=== PATIENT | male | born 1935 | race Caucasian/White ===

== ENCOUNTER 2020-07-16 01:36 | Observation (INO) | payer MEDICARE, OTHER ==
[2020-07-16] MEDS ORDERED: ONDANSETRON 4 MG/2 ML VIAL IVP STA (01:56)
[2020-07-16] MEDS ORDERED: SODIUM CHLORIDE 0.9% 1,000 ML IV STA ×2 (01:56)
--- NOTE | 2020-07-16 01:57 | ED ---
Weakness HPI - General Stated complaint: Vomiting, diarrhea Time Seen by Provider: 07/16/20 01:47 Source: RN notes reviewed, old records reviewed Limitations: no limitations - History of Present Illness Initial comments: This is a 5-year-old male poor story coming in for persistent nausea vomiting weakness vomiting blood and dark stools. Patient is on blood thinners no unknown, history is limited secondary active vomiting of condition. History obtained from patient's who is at bedside. MD Complaint: generalized weakness -: days(s) Location: generalized Severity: severe Severity scale (1-10): 10 Quality: constant Consistency: constant Improves with: none Worsens with: none Context: recent illness Associated Symptoms: confusion, loss of appetite, nausea/vomiting, shortness of breath - Related Data Allergies Allergy/AdvReac Type Severity Reaction Status Date / Time acetaminophen [From Percocet] Allergy Unknown Verified 07/16/20 02:28 celecoxib [From Celebrex] Allergy Confusion Verified 07/16/20 02:28 nabumetone [From Relafen] Allergy Rash/Hives Verified 07/16/20 02:28 oxycodone [From Percocet] Allergy Unknown Verified 07/16/20 02:28 pantoprazole [From Protonix] Allergy Unknown Verified 07/16/20 02:28 haloperidol [From Haldol] AdvReac Anaphylaxis Verified 07/16/20 02:28 Review of Systems ROS Statement: Those systems with pertinent positive or pertinent negative responses have been documented in the HPI. ROS Other: All systems not noted in ROS Statement are negative. General Exam General appearance: alert, anxious, in distress Head exam: Present: atraumatic, normocephalic, normal inspection Eye exam: Present: normal appearance, PERRL, EOMI. Absent: scleral icterus, conjunctival injection, periorbital swelling ENT exam: Present: normal exam, mucous membranes dry Neck exam: Present: normal inspection. Absent: tenderness, meningismus, lymphadenopathy Respiratory exam: Present: normal lung sounds bilaterally. Absent: respiratory distress, wheezes, rales, rhonchi, stridor Cardiovascular Exam: Present: normal rhythm, tachycardia, normal heart sounds. Absent: systolic murmur, diastolic murmur, rubs, gallop, clicks GI/Abdominal exam: Present: soft, normal bowel sounds. Absent: distended, tenderness, guarding, rebound, rigid Extremities exam: Present: normal inspection, full ROM, normal capillary refill. Absent: tenderness, pedal edema, joint swelling, calf tenderness Back exam: Present: normal inspection Neurological exam: Present: alert, oriented X3, CN II-XII intact Psychiatric exam: Present: normal affect, normal mood Skin exam: Present: warm, dry, intact, normal color. Absent: rash Course Vital Signs 07/16/20 01:56 Temperature 98.8 F Pulse Rate 103 H Respiratory 18 Rate Blood Pressure 194/75 O2 Sat by Pulse 93 L Oximetry - Reevaluation(s) Reevaluation #1: 07/16/20 02:15 Medical record is reviewed Reevaluation #2: 07/16/20 03:12 Patient does have mild improvement in symptoms currently Reevaluation #3: 07/16/20 03:12 Patient family informed results EKG Findings - EKG Comments: EKG Findings:: EKG shows sinus a 94, MA 136 QRS 82 QTC 440 Medical Decision Making - Medical Decision Making 85 male DF for evaluation of weakness persistent nausea vomiting possible blood in stool, patient has normal hemoglobin no need for transfusion for signs are stable symptoms as her proved. Patient will be admitted for GI bleed versus intractable nausea vomiting with weakness - Lab Data Result diagrams: 07/16/20 01:56 07/16/20 01:56 Lab Results 07/16/20 07/16/20 07/16/20 Range/Units 01:56 01:56 01:56 WBC 9.0 (3.8-10.6) k/uL RBC 4.09 L (4.30-5.90) m/uL Hgb 11.8 L (13.0-17.5) gm/dL Hct 37.3 L (39.0-53.0) % MCV 91.2 (80.0-100.0) fL MCH 28.7 (25.0-35.0) pg MCHC 31.5 (31.0-37.0) g/dL RDW 14.1 (11.5-15.5) % Plt Count 280 (150-450) k/uL MPV 6.8 Neutrophils % 95 % Lymphocytes % 2 % Monocytes % 2 % Eosinophils % 1 % Basophils % 0 % Neutrophils # 8.5 H (1.3-7.7) k/uL Lymphocytes # 0.2 L (1.0-4.8) k/uL Monocytes # 0.2 (0-1.0) k/uL Eosinophils # 0.1 (0-0.7) k/uL Basophils # 0.0 (0-0.2) k/uL PT 11.1 (9.0-12.0) sec INR 1.1 (<1.2) APTT 22.3 (22.0-30.0) sec Sodium 139 (137-145) mmol/L Potassium 4.8 (3.5-5.1) mmol/L Chloride 103 (98-107) mmol/L Carbon Dioxide 25 (22-30) mmol/L Anion Gap 11 mmol/L BUN 38 H (9-20) mg/dL Creatinine 1.20 (0.66-1.25) mg/dL Est GFR (CKD-EPI)AfAm 64 (>60 ml/min/1.73 sqM) Est GFR (CKD-EPI)NonAf 55 (>60 ml/min/1.73 sqM) Glucose 199 H (74-99) mg/dL Plasma Lactic Acid Joseph (0.7-2.0) mmol/L Calcium 9.3 (8.4-10.2) mg/dL Phosphorus 3.7 (2.5-4.5) mg/dL Magnesium 1.7 (1.6-2.3) mg/dL Total Bilirubin 0.7 (0.2-1.3) mg/dL AST 23 (17-59) U/L ALT 11 (4-49) U/L Alkaline Phosphatase 73 (38-126) U/L Lactate Dehydrogenase 484 (313-618) U/L Creatine Kinase 36 L (55-170) U/L C-Reactive Protein 25.7 H (<10.0) mg/L Total Protein 7.3 (6.3-8.2) g/dL Albumin 4.0 (3.5-5.0) g/dL 07/16/20 Range/Units 01:56 WBC (3.8-10.6) k/uL RBC (4.30-5.90) m/uL Hgb (13.0-17.5) gm/dL Hct (39.0-53.0) % MCV (80.0-100.0) fL MCH (25.0-35.0) pg MCHC (31.0-37.0) g/dL RDW (11.5-15.5) % Plt Count (150-450) k/uL MPV Neutrophils % % Lymphocytes % % Monocytes % % Eosinophils % % Basophils % % Neutrophils # (1.3-7.7) k/uL Lymphocytes # (1.0-4.8) k/uL Monocytes # (0-1.0) k/uL Eosinophils # (0-0.7) k/uL Basophils # (0-0.2) k/uL PT (9.0-12.0) sec INR (<1.2) APTT (22.0-30.0) sec Sodium (137-145) mmol/L Potassium (3.5-5.1) mmol/L Chloride (98-107) mmol/L Carbon Dioxide (22-30) mmol/L Anion Gap mmol/L BUN (9-20) mg/dL Creatinine (0.66-1.25) mg/dL Est GFR (CKD-EPI)AfAm (>60 ml/min/1.73 sqM) Est GFR (CKD-EPI)NonAf (>60 ml/min/1.73 sqM) Glucose (74-99) mg/dL Plasma Lactic Acid Joseph 3.1 H* (0.7-2.0) mmol/L Calcium (8.4-10.2) mg/dL Phosphorus (2.5-4.5) mg/dL Magnesium (1.6-2.3) mg/dL Total Bilirubin (0.2-1.3) mg/dL AST (17-59) U/L ALT (4-49) U/L Alkaline Phosphatase (38-126) U/L Lactate Dehydrogenase (313-618) U/L Creatine Kinase (55-170) U/L C-Reactive Protein (<10.0) mg/L Total Protein (6.3-8.2) g/dL Albumin (3.5-5.0) g/dL - Radiology Data Radiology results: report reviewed (X-ray abdominal series and chest is negative for acute disease), image reviewed Disposition Clinical Impression: Dehydration, Gastroenteritis, Nausea & vomiting, Weakness, GI bleed Disposition: ADMITTED IP TO THIS HOSP Condition: Fair Is patient prescribed a controlled substance at d/c from ED?: No Referrals: None,Stated [Primary Care Provider] - 1-2 days
[2020-07-16] MEDS ORDERED: ACETAMINOPHEN IV (For NPO) 1,000 MG in EMPTY BAG 1 BAG IVPB STA (02:10)
[2020-07-16] MEDS ORDERED: LORazepam 2 MG/ML INJ IV STA (02:10)
[2020-07-16 02:30] LABS: Basophils % (A) 0 %; Eosinophils # (A) 0.1 k/uL (0-0.7); Eosinophils % (A) 1 %; HCT 37.3 % (39.0-53.0); HGB 11.8 gm/dL (13.0-17.5); Lymphocytes # (A) 0.2 k/uL (1.0-4.8); Lymphocytes % (A) 2 %; MCH 28.7 pg (25.0-35.0); MCHC 31.5 g/dL (31.0-37.0); MCV 91.2 fL (80.0-100.0); Mean Platelet Volume 6.8; Monocytes # (A) 0.2 k/uL (0-1.0); Monocytes % (A) 2 %; Neutrophils # (A) 8.5 k/uL (1.3-7.7); Neutrophils % (A) 95 %; Platelet Count 280 k/uL (150-450); RBC 4.09 m/uL (4.30-5.90); RDW 14.1 % (11.5-15.5)
[2020-07-16 02:40] LABS: INR 1.1 (<1.2); Partial Thromboplastin Time 22.3 sec (22.0-30.0); Prothrombin Time 11.1 sec (9.0-12.0)
--- NOTE | 2020-07-16 03:02 | XR ---
EXAM: XR Abdomen, 2 Views and XR Chest, 1 View CLINICAL HISTORY: ITS.REASON XR Reason: nv TECHNIQUE: Frontal view of the chest, frontal view of the abdomen/pelvis and upright or decubitus view of the abdomen. COMPARISON: No relevant prior studies available. FINDINGS: Lungs: Multiple tiny nodular high-density material in the right lung base. Calcified granuloma right lung apex. Pleural space: No effusion. Heart: No cardiomegaly. Mediastinum: Unremarkable. Intraperitoneal space: No free air. Gastrointestinal tract: Unremarkable. No dilation. Bones/joints: No acute fracture. No dislocation. Nonspecific sclerotic focus measuring 2.4 cm in the right iliac crest. Prior lumbar fusion. IMPRESSION: Multiple tiny nodular high-density material in the right lung base. Possibly aspiration. Nonspecific sclerotic focus measuring 2.4 cm in the right iliac crest. Consider outpatient bone scan or cross-sectional imaging.
[2020-07-16 03:05] LABS: C Reactive Protein 25.7 mg/L (<10.0); Calcium 9.3 mg/dL (8.4-10.2); Magnesium 1.7 mg/dL (1.6-2.3); Phosphorus 3.7 mg/dL (2.5-4.5); Potassium 4.8 mmol/L (3.5-5.1); Total Bilirubin 0.7 mg/dL (0.2-1.3); Total Protein 7.3 g/dL (6.3-8.2)
[2020-07-16] MEDS ORDERED: NALOXONE 0.4 MG/ML 1 ML VIAL IV PRN (03:10)
[2020-07-16] MEDS ORDERED: MORPHINE SULFATE 4 MG/ML SYRINGE IV PRN (03:10)
[2020-07-16] MEDS ORDERED: LORazepam 2 MG/ML INJ IV PRN (03:10)
[2020-07-16] MEDS ORDERED: ONDANSETRON 4 MG/2 ML VIAL IVP PRN (03:10)
[2020-07-16] MEDS: SODIUM CHLORIDE 0.9% 1,000 ML IV SCH ×2 (05:40→14:49)
[2020-07-16] MEDS ORDERED: PANTOPRAZOLE 40 MG/10 ML VIAL IV SCH (09:00)
[2020-07-16 09:39] VITALS: BMI 22.6
--- NOTE | 2020-07-16 10:25 | CONS ---
CONSULTATION CHIEF COMPLAINT: Elevated troponin. Shivam Nixon is an 85-year-old gentleman with history of CVA, dyslipidemia, COPD, who is admitted to the hospital with nausea, vomiting and abdominal pain and Cardiology had been consulted because of elevated troponin. His troponin came back elevated this morning at 0.067. An EKG shows sinus rhythm with ST-T wave changes suggestive of subendocardial ischemia. The coronavirus test is negative. There is no prior history of coronary artery disease. At the time of my evaluation, patient denies any chest pain or difficulty in breathing. His abdominal discomfort has improved. PAST MEDICAL HISTORY: Significant for CVA. ALLERGIES: He has multiple drug allergies. They are charted and I reviewed them. MEDICATIONS: Medications at home include Zocor, Neurontin, Lexapro, Prinivil, Pepcid, Plavix, DuoNeb, Singulair. FAMILY HISTORY: Negative for premature coronary artery disease. SOCIAL HISTORY: Negative for current smoking, EtOH abuse, or drug abuse. REVIEW OF SYSTEMS: HEENT is unremarkable. CARDIAC: As described above. RESPIRATORY: Negative. GI: Negative. GENITOURINARY: Negative. ALLERGY/IMMUNOLOGY: Negative. SKIN: Negative. NEUROLOGICAL: Significant for slight dysarthria. PSYCHOSOCIAL: Negative. ENDOCRINE: Negative. BLOOD: Negative. DERM: Negative. GI: Significant for nausea, vomiting, abdominal pain and melenic stools. PHYSICAL EXAMINATION: On exam, he is comfortable at rest. Afebrile. Heart rate is 55 beats per minute. Blood pressure is 107/50. Respiratory rate is 18. O2 saturation is 98% on 3 L. There is no jugular venous distention. Chest exam reveals good air entry bilaterally. Heart exam reveals first and second heart sounds and a systolic murmur at the left lower sternal border. Abdomen is soft. Examination of extremities did not reveal any edema. Peripheral pulses are felt. LABS: Labs show a hemoglobin of 11.8, platelet count is 280. Potassium is 4.8. Creatinine is 1.2. BNP is 1940. Troponin is mildly elevated. Coronavirus is negative. ASSESSMENT: 1. Elevated troponin, could be due to a small non ST-segment elevation myocardial infarction. 2. Nausea, vomiting, abdominal pain and melenic stools. 3. History of cerebrovascular accident. PLAN: Patient is not a candidate for any invasive procedures at this time. He is stable clinically. Does not have chest pain. I will obtain a 2D echo to assess his LV function and wall motion. Please resume the beta claude, RD inhibitor, and statin that he is on. Hold the Plavix while we were trying to figure out about GI bleed. Thank you for giving us the privilege to participate in the care of this pleasant gentleman. SANDY / [place]: [id number] /
--- NOTE | 2020-07-16 11:00 | ECHOF ---
Referral Reason:elevated troponin, history of stroke MEASUREMENTS -------- HEIGHT: 167.6 cm WEIGHT: 63.5 kg BP: RVIDd: 2.3 cm (< 3.3) IVSd: 1.3 cm (0.6 - 1.1) LVIDd: 4.0 cm (3.9 - 5.3) LVPWd: 1.5 cm (0.6 - 1.1) IVSs: 2.1 cm LVIDs: 2.2 cm LVPWs: 2.0 cm LAESV Index (A-L): 33.68 ml/m Ao Diam: 3.4 cm (2.0 - 3.7) AV Cusp: 2.3 cm (1.5 - 2.6) LA Diam: 3.5 cm (2.7 - 3.8) MV EXCURSION: 14.577 mm (> 18.000) MV EF SLOPE: 47 mm/s (70 - 150) EPSS: 0.5 cm MV E Greg: 0.95 m/s MV DecT: 289 ms MV A Greg: 1.01 m/s MV E/A Ratio: 0.94 RAP: 5.00 mmHg RVSP: 12.60 mmHg FINDINGS -------- This was a technically good study. The left ventricular size is normal. There is moderate concentric left ventricular hypertrophy. O verall left ventricular systolic function is normal with, an EF between 55 - 60 %. Normal LAP Grade 1 Diastolic Dysfunction. The right ventricle is normal in size. LA is midly dilated 29-33ml/m2. The right atrial size is normal. Interatrial and interventricular septum intact. Aortic valve is trileaflet and is mildly thickened. The mitral valve is normal. The mitral valve leaflets are mildly thickened. Mild mitral regurgita tion is present. The tricuspid valve appears structurally normal. Trace tricuspid regurgitation present. Right griffin tricular systolic pressure is normal at < 35 mmHg. The pulmonic valve is normal. The aortic root size is normal. IVC Not well visulized. There is no pericardial effusion. CONCLUSIONS -------- 1. The left ventricular size is normal. 2. There is moderate concentric left ventricular hypertrophy. 3. Overall left ventricular systolic function is normal with, an EF between 55 - 60 %. 4. Normal LAP Grade 1 Diastolic Dysfunction. 5. LA is midly dilated 29-33ml/m2. 6. Aortic valve is trileaflet and is mildly thickened. 7. The mitral valve leaflets are mildly thickened. 8. Mild mitral regurgitation is present. 9. Trace tricuspid regurgitation present. 10. There is no pericardial effusion. NATURAL RESOURCES SPECIALIST: Elvira Griffith RDCS
[2020-07-16] MEDS ORDERED: ACETAMINOPHEN TAB 325 MG TAB PO PRN (11:56)
--- NOTE | 2020-07-16 13:07 | P.HPIM ---
History of Present Illness Patient came in with nausea vomiting appears to have gastritis above because of disease improved with Protonix. There is concern that the patient may be having dark stools although patient doesn't have any stools since admission here patient is also found to have mildly elevated troponins, at range of 0.067 and 0.071 cardiology evaluated the patient not recommending any further intervention at this time patient also has lactic acidosis which resolved with IV fluids. Patient didn't have any stools since admission. Patient hemoglobin 11.8 do not have any previous hemoglobin. Patient is presently a 3 L oxygen saturating 98% although her lungs are clear. Cardiology evaluated for elevated troponins not recommending any further intervention at this time. Review of Systems REVIEW OF SYSTEMS: CONSTITUTIONAL: No fever, no malaise, no fatigue. HEENT: No recent visual problems or hearing problems. Denied any sore throat. CARDIOVASCULAR: No chest pain, orthopnea, PND, no palpitations, no syncope. PULMONARY: No shortness of breath, no cough, no hemoptysis. GASTROINTESTINAL: As mentioned in HPI NEUROLOGICAL: No headaches, no weakness, no numbness. HEMATOLOGICAL: Denies any bleeding or petechiae. GENITOURINARY: Denies any burning micturition, frequency, or urgency. MUSCULOSKELETAL/RHEUMATOLOGICAL: Denies any joint pain, swelling, or any muscle pain. ENDOCRINE: Denies any polyuria or polydipsia. The rest of the 14-point review of systems is negative. Past Medical History Past Medical History: CVA/TIA, Eye Disorder, Hypertension, Pneumonia Additional Past Medical History / Comment(s): low iron, kidney stones, thyroid tumor, chronic cough. CVA with left deficits History of Any Multi-Drug Resistant Organisms: None Reported Past Surgical History: Orthopedic Surgery Additional Past Surgical History / Comment(s): carotid stenosis with a endarterectomy, no stent, laminectomy, cervical surgery on fentanyl for pst 10 years for back pain . right knee surgery Past Anesthesia/Blood Transfusion Reactions: Previous Problems w/ Anesthesia Additional Past Anesthesia/Blood Transfusion Reaction / Comment(s): hard to come out anethesia non specific problems with anethesia also ureter repair after kidney stones passed Past Psychological History: No Psychological Hx Reported Smoking Status: Former smoker, Unknown if ever smoked Past Alcohol Use History: None Reported Past Drug Use History: None Reported - Past Family History Son(s) Family Medical History: Cancer Additional Family Medical History / Comment(s): leukemia Medications and Allergies Home Medications Medication Instructions Recorded Confirmed Type Cetirizine HCl 10 mg PO DAILY 07/16/20 07/16/20 History Clopidogrel Bisulfate [Plavix] 75 mg PO DAILY 07/16/20 07/16/20 History Escitalopram [Lexapro] 10 mg PO DAILY 07/16/20 07/16/20 History Famotidine [Pepcid] 40 mg PO DAILY 07/16/20 07/16/20 History Gabapentin [Neurontin] 100 mg PO TID 07/16/20 07/16/20 History Ipratropium-Albuterol Nebulize 3 ml INHALATION RT-TID 07/16/20 07/16/20 History [Duoneb 0.5 mg-3 mg/3 ml Soln] Lisinopril [Prinivil] 10 mg PO DAILY 07/16/20 07/16/20 History Metoclopramide [Reglan] 10 mg PO TID 07/16/20 07/16/20 History Mirabegron [Myrbetriq] 25 mg PO DAILY 07/16/20 07/16/20 History Montelukast [Singulair] 10 mg PO DAILY 07/16/20 07/16/20 History Simvastatin [Zocor] 20 mg PO DAILY 07/16/20 07/16/20 History fentaNYL 75MCG/HR PATCH [Duragesic 1 patch TRANSDERM Q48H 07/16/20 07/16/20 History 75MCG/HR] Allergies Allergy/AdvReac Type Severity Reaction Status Date / Time celecoxib [From Celebrex] Allergy Confusion Verified 07/16/20 06:39 nabumetone [From Relafen] Allergy Rash/Hives Verified 07/16/20 06:39 oxycodone [From Percocet] Allergy Unknown Verified 07/16/20 06:39 pantoprazole [From Protonix] Allergy Unknown Verified 07/16/20 06:39 haloperidol [From Haldol] AdvReac Anaphylaxis Verified 07/16/20 06:39 Physical Exam Vitals: Vital Signs Temp Pulse Pulse Resp BP BP Pulse Ox 07/16/20 07:28 97.9 F 55 L 16 107/52 98 07/16/20 06:12 15 07/16/20 04:28 97.5 F L 59 L 100/32 97 07/16/20 03:43 90 16 94/54 93 L 07/16/20 01:56 98.8 F 103 H 18 194/75 93 L Intake and Output 07/15/20 07/16/20 07/16/20 22:59 06:59 14:59 Intake Total 100 Balance 100 Intake: Intake, IV Titration 100 Amount Sodium Chloride 0.9% 1, 100 000 ml @ 100 mls/hr IV . Q10H [facility] Rx#:[id number] Other: Weight 63.503 kg 63.503 kg PHYSICAL EXAMINATION: GENERAL: The patient is alert and oriented x3, not in any acute distress. Well developed, well nourished. HEENT: Pupils are round and equally reacting to light. EOMI. No scleral icterus. No conjunctival pallor. Normocephalic, atraumatic. No pharyngeal erythema. No thyromegaly. CARDIOVASCULAR: S1 and S2 present. No murmurs, rubs, or gallops. PULMONARY: Chest is clear to auscultation, no wheezing or crackles. ABDOMEN: Soft, nontender, nondistended, normoactive bowel sounds. No palpable organomegaly. MUSCULOSKELETAL: No joint swelling or deformity. EXTREMITIES: No cyanosis, clubbing, or pedal edema. NEUROLOGICAL: Gross neurological examination did not reveal any focal deficits. SKIN: No rashes. Results CBC & Chem 7: 07/16/20 01:56 07/16/20 01:56 Labs: Abnormal Lab Results - Last 24 Hours (Table) 07/16/20 07/16/20 07/16/20 Range/Units 01:56 01:56 01:56 RBC 4.09 L (4.30-5.90) m/uL Hgb 11.8 L (13.0-17.5) gm/dL Hct 37.3 L (39.0-53.0) % Neutrophils # 8.5 H (1.3-7.7) k/uL Lymphocytes # 0.2 L (1.0-4.8) k/uL BUN 38 H (9-20) mg/dL Glucose 199 H (74-99) mg/dL Plasma Lactic Acid Joseph 3.1 H* (0.7-2.0) mmol/L Creatine Kinase 36 L (55-170) U/L Troponin I (0.000-0.034) ng/mL C-Reactive Protein 25.7 H (<10.0) mg/L 07/16/20 07/16/20 Range/Units 05:34 09:43 RBC (4.30-5.90) m/uL Hgb (13.0-17.5) gm/dL Hct (39.0-53.0) % Neutrophils # (1.3-7.7) k/uL Lymphocytes # (1.0-4.8) k/uL BUN (9-20) mg/dL Glucose (74-99) mg/dL Plasma Lactic Acid Joseph (0.7-2.0) mmol/L Creatine Kinase (55-170) U/L Troponin I 0.067 H* 0.071 H* (0.000-0.034) ng/mL C-Reactive Protein (<10.0) mg/L Thrombosis Risk Factor Assmnt - Choose All That Apply Any of the Below Risk Factors Present?: Yes Each Factor Represents 1 point: Medical pt on bed rest Other Risk Factors: No Other congenital or acquired thrombophilia - If yes, enter type in comment: No Thrombosis Risk Factor Assessment Total Risk Factor Score: 1 Thrombosis Risk Factor Assessment Level: Low Risk Assessment and Plan Plan: -Nausea vomiting: Secondary to peptic acid disease or gastritis. Patient will be continued on Protonix patient's symptoms improved possibly of discharge tomorrow so far I didn't see any clinical evidence of GI bleed at this time. -Elevated troponins: Secondary to acute renal failure. I do not believe patient has acute myocardial infarction. Patient had an echocardiogram which showed normal ejection fraction with grade 1 diastolic dysfunction -Hypertension -Depression -Acute failure: Secondary to nausea vomiting continue with IV fluids need to monitor for any heart failure exacerbation considering his grade 1 diastolic dysfunction -Hyperlipidemia. -DVT to prophylaxis with Lovenox
--- NOTE | 2020-07-16 14:39 | XR ---
EXAMINATION TYPE: XR chest 2V DATE OF EXAM: 07/16/2020 COMPARISON: Chest x-ray same dated earlier time HISTORY: Shortness of breath TECHNIQUE: Frontal and lateral views of the chest are obtained. FINDINGS: Multiple metallic densities present in the right lower lobe may represent aspirated area b ut are indeterminate, correlate. Patchy basilar density is noted. Prominent lung volumes suggest unde rlying COPD. No evident pleural effusion. Cardiac mediastinal silhouette is within normal limits. Aor ta is dense. Patient is rotated. Possible calcified granuloma right upper lobe. IMPRESSION: Correlate for possible pneumonia, history of aspiration
[2020-07-16] MEDS: METOCLOPRAMIDE 10 MG TAB PO SCH ×2 (16:00→20:50)
[2020-07-16] MEDS: GABAPENTIN 100 MG CAP PO SCH ×2 (16:01→20:50)
[2020-07-16] MEDS: SODIUM FERRIC GLUCONAT-SUCROSE 125 MG in SODIUM CHLORIDE 0.9% 100 ML IVPB SCH (20:49)
[2020-07-16] MEDS: PANTOPRAZOLE 40 MG/10 ML VIAL IV SCH (20:50)
[2020-07-17] MEDS: SODIUM CHLORIDE 0.9% 1,000 ML IV SCH ×3 (00:15→16:55)
[2020-07-17] MEDS ORDERED: FAMOTIDINE 20 MG TAB PO SCH (09:00)
[2020-07-17] MEDS: PANTOPRAZOLE 40 MG/10 ML VIAL IV SCH ×2 (09:01→22:29)
[2020-07-17] MEDS: GABAPENTIN 100 MG CAP PO SCH ×3 (09:02→22:29)
[2020-07-17] MEDS: METOCLOPRAMIDE 10 MG TAB PO SCH ×3 (09:02→22:29)
[2020-07-17] MEDS: MONTELUKAST 10 MG TAB PO SCH (09:02)
[2020-07-17] MEDS: ATORVASTATIN 10 MG TAB PO SCH (09:02)
[2020-07-17] MEDS: LORATADINE 10 MG TAB PO SCH (09:02)
[2020-07-17] MEDS: ESCITALOPRAM 10 MG TAB PO SCH (09:03)
[2020-07-17] MEDS: SODIUM FERRIC GLUCONAT-SUCROSE 125 MG in SODIUM CHLORIDE 0.9% 100 ML IVPB SCH (10:02)
[2020-07-17 12:32] LABS: Albumin 2.7 g/dL (3.5-5.0); Magnesium 1.8 mg/dL (1.6-2.3); Phosphorus 3.2 mg/dL (2.5-4.5); Potassium 4.3 mmol/L (3.5-5.1); Total Bilirubin 0.3 mg/dL (0.2-1.3); Total Protein 5.5 g/dL (6.3-8.2)
[2020-07-17 12:41] LABS: Basophils % (A) 0 %; Eosinophils # (A) 0.1 k/uL (0-0.7); Eosinophils % (A) 3 %; HCT 27.6 % (39.0-53.0); Hypochromasia Slight; Lymphocytes # (A) 0.5 k/uL (1.0-4.8); Lymphocytes % (A) 10 %; MCH 29.5 pg (25.0-35.0); MCHC 31.5 g/dL (31.0-37.0); MCV 93.6 fL (80.0-100.0); Mean Platelet Volume 7.2; Monocytes # (A) 0.2 k/uL (0-1.0); Monocytes % (A) 4 %; Neutrophils # (A) 3.6 k/uL (1.3-7.7); Neutrophils % (A) 81 %; Platelet Count 190 k/uL (150-450); RBC 2.95 m/uL (4.30-5.90); RDW 14.2 % (11.5-15.5); WBC 4.4 k/uL (3.8-10.6)
[2020-07-17 12:42] LABS: HGB 8.7 gm/dL (13.0-17.5)
--- NOTE | 2020-07-17 13:53 | P.PN ---
Subjective Progress Note Date: 07/17/20 HISTORY OF PRESENT ILLNESS: Patient examined this morning at the bedside. Patient denies chest pain or pressure. He denies shortness of breath. Patient's Plavix remains on hold. He he is awaiting GI evaluation. Hemoglobin 8.7 today. Echocardiogram completed reveals ejection fraction 55-60%, mild mitral regurgitation, and trace tricuspid regurgitation. PHYSICAL EXAM: VITAL SIGNS: Reviewed. GENERAL: Well-developed in no acute distress. NECK: Supple. No JVD or thyromegaly LUNGS: Respirations even and unlabored. Lungs essentially clear to auscultation bilaterally. HEART: Regular rate and rhythm. S1 and S2 heard. Systolic murmur noted. EXTREMITIES: Normal range of motion. No clubbing or cyanosis. Peripheral pulses intact. No lower extremity edema ASSESSMENT: Nausea, vomiting, abdominal pain, and melanotic stools History of CVA Abnormal troponin, no evidence of acute coronary syndrome, NSTEMI unlikely PLAN: Continue atorvastatin Continue to hold Plavix. Resume when okay with GI service Patient is currently stable from a cardiac standpoint. We will sign off. He is to follow up outpatient. Nurse practitioner note has been reviewed by physician. Signing provider agrees with the documented findings, assessment, and plan of care. Objective - Vital Signs Vital signs: Vital Signs Temp 99.3 F 07/17/20 08:44 Pulse 61 07/17/20 08:44 Resp 16 07/17/20 08:44 BP 132/63 07/17/20 08:44 Pulse Ox 90 L 07/17/20 08:44 Intake & Output 07/16/20 07/17/20 07/17/20 18:59 06:59 18:59 Intake Total 1400 Balance 1400 Weight 63.503 kg Intake: Intake, IV Titration 1300 Amount Sodium Chloride 0.9% 1, 1200 000 ml @ 100 mls/hr IV . Q10H [facility] Rx#:[id number] Sodium Ferric Gluconat- 100 Sucrose 125 mg In Sodium Chloride 0.9% 100 ml @ 100 mls/hr IVPB DAILY@ 1200 [facility] Rx#:[id number] Blood Product 100 Other: # Voids 1 2 - Labs CBC & Chem 7: 07/17/20 09:54 07/17/20 09:54 Labs: Abnormal Lab Results - Last 24 Hours (Table) 04/15/21 04/15/21 Range/Units 09:54 09:54 RBC 2.95 L (4.30-5.90) m/uL Hgb 8.7 L D (13.0-17.5) gm/dL Hct 27.6 L (39.0-53.0) % Lymphocytes # 0.5 L (1.0-4.8) k/uL Chloride 110 H (98-107) mmol/L BUN 33 H (9-20) mg/dL Glucose 106 H (74-99) mg/dL Calcium 8.0 L (8.4-10.2) mg/dL Total Protein 5.5 L (6.3-8.2) g/dL Albumin 2.7 L (3.5-5.0) g/dL
--- NOTE | 2020-07-17 14:31 | XR ---
Left elbow HISTORY: Pain 3 views left elbow on 5 images Patient is unable to straighten the arm, exam is limited for evaluation. No evident fracture or dislo cation. Bone mineralization is maintained. There is some hypertrophic changes present, likely underly ing osteoarthritic change. IMPRESSION: Evaluation somewhat limited. CT or MRI may be of benefit. Probable osteoarthritic changes .
[2020-07-17 16:00] LABS: % Iron Saturation 51.02 (15.00-50.00); Folate, Serum >24.0 ng/mL; Iron 100 ug/dL (65-175); Total Iron Binding Capacity 196 ug/dL (228-460)
--- NOTE | 2020-07-17 16:41 | CONS ---
CONSULTATION DATE OF DICTATION: July 17, 2020. REASON FOR CONSULTATION: Nausea, vomiting for the last one week duration. HISTORY OF PRESENT ILLNESS: The patient is an 85-year-old pleasant white male admitted to the hospital with some abdominal discomfort, persistent nausea, some episodes of emesis on and off for the last few days duration. According to the patient, he has been having these symptoms for the last 3 or 4 days, but since being in the hospital symptoms have significantly improved. As per the nursing staff, no emesis noted. The patient is a very poor historian. Most of the history was obtained from the patient's chart. He denies any abdominal pain. His initial hemoglobin was 11.8 and subsequently dropped to 8.5 g/dL. He was also noted to have slightly elevated troponin. Cardiology has been consulted who believes that the patient had a [id number] TN and being managed medically. PAST MEDICAL HISTORY: Significant for CVA in the past, history of hypertension, hyperlipidemia, COPD. MEDICATIONS: Medications at home include Zocor, Neurontin, Lexapro, , Pepcid, Plavix, DuoNeb, and Singulair. ALLERGIES: CELEBREX, RELAFEN, PERCOCET, PROTONIX and HALDOL. SOCIAL HISTORY: No smoking. No alcohol use. FAMILY HISTORY: Unremarkable. PAST SURGICAL HISTORY: EGD many years ago and was diagnosed with peptic ulcer disease. Last colonoscopy was 2 years ago in [place]. He had a back surgery, cervical surgery, right knee surgery and carotid endarterectomy. REVIEW OF SYSTEMS: CARDIOPULMONARY: He denies any chest pain or shortness of breath. GENITOURINARY: No dysuria or hematuria. MUSCULOSKELETAL: Denies any symptoms. NEUROLOGY: Unremarkable. PSYCHIATRIC: Unremarkable. ENT/VISION: Unremarkable. CONSTITUTIONAL: No recent weight loss. No fever, chills, night sweats. PHYSICAL EXAMINATION: He appears comfortable, no apparent distress. Vital signs are stable. Blood pressure is 132/62, pulse rate 61, temperature 99.3. HEENT EXAMINATION: Unremarkable. Conjunctivae pink. Sclerae anicteric. Oral cavity no lesions. NECK: No JVD or lymph node enlargement. CHEST: Was clear to auscultation. HEART: Regular rate and rhythm. ABDOMEN: Soft. Bowel sounds are positive. No organomegaly. There was mild tenderness in the epigastric area. EXTREMITIES: No pedal edema. SKIN: No rashes. NEUROLOGIC: Alert and oriented x3. No focal deficits. LABS: WBC 4.2, hemoglobin 8.7, platelets are normal. Basic metabolic panel, BUN 33, creatinine 1.25. Troponin 0.071. IMPRESSION: 1. Epigastric pain associated with nausea, vomiting for the last 2 or 3 days duration. Symptoms are gradually improving. Remote history of peptic ulcer disease many years ago. He dropped his hemoglobin from 11.8 to 8.7 g/dL but clinically no evidence of active bleeding. Rule out possibility of peptic ulcer disease. 2. Elevated troponin. Cardiology following the patient closely, diagnosed him with non ST-segment elevated myocardial infarction and recommended conservative approach and avoid invasive procedures. 3. History of cerebrovascular accident in the past. 4. History of hypertension and hyperlipidemia. RECOMMENDATION: 1. Continue with Protonix 40 mg twice daily. 2. Advance diet as tolerated. 3. Resume aspirin and Plavix. 4. No plans on any endoscopic intervention at the present time. If the patient has persistent symptoms despite symptomatic therapy, we will consider an upper endoscopy in 2 weeks. Thank you for this consultation. MMODL / IJN: [id number] /
[2020-07-17 21:55] LABS: Ferritin 249.1 ng/mL (22.0-322.0)
[2020-07-18 08:05] VITALS: BP 185/72; PULSE 57; RESP 16; TEMP 98
[2020-07-18] MEDS: GABAPENTIN 100 MG CAP PO SCH (08:55)
[2020-07-18] MEDS: MONTELUKAST 10 MG TAB PO SCH (08:55)
[2020-07-18] MEDS: LORATADINE 10 MG TAB PO SCH (08:55)
[2020-07-18] MEDS: ATORVASTATIN 10 MG TAB PO SCH (08:55)
[2020-07-18] MEDS: ESCITALOPRAM 10 MG TAB PO SCH (08:56)
[2020-07-18] MEDS: PANTOPRAZOLE 40 MG/10 ML VIAL IV SCH (08:56)
[2020-07-18] MEDS: METOCLOPRAMIDE 10 MG TAB PO SCH (08:56)
[2020-07-18] MEDS ORDERED: FAMOTIDINE 20 MG TAB PO SCH (09:00)
[2020-07-18] MEDS: SODIUM CHLORIDE 0.9% 1,000 ML IV SCH (09:02)
--- NOTE | 2020-07-18 09:53 | P.DS ---
Providers Date of admission: 07/16/20 03:23 Expected date of discharge: 07/17/20 Attending physician: Willi Trent MD Consults: 07/16/20 19:51 Consult Physician Routine Consulting Provider: Domonique Noav Consult Reason/Comments: possible gi bleed iron deficiency Do you want consulting provider notified?: Already Contacted Primary care physician: Willi Trent MD Hospital Course: Final Diagnoses: Nausea ,vomiting with resulting midepigastric pain with melena, possible gastritis, possible peptic ulcer disease with no signs of active bleeding, in a patient with history of peptic ulcer disease, receiving outpatient Venofer;symptoms improving. GI following. Anemia, secondary to the above. History of iron deficient, receiving outpatient IV iron. Elevated troponins, possibly related to acute renal failure. No acute coronary syndrome, NSTEMI unlikely as per cardiology. EF 55-60%. Acute renal failure, secondary to nausea vomiting. Hypertension Hyperlipidemia History of CVA Multiple tiny nodular high density material in the right lung base, calcified granuloma right lung apex, no prior studies for comparison, further follow-up outpatient Nonspecific sclerotic focus measuring 2.4 cm in the right iliac crest, no prior studies for comparison ,further follow-up outpatient Hospital course: This a 85-year-old gentleman admitted with complaints of nausea vomiting mid epigastric pain 2-3 days with dark stools. Patient reports "abdomen was sore from throwing up"; currently denies abdominal pain. Patient had received outpatient IV iron and is scheduled for 2 or 3 more infusions outpatient with PCP. Received gentle IV fluid hydration, hemoglobin dropped from 11.8-8.7 without evidence of active bleeding. Nausea and vomiting subsided. Denies diarrhea. Evaluated and cleared by cardiology. Echo reported normal LV function, EF 55-60%. Denies chest pain, palpitations or increasing shortness of breath. Patient will be discharged home today pending GI evaluation, recommendations including if cleared to resume Plavix. The impression and plan of care has been dictated as directed. : I performed a history and examination of this patient, discussed the same with the dictator. I agree with the dictator's note ,documented as a scribe. Any additional findings or plans will be noted. Plan - Discharge Summary Discharge Rx Participant: No New Discharge Prescriptions: New Pantoprazole Sodium [Protonix] 40 mg PO DAILY #30 tablet.dr Perkins fentaNYL 75MCG/HR PATCH [Duragesic 75MCG/HR] 1 patch TRANSDERM Q48H Montelukast [Singulair] 10 mg PO DAILY Cetirizine HCl 10 mg PO DAILY Mirabegron [Myrbetriq] 25 mg PO DAILY Gabapentin [Neurontin] 100 mg PO TID Clopidogrel Bisulfate [Plavix] 75 mg PO DAILY Metoclopramide [Reglan] 10 mg PO TID Escitalopram [Lexapro] 10 mg PO DAILY Ipratropium-Albuterol Nebulize [Duoneb 0.5 mg-3 mg/3 ml Soln] 3 ml INHALATION RT-TID Simvastatin [Zocor] 20 mg PO DAILY Discontinued Lisinopril [Prinivil] 10 mg PO DAILY Famotidine [Pepcid] 40 mg PO DAILY Discharge Medication List Cetirizine HCl 10 mg PO DAILY 07/16/20 [History] Clopidogrel Bisulfate [Plavix] 75 mg PO DAILY 07/16/20 [History] Escitalopram [Lexapro] 10 mg PO DAILY 07/16/20 [History] Gabapentin [Neurontin] 100 mg PO TID 07/16/20 [History] Ipratropium-Albuterol Nebulize [Duoneb 0.5 mg-3 mg/3 ml Soln] 3 ml INHALATION RT-TID 07/16/20 [History] Metoclopramide [Reglan] 10 mg PO TID 07/16/20 [History] Mirabegron [Myrbetriq] 25 mg PO DAILY 07/16/20 [History] Montelukast [Singulair] 10 mg PO DAILY 07/16/20 [History] Simvastatin [Zocor] 20 mg PO DAILY 07/16/20 [History] fentaNYL 75MCG/HR PATCH [Duragesic 75MCG/HR] 1 patch TRANSDERM Q48H 07/16/20 [History] Pantoprazole Sodium [Protonix] 40 mg PO DAILY #30 tablet. 07/17/20 [Rx] Follow up Appointment(s)/Referral(s): Willi Trent MD [Primary Care Provider] - 1 Week Kuldip Nova MD [STAFF PHYSICIAN] - 2 Weeks Ambulatory/Diagnostic Orders: Complete Blood Count w/diff [LAB.AMB] Time Frame: 3 Days, Location: None Selected Activity/Diet/Wound Care/Special Instructions: Final DC recommendations ,Anticoagulation, and clearance from both GI and cardiology pending.
== END 2020-07-18 12:08 | disposition home or self-care (01) ==
LOC: EC 01:36 → 1SOBS 03:23
PROVIDERS: ADMIT Family Medicine; ATTEND Family Medicine
DX: R11.2 Nausea with vomiting, unspecified (principal); R10.13 Epigastric pain; K92.1 Melena; D50.9 Iron deficiency anemia, unspecified; N17.9 Acute kidney failure, unspecified; I10 Essential (primary) hypertension; E78.5 Hyperlipidemia, unspecified; I51.9 Heart disease, unspecified; R53.1 Weakness; R41.0 Disorientation, unspecified; R06.02 Shortness of breath; F32.9 Major depressive disorder, single episode, unspecified; I25.10 Atherosclerotic heart disease of native coronary artery without angina pectoris; J44.9 Chronic obstructive pulmonary disease, unspecified; R93.41 Abnormal radiologic findings on diagnostic imaging of renal pelvis, ureter, or bladder; R91.8 Other nonspecific abnormal finding of lung field; Z79.1 Long term (current) use of non-steroidal anti-inflammatories (NSAID); Z79.02 Long term (current) use of antithrombotics/antiplatelets; Z79.899 Other long term (current) drug therapy; Z88.8 Allergy status to other drugs, medicaments and biological substances; Z88.6 Allergy status to analgesic agent; Z88.5 Allergy status to narcotic agent; Z20.822 Contact with and (suspected) exposure to COVID-19; Z87.01 Personal history of pneumonia (recurrent); Z86.73 Personal history of transient ischemic attack (TIA), and cerebral infarction without residual deficits; Z87.891 Personal history of nicotine dependence; Z87.11 Personal history of peptic ulcer disease; Z98.890 Other specified postprocedural states; Z87.442 Personal history of urinary calculi; Z80.6 Family history of leukemia
CPT/HCPCS: 96361 ×3; 96365; 96366 ×2; 96375 ×2; 96376 ×2; 99285; 36415; 93005; 93306; 97116; 97162; 97535; 97166; 86900; 86901; 83880; 80053 ×2; 84443; 82607; 82728; 82550; 82746; 83540; 83550; 83605; 83615; 83690; 83735 ×2; 84100 ×2; 84484; 85025 ×2; 85610; 85045; 85730; 86850; 86140; 87635; 74022; 73080; 71046; G0378 ×3; J2405; J2916 ×2; J0131; C9113 ×3

== ENCOUNTER 2020-08-18 23:01 | Inpatient (IN) | payer MEDICARE, OTHER ==
--- NOTE | 2020-08-18 23:49 | XR ---
EXAMINATION TYPE: XR chest 2V DATE OF EXAM: 08/18/2020 COMPARISON: 07/16/2020 HISTORY: Short of breath TECHNIQUE: 2 views FINDINGS: There is some patchy airspace consolidation in both lower lobes. Heart size is normal. Ther e is no definite heart failure. There are chest leads. There is slight blunting of the costophrenic a ngles. IMPRESSION: Bilateral lower lobe pneumonia appears new compared to old exam. There is extensive amorp hous calcification in the right lower lobe that could relate to old aspiration and appears unchanged.
[2020-08-18 23:55] LABS: Basophils % (A) 0 %; Eosinophils # (A) 0.1 k/uL (0-0.7); Eosinophils % (A) 1 %; HCT 31.7 % (39.0-53.0); HGB 10.3 gm/dL (13.0-17.5); Lymphocytes # (A) 0.4 k/uL (1.0-4.8); Lymphocytes % (A) 4 %; MCHC 32.5 g/dL (31.0-37.0); MCV 92.2 fL (80.0-100.0); Mean Platelet Volume 6.8; Monocytes # (A) 0.2 k/uL (0-1.0); Monocytes % (A) 2 %; Neutrophils # (A) 10.4 k/uL (1.3-7.7); Neutrophils % (A) 92 %; Platelet Count 276 k/uL (150-450); RBC 3.44 m/uL (4.30-5.90); RDW 14.2 % (11.5-15.5); WBC 11.3 k/uL (3.8-10.6)
[2020-08-19 00:06] LABS: Albumin 3.4 g/dL (3.5-5.0); Calcium 8.8 mg/dL (8.4-10.2); Potassium 4.6 mmol/L (3.5-5.1); Total Bilirubin 0.4 mg/dL (0.2-1.3); Total Protein 6.4 g/dL (6.3-8.2)
[2020-08-19 00:11] LABS: Prothrombin Time 10.9 sec (9.0-12.0)
--- NOTE | 2020-08-19 00:19 | ED ---
SOB HPI - General Chief Complaint: Shortness of Breath Stated Complaint: Poss pneumonia Time Seen by Provider: 08/18/20 23:15 Source: patient, EMS Mode of arrival: EMS - History of Present Illness Initial Comments: This patient is an 85-year-old man brought to have evaluation for suspected pneumonia. Patient has had cough for days now which has appeared to be worsening. Patient has had a previous stroke and since that time has had issues with bouts of aspirating sputum. MD Complaint: shortness of breath, cough -: days(s) Severity: moderate Consistency: constant Improves With: nothing Worsens With: coughing Known History Of: aspiration pneumonia Associated Symptoms: fever, cough Treatments Prior to Arrival: oxygen - Related Data Home Medications Medication Instructions Recorded Confirmed Cetirizine HCl 10 mg PO DAILY 07/16/20 08/18/20 Clopidogrel Bisulfate [Plavix] 75 mg PO DAILY 07/16/20 08/18/20 Escitalopram [Lexapro] 10 mg PO DAILY 07/16/20 08/18/20 Gabapentin [Neurontin] 100 mg PO BID 07/16/20 08/18/20 Metoclopramide [Reglan] 10 mg PO BID 07/16/20 08/18/20 Montelukast [Singulair] 10 mg PO DAILY 07/16/20 08/18/20 Simvastatin [Zocor] 20 mg PO DAILY 07/16/20 08/18/20 fentaNYL 75MCG/HR PATCH [Duragesic 1 patch TRANSDERM Q48H 07/16/20 08/18/20 75MCG/HR] Alfuzosin HCl [Alfuzosin HCl ER] 10 mg PO DAILY 07/22/20 08/18/20 Aspirin 81 mg PO DAILY 07/22/20 08/18/20 Lisinopril [Prinivil] 10 mg PO DAILY 07/22/20 08/18/20 Multivitamin [Multivitamins Adult 1 tab PO DAILY 07/22/20 08/18/20 Gummies] Vit C/E/Zn/Coppr/Lutein/Zeaxan 1 tab PO DAILY 07/22/20 08/18/20 [Preservision Areds 2 Softgel] Previous Rx's Medication Instructions Recorded Pantoprazole Sodium [Protonix] 40 mg PO BID #60 tablet. 07/18/20 Allergies Allergy/AdvReac Type Severity Reaction Status Date / Time celecoxib [From Celebrex] Allergy Confusion Verified 08/18/20 23:14 nabumetone [From Relafen] Allergy Rash/Hives Verified 08/18/20 23:14 oxycodone [From Percocet] Allergy Unknown Verified 08/18/20 23:14 pantoprazole [From Protonix] Allergy Unknown Verified 08/18/20 23:14 haloperidol [From Haldol] AdvReac Anaphylaxis Verified 08/18/20 23:14 Review of Systems ROS Statement: Those systems with pertinent positive or pertinent negative responses have been documented in the HPI. ROS Other: All systems not noted in ROS Statement are negative. Constitutional: Reports: fever, weakness. Denies: chills Respiratory: Reports: cough, dyspnea. Denies: hemoptysis Cardiovascular: Denies: chest pain, palpitations, edema, syncope Gastrointestinal: Denies: abdominal pain, vomiting, diarrhea Genitourinary: Denies: dysuria, hematuria Musculoskeletal: Denies: back pain Skin: Denies: rash Neurological: Denies: headache, weakness Past Medical History Past Medical History: CVA/TIA, Eye Disorder, Hypertension, Pneumonia Additional Past Medical History / Comment(s): low iron, kidney stones, thyroid tumor, chronic cough. CVA with left deficits History of Any Multi-Drug Resistant Organisms: None Reported Past Surgical History: Orthopedic Surgery Additional Past Surgical History / Comment(s): carotid stenosis with a endarterectomy, no stent, laminectomy, cervical surgery on fentanyl for pst 10 years for back pain . right knee surgery Past Anesthesia/Blood Transfusion Reactions: Previous Problems w/ Anesthesia Additional Past Anesthesia/Blood Transfusion Reaction / Comment(s): hard to come out anethesia non specific problems with anethesia also ureter repair after kidney stones passed Past Psychological History: No Psychological Hx Reported Smoking Status: Former smoker - Past Family History Son(s) Family Medical History: Cancer Additional Family Medical History / Comment(s): leukemia General Exam General appearance: alert, in no apparent distress Head exam: Present: atraumatic, normocephalic Eye exam: Present: normal appearance. Absent: scleral icterus, conjunctival injection Neck exam: Present: normal inspection, full ROM. Absent: tenderness Respiratory exam: Present: rales, rhonchi. Absent: respiratory distress, wheezes, stridor, chest wall tenderness, accessory muscle use Cardiovascular Exam: Present: regular rate, normal rhythm, normal heart sounds. Absent: systolic murmur, diastolic murmur, rubs, gallop GI/Abdominal exam: Present: soft. Absent: distended, tenderness, guarding, rebound, rigid Extremities exam: Present: normal inspection, normal capillary refill. Absent: pedal edema, calf tenderness Back exam: Present: normal inspection. Absent: CVA tenderness (R), CVA tenderness (L) Neurological exam: Present: alert Skin exam: Present: warm, dry, intact, normal color. Absent: rash Course Vital Signs 08/18/20 08/18/20 08/19/20 23:04 23:15 00:00 Temperature 100.1 F H Pulse Rate 60 63 Respiratory 20 22 24 Rate Blood Pressure 113/61 117/60 O2 Sat by Pulse 88 L 94 L Oximetry 08/19/20 08/19/20 08/19/20 01:00 03:23 04:00 Temperature 98.6 F Pulse Rate 61 67 Respiratory 20 18 18 Rate Blood Pressure 98/46 102/59 O2 Sat by Pulse 95 95 95 Oximetry Medical Decision Making - Lab Data Result diagrams: 08/18/20 23:37 08/18/20 23:37 Lab Results 08/18/20 08/18/20 08/18/20 Range/Units 23:37 23:37 23:37 WBC 11.3 H (3.8-10.6) k/uL RBC 3.44 L (4.30-5.90) m/uL Hgb 10.3 L (13.0-17.5) gm/dL Hct 31.7 L (39.0-53.0) % MCV 92.2 (80.0-100.0) fL MCH 30.0 (25.0-35.0) pg MCHC 32.5 (31.0-37.0) g/dL RDW 14.2 (11.5-15.5) % Plt Count 276 (150-450) k/uL MPV 6.8 Neutrophils % 92 % Lymphocytes % 4 % Monocytes % 2 % Eosinophils % 1 % Basophils % 0 % Neutrophils # 10.4 H (1.3-7.7) k/uL Lymphocytes # 0.4 L (1.0-4.8) k/uL Monocytes # 0.2 (0-1.0) k/uL Eosinophils # 0.1 (0-0.7) k/uL Basophils # 0.0 (0-0.2) k/uL PT 10.9 (9.0-12.0) sec INR 1.0 (<1.2) APTT 24.0 (22.0-30.0) sec Sodium 136 L (137-145) mmol/L Potassium 4.6 (3.5-5.1) mmol/L Chloride 103 (98-107) mmol/L Carbon Dioxide 27 (22-30) mmol/L Anion Gap 6 mmol/L BUN 55 H (9-20) mg/dL Creatinine 1.55 H (0.66-1.25) mg/dL Est GFR (CKD-EPI)AfAm 47 (>60 ml/min/1.73 sqM) Est GFR (CKD-EPI)NonAf 40 (>60 ml/min/1.73 sqM) Glucose 142 H (74-99) mg/dL Plasma Lactic Acid Joseph (0.7-2.0) mmol/L Calcium 8.8 (8.4-10.2) mg/dL Total Bilirubin 0.4 (0.2-1.3) mg/dL AST 15 L (17-59) U/L ALT 7 (4-49) U/L Alkaline Phosphatase 60 (38-126) U/L Troponin I (0.000-0.034) ng/mL Total Protein 6.4 (6.3-8.2) g/dL Albumin 3.4 L (3.5-5.0) g/dL 08/18/20 08/18/20 Range/Units 23:37 23:37 WBC (3.8-10.6) k/uL RBC (4.30-5.90) m/uL Hgb (13.0-17.5) gm/dL Hct (39.0-53.0) % MCV (80.0-100.0) fL MCH (25.0-35.0) pg MCHC (31.0-37.0) g/dL RDW (11.5-15.5) % Plt Count (150-450) k/uL MPV Neutrophils % % Lymphocytes % % Monocytes % % Eosinophils % % Basophils % % Neutrophils # (1.3-7.7) k/uL Lymphocytes # (1.0-4.8) k/uL Monocytes # (0-1.0) k/uL Eosinophils # (0-0.7) k/uL Basophils # (0-0.2) k/uL PT (9.0-12.0) sec INR (<1.2) APTT (22.0-30.0) sec Sodium (137-145) mmol/L Potassium (3.5-5.1) mmol/L Chloride (98-107) mmol/L Carbon Dioxide (22-30) mmol/L Anion Gap mmol/L BUN (9-20) mg/dL Creatinine (0.66-1.25) mg/dL Est GFR (CKD-EPI)AfAm (>60 ml/min/1.73 sqM) Est GFR (CKD-EPI)NonAf (>60 ml/min/1.73 sqM) Glucose (74-99) mg/dL Plasma Lactic Acid Joseph 0.9 (0.7-2.0) mmol/L Calcium (8.4-10.2) mg/dL Total Bilirubin (0.2-1.3) mg/dL AST (17-59) U/L ALT (4-49) U/L Alkaline Phosphatase (38-126) U/L Troponin I 0.020 (0.000-0.034) ng/mL Total Protein (6.3-8.2) g/dL Albumin (3.5-5.0) g/dL - EKG Data -: EKG Interpreted by Id EKG shows normal: sinus rhythm, axis (Normal), intervals (Normal), ST-T waves (Normal) Rate: normal (Rate 65 bpm) Interpretation: other (Possible old septal infarct) Disposition Clinical Impression: Pneumonia, Anemia, Dehydration Disposition: ADMITTED IP TO THIS HOSP Condition: Poor Is patient prescribed a controlled substance at d/c from ED?: No
[2020-08-19] MEDS ORDERED: ALBUTEROL NEBULIZED 2.5 MG/3 ML INHALATION PRN (00:23)
[2020-08-19] MEDS ORDERED: AZITHROMYCIN 500 MG in SODIUM CHLORIDE 0.9% 250 ML IVPB STA (00:23)
[2020-08-19] MEDS ORDERED: PNEUMONIA PROTOCOL UTILIZED 1 EACH MISC PO PRN (00:23)
[2020-08-19] MEDS ORDERED: PIPERACILLIN-TAZOBACTAM 3.375 GM in SODIUM CHLORIDE 0.9% 100 ML IVPB STA (00:23)
[2020-08-19] MEDS ORDERED: SODIUM CHLORIDE 0.9% 500 ML 500 ML IV STA (00:23)
[2020-08-19] MEDS: SODIUM CHLORIDE 0.9% 1,000 ML IV SCH ×3 (01:42→21:10)
[2020-08-19] MEDS: ALBUTEROL NEBULIZED 2.5 MG/3 ML INHALATION SCH ×4 (07:34→20:44)
[2020-08-19] MEDS: ASPIRIN 81 MG PO SCH (09:46)
[2020-08-19] MEDS: GABAPENTIN 100 MG CAP PO SCH ×2 (09:46→21:10)
[2020-08-19] MEDS: CLOPIDOGREL 75 MG TAB PO SCH (09:46)
[2020-08-19] MEDS: PANTOPRAZOLE 40 MG TABLET PO SCH ×2 (09:46→21:13)
[2020-08-19] MEDS: MONTELUKAST 10 MG TAB PO SCH (09:47)
[2020-08-19] MEDS: ESCITALOPRAM 10 MG TAB PO SCH (09:47)
[2020-08-19] MEDS: METOCLOPRAMIDE 10 MG TAB PO SCH ×2 (09:47→21:47)
[2020-08-19] MEDS: ATORVASTATIN 10 MG TAB PO SCH (09:47)
[2020-08-19] MEDS: lisinopriL 10 MG TAB PO SCH (09:48)
[2020-08-19] MEDS: PIPERACILLIN-TAZOBACTAM 3.375 GM in SODIUM CHLORIDE 0.9% 100 ML IVPB SCH ×2 (11:29→18:18)
[2020-08-19 20:06] LABS: Glucose,Whole Blood 137 mg/dL (75-99)
--- NOTE | 2020-08-19 21:59 | P.HPIM ---
History of Present Illness H&P Date: 08/19/20 Chief Complaint: shortness of breath Shivam Nixon is an 85 yo M with PMH of CVA with residual dysphagia and difficulty clearing secretions, hx aspiration pneumonia, HTN, anemia who presented to the ED with shortness of breath. He complains he has been coughing more recently and unable to clear his airway, last night when he tried to sleep he felt he could not breathe so came in. He denies fever, chills, nausea or diarrhea. On presentation T 100.1, SpO2 88% on 15 L, WBC 11.3k, Cr 1.55, Hgb 10. Review of Systems All systems: negative Constitutional: Denies chills, Denies fever Eyes: denies blurred vision, denies pain Ears, nose, mouth and throat: Denies headache, Denies sore throat Cardiovascular: Reports dyspnea on exertion, Denies chest pain, Denies shortness of breath Respiratory: Reports cough, Reports cough with sputum, Reports wheezing Gastrointestinal: Denies abdominal pain, Denies diarrhea, Denies nausea, Denies vomiting Musculoskeletal: Denies myalgias Integumentary: Denies pruritus, Denies rash Neurological: Denies numbness, Denies weakness Psychiatric: Denies anxiety, Denies depression Endocrine: Denies fatigue, Denies weight change Past Medical History Past Medical History: CVA/TIA, Eye Disorder, GI Bleed, Hyperlipidemia, Hypertension, Pneumonia, Thyroid Disorder, Vascular Disorder Additional Past Medical History / Comment(s): Pt recently admitted to [facility] on 07/16/20 with mid abdominal pain/melena/possible gastritis/possible PUD, multiple tiny nodules R lung base/nonspecific sclerotic focus R iliac crest. Other hx: CVA with L sided deficits, dysphagia/aspiration pne, PUD, bilateral macular degeneration/vision very poor, anemia with current iron infusions, nephrolithiasis/surgery, newly diagnosed thyroid tumor-to be followed up, chronic back pain/fentynal patch. History of Any Multi-Drug Resistant Organisms: None Reported Past Surgical History: Joint Replacement, Orthopedic Surgery Additional Past Surgical History / Comment(s): R caratid endartectomy, laminectomy/cage (3 lower back surgeries), cervical surgery/hardware, R total knee arthroplasty x2, kidney surgery d/t stones and had ureter repair d/t damage from stone, colonoscopy. Past Anesthesia/Blood Transfusion Reactions: Previous Problems w/ Anesthesia Additional Past Anesthesia/Blood Transfusion Reaction / Comment(s): Difficulty waking. Pt is very clausterphobic Smoking Status: Former smoker - Past Family History Son(s) Family Medical History: Cancer Additional Family Medical History / Comment(s): Son from bacterial meningitis. He has leukemia Mother Family Medical History: Cancer Father Family Medical History: Cancer Additional Family Medical History / Comment(s): Father of lung cancer. He was a smoker. Medications and Allergies Home Medications Medication Instructions Recorded Confirmed Type Cetirizine HCl 10 mg PO DAILY 07/16/20 08/18/20 History Clopidogrel Bisulfate [Plavix] 75 mg PO DAILY 07/16/20 08/18/20 History Escitalopram [Lexapro] 10 mg PO DAILY 07/16/20 08/18/20 History Gabapentin [Neurontin] 100 mg PO BID 07/16/20 08/18/20 History Metoclopramide [Reglan] 10 mg PO BID 07/16/20 08/18/20 History Montelukast [Singulair] 10 mg PO DAILY 07/16/20 08/18/20 History Simvastatin [Zocor] 20 mg PO DAILY 07/16/20 08/18/20 History fentaNYL 75MCG/HR PATCH [Duragesic 1 patch TRANSDERM Q48H 07/16/20 08/18/20 History 75MCG/HR] Pantoprazole Sodium [Protonix] 40 mg PO BID #60 tablet. 07/18/20 08/18/20 Rx Alfuzosin HCl [Alfuzosin HCl ER] 10 mg PO DAILY 07/22/20 08/18/20 History Aspirin 81 mg PO DAILY 07/22/20 08/18/20 History Lisinopril [Prinivil] 10 mg PO DAILY 07/22/20 08/18/20 History Multivitamin [Multivitamins Adult 1 tab PO DAILY 07/22/20 08/18/20 History Gummies] Vit C/E/Zn/Coppr/Lutein/Zeaxan 1 tab PO DAILY 07/22/20 08/18/20 History [Preservision Areds 2 Softgel] Allergies Allergy/AdvReac Type Severity Reaction Status Date / Time celecoxib [From Celebrex] Allergy Confusion Verified 08/18/20 23:14 nabumetone [From Relafen] Allergy Rash/Hives Verified 08/18/20 23:14 oxycodone [From Percocet] Allergy Unknown Verified 08/18/20 23:14 pantoprazole [From Protonix] Allergy Unknown Verified 08/18/20 23:14 haloperidol [From Haldol] AdvReac Anaphylaxis Verified 08/18/20 23:14 Physical Exam Vitals: Vital Signs Temp Pulse Pulse Resp BP BP Pulse Ox 08/19/20 20:54 56 L 08/19/20 20:47 55 L 08/19/20 15:44 98.5 F 54 L 16 145/81 99 08/19/20 15:40 52 L 08/19/20 14:20 16 08/19/20 14:01 97.9 F 55 L 16 139/58 97 08/19/20 13:51 55 L 16 139/58 97 08/19/20 11:03 50 L 08/19/20 10:56 52 L 08/19/20 09:48 97.9 F 53 H 112/69 08/19/20 09:34 50 L 14 98/41 97 08/19/20 07:40 54 L 08/19/20 07:36 51 L 08/19/20 04:00 18 95 08/19/20 03:23 98.6 F 67 18 102/59 95 08/19/20 01:00 61 20 98/46 95 08/19/20 00:00 63 24 117/60 94 L 08/18/20 23:15 22 08/18/20 23:04 100.1 F H 60 20 113/61 88 L Intake and Output 08/19/20 08/19/20 08/19/20 06:59 14:59 22:59 Intake Total 450 Balance 450 Intake: Intake, IV Titration 100 Amount Piperacillin-Tazobactam 3 100 .375 gm In Sodium Chloride 0.9% 100 ml @ 200 mls/hr IVPB ONCE STA Rx#:[id number] Oral 350 Other: Voiding Method Indwelling Catheter Weight 68.039 kg 68.039 kg General: well nourished, well developed, NAD. Vitals reviewed Eyes: PERRL, EOMI, conjunctiva normal HENT: normocephalic, mucus membranes moist Neck: supple, no JVD Lungs: increased respiratory effort, rhonchi throughout CV: Regular rate and rhythm, no murmur. Peripheral pulses 2+ Abdomen: soft, nondistended, no organomegaly Lymph: no cervical or axillary LAD Skin: warm and dry. Neuro: A&Ox3, L weakness, dysphagia Results CBC & Chem 7: 08/18/20 23:37 08/18/20 23:37 Labs: Abnormal Lab Results - Last 24 Hours (Table) 08/18/20 08/18/20 08/19/20 Range/Units 23:37 23:37 20:05 WBC 11.3 H (3.8-10.6) k/uL RBC 3.44 L (4.30-5.90) m/uL Hgb 10.3 L (13.0-17.5) gm/dL Hct 31.7 L (39.0-53.0) % Neutrophils # 10.4 H (1.3-7.7) k/uL Lymphocytes # 0.4 L (1.0-4.8) k/uL Sodium 136 L (137-145) mmol/L BUN 55 H (9-20) mg/dL Creatinine 1.55 H (0.66-1.25) mg/dL Glucose 142 H (74-99) mg/dL POC Glucose (mg/dL) 137 H (75-99) mg/dL AST 15 L (17-59) U/L Albumin 3.4 L (3.5-5.0) g/dL Thrombosis Risk Factor Assmnt - Choose All That Apply Any of the Below Risk Factors Present?: Yes Each Factor Represents 1 point: Serious lung disease incl. pneumonia (< 1month) Other Risk Factors: Yes Each Risk Factor Represents 3 Points: Age 75 years or older Other congenital or acquired thrombophilia - If yes, enter type in comment: No Thrombosis Risk Factor Assessment Total Risk Factor Score: 4 Thrombosis Risk Factor Assessment Level: Moderate Risk Assessment and Plan (1) Aspiration pneumonia Current Visit: Yes Status: Acute Code(s): J69.0 - PNEUMONITIS DUE TO INHALATION OF FOOD AND VOMIT SNOMED Code(s): 790855925 (2) Acute hypoxemic respiratory failure Current Visit: Yes Status: Acute Code(s): J96.01 - ACUTE RESPIRATORY FAILURE WITH HYPOXIA SNOMED Code(s): 388924202 (3) Essential hypertension Current Visit: Yes Status: Acute Code(s): I10 - ESSENTIAL (PRIMARY) HYPERTENSION SNOMED Code(s): 57119581 (4) FLASH (acute kidney injury) Current Visit: Yes Status: Acute Code(s): N17.9 - ACUTE KIDNEY FAILURE, UNSPECIFIED SNOMED Code(s): 49356543 Plan: Acute hypoxic respiratory failure secondary to aspiration pneumonia. Start zosyn and azithromycin, continue zosyn. Follow blood cultures and labs FLASH. Start IV fluids, follow closely HTN Iron def anemia Hx CVA. Cont ASA, plavix
[2020-08-20] MEDS ORDERED: AZITHROMYCIN 500 MG in SODIUM CHLORIDE 0.9% 250 ML IVPB SCH (02:00)
[2020-08-20] MEDS: PIPERACILLIN-TAZOBACTAM 3.375 GM in SODIUM CHLORIDE 0.9% 100 ML IVPB SCH ×3 (02:32→17:31)
[2020-08-20] MEDS: SODIUM CHLORIDE 0.9% 1,000 ML IV SCH ×2 (05:29→18:31)
[2020-08-20 07:07] LABS: Glucose,Whole Blood 106 mg/dL (75-99)
[2020-08-20] MEDS: ATORVASTATIN 10 MG TAB PO SCH (08:53)
[2020-08-20] MEDS: lisinopriL 10 MG TAB PO SCH (08:53)
[2020-08-20] MEDS: GABAPENTIN 100 MG CAP PO SCH ×2 (08:54→20:20)
[2020-08-20] MEDS: PANTOPRAZOLE 40 MG TABLET PO SCH ×2 (08:54→20:20)
[2020-08-20] MEDS: ESCITALOPRAM 10 MG TAB PO SCH (08:54)
[2020-08-20] MEDS: MONTELUKAST 10 MG TAB PO SCH (08:54)
[2020-08-20] MEDS: METOCLOPRAMIDE 10 MG TAB PO SCH ×2 (08:54→20:20)
[2020-08-20] MEDS: CLOPIDOGREL 75 MG TAB PO SCH (08:54)
[2020-08-20] MEDS: ASPIRIN 81 MG PO SCH (08:54)
[2020-08-20] MEDS: ALBUTEROL NEBULIZED 2.5 MG/3 ML INHALATION SCH ×4 (09:10→20:51)
[2020-08-20 10:06] LABS: Basophils % (A) 0 %; Eosinophils # (A) 0.2 k/uL (0-0.7); Eosinophils % (A) 4 %; HCT 28.9 % (39.0-53.0); Lymphocytes # (A) 0.5 k/uL (1.0-4.8); Lymphocytes % (A) 10 %; MCH 29.3 pg (25.0-35.0); MCHC 31.2 g/dL (31.0-37.0); MCV 94.1 fL (80.0-100.0); Monocytes # (A) 0.2 k/uL (0-1.0); Monocytes % (A) 4 %; Neutrophils # (A) 4.4 k/uL (1.3-7.7); Neutrophils % (A) 81 %; Platelet Count 226 k/uL (150-450); RBC 3.07 m/uL (4.30-5.90); RDW 14.5 % (11.5-15.5); WBC 5.5 k/uL (3.8-10.6)
[2020-08-20 10:53] LABS: African American GFR (CKD) 50 (>60 ml/min/1.73 sqM); Anion Gap 6 mmol/L; Blood Urea Nitrogen 43 mg/dL (9-20); Carbon Dioxide 29 mmol/L (22-30); Chloride 109 mmol/L (98-107); Glucose 98 mg/dL (74-99); Non-African American GFR(CKD) 43 (>60 ml/min/1.73 sqM); Potassium 5.1 mmol/L (3.5-5.1); Sodium 144 mmol/L (137-145)
[2020-08-20] MEDS: HYDROcodone/APAP 7.5-325MG 1 EACH TAB PO PRN (10:59)
[2020-08-20 11:06] LABS: Glucose,Whole Blood 142 mg/dL (75-99)
--- NOTE | 2020-08-20 15:45 | P.PN ---
Subjective Progress Note Date: 08/20/20 Shivam Nixon is an 85 yo M with PMH of CVA with residual dysphagia and difficulty clearing secretions, hx aspiration pneumonia, HTN, anemia who presented to the ED with shortness of breath. He complains he has been coughing more recently and unable to clear his airway, last night when he tried to sleep he felt he could not breathe so came in. He denies fever, chills, nausea or diarrhea. On presentation T 100.1, SpO2 88% on 15 L, WBC 11.3k, Cr 1.55, Hgb 10. 08/20/2020 maintaining O2 sats in the mid to high 90s on 2 L nasal cannula . Denies chest pain, shortness of breath .staff reports patient having difficulty swallowing. Speech therapy consulted. Continues on IV fluids, antibiotics. Labs pending. Afebrile, preliminary blood cultures reporting no growth at 24 hours. Objective - Vital Signs Vital signs: Vital Signs Temp 98.7 F 08/20/20 13:41 Pulse 75 08/20/20 13:41 Resp 17 08/20/20 13:41 BP 135/53 08/20/20 13:41 Pulse Ox 95 08/20/20 13:41 Intake & Output 08/19/20 08/20/20 08/20/20 18:59 06:59 18:59 Intake Total 450 Output Total 1800 Balance 450 -1800 Weight 68.039 kg Intake: Intake, IV Titration 100 Amount Piperacillin-Tazobactam 3 100 .375 gm In Sodium Chloride 0.9% 100 ml @ 200 mls/hr IVPB ONCE STA Rx#:[id number] Oral 350 Output: Urine 1800 Other: Voiding Method Indwelling Catheter Indwelling Catheter Indwelling Catheter - Exam General: Alert, lying in bed ,NAD. Vitals reviewed Eyes: PERRL, EOMI, conjunctiva normal HENT: normocephalic, mucus membranes moist Neck: supple, no JVD Lungs: increased respiratory effort, rhonchi throughout CV: Regular rate and rhythm, no murmur. Peripheral pulses 2+ Abdomen: soft, nondistended, no organomegaly Lymph: no cervical or axillary LAD Skin: warm and dry. Neuro: A&Ox3, L weakness, dysphagia - Labs CBC & Chem 7: 08/20/20 08:50 08/20/20 08:50 Labs: Abnormal Lab Results - Last 24 Hours (Table) 08/19/20 08/20/20 08/20/20 Range/Units 20:05 07:06 08:50 RBC 3.07 L (4.30-5.90) m/uL Hgb 9.0 L (13.0-17.5) gm/dL Hct 28.9 L (39.0-53.0) % Lymphocytes # 0.5 L (1.0-4.8) k/uL Chloride (98-107) mmol/L BUN (9-20) mg/dL Creatinine (0.66-1.25) mg/dL POC Glucose (mg/dL) 137 H 106 H (75-99) mg/dL 08/20/20 08/20/20 Range/Units 08:50 11:05 RBC (4.30-5.90) m/uL Hgb (13.0-17.5) gm/dL Hct (39.0-53.0) % Lymphocytes # (1.0-4.8) k/uL Chloride 109 H (98-107) mmol/L BUN 43 H (9-20) mg/dL Creatinine 1.46 H (0.66-1.25) mg/dL POC Glucose (mg/dL) 142 H (75-99) mg/dL Microbiology - Last 24 Hours (Table) 08/19/20 01:13 Blood Culture - Preliminary Blood No Growth after 24 hours 08/19/20 01:20 Blood Culture - Preliminary Blood No Growth after 24 hours Assessment and Plan Assessment: (1) Aspiration pneumonia Current Visit: Yes Status: Acute Code(s): J69.0 - PNEUMONITIS DUE TO INHALATION OF FOOD AND VOMIT SNOMED Code(s): 974537171 (2) Acute hypoxemic respiratory failure Current Visit: Yes Status: Acute Code(s): J96.01 - ACUTE RESPIRATORY FAILURE WITH HYPOXIA SNOMED Code(s): 795385937 (3) Essential hypertension Current Visit: Yes Status: Acute Code(s): I10 - ESSENTIAL (PRIMARY) HYPERTENSION SNOMED Code(s): 59129579 (4) FLASH (acute kidney injury) Current Visit: Yes Status: Acute Code(s): N17.9 - ACUTE KIDNEY FAILURE, UNSPECIFIED SNOMED Code(s): 47676732 (5) history of CVA Plan: Continue on current medication regime ,monitoring and symptomatic chloe atment. Speech therapy consulted.Maintain IV antibiotics, IV fluid hydration. Labs pending. Hold RD inhibitor related to renal function, hydralazine ordered with parameters .Blood cultures finalizing. Sputum culture ordered. The impression and plan of care has been dictated as directed. : I performed a history and examination of this patient, discussed the same with the dictator. I agree with the dictator's note ,documented as a scribe. Any additional findings or plans will be noted.
[2020-08-20] MEDS: hydrALAZINE HCL 25 MG TAB PO SCH ×2 (17:31→20:20)
[2020-08-20] MEDS: polyethylene glycoL 3350 17 GM POWD.PACK PO SCH (19:00)
[2020-08-21] MEDS ORDERED: AZITHROMYCIN 500 MG in SODIUM CHLORIDE 0.9% 250 ML IVPB SCH (01:00)
[2020-08-21] MEDS: PIPERACILLIN-TAZOBACTAM 3.375 GM in SODIUM CHLORIDE 0.9% 100 ML IVPB SCH ×3 (02:12→17:09)
[2020-08-21] MEDS: HYDROcodone/APAP 7.5-325MG 1 EACH TAB PO PRN (02:12)
[2020-08-21] MEDS: SODIUM CHLORIDE 0.9% 1,000 ML IV SCH ×3 (02:12→21:17)
[2020-08-21] MEDS: ATORVASTATIN 10 MG TAB PO SCH (08:04)
[2020-08-21] MEDS: PANTOPRAZOLE 40 MG TABLET PO SCH ×2 (08:04→21:14)
[2020-08-21] MEDS: MONTELUKAST 10 MG TAB PO SCH (08:04)
[2020-08-21] MEDS: GABAPENTIN 100 MG CAP PO SCH ×2 (08:04→21:14)
[2020-08-21] MEDS: CLOPIDOGREL 75 MG TAB PO SCH (08:04)
[2020-08-21] MEDS: hydrALAZINE HCL 25 MG TAB PO SCH ×3 (08:04→21:14)
[2020-08-21] MEDS: ESCITALOPRAM 10 MG TAB PO SCH (08:04)
[2020-08-21] MEDS: ASPIRIN 81 MG PO SCH (08:04)
[2020-08-21] MEDS: VIT A,C & E-LUTEIN-MINERALS 1 EACH TAB PO SCH (08:05)
[2020-08-21] MEDS: polyethylene glycoL 3350 17 GM POWD.PACK PO SCH (08:05)
[2020-08-21] MEDS: METOCLOPRAMIDE 10 MG TAB PO SCH ×2 (08:05→21:14)
[2020-08-21] MEDS: ALBUTEROL NEBULIZED 2.5 MG/3 ML INHALATION SCH ×4 (08:22→20:40)
[2020-08-21 11:20] LABS: HCT 25.5 % (39.6-50.0); HGB 7.9 g/dL (13.0-17.0); MCH 29.3 pg (27.0-32.0); MCV 94.4 fL (80.0-97.0); Mean Platelet Volume 10.2 fL (9.5-12.2); Platelet Count 217 X 10*3/uL (140-440); WBC 5.35 X 10*3/uL (4.50-10.00)
[2020-08-21 13:53] LABS: African American GFR (CKD) 70.6 (60.0-200.0); BUN/Creat Ratio 26.36 Ratio (12.00-20.00); Calcium 8.5 mg/dL (8.7-10.3); Non-African American GFR(CKD) 60.9 (60.0-200.0); Potassium 4.3 mmol/L (3.5-5.5)
[2020-08-21] MEDS ORDERED: AZITHROMYCIN 500 MG TAB PO SCH (21:00)
[2020-08-22] MEDS: PIPERACILLIN-TAZOBACTAM 3.375 GM in SODIUM CHLORIDE 0.9% 100 ML IVPB SCH ×2 (01:36→09:45)
[2020-08-22] MEDS: GABAPENTIN 100 MG CAP PO SCH (07:56)
[2020-08-22] MEDS: PANTOPRAZOLE 40 MG TABLET PO SCH (07:56)
[2020-08-22] MEDS: ATORVASTATIN 10 MG TAB PO SCH (07:56)
[2020-08-22] MEDS: hydrALAZINE HCL 25 MG TAB PO SCH (07:56)
[2020-08-22] MEDS: ASPIRIN 81 MG PO SCH (07:56)
[2020-08-22] MEDS: MONTELUKAST 10 MG TAB PO SCH (07:56)
[2020-08-22] MEDS: CLOPIDOGREL 75 MG TAB PO SCH (07:56)
[2020-08-22] MEDS: polyethylene glycoL 3350 17 GM POWD.PACK PO SCH (07:57)
[2020-08-22] MEDS: ESCITALOPRAM 10 MG TAB PO SCH (07:57)
[2020-08-22] MEDS: METOCLOPRAMIDE 10 MG TAB PO SCH (07:57)
[2020-08-22] MEDS: VIT A,C & E-LUTEIN-MINERALS 1 EACH TAB PO SCH (07:57)
[2020-08-22 08:03] VITALS: BP 166/74; RESP 17; TEMP 98.3
[2020-08-22] MEDS: ALBUTEROL NEBULIZED 2.5 MG/3 ML INHALATION SCH ×2 (08:35→11:46)
[2020-08-22 09:15] LABS: Basophils % (A) 0 %; Eosinophils # (A) 0.3 k/uL (0-0.7); Eosinophils % (A) 7 %; HCT 28.1 % (39.0-53.0); HGB 9.4 gm/dL (13.0-17.5); Lymphocytes # (A) 0.9 k/uL (1.0-4.8); Lymphocytes % (A) 17 %; MCH 30.4 pg (25.0-35.0); MCHC 33.3 g/dL (31.0-37.0); MCV 91.2 fL (80.0-100.0); Mean Platelet Volume 7.2; Monocytes # (A) 0.2 k/uL (0-1.0); Monocytes % (A) 4 %; Neutrophils # (A) 3.5 k/uL (1.3-7.7); Neutrophils % (A) 71 %; Platelet Count 232 k/uL (150-450); RBC 3.08 m/uL (4.30-5.90); RDW 14.1 % (11.5-15.5); WBC 4.9 k/uL (3.8-10.6)
[2020-08-22] MEDS: SODIUM CHLORIDE 0.9% 1,000 ML IV SCH (09:45)
--- NOTE | 2020-08-22 10:51 | P.PN ---
Subjective Progress Note Date: 08/22/20 Shivam Nixon is an 85 yo M with PMH of CVA with residual dysphagia and difficulty clearing secretions, hx aspiration pneumonia, HTN, anemia who presented to the ED with shortness of breath. He complains he has been coughing more recently and unable to clear his airway, last night when he tried to sleep he felt he could not breathe so came in. He denies fever, chills, nausea or diarrhea. On presentation T 100.1, SpO2 88% on 15 L, WBC 11.3k, Cr 1.55, Hgb 10. 08/20/2020 maintaining O2 sats in the mid to high 90s on 2 L nasal cannula . Denies chest pain, shortness of breath .staff reports patient having difficulty swallowing. Speech therapy consulted. Continues on IV fluids, antibiotics. Labs pending. Afebrile, preliminary blood cultures reporting no growth at 24 hours. 06/21/2020 currently on 2 L nasal cannula, maintaining O2 sats in the 90s. Renal function improving. Evaluated by speech therapy, suspecting h/o silent aspiration, recommending downgrading to dysphagia level III CHOP diet, as patient complained of mild difficulty with pharyngeal clearance. Denies chest pain, palpitations or shortness of breath. Cough improving. Patient has chronic back pain, fentanyl resumed. Ambulating to bathroom, tolerating exertion well. Objective - Vital Signs Vital signs: Vital Signs Temp 98.5 F 08/21/20 14:09 Pulse 62 08/21/20 16:35 Resp 18 08/21/20 14:09 BP 164/73 08/21/20 14:09 Pulse Ox 97 08/21/20 14:09 Intake & Output 08/20/20 08/21/20 08/21/20 18:59 06:59 18:59 Output Total 1800 1002 Balance -1800 -1002 Output: Urine 1800 1000 Stool 2 Other: Voiding Method Indwelling Catheter Indwelling Catheter - Exam General: Alert, lying in bed ,NAD. Vitals reviewed Eyes: PERRL, EOMI, conjunctiva normal HENT: normocephalic, mucus membranes moist Neck: supple, no JVD Lungs: increased respiratory effort, bilateral bases diminished CV: Regular rate and rhythm, no murmur. Peripheral pulses 2+ Abdomen: soft, nondistended, no organomegaly Skin: warm and dry. Neuro: A&Ox3, L weakness, dysphagia - Labs CBC & Chem 7: 08/22/20 08:57 08/21/20 06:33 Labs: Abnormal Lab Results - Last 24 Hours (Table) 08/21/20 08/21/20 Range/Units 06:33 06:33 RBC 2.70 L (4.40-5.60) X 10*6/uL Hgb 7.9 L (13.0-17.0) g/dL Hct 25.5 L (39.6-50.0) % MCHC 31.0 L (32.0-37.0) g/dL Chloride 110 H (96-109) mmol/L BUN 29.0 H (9.0-27.0) mg/dL BUN/Creatinine Ratio 26.36 H (12.00-20.00) Ratio Calcium 8.5 L (8.7-10.3) mg/dL Microbiology - Last 24 Hours (Table) 08/19/20 01:20 Blood Culture - Preliminary Blood No Growth after 48 hours 08/19/20 01:13 Blood Culture - Preliminary Blood No Growth after 48 hours Assessment and Plan Assessment: (1) Aspiration pneumonia Current Visit: Yes Status: Acute Code(s): J69.0 - PNEUMONITIS DUE TO INHALATION OF FOOD AND VOMIT SNOMED Code(s): 450181127 (2) Acute hypoxemic respiratory failure Current Visit: Yes Status: Acute Code(s): J96.01 - ACUTE RESPIRATORY FAILURE WITH HYPOXIA SNOMED Code(s): 620455596 (3) Essential hypertension Current Visit: Yes Status: Acute Code(s): I10 - ESSENTIAL (PRIMARY) HYPERTENSION SNOMED Code(s): 11894508 (4) FLASH (acute kidney injury) Current Visit: Yes Status: Acute Code(s): N17.9 - ACUTE KIDNEY FAILURE, UN SPECIFIED SNOMED Code(s): 54623263 (5) history of CVA Plan: Continue on current medication regime ,monitoring and symptomatic treatment. Continue IV antibiotics. Increase ambulation as tolerated, diet suggested to dysphagia level III chopped diet as recommended per speech therapy. Strict aspiration precautions. Discharge planning in progress for tomorrow. The impression and plan of care has been dictated as directed. : I performed a history and examination of this patient, discussed the same with the dictator. I agree with the dictator's note ,documented as a scribe. Any additional findings or plans will be noted.
--- NOTE | 2020-08-22 11:02 | P.DS ---
Providers Date of admission: 08/19/20 00:26 Expected date of discharge: 08/22/20 Attending physician: Willi Trent MD Primary care physician: Lizzy Vaughn [facility] Course: Final Diagnoses: (1) Aspiration pneumonia Current Visit: Yes Status: Acute Code(s): J69.0 - PNEUMONITIS DUE TO INHALATION OF FOOD AND VOMIT SNOMED Code(s): 823266721 (2) Acute hypoxemic respiratory failure Current Visit: Yes Status: Acute Code(s): J96.01 - ACUTE RESPIRATORY FAILURE WITH HYPOXIA SNOMED Code(s): 446352022 (3) Essential hypertension Current Visit: Yes Status: Acute Code(s): I10 - ESSENTIAL (PRIMARY) HYPERTENSION SNOMED Code(s): 90725309 (4) FLASH (acute kidney injury) Current Visit: Yes Status: Acute Code(s): N17.9 - ACUTE KIDNEY FAILURE, UNSPECIFIED SNOMED Code(s): 44304050 (5) history of CVA Hospital course:Shivam Nixon is an 85 yo M with PMH of CVA with residual dysphagia and difficulty clearing secretions, hx aspiration pneumonia, HTN, anemia who presented to the ED with shortness of breath. He complains he has been coughing more recently and unable to clear his airway, last night when he tried to sleep he felt he could not breathe so came in. He denies fever, chills, nausea or diarrhea. On presentation T 100.1, SpO2 88% on 15 L, WBC 11.3k, Cr 1.55, Hgb 10. 08/20/2020 maintaining O2 sats in the mid to high 90s on 2 L nasal cannula . Denies chest pain, shortness of breath .staff reports patient having difficulty swallowing. Speech therapy consulted. Continues on IV fluids, antibiotics. Labs pending. Afebrile, preliminary blood cultures reporting no growth at 24 hours. 06/21/2020 currently on 2 L nasal cannula, maintaining O2 sats in the 90s. Renal function improving. Evaluated by speech therapy, suspecting h/o silent aspiration, recommending downgrading to dysphagia level III CHOP diet, as patient complained of mild difficulty with pharyngeal clearance. Denies chest pain, palpitations or shortness of breath. Cough improving. Patient has chronic back pain, fentanyl resumed. Ambulating to bathroom, tolerating exertion well. Significant clinical improvement. Maintaining O2 sats in the 90s on room air. Denies chest pain, palpitations or shortness of breath. Patient will be discharged home today in a stable condition with guarded prognosis. The impression and plan of care has been dictated as directed. : I performed a history and examination of this patient, discussed the same with the dictator. I agree with the dictator's note ,documented as a scribe. Any additional findings or plans will be noted. Patient Condition at Discharge: Stable Plan - Discharge Summary Discharge Rx Participant: No New Discharge Prescriptions: New Amoxic-Pot Clav 875-125Mg [Augmentin 875-125] 1 tab PO Q12HR 4 Days #8 tab polyethylene glycoL 3350 [Miralax] 17 gm PO DAILY powd.pack Continue fentaNYL 75MCG/HR PATCH [Duragesic 75MCG/HR] 1 patch TRANSDERM Q48H Montelukast [Singulair] 10 mg PO DAILY Cetirizine HCl 10 mg PO DAILY Gabapentin [Neurontin] 100 mg PO BID Clopidogrel Bisulfate [Plavix] 75 mg PO DAILY Vit C/E/Zn/Coppr/Lutein/Zeaxan [Preservision Areds 2 Softgel] 1 tab PO DAILY Lisinopril [Prinivil] 10 mg PO DAILY Metoclopramide [Reglan] 10 mg PO BID Escitalopram [Lexapro] 10 mg PO DAILY Simvastatin [Zocor] 20 mg PO DAILY Pantoprazole Sodium [Protonix] 40 mg PO BID #60 tablet. Multivitamin [Multivitamins Adult Gummies] 1 tab PO DAILY Aspirin 81 mg PO DAILY Alfuzosin HCl [Alfuzosin HCl ER] 10 mg PO DAILY Discharge Medication List Cetirizine HCl 10 mg PO DAILY 07/16/20 [History] Clopidogrel Bisulfate [Plavix] 75 mg PO DAILY 07/16/20 [History] Escitalopram [Lexapro] 10 mg PO DAILY 07/16/20 [History] Gabapentin [Neurontin] 100 mg PO BID 07/16/20 [History] Metoclopramide [Reglan] 10 mg PO BID 07/16/20 [History] Montelukast [Singulair] 10 mg PO DAILY 07/16/20 [History] Simvastatin [Zocor] 20 mg PO DAILY 07/16/20 [History] fentaNYL 75MCG/HR PATCH [Duragesic 75MCG/HR] 1 patch TRANSDERM Q48H 07/16/20 [History] Pantoprazole Sodium [Protonix] 40 mg PO BID #60 tablet. 07/18/20 [Rx] Alfuzosin HCl [Alfuzosin HCl ER] 10 mg PO DAILY 07/22/20 [History] Aspirin 81 mg PO DAILY 07/22/20 [History] Lisinopril [Prinivil] 10 mg PO DAILY 07/22/20 [History] Multivitamin [Multivitamins Adult Gummies] 1 tab PO DAILY 07/22/20 [History] Vit C/E/Zn/Coppr/Lutein/Zeaxan [Preservision Areds 2 Softgel] 1 tab PO DAILY 07/22/20 [History] Amoxic-Pot Clav 875-125Mg [Augmentin 875-125] 1 tab PO Q12HR 4 Days #8 tab 08/22/20 [Rx] polyethylene glycoL 3350 [Miralax] 17 gm PO DAILY powd.pack 08/22/20 [Rx] Follow up Appointment(s)/Referral(s): Willi Trent MD [STAFF PHYSICIAN] - 3 Days (Office phone not working patient to make appointment) Ambulatory/Diagnostic Orders: Complete Blood Count w/diff [LAB.AMB] Time Frame: 3 Days, Location: None Selected Activity/Diet/Wound Care/Special Instructions: Dysphagia level III chopped diet, no straws Strict aspiration precautions
[2020-08-22 11:55] VITALS: PULSE 53
== END 2020-08-22 12:59 | disposition home or self-care (01) | DRG 177 ==
LOC: EC 23:01 → 4SSUR 08-19 00:26
PROVIDERS: ADMIT Family Medicine; ATTEND Family Medicine
DX: J69.0 Pneumonitis due to inhalation of food and vomit (principal); J96.01 Acute respiratory failure with hypoxia; N17.9 Acute kidney failure, unspecified; E86.0 Dehydration; Z20.822 Contact with and (suspected) exposure to COVID-19; D50.9 Iron deficiency anemia, unspecified; G89.29 Other chronic pain; M54.9 Dorsalgia, unspecified; E78.5 Hyperlipidemia, unspecified; I10 Essential (primary) hypertension; I69.391 Dysphagia following cerebral infarction; Z88.5 Allergy status to narcotic agent; Z88.8 Allergy status to other drugs, medicaments and biological substances; Z79.02 Long term (current) use of antithrombotics/antiplatelets; Z98.890 Other specified postprocedural states; Z96.651 Presence of right artificial knee joint; Z79.899 Other long term (current) drug therapy; Z79.82 Long term (current) use of aspirin; Z87.01 Personal history of pneumonia (recurrent); Z87.442 Personal history of urinary calculi; Z87.891 Personal history of nicotine dependence; Z87.19 Personal history of other diseases of the digestive system; Z80.6 Family history of leukemia; Z80.1 Family history of malignant neoplasm of trachea, bronchus and lung; I69.398 Other sequelae of cerebral infarction; Z87.11 Personal history of peptic ulcer disease
CPT/HCPCS: 36415; 51798; 71046; 80048; 80053; 83605; 84484; 85025; 85027; 85610; 85730; 87040; 87635; 93005; 94640; 99285

== ENCOUNTER 2020-11-08 15:48 | Inpatient (IN) | payer MEDICARE, OTHER ==
--- NOTE | 2020-11-08 16:24 | XR ---
EXAMINATION TYPE: XR chest 1V portable DATE OF EXAM: 11/08/2020 COMPARISON: 08/18/2020 HISTORY: Chest pain TECHNIQUE: FINDINGS: There is some airspace consolidation right lower lobe. There is multiple small calcificatio ns over foreign bodies in the right lower lobe posteriorly. There is no heart failure. Heart size is normal. Mediastinum is normal. Bony thorax is intact. IMPRESSION: Density in the right lower lobe consistent with bronchopneumonia that is slightly worse t roldan last exam. There is probably old aspiration pneumonia. There is improvement in the infiltrate lef t lower lobe compared to old exam. No heart failure seen.
[2020-11-08 16:47] LABS: Basophils % (A) 0 %; Eosinophils # (A) 0.1 k/uL (0-0.7); Eosinophils % (A) 1 %; HCT 36.1 % (39.0-53.0); Lymphocytes # (A) 0.3 k/uL (1.0-4.8); Lymphocytes % (A) 3 %; MCH 30.9 pg (25.0-35.0); MCHC 33.2 g/dL (31.0-37.0); MCV 93.2 fL (80.0-100.0); Mean Platelet Volume 7.7; Monocytes # (A) 0.2 k/uL (0-1.0); Monocytes % (A) 2 %; Neutrophils # (A) 11.8 k/uL (1.3-7.7); Neutrophils % (A) 95 %; Platelet Count 215 k/uL (150-450); RBC 3.87 m/uL (4.30-5.90); RDW 13.4 % (11.5-15.5); WBC 12.4 k/uL (3.8-10.6)
[2020-11-08] MEDS ORDERED: ACETAMINOPHEN TAB 325 MG TAB PO STA (16:49)
[2020-11-08] MEDS ORDERED: SODIUM CHLORIDE 0.9% 1,000 ML IV STA (16:50)
[2020-11-08 16:57] LABS: Partial Thromboplastin Time 23.1 sec (22.0-30.0); Prothrombin Time 10.9 sec (9.0-12.0)
[2020-11-08 16:58] LABS: Albumin 3.8 g/dL (3.5-5.0); Magnesium 1.9 mg/dL (1.6-2.3); Potassium 4.6 mmol/L (3.5-5.1); Total Bilirubin 0.3 mg/dL (0.2-1.3); Total Protein 6.9 g/dL (6.3-8.2)
[2020-11-08] MEDS: SODIUM CHLORIDE 0.9% 1,000 ML IV SCH (16:58)
[2020-11-08 16:59] LABS: Appearance,Urine Clear (Clear); Bilirubin,Urine Negative (Negative); Blood,Urine Small (Negative); Color,Urine Light Yellow; Glucose,Urine (UA) Negative (Negative); Ketones,Urine Negative (Negative); Leukocyte Esterase,Urine Negative (Negative); Nitrite,Urine Negative (Negative); Protein,Urine Negative (Negative); RBC,Urine 12 /hpf (0-5); Specific Gravity,Urine 1.016 (1.001-1.035); Urobilinogen,Urine <2.0 mg/dL (<2.0); WBC,Urine <1 /hpf (0-5)
[2020-11-08] MEDS ORDERED: cefTRIAXone IN SWFI 1,000 MG/10 ML SYRINGE IVP STA (17:36)
--- NOTE | 2020-11-08 17:49 | ED ---
General Adult HPI - General Chief complaint: Recheck/Abnormal Lab/Rx Stated complaint: Stemmi Time Seen by Provider: 11/08/20 15:48 Source: patient, RN notes reviewed Mode of arrival: ambulatory Limitations: no limitations - History of Present Illness Initial comments: This is an 85-year-old male presents by EMS with complaints of dizziness nausea weakness who was found to have an elevated ST segment has EKG. He was brought him [facility] for suspected STEMI. He denies any chest pain. No reports of any other symptoms at this time - Related Data Home Medications Medication Instructions Recorded Confirmed Cetirizine HCl 10 mg PO DAILY 07/16/20 11/08/20 Clopidogrel Bisulfate [Plavix] 75 mg PO DAILY 07/16/20 11/08/20 Escitalopram [Lexapro] 10 mg PO DAILY 07/16/20 11/08/20 Gabapentin [Neurontin] 100 mg PO BID 07/16/20 11/08/20 Metoclopramide [Reglan] 10 mg PO BID 07/16/20 11/08/20 Montelukast [Singulair] 10 mg PO DAILY 07/16/20 11/08/20 Simvastatin [Zocor] 20 mg PO DAILY 07/16/20 11/08/20 Aspirin 81 mg PO DAILY 07/22/20 11/08/20 Lisinopril [Prinivil] 10 mg PO DAILY 07/22/20 11/08/20 Multivitamin [Multivitamins Adult 1 tab PO DAILY 07/22/20 11/08/20 Gummies] Vit C/E/Zn/Coppr/Lutein/Zeaxan 1 tab PO DAILY 07/22/20 11/08/20 [Preservision Areds 2 Softgel] Ipratropium-Albuterol Nebulize 3 ml INHALATION RT-QID PRN 11/08/20 11/08/20 [Duoneb 0.5 mg-3 mg/3 ml Soln] Tiotropium [place] [Spiriva 2 spray INHALATION DAILY PRN 11/08/20 11/08/20 Respimat] fentaNYL 50MCG/HR PATCH [Duragesic 1 patch TRANSDERM Q72H 11/08/20 11/08/20 50MCG/HR] Previous Rx's Medication Instructions Recorded Pantoprazole Sodium [Protonix] 40 mg PO BID #60 tablet. 07/18/20 Allergies Allergy/AdvReac Type Severity Reaction Status Date / Time celecoxib [From Celebrex] Allergy Confusion Verified 11/08/20 16:30 nabumetone [From Relafen] Allergy Rash/Hives Verified 11/08/20 16:30 oxycodone [From Percocet] Allergy Unknown Verified 11/08/20 16:30 haloperidol [From Haldol] AdvReac Anaphylaxis Verified 11/08/20 16:30 Review of Systems ROS Statement: Those systems with pertinent positive or pertinent negative responses have been documented in the HPI. ROS Other: All systems not noted in ROS Statement are negative. Past Medical History Past Medical History: CVA/TIA, Eye Disorder, GI Bleed, Hyperlipidemia, Hypertension, Pneumonia, Thyroid Disorder, Vascular Disorder Additional Past Medical History / Comment(s): Pt recently admitted to [facility] on 07/16/20 with mid abdominal pain/melena/possible gastritis/possible PUD, multiple tiny nodules R lung base/nonspecific sclerotic focus R iliac crest. Other hx: CVA with L sided deficits, dysphagia/aspiration pne, PUD, bilateral macular degeneration/vision very poor, anemia with current iron infusions, nephrolithiasis/surgery, newly diagnosed thyroid tumor-to be followed up, chronic back pain/fentynal patch. History of Any Multi-Drug Resistant Organisms: None Reported Past Surgical History: Joint Replacement, Orthopedic Surgery Additional Past Surgical History / Comment(s): R caratid endartectomy, laminectomy/cage (3 lower back surgeries), cervical surgery/hardware, R total knee arthroplasty x2, kidney surgery d/t stones and had ureter repair d/t damage from stone, colonoscopy. Past Anesthesia/Blood Transfusion Reactions: Previous Problems w/ Anesthesia Additional Past Anesthesia/Blood Transfusion Reaction / Comment(s): Difficulty waking. Pt is very clausterphobic Past Psychological History: Depression Smoking Status: Former smoker Past Alcohol Use History: None Reported Past Drug Use History: None Reported - Past Family History Son(s) Family Medical History: Cancer Additional Family Medical History / Comment(s): Son from bacterial meningitis. He has leukemia Mother Family Medical History: Cancer Father Family Medical History: Cancer Additional Family Medical History / Comment(s): Father of lung cancer. He was a smoker. General Exam - General Exam Comments Initial Comments: This a well-developed asthenic appearing male who is awake alert oriented 3 with found have a temperature of 103.7 Limitations: no limitations General appearance: alert, in no apparent distress Head exam: Present: atraumatic, normocephalic, normal inspection Eye exam: Present: normal appearance, PERRL, EOMI. Absent: scleral icterus, conjunctival injection, periorbital swelling ENT exam: Present: mucous membranes dry Neck exam: Present: normal inspection. Absent: tenderness, meningismus, l ymphadenopathy Respiratory exam: Present: decreased breath sounds. Absent: respiratory distress, wheezes, rales, rhonchi, stridor Cardiovascular Exam: Present: regular rate, normal rhythm, normal heart sounds. Absent: systolic murmur, diastolic murmur, rubs, gallop, clicks GI/Abdominal exam: Present: soft, normal bowel sounds. Absent: distended, tenderness, guarding, rebound, rigid Extremities exam: Present: normal inspection, full ROM, normal capillary refill. Absent: tenderness, pedal edema, joint swelling, calf tenderness Back exam: Present: normal inspection Neurological exam: Present: alert, oriented X3, CN II-XII intact Psychiatric exam: Present: normal affect, normal mood Skin exam: Present: warm, dry, intact, normal color. Absent: rash Course Vital Signs 11/08/20 11/08/20 11/08/20 15:51 17:00 17:56 Temperature 103.7 F H 98.5 F Pulse Rate 69 77 64 Respiratory 20 20 20 Rate Blood Pressure 106/71 137/57 127/69 O2 Sat by Pulse 91 L 99 98 Oximetry - Reevaluation(s) Reevaluation #1: 11/08/20 18:20 Reevaluation the patient in the states he feels no different than he had earlier. Family member was present patient does have a history of aspiration pneumonia. No temperature at home that was elevated. Reevaluation #2: 11/08/20 18:22 Today's EKG as well as EMS EKGs were compared with prior EKG dated showing similar configuration EKG Findings - EKG Results: EKG: interpreted by ANDIE, sinus rhythm (Sinus rhythm a 68 appear interval 166 QRS 88 QT/QTC 392/416 hyperacute T waves with concern for acute [place]) Medical Decision Making - Medical Decision Making I did discuss findings with the patient family as well as with Lilliam who is covering for Dr. Elena and the patient will be admitted place an IV antibiot ics. - Lab Data Result diagrams: 11/08/20 16:03 11/08/20 16:03 Lab Results 11/08/20 11/08/20 11/08/20 Range/Units 16:03 16:03 16:03 WBC 12.4 H (3.8-10.6) k/uL RBC 3.87 L (4.30-5.90) m/uL Hgb 12.0 L (13.0-17.5) gm/dL Hct 36.1 L (39.0-53.0) % MCV 93.2 (80.0-100.0) fL MCH 30.9 (25.0-35.0) pg MCHC 33.2 (31.0-37.0) g/dL RDW 13.4 (11.5-15.5) % Plt Count 215 (150-450) k/uL MPV 7.7 Neutrophils % 95 % Lymphocytes % 3 % Monocytes % 2 % Eosinophils % 1 % Basophils % 0 % Neutrophils # 11.8 H (1.3-7.7) k/uL Lymphocytes # 0.3 L (1.0-4.8) k/uL Monocytes # 0.2 (0-1.0) k/uL Eosinophils # 0.1 (0-0.7) k/uL Basophils # 0.0 (0-0.2) k/uL PT 10.9 (9.0-12.0) sec INR 1.0 (<1.2) APTT 23.1 (22.0-30.0) sec Sodium 139 (137-145) mmol/L Potassium 4.6 (3.5-5.1) mmol/L Chloride 105 (98-107) mmol/L Carbon Dioxide 25 (22-30) mmol/L Anion Gap 9 mmol/L BUN 60 H (9-20) mg/dL Creatinine 1.28 H (0.66-1.25) mg/dL Est GFR (CKD-EPI)AfAm 59 (>60 ml/min/1.73 sqM) Est GFR (CKD-EPI)NonAf 51 (>60 ml/min/1.73 sqM) Glucose 112 H (74-99) mg/dL Plasma Lactic Acid Joseph (0.7-2.0) mmol/L Calcium 9.0 (8.4-10.2) mg/dL Magnesium 1.9 (1.6-2.3) mg/dL Total Bilirubin 0.3 (0.2-1.3) mg/dL AST 21 (17-59) U/L ALT 10 (4-49) U/L Alkaline Phosphatase 68 (38-126) U/L Creatine Kinase 32 L (55-170) U/L Troponin I (0.000-0.034) ng/mL Total Protein 6.9 (6.3-8.2) g/dL Albumin 3.8 (3.5-5.0) g/dL Urine Color Urine Appearance (Clear) Urine pH (5.0-8.0) Ur Specific [place] (1.001-1.035) Urine Protein (Negative) Urine Glucose (UA) (Negative) Urine Ketones (Negative) Urine Blood (Negative) Urine Nitrite (Negative) Urine Bilirubin (Negative) Urine Urobilinogen (<2.0) mg/dL Ur Leukocyte Esterase (Negative) Urine RBC (0-5) /hpf Urine WBC (0-5) /hpf Coronavirus (PCR) (Not Detectd) 11/08/20 11/08/20 11/08/20 Range/Units 16:03 16:23 16:23 WBC (3.8-10.6) k/uL RBC (4.30-5.90) m/uL Hgb (13.0-17.5) gm/dL Hct (39.0-53.0) % MCV (80.0-100.0) fL MCH (25.0-35.0) pg MCHC (31.0-37.0) g/dL RDW (11.5-15.5) % Plt Count (150-450) k/uL MPV Neutrophils % % Lymphocytes % % Monocytes % % Eosinophils % % Basophils % % Neutrophils # (1.3-7.7) k/uL Lymphocytes # (1.0-4.8) k/uL Monocytes # (0-1.0) k/uL Eosinophils # (0-0.7) k/uL Basophils # (0-0.2) k/uL PT (9.0-12.0) sec INR (<1.2) APTT (22.0-30.0) sec Sodium (137-145) mmol/L Potassium (3.5-5.1) mmol/L Chloride (98-107) mmol/L Carbon Dioxide (22-30) mmol/L Anion Gap mmol/L BUN (9-20) mg/dL Creatinine (0.66-1.25) mg/dL Est GFR (CKD-EPI)AfAm (>60 ml/min/1.73 sqM) Est GFR (CKD-EPI)NonAf (>60 ml/min/1.73 sqM) Glucose (74-99) mg/dL Plasma Lactic Acid Joseph 1.0 (0.7-2.0) mmol/L Calcium (8.4-10.2) mg/dL Magnesium (1.6-2.3) mg/dL Total Bilirubin (0.2-1.3) mg/dL AST (17-59) U/L ALT (4-49) U/L Alkaline Phosphatase (38-126) U/L Creatine Kinase (55-170) U/L Troponin I 0.017 (0.000-0.034) ng/mL Total Protein (6.3-8.2) g/dL Albumin (3.5-5.0) g/dL Urine Color Light Yellow Urine Appearance Clear (Clear) Urine pH 5.0 (5.0-8.0) Ur Specific [place] 1.016 (1.001-1.035) Urine Protein Negative (Negative) Urine Glucose (UA) Negative (Negative) Urine Ketones Negative (Negative) Urine Blood Small H (Negative) Urine Nitrite Negative (Negative) Urine Bilirubin Negative (Negative) Urine Urobilinogen <2.0 (<2.0) mg/dL Ur Leukocyte Esterase Negative (Negative) Urine RBC 12 H (0-5) /hpf Urine WBC <1 (0-5) /hpf Coronavirus (PCR) (Not Detectd) 11/08/20 Range/Units 16:23 WBC (3.8-10.6) k/uL RBC (4.30-5.90) m/uL Hgb (13.0-17.5) gm/dL Hct (39.0-53.0) % MCV (80.0-100.0) fL MCH (25.0-35.0) pg MCHC (31.0-37.0) g/dL RDW (11.5-15.5) % Plt Count (150-450) k/uL MPV Neutrophils % % Lymphocytes % % Monocytes % % Eosinophils % % Basophils % % Neutrophils # (1.3-7.7) k/uL Lymphocytes # (1.0-4.8) k/uL Monocytes # (0-1.0) k/uL Eosinophils # (0-0.7) k/uL Basophils # (0-0.2) k/uL PT (9.0-12.0) sec INR (<1.2) APTT (22.0-30.0) sec Sodium (137-145) mmol/L Potassium (3.5-5.1) mmol/L Chloride (98-107) mmol/L Carbon Dioxide (22-30) mmol/L Anion Gap mmol/L BUN (9-20) mg/dL Creatinine (0.66-1.25) mg/dL Est GFR (CKD-EPI)AfAm (>60 ml/min/1.73 sqM) Est GFR (CKD-EPI)NonAf (>60 ml/min/1.73 sqM) Glucose (74-99) mg/dL Plasma Lactic Acid Joseph (0.7-2.0) mmol/L Calcium (8.4-10.2) mg/dL Magnesium (1.6-2.3) mg/dL Total Bilirubin (0.2-1.3) mg/dL AST (17-59) U/L ALT (4-49) U/L Alkaline Phosphatase (38-126) U/L Creatine Kinase (55-170) U/L Troponin I (0.000-0.034) ng/mL Total Protein (6.3-8.2) g/dL Albumin (3.5-5.0) g/dL Urine Color Urine Appearance (Clear) Urine pH (5.0-8.0) Ur Specific [place] (1.001-1.035) Urine Protein (Negative) Urine Glucose (UA) (Negative) Urine Ketones (Negative) Urine Blood (Negative) Urine Nitrite (Negative) Urine Bilirubin (Negative) Urine Urobilinogen (<2.0) mg/dL Ur Leukocyte Esterase (Negative) Urine RBC (0-5) /hpf Urine WBC (0-5) /hpf Coronavirus (PCR) Not Detected (Not Detectd) - Radiology Data Radiology results: report reviewed (Imaging reviewed evidence of a new right lower lobe infiltrate.), image reviewed Disposition Clinical Impression: Right lower lobe pneumonia, Acute kidney injury, Dehydration Disposition: ADMITTED IP TO THIS HOSP Condition: Fair Referrals: Willi Trent MD [Primary Care Provider] - 1-2 days
[2020-11-08] MEDS ORDERED: PIPERACILLIN-TAZOBACTAM 3.375 GM in SODIUM CHLORIDE 0.9% 100 ML IVPB STA (18:27)
[2020-11-08] MEDS ORDERED: LEVOFLOXACIN 750MG-D5W PMX 750 MG in DEXTROSE/WATER 1 150ML.BAG IVPB STA (18:27)
[2020-11-08] MEDS ORDERED: PNEUMONIA PROTOCOL UTILIZED 1 EACH MISC PO PRN (18:27)
[2020-11-08] MEDS ORDERED: NON FORMULARY DRUG (Tiotropium Bromide [Spiriva Respimat] 4 GM Mist.Inhal) INHALATION PRN (18:28)
[2020-11-08] MEDS ORDERED: IPRATROPIUM-ALBUTEROL 3 ML NEB INHALATION PRN (18:28)
[2020-11-08] MEDS: METOCLOPRAMIDE 10 MG TAB PO SCH (21:05)
[2020-11-08] MEDS: PANTOPRAZOLE 40 MG TABLET PO SCH (21:05)
[2020-11-08] MEDS: GABAPENTIN 100 MG CAP PO SCH (21:05)
[2020-11-09] MEDS: PIPERACILLIN-TAZOBACTAM 3.375 GM in SODIUM CHLORIDE 0.9% 100 ML IVPB SCH ×3 (02:37→19:04)
[2020-11-09] MEDS: SODIUM CHLORIDE 0.9% 1,000 ML IV SCH ×2 (06:32→07:48)
[2020-11-09] MEDS: MONTELUKAST 10 MG TAB PO SCH (07:39)
[2020-11-09] MEDS: MULTIVITAMINS, THERA 1 EACH TAB PO SCH (07:39)
[2020-11-09] MEDS: CLOPIDOGREL 75 MG TAB PO SCH (07:39)
[2020-11-09] MEDS: ATORVASTATIN 10 MG TAB PO SCH (07:39)
[2020-11-09] MEDS: LORATADINE 10 MG TAB PO SCH (07:39)
[2020-11-09] MEDS: PANTOPRAZOLE 40 MG TABLET PO SCH ×2 (07:39→17:12)
[2020-11-09] MEDS: ASPIRIN 81 MG PO SCH (07:39)
[2020-11-09] MEDS: VIT A,C & E-LUTEIN-MINERALS 1 EACH TAB PO SCH (07:40)
[2020-11-09] MEDS: ESCITALOPRAM 10 MG TAB PO SCH (07:40)
[2020-11-09] MEDS: GABAPENTIN 100 MG CAP PO SCH ×2 (07:40→21:07)
[2020-11-09] MEDS: METOCLOPRAMIDE 10 MG TAB PO SCH ×2 (07:40→21:07)
--- NOTE | 2020-11-09 08:53 | XR ---
EXAMINATION TYPE: XR chest 2V DATE OF EXAM: 11/09/2020 COMPARISON: 11/08/2020, 08/18/2020 INDICATION: Pneumonia TECHNIQUE: Frontal and lateral views of the chest are obtained. FINDINGS: The heart size is normal. The pulmonary vasculature is normal. Mild infiltrates at the left base. An infiltrate at the right base has improved over the interval. Th ere is persistent scattered densities in the right lower lobe. IMPRESSION: 1. Bibasilar infiltrates, improving on the right. Correlate for atelectasis and pneumonia.
[2020-11-09] MEDS ORDERED: lisinopriL 10 MG TAB PO SCH (09:00)
--- NOTE | 2020-11-09 12:08 | P.HPIM ---
History of Present Illness Patient is a pleasant 85-year-old male came in with complaints of cough with sputum production has been going on for about 2 weeks patient has really dark and takes sputum. Patient does have shortness of breath as well. Patient den ied any significant orthopnea paroxysmal nocturnal dyspnea although patient does have minimally elevated JVD, has an elevated BNP of 3950 chest x-ray showing bilateral infiltrates significant on the left side with the left-sided effusion appear to be parapneumonic effusion. Patient had an EKG which showed prolonged repolarization changes with some nonspecific ST elevations as well as tall T waves. She is also found to be in acute renal failure. Patient is presently on 4 L of oxygen doesn't use any oxygen at home. REVIEW OF SYSTEMS: CONSTITUTIONAL: No fever, no malaise, no fatigue. HEENT: No recent visual problems or hearing problems. Denied any sore throat. CARDIOVASCULAR: No chest pain, orthopnea, PND, no palpitations, no syncope. PULMONARY: No shortness of breath, no cough, no hemoptysis. GASTROINTESTINAL: No diarrhea, no nausea, no vomiting, no abdominal pain. NEUROLOGICAL: No headaches, no weakness, no numbness. HEMATOLOGICAL: Denies any bleeding or petechiae. GENITOURINARY: Denies any burning micturition, frequency, or urgency. MUSCULOSKELETAL/RHEUMATOLOGICAL: Denies any joint pain, swelling, or any muscle pain. ENDOCRINE: Denies any polyuria or polydipsia. The rest of the 14-point review of systems is negative. PHYSICAL EXAMINATION: GENERAL: The patient is alert and oriented x3, not in any acute distress. Well developed, well nourished. HEENT: Pupils are round and equally reacting to light. EOMI. No scleral icterus. No conjunctival pallor. Normocephalic, atraumatic. No pharyngeal erythema. No thyromegaly. CARDIOVASCULAR: S1 and S2 present. No murmurs, rubs, or gallops. PULMONARY: Chest is clear to auscultation, no wheezing or crackles. ABDOMEN: Soft, nontender, nondistended, normoactive bowel sounds. No palpable organomegaly. MUSCULOSKELETAL: No joint swelling or deformity. EXTREMITIES: No cyanosis, clubbing, or pedal edema. NEUROLOGICAL: Gross neurological examination did not reveal any focal deficits. SKIN: No rashes. Assessment and plan -Sepsis with fever and leukocytosis: Secondary to most probably left lower lobe pneumonia sputum cultures and blood cultures were obtained, patient is a both on Zosyn and the levofloxacin approximately discontinued there was a concern that patient may have aspirated because of which patient will be continued on Zosyn although patient doesn't have any swallowing abnormalities of swallow problems clinically patient most probably has community acquired pneumonia --Acute hypoxic respiratory failure: Secondary to pneumonia although it cannot completely rule out congestive heart failure. Cardiology will be consulted will repeat another EKG as patient is presently bradycardic. Patient's EKG findings as mentioned above. -Acute renal failure prerenal azotemia probably secondary to acute tubular necrosis from pneumonia and sepsis patient will not be continued on IV fluids because of the concerns of congestive heart failure. -Hyperlipidemia continue with the Lipitor -Depression -Peripheral neuropathy continue with gabapentin -Hypothyroidism DVT prophylaxis: Subcutaneous heparin Past Medical History Past Medical History: CVA/TIA, Eye Disorder, GI Bleed, Hyperlipidemia, Hypertension, Pneumonia, Thyroid Disorder, Vascular Disorder Additional Past Medical History / Comment(s): Pt recently admitted to [facility] on 07/16/20 with mid abdominal pain/melena/possible gastritis/possible PUD, multiple tiny nodules R lung base/nonspecific sclerotic focus R iliac crest. Other hx: CVA with L sided deficits, dysphagia/aspiration pne, PUD, bilateral macular degeneration/vision very poor, anemia with current iron infusions, nephrolithiasis/surgery, newly diagnosed thyroid tumor-to be followed up, chronic back pain/fentynal patch. History of Any Multi-Drug Resistant Organisms: None Reported Past Surgical History: Joint Replacement, Orthopedic Surgery Additional Past Surgical History / Comment(s): R caratid endartectomy, laminectomy/cage (3 lower back surgeries), cervical surgery/hardware, R total knee arthroplasty x2, kidney surgery d/t stones and had ureter repair d/t damage from stone, colonoscopy. Past Anesthesia/Blood Transfusion Reactions: Previous Problems w/ Anesthesia Additional Past Anesthesia/Blood Transfusion Reaction / Comment(s): Difficulty waking. Pt is very clausterphobic Past Psychological History: Depression Additional Psychological History / Comment(s): Pt resides with his micaela, Antoinette, and his grandson, Carson. He is independent with ADLS and has tools to assist him. He uses a cane around the house. He is currently in PT. Micaela manages medications/drives. Pt has clausterphobia. Micaela, Antoinette, voiced that last admi ssion, she never spoke or was contacted by any physician. She also voiced disappointement that pt's discharge instructions were never gone over with her, she found them in his hospital belongings bag. Smoking Status: Former smoker Past Alcohol Use History: None Reported Additional Past Alcohol Use History / Comment(s): Pt started smoking as a teen and quit in 1980. Past Drug Use History: None Reported - Past Family History Son(s) Family Medical History: Cancer Additional Family Medical History / Comment(s): Son from bacterial meningitis. He has leukemia Mother Family Medical History: Cancer Father Family Medical History: Cancer Additional Family Medical History / Comment(s): Father of lung cancer. He was a smoker. Medications and Allergies Home Medications Medication Instructions Recorded Confirmed Type Cetirizine HCl 10 mg PO DAILY 07/16/20 11/08/20 History Clopidogrel Bisulfate [Plavix] 75 mg PO DAILY 07/16/20 11/08/20 History Escitalopram [Lexapro] 10 mg PO DAILY 07/16/20 11/08/20 History Gabapentin [Neurontin] 100 mg PO BID 07/16/20 11/08/20 History Metoclopramide [Reglan] 10 mg PO BID 07/16/20 11/08/20 History Montelukast [Singulair] 10 mg PO DAILY 07/16/20 11/08/20 History Simvastatin [Zocor] 20 mg PO DAILY 07/16/20 11/08/20 History Pantoprazole Sodium [Protonix] 40 mg PO BID #60 tablet. 07/18/20 11/08/20 Rx Aspirin 81 mg PO DAILY 07/22/20 11/08/20 History Lisinopril [Prinivil] 10 mg PO DAILY 07/22/20 11/08/20 History Multivitamin [Multivitamins Adult 1 tab PO DAILY 07/22/20 11/08/20 History Gummies] Vit C/E/Zn/Coppr/Lutein/Zeaxan 1 tab PO DAILY 07/22/20 11/08/20 History [Preservision Areds 2 Softgel] Ipratropium-Albuterol Nebulize 3 ml INHALATION RT-QID PRN 11/08/20 11/08/20 History [Duoneb 0.5 mg-3 mg/3 ml Soln] Tiotropium [place] [Spiriva 2 spray INHALATION DAILY PRN 11/08/20 11/08/20 History Respimat] fentaNYL 50MCG/HR PATCH [Duragesic 1 patch TRANSDERM Q72H 11/08/20 11/08/20 History 50MCG/HR] Allergies Allergy/AdvReac Type Severity Reaction Status Date / Time celecoxib [From Celebrex] Allergy Confusion Verified 11/08/20 16:30 nabumetone [From Relafen] Allergy Rash/Hives Verified 11/08/20 16:30 oxycodone [From Percocet] Allergy Unknown Verified 11/08/20 16:30 haloperidol [From Haldol] AdvReac Anaphylaxis Verified 11/08/20 16:30 Physical Exam Vitals: Vital Signs Temp Pulse Pulse Resp BP BP Pulse Ox 11/09/20 08:00 97.8 F 48 L 17 97/45 95 11/09/20 02:00 97.6 F 50 L 16 98/55 99 11/09/20 00:14 113/61 11/08/20 20:00 98.4 F 62 16 94/53 98 11/08/20 19:08 53 L 20 102/54 97 11/08/20 17:56 98.5 F 64 20 127/69 98 11/08/20 17:00 77 20 137/57 99 11/08/20 15:51 103.7 F H 69 20 106/71 91 L Intake and Output 11/08/20 11/09/20 11/09/20 22:59 06:59 14:59 Output Total 500 Balance -500 Output: Urine 500 Other: # Voids 0 0 Weight 65.771 kg Results CBC & Chem 7: 11/08/20 16:03 11/08/20 16:03 Labs: Abnormal Lab Results - Last 24 Hours (Table) 11/08/20 11/08/20 11/08/20 Range/Units 16:03 16:03 16:23 WBC 12.4 H (3.8-10.6) k/uL RBC 3.87 L (4.30-5.90) m/uL Hgb 12.0 L (13.0-17.5) gm/dL Hct 36.1 L (39.0-53.0) % Neutrophils # 11.8 H (1.3-7.7) k/uL Lymphocytes # 0.3 L (1.0-4.8) k/uL BUN 60 H (9-20) mg/dL Creatinine 1.28 H (0.66-1.25) mg/dL Glucose 112 H (74-99) mg/dL Creatine Kinase 32 L (55-170) U/L Urine Blood Small H (Negative) Urine RBC 12 H (0-5) /hpf Thrombosis Risk Factor Assmnt - Choose All That Apply Any of the Below Risk Factors Present?: Yes Each Factor Represents 1 point: Medical pt on bed rest, Serious lung disease incl. pneumonia (< 1month), Swollen legs (current) Other Risk Factors: Yes Each Risk Factor Represents 3 Points: Age 75 years or older Thrombosis Risk Factor Assessment Total Risk Factor Score: 6 Thrombosis Risk Factor Assessment Level: High Risk
[2020-11-09] MEDS ORDERED: LEVOFLOXACIN 750 MG TAB PO SCH (20:00)
[2020-11-09] MEDS: HEPARIN SODIUM,PORCINE/PF 5,000 UNIT/0.5 ML SYRINGE SQ SCH (21:06)
[2020-11-10] MEDS ORDERED: QUEtiapine 50 MG TAB PO PRN (02:37)
[2020-11-10] MEDS: PIPERACILLIN-TAZOBACTAM 3.375 GM in SODIUM CHLORIDE 0.9% 100 ML IVPB SCH ×3 (03:16→19:55)
[2020-11-10] MEDS: MULTIVITAMINS, THERA 1 EACH TAB PO SCH (08:13)
[2020-11-10] MEDS: CLOPIDOGREL 75 MG TAB PO SCH (08:13)
[2020-11-10] MEDS: ATORVASTATIN 10 MG TAB PO SCH (08:13)
[2020-11-10] MEDS: LORATADINE 10 MG TAB PO SCH (08:13)
[2020-11-10] MEDS: ASPIRIN 81 MG PO SCH (08:13)
[2020-11-10] MEDS: GABAPENTIN 100 MG CAP PO SCH ×2 (08:13→21:26)
[2020-11-10] MEDS: PANTOPRAZOLE 40 MG TABLET PO SCH ×2 (08:13→17:06)
[2020-11-10] MEDS: MONTELUKAST 10 MG TAB PO SCH (08:13)
[2020-11-10] MEDS: ESCITALOPRAM 10 MG TAB PO SCH (08:14)
[2020-11-10] MEDS: VIT A,C & E-LUTEIN-MINERALS 1 EACH TAB PO SCH (08:14)
[2020-11-10] MEDS: METOCLOPRAMIDE 10 MG TAB PO SCH ×2 (08:14→21:26)
[2020-11-10] MEDS: HEPARIN SODIUM,PORCINE/PF 5,000 UNIT/0.5 ML SYRINGE SQ SCH ×2 (08:14→21:26)
--- NOTE | 2020-11-10 10:37 | P.CRDCN ---
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 He does not follow regularly with a supervisor cereal. We have been asked to see in consultation for possible congestive heart failure. Patient presents to the emergency department due to dizziness, lightheadedness, confusion. He states he was seeing different people in the room that were not actually there. He also has been feeling weak, fatigued, and having symptoms of chills, productive cough, feeling "hot and warm" at times. This has been progressively getting worse over the past 2 weeks. He also endorses a 25lb unintentional weight loss over the past year. He denies any history of [place], diabetes, coronary artery disease, heart failure. Denies family history of heart disease . On admission, patient's temperature was 103.7F, blood pressure 106/71, heart rate 40s to 60s, patient's oxygen saturations on admission were 91% on room air, patient was placed on 2 L nasal cannula. DIAGNOSTICS EKG reveals sinus rhythm, heart rate 68, repolarization, peak T waves in anteroseptal leads. Prior EKG in August and July appears similar. Patient not on telemetry to assess rhythm Chest xray -Bibasilar infiltrates, heart size appears stable and not enlarged. Most recent echocardiogram 07/2020 revealed EF 55-60%, mild mitral regurgitation. Laboratory reviewed, WBC 12.4, hemoglobin 12, platelets 2:15, sodium 139, potassium 4.6, BUN 60, serum creatinine 1.28, magnesium 1.9, troponin negative 2, proBNP 3950, COVID-19 PCR negative Current home cardiac medications include aspirin 81 mg daily, Plavix 75 mg daily, lisinopril 10 mg daily, simvastatin 20 mg daily REVIEW OF SYSTEMS At the time of my exam: CONSTITUTIONAL: +chills CARDIOVASCULAR: +shortness of breath Denies chest pain, orthopnea, PND or palpitations. RESPIRATORY: +cough. GASTROINTESTINAL: Denies abdominal pain, diarrhea, constipation, nausea or vomiting. MUSCULOSKELETAL: Denies myalgias. NEUROLOGIC: +confusion +lightheadedness +dizziness, +chronic left sided weakness. Denies numbness, tingling, headacbe or weakness. ENDOCRINE: +Fatigue, +Weight loss Denies polydipsia or polyurina. GENITOURINARY: Denies burning, hematuria or urgency with micturation. HEMATOLOGIC: History of anemia PHYSICAL EXAMINATION Blood pressure 169/58 heart rate 56 afebrile and maintaining oxygen saturation 100% on 2L nasal cannula. CONSTITUTIONAL: No apparent distress. HEENT: Head is normocephalic. Pupils are equal, round. Sclerae anicteric. Mucous membranes of the mouth are moist. No JVD. No carotid bruit. CHEST EXAMINATION: Lungs bibasilar crackles noted. No chest wall tenderness is noted on palpation or with deep breathing. HEART EXAMINATION: Regular rate and rhythm. S1, S2 heard.Systolic murmur noted at [facility] ABDOMEN: Soft, nontender. Positive bowel sounds. EXTREMITIES: 2+ peripheral pulses, no lower extremity edema and no calf tenderness. NEUROLOGIC EXAMINATION: Patient is awake, alert and oriented x3. ASSESSMENT Dizziness, Lightheadedness, confusion Cough, Fever, Chills, Shortness of breath Leukocytosis Acute Kidney Injury History CVA with residual left-sided weakness History of carotid stenosis status post right carotid endarterectomy COPD History of hypertension Dyslipidemia History of aspiration pneumonia PLAN Patient's symptoms appear to be more consistent with infection rather than CHF Repeat 2D echo pending, will follow up on results Continue home statin, aspirin, plavix. ACEI held due to FLASH Further recommendations based on clinical course. Nurse Practitioner note has been reviewed, I agree with a documented findings and plan of care. Patient was seen and examined. Past Medical History Past Medical History: CVA/TIA, Eye Disorder, GI Bleed, Hyperlipidemia, Hypertension, Pneumonia, Thyroid Disorder, Vascular Disorder Additional Past Medical History / Comment(s): Pt recently admitted to [facility] on 07/16/20 with mid abdominal pain/melena/possible gastritis/possible PUD, multiple tiny nodules R lung base/nonspecific sclerotic focus R iliac crest. Other hx: CVA with L sided deficits, dysphagia/aspiration pne, PUD, bilateral macular degeneration/vision very poor, anemia with current iron infusions, nephrolithiasis/surgery, newly diagnosed thyroid tumor-to be followed up, chronic back pain/fentynal patch. History of Any Multi-Drug Resistant Organisms: None Reported Past Surgical History: Joint Replacement, Orthopedic Surgery Additional Past Surgical History / Comment(s): R caratid endartectomy, laminectomy/cage (3 lower back surgeries), cervical surgery/hardware, R total knee arthroplasty x2, kidney surgery d/t stones and had ureter repair d/t damage from stone, colonoscopy. Past Anesthesia/Blood Transfusion Reactions: Previous Problems w/ Anesthesia Additional Past Anesthesia/Blood Transfusion Reaction / Comment(s): Difficulty waking. Pt is very clausterphobic Past Psychological History: Depression Additional Psychological History / Comment(s): Pt resides with his micaela, Antoinette, and his grandson, Carson. He is independent with ADLS and has tools to assist him. He uses a cane around the house. He is currently in PT. Micaela manages medications/drives. Pt has clausterphobia. Antoinette Hinojosa, voiced that last admission, she never spoke or was contacted by any physician. She also voiced disappointement that pt's discharge instructions were never gone over with her, she found them in his hospital belongings bag. Smoking Status: Former smoker Past Alcohol Use History: None Reported Additional Past Alcohol Use History / Comment(s): Pt started smoking as a teen and quit in 1980. Past Drug Use History: None Reported - Past Family History Son(s) Family Medical History: Cancer Additional Family Medical History / Comment(s): Son from bacterial meningitis. He has leukemia Mother Family Medical History: Cancer Father Family Medical History: Cancer Additional Family Medical History / Comment(s): Father of lung cancer. He was a smoker. Medications and Allergies Home Medications Medication Instructions Recorded Confirmed Type Cetirizine HCl 10 mg PO DAILY 07/16/20 11/08/20 History Clopidogrel Bisulfate [Plavix] 75 mg PO DAILY 07/16/20 11/08/20 History Escitalopram [Lexapro] 10 mg PO DAILY 07/16/20 11/08/20 History Gabapentin [Neurontin] 100 mg PO BID 07/16/20 11/08/20 History Metoclopramide [Reglan] 10 mg PO BID 07/16/20 11/08/20 History Montelukast [Singulair] 10 mg PO DAILY 07/16/20 11/08/20 History Simvastatin [Zocor] 20 mg PO DAILY 07/16/20 11/08/20 History Pantoprazole Sodium [Protonix] 40 mg PO BID #60 tablet. 07/18/20 11/08/20 Rx Aspirin 81 mg PO DAILY 07/22/20 11/08/20 History Lisinopril [Prinivil] 10 mg PO DAILY 07/22/20 11/08/20 History Multivitamin [Multivitamins Adult 1 tab PO DAILY 07/22/20 11/08/20 History Gummies] Vit C/E/Zn/Coppr/Lutein/Zeaxan 1 tab PO DAILY 07/22/20 11/08/20 History [Preservision Areds 2 Softgel] Ipratropium-Albuterol Nebulize 3 ml INHALATION RT-QID PRN 11/08/20 11/08/20 History [Duoneb 0.5 mg-3 mg/3 ml Soln] Tiotropium [place] [Spiriva 2 spray INHALATION DAILY PRN 11/08/20 11/08/20 History Respimat] fentaNYL 50MCG/HR PATCH [Duragesic 1 patch TRANSDERM Q72H 11/08/20 11/08/20 History 50MCG/HR] Allergies Allergy/AdvReac Type Severity Reaction Status Date / Time celecoxib [From Celebrex] Allergy Confusion Verified 11/08/20 16:30 nabumetone [From Relafen] Allergy Rash/Hives Verified 11/08/20 16:30 oxycodone [From Percocet] Allergy Unknown Verified 11/08/20 16:30 haloperidol [From Haldol] AdvReac Anaphylaxis Verified 11/08/20 16:30 Physical Exam Vitals: Vital Signs Temp Pulse Resp BP Pulse Ox 11/10/20 07:46 97.7 F 56 L 18 169/58 100 11/10/20 03:21 97.5 F L 52 L 16 155/61 100 11/09/20 20:00 98.2 F 43 L 16 158/61 100 11/09/20 17:53 97 11/09/20 14:00 98 F 47 L 17 121/73 97 Intake and Output 11/09/20 11/10/20 11/10/20 22:59 06:59 14:59 Other: # Voids 1 1 # Bowel Movements 1 Results 11/08/20 16:03 11/08/20 16:03 Cardiac Enzymes 11/10/20 Range/Units 07:05 Troponin I 0.033 (0.000-0.034) ng/mL Current Medications Generic Name Dose Route Start Last Admin Trade Name Freq PRN Reason Stop Dose Admin Albuterol/Ipratropium 3 ml 11/08/20 18:28 Ipratropium-Albuterol 3 Ml Neb INHALATION RT-QID PRN Shortness Of Breath Aspirin 81 mg 11/09/20 09:00 11/10/20 08:13 Aspirin 81 Mg PO 81 mg DAILY LENCHO Administration Atorvastatin Calcium 10 mg 11/09/20 09:00 11/10/20 08:13 Atorvastatin 10 Mg Tab PO 10 mg DAILY LENCHO Administration Clopidogrel Bisulfate 75 mg 11/09/20 09:00 11/10/20 08:13 Clopidogrel 75 Mg Tab PO 75 mg DAILY LENCHO Administration Escitalopram Oxalate 10 mg 11/09/20 09:00 11/10/20 08:14 Escitalopram 10 Mg Tab PO 10 mg DAILY LENCHO Administration Fentanyl 1 patch 11/10/20 09:00 11/10/20 08:13 Fentanyl 50mcg/Hr Patch TRANSDERM 1 patch Q72H LENCHO Administration Protocol Gabapentin 100 mg 11/08/20 21:00 11/10/20 08:13 Gabapentin 100 Mg Cap PO 100 mg BID LENCHO Administration Heparin Sodium (Porcine) 5,000 unit 11/09/20 21:00 11/10/20 08:14 Heparin Sodium,Porcine/Pf 5,000 Unit/0.5 Ml Syringe SQ 5,000 unit Q12HR LENCHO Administration Piperacillin Sod/Tazobactam 100 mls @ 25 mls/hr 11/09/20 03:00 11/10/20 03:16 Sod 3.375 gm/ Sodium Chloride IVPB 25 mls/hr Q8H LENCHO Administration Loratadine 10 mg 11/09/20 09:00 11/10/20 08:13 Loratadine 10 Mg Tab PO 10 mg DAILY LENCHO Administration Metoclopramide HCl 10 mg 11/08/20 21:00 11/10/20 08:14 Metoclopramide 10 Mg Tab PO 10 mg BID LENCHO Administration Miscellaneous Information 1 each 11/08/20 18:27 Pneumonia Protocol Utilized 1 Each Misc PO ONCE PRN Per Protocol Montelukast Sodium 10 mg 11/09/20 09:00 11/10/20 08:13 Montelukast 10 Mg Tab PO 10 mg DAILY LENCHO Administration Multivitamins 1 each 11/09/20 09:00 11/10/20 08:13 Multivitamins, Thera 1 Each Tab PO 1 each DAILY LENCHO Administration Multivitamins/Minerals 1 each 11/09/20 09:00 11/10/20 08:14 Vit A,C & J-Vmezzy-Rjphfoqw 1 Each Tab PO 1 each DAILY LENCHO Administration Pantoprazole Sodium 40 mg 11/08/20 21:00 11/10/20 08:13 Pantoprazole 40 Mg Tablet PO 40 mg AC-BID LENCHO Administration Intake and Output 11/09/20 11/10/20 11/10/20 22:59 06:59 14:59 Other: # Voids 1 1 # Bowel Movements 1 11/08/20 16:03 11/08/20 16:03
--- NOTE | 2020-11-10 10:57 | ECHOF ---
Referral Reason:CHF MEASUREMENTS -------- HEIGHT: 167.6 cm WEIGHT: 65.8 kg BP: 155/61 LAESV Index (A-L): 38.09 ml/m FINDINGS -------- Sinus rhythm. Limited Study Overall left ventricular systolic function is normal with, an EF between 60 - 65 %. LA is moderately dilated 34-39 ml/m2 There is mild aortic valve sclerosis. The mitral valve leaflets are mildly thickened. Trace tricuspid regurgitation present. Trace/mild (physiologic) pulmonic regurgitation. There is no pericardial effusion. CONCLUSIONS -------- 1. Limited Study 2. Overall left ventricular systolic function is normal with, an EF between 60 - 65 %. 3. LA is moderately dilated 34-39 ml/m2 4. There is mild aortic valve sclerosis. 5. The mitral valve leaflets are mildly thickened. 6. Trace tricuspid regurgitation present. 7. Trace/mild (physiologic) pulmonic regurgitation. 8. There is no pericardial effusion. PRACTICE SPECIALIST: Oralia Potter RDCS
[2020-11-10 11:03] LABS: HCT 29.9 % (39.6-50.0); HGB 9.2 g/dL (13.0-17.0); MCH 29.8 pg (27.0-32.0); MCHC 30.8 g/dL (32.0-37.0); MCV 96.8 fL (80.0-97.0); Mean Platelet Volume 10.1 fL (9.5-12.2); Platelet Count 163 X 10*3/uL (140-440); RBC 3.09 X 10*6/uL (4.40-5.60); RDW 13.4 % (11.5-14.5); WBC 6.45 X 10*3/uL (4.50-10.00)
--- NOTE | 2020-11-10 11:41 | P.CNPUL ---
History of Present Illness Consult date: 11/10/20 Requesting physician: Willi Trent Reason for consult: dyspnea, cough, hypoxemia, pneumonia, abnormal CXR/CT Chief complaint: Cough and shortness of breath. History of present illness: Pulmonary/critical care consultation dated 11/10/2020. 85-year-old male who presents to the emergency department with complaints of dizziness, nausea, weakness, chest congestion, and some EKG changes. The pa michelle was thought initially to have a ST segment elevation myocardial infarction. He was seen by cardiology. I believe the patient suffering from aspiration pneumonia involving the right lower lobe. The patient was hospitalized back in August for similar episode. To me, he describes chest congestion, cough, and occasional phlegm production. He does have a hard time coughing up phlegm. He also states to me that he has a difficult time when he eats or drinks, and states that he occasionally will choke. I told the nurse, that the patient should have aspiration precautions, have a bit elevated all times, nothing to eat or drink at this time, and be evaluated by speech pathology for aspiration. The patient apparently has a prior history of CVA, GI bleed, hyperlipidemia, hypertension, pneumonia, peptic ulcer disease, chronic dysphagia, macular degeneration, anemia, and kidney stones. White count 6.45, hemoglobin 9.2, hematocrit 29.9, and platelet count normal. PT, PTT and INR, are normal. Sodium, potassium, chloride, CO2, anion gap all normal. BUN 60, creatinine 1.28. Troponins were 0.017 and 0.033. Urine was essentially negative. Chest x-ray shows right lower lobe infiltrates, and possibly some left lower lobe atelectasis or infiltrate. Review of Systems REVIEW OF SYSTEMS: CONSTITUTIONAL: Dizziness, nausea, and weakness. NEUROLOGIC: [ Negative.] HEENT: [ Negative.] CARDIAC: Negative PULMONARY: Cough, congestion, occasional phlegm production, and shortness of breath. GI: [Negative.] : [Negative.] RHEUMATOLOGIC: [ Negative.] IMMUNOLOGIC: [ Negative.] ENDOCRINE: [Negative. ] DERMATOLOGIC: [Negative.] Past Medical History Past Medical History: CVA/TIA, Eye Disorder, GI Bleed, Hyperlipidemia, Hypertension, Pneumonia, Thyroid Disorder, Vascular Disorder Additional Past Medical History / Comment(s): Pt recently admitted to [facility] on 07/16/20 with mid abdominal pain/melena/possible gastritis/possible PUD, multiple tiny nodules R lung base/nonspecific sclerotic focus R iliac crest. Other hx: CVA with L sided deficits, dysphagia/aspiration pne, PUD, bilateral macular degeneration/vision very poor, anemia with current iron infusions, nephrolithiasis/surgery, newly diagnosed thyroid tumor-to be followed up, chronic back pain/fentynal patch. History of Any Multi-Drug Resistant Organisms: None Reported Past Surgical History: Joint Replacement, Orthopedic Surgery Additional Past Surgical History / Comment(s): R caratid endartectomy, laminectomy/cage (3 lower back surgeries), cervical surgery/hardware, R total knee arthroplasty x2, kidney surgery d/t stones and had ureter repair d/t damage from stone, colonoscopy. Past Anesthesia/Blood Transfusion Reactions: Previous Problems w/ Anesthesia Additional Past Anesthesia/Blood Transfusion Reaction / Comment(s): Difficulty waking. Pt is very clausterphobic Past Psychological History: Depression Additional Psychological History / Comment(s): Pt resides with his micaela, Antoinette, and his grandson, Carson. He is independent with ADLS and has tools to assist him. He uses a cane around the house. He is currently in PT. Micaela manages med ications/drives. Pt has clausterphobia. MicaelaAntoinette rizvi, voiced that last admission, she never spoke or was contacted by any physician. She also voiced disappointement that pt's discharge instructions were never gone over with her, she found them in his hospital belongings bag. Smoking Status: Former smoker Past Alcohol Use History: None Reported Additional Past Alcohol Use History / Comment(s): Pt started smoking as a teen and quit in 1980. Past Drug Use History: None Reported - Past Family History Son(s) Family Medical History: Cancer Additional Family Medical History / Comment(s): Son from bacterial meningitis. He has leukemia Mother Family Medical History: Cancer Father Family Medical History: Cancer Additional Family Medical History / Comment(s): Father of lung cancer. He was a smoker. Medications and Allergies Home Medications Medication Instructions Recorded Confirmed Type Cetirizine HCl 10 mg PO DAILY 07/16/20 11/08/20 History Clopidogrel Bisulfate [Plavix] 75 mg PO DAILY 07/16/20 11/08/20 History Escitalopram [Lexapro] 10 mg PO DAILY 07/16/20 11/08/20 History Gabapentin [Neurontin] 100 mg PO BID 07/16/20 11/08/20 History Metoclopramide [Reglan] 10 mg PO BID 07/16/20 11/08/20 History Montelukast [Singulair] 10 mg PO DAILY 07/16/20 11/08/20 History Simvastatin [Zocor] 20 mg PO DAILY 07/16/20 11/08/20 History Pantoprazole Sodium [Protonix] 40 mg PO BID #60 tablet. 07/18/20 11/08/20 Rx Aspirin 81 mg PO DAILY 07/22/20 11/08/20 History Lisinopril [Prinivil] 10 mg PO DAILY 07/22/20 11/08/20 History Multivitamin [Multivitamins Adult 1 tab PO DAILY 07/22/20 11/08/20 History Gummies] Vit C/E/Zn/Coppr/Lutein/Zeaxan 1 tab PO DAILY 07/22/20 11/08/20 History [Preservision Areds 2 Softgel] Ipratropium-Albuterol Nebulize 3 ml INHALATION RT-QID PRN 11/08/20 11/08/20 History [Duoneb 0.5 mg-3 mg/3 ml Soln] Tiotropium [place] [Spiriva 2 spray INHALATION DAILY PRN 11/08/20 11/08/20 History Respimat] fentaNYL 50MCG/HR PATCH [Duragesic 1 patch TRANSDERM Q72H 11/08/20 11/08/20 History 50MCG/HR] Allergies Allergy/AdvReac Type Severity Reaction Status Date / Time celecoxib [From Celebrex] Allergy Confusion Verified 11/08/20 16:30 nabumetone [From Relafen] Allergy Rash/Hives Verified 11/08/20 16:30 oxycodone [From Percocet] Allergy Unknown Verified 11/08/20 16:30 haloperidol [From Haldol] AdvReac Anaphylaxis Verified 11/08/20 16:30 Physical Exam Osteopathic Statement: *. No significant issues noted on an osteopathic structural exam other than those noted in the History and Physical/Consult. Vitals: Vital Signs Temp Pulse Resp BP Pulse Ox 11/10/20 07:46 97.7 F 56 L 18 169/58 100 11/10/20 03:21 97.5 F L 52 L 16 155/61 100 11/09/20 20:00 98.2 F 43 L 16 158/61 100 11/09/20 17:53 97 11/09/20 14:00 98 F 47 L 17 121/73 97 Intake and Output 11/09/20 11/10/20 11/10/20 22:59 06:59 14:59 Other: # Voids 1 1 # Bowel Movements 1 No acute distress, oriented 3. No acute respiratory distress, use of accessory muscles, or conversational dyspnea. The patient does have a wet very congested cough. 2 L saturations are 90%. HEENT examination is grossly unremarkable. Neck supple. Full range of motion. No adenopathy thyromegaly or neck vein distention. Cardiovascular examination reveals regular rhythm rate. S1-S2 normal. No S3 or S4. No discernible murmur noted. Heart sounds are distant. Heart rate 56 bpm. Lungs reveal coarse bilateral rhonchi. No wheezes. No crackles. Breath sounds equal bilaterally. His cough is very wet and congested sounding. Abdomen soft bowel sounds are heard. No masses or tenderness. Extremities are intact. No cyanosis clubbing or edema. Skin is without rash or lesion. Neurologic examination is brief but nonfocal. Results - Laboratory Findings CBC and BMP: 11/10/20 07:05 11/08/20 16:03 PT/INR, D-dimer PT 10.9 sec (9.0-12.0) 11/08/20 16:03 INR 1.0 (<1.2) 11/08/20 16:03 Abnormal lab findings: Abnormal Labs 11/08/20 11/08/20 11/08/20 16:03 16:03 16:23 WBC 12.4 H RBC 3.87 L Hgb 12.0 L Hct 36.1 L MCHC Neutrophils # 11.8 H Lymphocytes # 0.3 L BUN 60 H Creatinine 1.28 H Glucose 112 H Creatine Kinase 32 L Urine Blood Small H Urine RBC 12 H 11/10/20 07:05 WBC RBC 3.09 L Hgb 9.2 L Hct 29.9 L MCHC 30.8 L Neutrophils # Lymphocytes # BUN Creatinine Glucose Creatine Kinase Urine Blood Urine RBC - Diagnostic Findings Chest x-ray: image reviewed Assessment and Plan Assessment: Suspect aspiration pneumonia, involving the right lower lobe, greater than the left lower lobe. History of hyperlipidemia. History of hypertension. History of CVA. History of macular degeneration. History of gastrointestinal bleed. Prior history of aspiration pneumonia. Peptic ulcer disease. History of anemia. History of kidney stones. Plan: Plan dated 11/10/2020. The patient should be maintained nothing by mouth for the current time. In addition, he should be evaluated by speech pathology. He should have a swallow evaluation. In addition, the patient should be under aspiration precautions, with head of bed elevated all times, deep breathing, coughing, clearing of secretions, and also hourly use of the incentive spirometer. Additional recommendations and suggestions are forthcoming. The patient is currently on Z osyn. Patient is currently also on albuterol sulfate and ipratropium bromide [facility]. Time with Patient: Greater than 30
[2020-11-10 12:25] LABS: African American GFR (CKD) 63.5 (60.0-200.0); Anion Gap 5.6 mmol/L (4.00-12.00); Calcium 8.3 mg/dL (8.7-10.3); Carbon Dioxide 27.4 mmol/L (21.6-31.8); Non-African American GFR(CKD) 54.8 (60.0-200.0)
[2020-11-10] MEDS ORDERED: FUROSEMIDE 10 MG/ML 4 ML VIAL IV STA (16:56)
--- NOTE | 2020-11-10 17:50 | XR ---
EXAMINATION TYPE: XR chest 1V portable DATE OF EXAM: 11/10/2020 COMPARISON: Radiograph November 09, 2020 HISTORY: Shortness of breath TECHNIQUE: Single frontal view of the chest is obtained. FINDINGS: ACDF. Clips over the right neck. The mediastinal silhouette and pulmonary vasculature are within normal limits. There is redemonstrati on of patchy airspace opacity right base. Several tiny/punctate opacities are again seen at the right cardiophrenic angle. Nodular 1 cm opacity is again seen at the right apex. IMPRESSION: Significant change in patchy opacity in the right-lower lung which could relate to pneu monia in the appropriate clinical setting
[2020-11-11] MEDS: PIPERACILLIN-TAZOBACTAM 3.375 GM in SODIUM CHLORIDE 0.9% 100 ML IVPB SCH ×3 (04:00→20:04)
[2020-11-11] MEDS: HEPARIN SODIUM,PORCINE/PF 5,000 UNIT/0.5 ML SYRINGE SQ SCH ×2 (08:02→20:03)
[2020-11-11] MEDS: ASPIRIN 81 MG PO SCH (08:02)
[2020-11-11] MEDS: MONTELUKAST 10 MG TAB PO SCH (08:02)
[2020-11-11] MEDS: ATORVASTATIN 10 MG TAB PO SCH (08:02)
[2020-11-11] MEDS: LORATADINE 10 MG TAB PO SCH (08:02)
[2020-11-11] MEDS: PANTOPRAZOLE 40 MG TABLET PO SCH ×2 (08:02→17:22)
[2020-11-11] MEDS: CLOPIDOGREL 75 MG TAB PO SCH (08:02)
[2020-11-11] MEDS: MULTIVITAMINS, THERA 1 EACH TAB PO SCH (08:02)
[2020-11-11] MEDS: GABAPENTIN 100 MG CAP PO SCH ×2 (08:03→20:03)
[2020-11-11] MEDS: ESCITALOPRAM 10 MG TAB PO SCH (08:07)
[2020-11-11] MEDS: METOCLOPRAMIDE 10 MG TAB PO SCH ×2 (08:07→20:03)
[2020-11-11] MEDS: VIT A,C & E-LUTEIN-MINERALS 1 EACH TAB PO SCH (08:08)
--- NOTE | 2020-11-11 10:51 | P.PN ---
Subjective Progress Note Date: 11/11/20 Principal diagnosis: Aspiration pneumonia 85-year-old male who presents to the emergency department with complaints of dizziness, nausea, weakness, chest congestion, and some EKG changes. The patient was thought initially to have a ST segment elevation myocardial infarction. He was seen by cardiology. I believe the patient suffering from aspiration pneumonia involving the right lower lobe. The patient was hospitalized back in August for similar episode. To me, he describes chest congestion, cough, and occasional phlegm production. He does have a hard time coughing up phlegm. He also states to me that he has a difficult time when he eats or drinks, and states that he occasionally will choke. I told the nurse, that the patient should have aspiration precautions, have a bit elevated all times, nothing to eat or drink at this time, and be evaluated by speech patholo gy for aspiration. The patient apparently has a prior history of CVA, GI bleed, hyperlipidemia, hypertension, pneumonia, peptic ulcer disease, chronic dysphagia, macular degeneration, anemia, and kidney stones. White count 6.45, hemoglobin 9.2, hematocrit 29.9, and platelet count normal. PT, PTT and INR, are normal. Sodium, potassium, chloride, CO2, anion gap all normal. BUN 60, creatinine 1.28. Troponins were 0.017 and 0.033. Urine was essentially negative. Chest x-ray shows right lower lobe infiltrates, and possibly some left lower lobe atelectasis or infiltrate. Patient is seen today 11/11/2020 in follow-up on the regular medical floor. He is currently sitting up in bed. Awake and alert in no acute distress. He is maintaining O2 saturations in the 90s on 4 L/m per nasal cannula. He does have a history of previous CVA with dysphagia. He did undergo swallow evaluation and found to have mild to moderate pharyngeal dysphagia. He is recommended nectar thick liquids and chopped diet due to aspiration. Today's chest x-ray continues to show patchy opacity in the right lower lung. Blood cultures reveal no growth. He remains on Zosyn, bronchodilators. Objective - Vital Signs Vital signs: Vital Signs Temp 97.8 F 11/11/20 07:59 Pulse 51 L 11/11/20 07:59 Resp 18 11/11/20 07:59 BP 179/64 11/11/20 07:59 Pulse Ox 93 L 11/11/20 07:59 Intake & Output 11/10/20 11/11/20 11/11/20 18:59 06:59 18:59 Intake Total 210 Output Total 200 Balance 10 Intake: Intake, IV Titration 100 Amount Piperacillin-Tazobactam 3 100 .375 gm In Sodium Chloride 0.9% 100 ml @ 25 mls/hr IVPB Q8H [facility] Rx#: [id number] Oral 110 Output: Urine 200 Other: Voiding Method Urinal # Voids 1 2 - Exam No acute distress, oriented 3. No acute respiratory distress, use of accessory muscles, or conversational dyspnea. The patient does have a wet very congested cough. 4 L saturations are 93%. HEENT examination is grossly unremarkable. Neck supple. Full range of motion. No adenopathy thyromegaly or neck vein distention. Cardiovascular examination reveals regular rhythm rate. S1-S2 normal. No S3 or S4. No discernible murmur noted. Heart sounds are distant. Heart rate 56 bpm. Lungs reveal coarse bilateral rhonchi. Crackles in the right lung base. Breath sounds equal bilaterally. His cough is very wet and congested sounding. Abdomen soft bowel sounds are heard. No masses or tenderness. Extremities are intact. No cyanosis clubbing or edema. Skin is without rash or lesion. Neurologic examination is brief but nonfocal. - Labs CBC & Chem 7: 11/10/20 07:05 11/10/20 07:05 Labs: Abnormal Lab Results - Last 24 Hours (Table) 11/10/20 11/10/20 Range/Units 07:05 07:05 RBC 3.09 L (4.40-5.60) X 10*6/uL Hgb 9.2 L (13.0-17.0) g/dL Hct 29.9 L (39.6-50.0) % MCHC 30.8 L (32.0-37.0) g/dL Chloride 111 H (96-109) mmol/L BUN 36.0 H (9.0-27.0) mg/dL Est GFR (CKD-EPI)NonAf 54.8 L (60.0-200.0) BUN/Creatinine Ratio 30.00 H (12.00-20.00) Ratio Calcium 8.3 L (8.7-10.3) mg/dL Microbiology - Last 24 Hours (Table) 11/08/20 16:23 Blood Culture - Preliminary Blood No Growth after 48 hours 11/08/20 16:23 Blood Culture - Preliminary Blood No Growth after 48 hours Assessment and Plan Assessment: 1 Acute hypoxemic respiratory failure secondary to aspiration pneumonia, involving the right lower lobe, greater than the left lower lobe. 2 History of hyperlipidemia. 3 History of hypertension. 4 History of CVA. 5 History of macular degeneration. 6 History of gastrointestinal bleed. 7 Prior history of aspiration pneumonia. 8 Peptic ulcer disease. 9 History of anemia. 10 History of kidney stones. Plan: The patient was seen and evaluated by Dr. Pierce Speech therapy recommendations noted Currently to have nectar thickened fluids, chopped diet Continue aspiration precautions Continue antibiotics, bronchodilators At the incentive spirometer, flutter valve We will continue to follow I, the cosigning physician, performed a history & physical examination of the patient. Lungs sounds bilateral scattered rhonchi, crackles in the right lung base. Maintaining good O2 saturations in the 90s on 4 L/m per nasal cannula. I discussed the assessment and plan of care with my nurse practitioner, Ayesha Liang. I attest to the above note as dictated by her.
[2020-11-11] MEDS: lisinopriL 10 MG TAB PO SCH (12:15)
[2020-11-11 12:49] LABS: African American GFR (CKD) 72 (>60 ml/min/1.73 sqM); Anion Gap 6 mmol/L; Blood Urea Nitrogen 30 mg/dL (9-20); Calcium 9.1 mg/dL (8.4-10.2); Carbon Dioxide 28 mmol/L (22-30); Chloride 109 mmol/L (98-107); Glucose 118 mg/dL (74-99); Non-African American GFR(CKD) 62 (>60 ml/min/1.73 sqM); Potassium 4.2 mmol/L (3.5-5.1); Sodium 143 mmol/L (137-145)
--- NOTE | 2020-11-11 14:13 | P.PN ---
Subjective This is a pleasant 85-year-old male past medical history significant for CVA 15 years ago (was at [facility] in [place]) with residual left sided weakness, carotid stenosis s/p right carotid endarterectomy, COPD, hypertension, dyslipidemia, pneumonia, aspiration pneumonia, right total knee arthroplasty, nephrolithiasis and removal of stones, former tobacco use. 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 We have been asked to see in consultation for possible congestive heart failure. Patient presents to the emergency department due to dizziness, lightheadedness, confusion. He states he was seeing different people in the room that were not actually there. He also has been feeling weak, fatigued, and having symptoms of chills, productive cough, feeling "hot and warm" at times. This has been progressively getting worse over the past 2 weeks. He also endorses a 25lb unintentional weight loss over the past year. He denies any history of NV, diabetes, coronary artery disease, heart failure. Denies family history of heart disease . On admission, patient's temperature was 103.7F, blood pressure 106/71, heart rate 40s to 60s, patient's oxygen saturations on admission were 91% on room air, patient was placed on 2 L nasal cannula. DIAGNOSTICS EKG reveals sinus rhythm, heart rate 68, repolarization, peak T waves in anteroseptal leads. Prior EKG in August and July appears similar. Chest xray -Bibasilar infiltrates, heart size appears stable and not enlarged. Most recent echocardiogram 07/2020 revealed EF 55-60%, mild mitral r egurgitation. 11/11/2020: Patient seen and examined at bedside, no acute distress. He is alert and oriented x3. Patient walking in the halls with PT, doing well. He has been weaned to room air. Patient states he has some mild lightheadedness when standing. Chest x-ray this morning revealed patchy opacity in the right lower lung. Patient underwent swallow evaluation to found have mild to moderate pharyngeal dysphagia. He was started on a nectar thick liquid and chopped diet. Laboratory data reviewed sodium 143, potassium 4.3, BUN 30, serum creatinine 1.08 improved from 1.28 on admission. He's currently maintained on aspirin 81 mg daily, atorvastatin 10 mg daily, Plavix 75 mg daily, and IV Zosyn. Limited echo revealed EF of 60-65%, LA is moderately dilated, mild aortic valve sclero sis, trace tricuspid regurgitation. PHYSICAL EXAMINATION Blood pressure 163/64, heart rate 50, afebrile, maintaining oxygen saturations 98% on room air CONSTITUTIONAL: No apparent distress. HEENT: Neck supple no JVD CHEST EXAMINATION: Lungs coarse rhonci bilaterally, bibasilar crackles noted No chest wall tenderness is noted on palpation or with deep breathing. HEART EXAMINATION: Regular rate and rhythm. S1, S2 heard.Systolic murmur noted at [place] ABDOMEN: Soft, nontender. Positive bowel sounds. EXTREMITIES: 2+ peripheral pulses, no lower extremity edema and no calf tenderness. NEUROLOGIC EXAMINATION: Patient is awake, alert and oriented x3. ASSESSMENT Dizziness, Lightheadedness, confusion Cough, Fever, Chills, Shortness of breath Acute hypoxemic respiratory failure secondary to aspiration pneumonia, Leukocytosis Acute Kidney Injury History CVA with residual left-sided weakness History of carotid stenosis status post right carotid endarterectomy COPD History of hypertension Dyslipidemia History of aspiration pneumonia PLAN Patient's symptoms appear to be more consistent with infection rather than CHF Continue home statin, aspirin, plavix. Restart patient's home lisinopril 10mg daily From a cardiology perspective, we will follow the patient as needed. Please reach out with further questions or concerns Nurse Practitioner note has been reviewed, I agree with a documented findings and plan of care. Patient was seen and examined. Objective - Vital Signs Vital signs: Vital Signs Temp 97.8 F 11/11/20 07:59 Pulse 51 L 11/11/20 07:59 Resp 18 11/11/20 07:59 BP 179/64 11/11/20 07:59 Pulse Ox 93 L 11/11/20 07:59 Intake & Output 11/10/20 11/11/20 11/11/20 18:59 06:59 18:59 Intake Total 210 Output Total 200 Balance 10 Intake: Intake, IV Titration 100 Amount Piperacillin-Tazobactam 3 100 .375 gm In Sodium Chloride 0.9% 100 ml @ 25 mls/hr IVPB Q8H [facility] Rx#: [id number] Oral 110 Output: Urine 200 Other: Voiding Method Urinal # Voids 1 2 - Labs CBC & Chem 7: 11/10/20 07:05 11/11/20 11:51 Labs: Abnormal Lab Results - Last 24 Hours (Table) 11/10/20 11/10/20 Range/Units 07:05 07:05 RBC 3.09 L (4.40-5.60) X 10*6/uL Hgb 9.2 L (13.0-17.0) g/dL Hct 29.9 L (39.6-50.0) % MCHC 30.8 L (32.0-37.0) g/dL Chloride 111 H (96-109) mmol/L BUN 36.0 H (9.0-27.0) mg/dL Est GFR (CKD-EPI)NonAf 54.8 L (60.0-200.0) BUN/Creatinine Ratio 30.00 H (12.00-20.00) Ratio Calcium 8.3 L (8.7-10.3) mg/dL Microbiology - Last 24 Hours (Table) 11/08/20 16:23 Blood Culture - Preliminary Blood No Growth after 48 hours 11/08/20 16:23 Blood Culture - Preliminary Blood No Growth after 48 hours
--- NOTE | 2020-11-11 15:55 | P.PN ---
Subjective Progress Note Date: 11/10/20 This is an 85-year-old gentleman with history of multiple medical issues including CVA admitted with hypoxic respiratory failure, sepsis, bilateral lower lobe pneumonia, suspect aspiration, acute renal failure. Labs pending. Evaluated by pulmonary for recommendations noted and appreciated. Swallow evalu ation. 11/11/2020 completed swallow evaluation yesterday, reportedly mild to moderate pharyngeal dysphagia, with nectar thick liquids chopped diet recommended. Patient declined MBS. Chest x-ray reporting significant change in past opacity in the right lower lung. Afebrile, normal WBC. Continues on nebulized bronchodilators, Zosyn. Maintaining O2 sats in the 90s on 3 L nasal cannula. Recent hemoglobin down to 9.2. renal function stable. Objective - Vital Signs Vital signs: Vital Signs Temp 97.7 F 11/10/20 07:46 Pulse 56 L 11/10/20 07:46 Resp 18 11/10/20 07:46 BP 169/58 11/10/20 07:46 Pulse Ox 100 11/10/20 07:46 Intake & Output 11/09/20 11/10/20 11/10/20 18:59 06:59 18:59 Output Total 500 Balance -500 Output: Urine 500 Other: # Voids 0 1 1 # Bowel Movements 1 - Exam PHYSICAL EXAM: VITAL SIGNS: As above GENERAL: Sitting up in bed, no acute distress HEENT: Conjunctivae normal. eyes normal. NECK: No JVD. No thyroid enlargement. No LNs CARDIOVASCULAR: S1, S2 regular..No murmur RESPIRATION: Breath sounds diminished in the bases. Congested , scattered rhonchi more so on the right with good air entry. ABDOMEN: Soft, nontender . No guarding. no masses palpable. Bowel sounds heard. LEGS: No edema. no swelling PSYCHIATRY: Alert and oriented X3, mood and affect normal. NERVOUS SYSTEM: Cranial N 2-12 grossly normal. Moves all 4 limbs. Diffuse weakness No focal deficits. Strength and sensation grossly intact.. Skin: Warm and dry, no rash Lymphatic system. No LN neck axilla. - Labs CBC & Chem 7: 11/10/20 07:05 11/11/20 11:51 Labs: Abnormal Lab Results - Last 24 Hours (Table) 11/10/20 Range/Units 07:05 RBC 3.09 L (4.40-5.60) X 10*6/uL Hgb 9.2 L (13.0-17.0) g/dL Hct 29.9 L (39.6-50.0) % MCHC 30.8 L (32.0-37.0) g/dL Microbiology - Last 24 Hours (Table) 11/08/20 16:23 Blood Culture - Preliminary Blood No Growth after 24 hours 11/08/20 16:23 Blood Culture - Preliminary Blood No Growth after 24 hours Assessment and Plan Assessment: Acute Bibasilar pneumonia, suspect aspiration, greatest in the right lower lobe Acute hypoxic respiratory failure Essential hypertension Acute renal failure History of CVA with residual dysphagia Plan: Continue on current medication regime ,monitoring and symptomatic chloe atment. Strict aspiration precautions. Maintain nebulized bronchodilators, antibiotics. Aggressive pulmonary toileting with incentive spirometer, flutter valve ordered. The impression and plan of care has been dictated as directed. : I performed a history and examination of this patient, discussed the same with the dictator. I agree with the dictator's note ,documented as a scribe. Any additional findings or plans will be noted.
--- NOTE | 2020-11-11 15:59 | P.PN ---
Subjective Progress Note Date: 11/11/20 This is an 85-year-old gentleman with history of multiple medical issues including CVA admitted with hypoxic respiratory failure, sepsis, bilateral lower lobe pneumonia, suspect aspiration, acute renal failure. Labs pending. Evaluated by pulmonary for recommendations noted and appreciated. Swallow evalu ation. 11/11/2020 completed swallow evaluation yesterday, reportedly mild to moderate pharyngeal dysphagia, with nectar thick liquids chopped diet recommended. Patient declined MBS. Chest x-ray reporting significant change in past opacity in the right lower lung. Afebrile, normal WBC. Continues on nebulized bronchodilators, Zosyn. Maintaining O2 sats in the 90s on 3 L nasal cannula. Recent hemoglobin down to 9.2. renal function stable. Objective - Vital Signs Vital signs: Vital Signs Temp 97.4 F L 11/11/20 14:00 Pulse 53 L 11/11/20 14:00 Resp 16 11/11/20 14:00 BP 136/60 11/11/20 14:00 Pulse Ox 96 11/11/20 14:00 Intake & Output 11/10/20 11/11/20 11/11/20 18:59 06:59 18:59 Intake Total 210 Output Total 200 Balance 10 Intake: Intake, IV Titration 100 Amount Piperacillin-Tazobactam 3 100 .375 gm In Sodium Chloride 0.9% 100 ml @ 25 mls/hr IVPB Q8H [facility] Rx#: [id number] Oral 110 Output: Urine 200 Other: Voiding Method Urinal External Catheter # Voids 1 2 - Exam PHYSICAL EXAM: VITAL SIGNS: As above GENERAL: Alert and oriented 3 ,Sitting up in bed, no acute distress HEENT: Conjunctivae normal. eyes normal. NECK: No JVD. No thyroid enlargement. No LNs CARDIOVASCULAR: S1, S2 regular..No murmur RESPIRATION: Breath sounds diminished in the bases. Congested , scattered rhonchi more so on the right with good air entry. ABDOMEN: Soft, nontender . No guarding. no masses palpable. Bowel sounds heard. LEGS: No edema. no swelling NERVOUS SYSTEM: Cranial N 2-12 grossly normal. Moves all 4 limbs. Diffuse weakness No focal deficits. Skin: Warm and dry, no rash - Labs CBC & Chem 7: 11/10/20 07:05 11/11/20 11:51 Labs: Abnormal Lab Results - Last 24 Hours (Table) 08/10/21 Range/Units 11:51 Chloride 109 H (98-107) mmol/L BUN 30 H (9-20) mg/dL Glucose 118 H (74-99) mg/dL Microbiology - Last 24 Hours (Table) 11/08/20 16:23 Blood Culture - Preliminary Blood No Growth after 48 hours 11/08/20 16:23 Blood Culture - Preliminary Blood No Growth after 48 hours Assessment and Plan Assessment: Acute Bibasilar pneumonia, suspect aspiration, greatest in the right lower lobe Acute hypoxic respiratory failure Essential hypertension Acute renal failure History of CVA with residual dysphagia Plan: Continue on current medication regime ,monitoring and symptomatic treatment. Declined MBS. Strict aspiration precautions. Continue nebulized bronchodilators, antibiotics. Aggressive pulmonary toileting with incentive spirometer, flutter valve ordered. The impression and plan of care has been dictated as directed. : I performed a history and examination of this patient, discussed the same with the dictator. I agree with the dictator's note ,documented as a scribe. Any additional findings or plans will be noted.
[2020-11-11] MEDS ORDERED: amLODIPine 10 MG TAB PO STA (19:52)
[2020-11-12] MEDS: PIPERACILLIN-TAZOBACTAM 3.375 GM in SODIUM CHLORIDE 0.9% 100 ML IVPB SCH ×2 (04:13→09:25)
[2020-11-12] MEDS: MONTELUKAST 10 MG TAB PO SCH (09:26)
[2020-11-12] MEDS: PANTOPRAZOLE 40 MG TABLET PO SCH (09:26)
[2020-11-12] MEDS: CLOPIDOGREL 75 MG TAB PO SCH (09:26)
[2020-11-12] MEDS: GABAPENTIN 100 MG CAP PO SCH (09:26)
[2020-11-12] MEDS: ATORVASTATIN 10 MG TAB PO SCH (09:26)
[2020-11-12] MEDS: ASPIRIN 81 MG PO SCH (09:26)
[2020-11-12] MEDS: MULTIVITAMINS, THERA 1 EACH TAB PO SCH (09:26)
[2020-11-12] MEDS: HEPARIN SODIUM,PORCINE/PF 5,000 UNIT/0.5 ML SYRINGE SQ SCH (09:26)
[2020-11-12] MEDS: VIT A,C & E-LUTEIN-MINERALS 1 EACH TAB PO SCH (09:27)
[2020-11-12] MEDS: ESCITALOPRAM 10 MG TAB PO SCH (09:27)
[2020-11-12] MEDS: LORATADINE 10 MG TAB PO SCH (09:27)
[2020-11-12] MEDS: lisinopriL 10 MG TAB PO SCH (09:27)
[2020-11-12] MEDS: METOCLOPRAMIDE 10 MG TAB PO SCH (09:27)
--- NOTE | 2020-11-12 10:39 | P.DS ---
Providers Date of admission: 11/08/20 18:27 Expected date of discharge: 11/12/20 Attending physician: Willi Trent MD Consults: 11/09/20 10:14 Consult Physician Routine Consulting Provider: Lester Vasquez Consult Reason/Comments: chest pain, possible CHF Do you want consulting provider notified?: Yes 11/10/20 08:33 Consult Physician Routine Consulting Provider: Whitney Mcmanus Consult Reason/Comments: recurrent penumonia Do you want consulting provider notified?: Yes Primary care physician: Willi Trent MD Hospital Course: Final Diagnoses: Acute Bibasilar pneumonia, suspect aspiration, greatest in the right lower lobe Acute hypoxic respiratory failure Essential hypertension Acute renal failure History of CVA with residual dysphagia, silent aspiration Hospital course:This is an 85-year-old gentleman with history of multiple medical issues including CVA admitted with hypoxic respiratory failure, sepsis, bilateral lower lobe pneumonia, suspect aspiration, acute renal failure. Labs pending. Evaluated by pulmonary for recommendations noted and appreciated. Swallow evaluation. 11/11/2020 completed swallow evaluation yesterday, reportedly mild to moderate pharyngeal dysphagia, with nectar thick liquids chopped diet recommended. Patient declined MBS. Chest x-ray reporting significant change in past opacity in the right lower lung. Afebrile, normal WBC. Continues on nebulized bronchodilators, Zosyn. Maintaining O2 sats in the 90s on 3 L nasal cannula. Recent hemoglobin down to 9.2. renal function stable. Significant clinical improvement. Patient will be discharged home in a stable condition with guarded prognosis. Silent aspiration, residual of prior CVA, Robinul added to med regimen. Strict aspiration precautions. Maintain head of bed up at 30 at all times. Case management to assist with hospital bed. Patient will be discharged home today in a stable condition with guarded prognosis. The impression and plan of care has been dictated as directed. : I performed a history and examination of this patient, discussed the same with the dictator. I agree with the dictator's note ,documented as a scribe. Any additional findings or plans will be noted. Patient Condition at Discharge: Stable Plan - Discharge Summary Discharge Rx Participant: Yes New Discharge Prescriptions: New Amoxic-Pot Clav 875-125Mg [Augmentin 875-125] 1 tab PO BID 1 Days #6 tab Glycopyrrolate [Robinul] 2 mg PO BID #60 tablet Diclofenac Sodium Gel [Voltaren Gel] 4 gm TOPICAL QID #1 tub Continue Montelukast [Singulair] 10 mg PO DAILY Cetirizine HCl 10 mg PO DAILY Gabapentin [Neurontin] 100 mg PO BID Clopidogrel Bisulfate [Plavix] 75 mg PO DAILY Vit C/E/Zn/Coppr/Lutein/Zeaxan [Preservision Areds 2 Softgel] 1 tab PO DAILY Lisinopril [Prinivil] 10 mg PO DAILY fentaNYL 50MCG/HR PATCH [Duragesic 50MCG/HR] 1 patch TRANSDERM Q72H Ipratropium-Albuterol Nebulize [Duoneb 0.5 mg-3 mg/3 ml Soln] 3 ml INHALATION RT-QID PRN PRN Reason: Shortness Of Breath Tiotropium Evant [Spiriva Respimat] 2 spray INHALATION DAILY PRN PRN Reason: Shortness Of Breath Metoclopramide [Reglan] 10 mg PO BID Escitalopram [Lexapro] 10 mg PO DAILY Simvastatin [Zocor] 20 mg PO DAILY Pantoprazole Sodium [Protonix] 40 mg PO BID #60 tablet. Multivitamin [Multivitamins Adult Gummies] 1 tab PO DAILY Aspirin 81 mg PO DAILY Discharge Medication List Cetirizine HCl 10 mg PO DAILY 07/16/20 [History] Clopidogrel Bisulfate [Plavix] 75 mg PO DAILY 07/16/20 [History] Escitalopram [Lexapro] 10 mg PO DAILY 07/16/20 [History] Gabapentin [Neurontin] 100 mg PO BID 07/16/20 [History] Metoclopramide [Reglan] 10 mg PO BID 07/16/20 [History] Montelukast [Singulair] 10 mg PO DAILY 07/16/20 [History] Simvastatin [Zocor] 20 mg PO DAILY 07/16/20 [History] Pantoprazole Sodium [Protonix] 40 mg PO BID #60 tablet. 07/18/20 [Rx] Aspirin 81 mg PO DAILY 07/22/20 [History] Lisinopril [Prinivil] 10 mg PO DAILY 07/22/20 [History] Multivitamin [Multivitamins Adult Gummies] 1 tab PO DAILY 07/22/20 [History] Vit C/E/Zn/Coppr/Lutein/Zeaxan [Preservision Areds 2 Softgel] 1 tab PO DAILY 07/22/20 [History] Ipratropium-Albuterol Nebulize [Duoneb 0.5 mg-3 mg/3 ml Soln] 3 ml INHALATION RT-QID PRN 11/08/20 [History] Tiotropium Evant [Spiriva Respimat] 2 spray INHALATION DAILY PRN 11/08/20 [History] fentaNYL 50MCG/HR PATCH [Duragesic 50MCG/HR] 1 patch TRANSDERM Q72H 11/08/20 [History] Amoxic-Pot Clav 875-125Mg [Augmentin 875-125] 1 tab PO BID 1 Days #6 tab 11/12/20 [Rx] Diclofenac Sodium Gel [Voltaren Gel] 4 gm TOPICAL QID #1 tub 11/12/20 [Rx] Glycopyrrolate [Robinul] 2 mg PO BID #60 tablet 11/12/20 [Rx] Follow up Appointment(s)/Referral(s): Willi Trent MD [Primary Care Provider] - 3 Days (office closed at time of discharge. Please call to make appointment ) Junior Carrasco DO [STAFF PHYSICIAN] - 3 Weeks (office will call with appointment) [facility] Visiting Nurse, [NON-STAFF] - As Needed Activity/Diet/Wound Care/Special Instructions: Patient is to maintain HOB up 30 degrees at all times. case management to arrange Hospital bed. Thickened Diet advised May have free water without thickett
[2020-11-12 11:36] LABS: African American GFR (CKD) 70.6 (60.0-200.0); Anion Gap 8.1 mmol/L (4.00-12.00); Calcium 8.4 mg/dL (8.7-10.3); Carbon Dioxide 27.9 mmol/L (21.6-31.8); Non-African American GFR(CKD) 60.9 (60.0-200.0); Potassium 4.1 mmol/L (3.5-5.5)
[2020-11-12 14:25] VITALS: BP 134/67; PULSE 50; RESP 18; TEMP 98.5
--- NOTE | 2020-11-12 14:28 | P.PN ---
Subjective Progress Note Date: 11/12/20 Principal diagnosis: Aspiration pneumonia 85-year-old male who presents to the emergency department with complaints of dizziness, nausea, weakness, chest congestion, and some EKG changes. The patient was thought initially to have a ST segment elevation myocardial infarction. He was seen by cardiology. I believe the patient suffering from aspiration pneumonia involving the right lower lobe. The patient was hospitalized back in August for similar episode. To me, he describes chest congestion, cough, and occasional phlegm production. He does have a hard time coughing up phlegm. He also states to me that he has a difficult time when he eats or drinks, and states that he occasionally will choke. I told the nurse, that the patient should have aspiration precautions, have a bit elevated all times, nothing to eat or drink at this time, and be evaluated by speech patholo gy for aspiration. The patient apparently has a prior history of CVA, GI bleed, hyperlipidemia, hypertension, pneumonia, peptic ulcer disease, chronic dysphagia, macular degeneration, anemia, and kidney stones. White count 6.45, hemoglobin 9.2, hematocrit 29.9, and platelet count normal. PT, PTT and INR, are normal. Sodium, potassium, chloride, CO2, anion gap all normal. BUN 60, creatinine 1.28. Troponins were 0.017 and 0.033. Urine was essentially negative. Chest x-ray shows right lower lobe infiltrates, and possibly some left lower lobe atelectasis or infiltrate. Patient is seen today 11/11/2020 in follow-up on the regular medical floor. He is currently sitting up in bed. Awake and alert in no acute distress. He is maintaining O2 saturations in the 90s on 4 L/m per nasal cannula. He does have a history of previous CVA with dysphagia. He did undergo swallow evaluation and found to have mild to moderate pharyngeal dysphagia. He is recommended nectar thick liquids and chopped diet due to aspiration. Today's chest x-ray continues to show patchy opacity in the right lower lung. Blood cultures reveal no growth. He remains on Zosyn, bronchodilators. The patient is seen today 11/12/2020 in follow-up on the regular medical floor. He is awake, alert and in no acute distress. He denies any worsening shortness of breath, cough or congestion. He is maintaining good O2 saturation in the 90s on room air. He's been afebrile. Blood cultures reveal no growth. Sodium 143. Potassium 4.1. Creatinine 1.1. He is continued on DuoNeb inhalations, Singulair, Zosyn. Objective - Vital Signs Vital signs: Vital Signs Temp 98.1 F 11/12/20 08:00 Pulse 53 L 11/12/20 08:00 Resp 16 11/12/20 08:00 BP 175/69 11/12/20 08:00 Pulse Ox 93 L 11/12/20 08:00 Intake & Output 11/11/20 11/12/20 11/12/20 18:59 06:59 18:59 Intake Total 300 Output Total 400 400 Balance -400 -100 Intake: Oral 300 Output: Urine 400 400 Other: Voiding Method External Catheter External Catheter External Catheter # Voids 2 # Bowel Movements 1 - Exam Very pleasant 85-year-old gentleman. No acute distress, oriented 3. No acute respiratory distress. The patient does have a wet very congested cough. Room air saturations are 93%. HEENT examination is grossly unremarkable. Neck supple. Full range of motion. No adenopathy thyromegaly or neck vein distention. Cardiovascular examination reveals regular rhythm rate. S1-S2 normal. No S3 or S4. No discernible murmur noted. Heart sounds are distant. Heart rate 56 bpm. Lungs reveal coarse bilateral rhonchi. Crackles in the right lung base. Breath sounds equal bilaterally. His cough is very wet and congested sounding. Abdomen soft bowel sounds are heard. No masses or tenderness. Extremities are intact. No cyanosis clubbing or edema. Skin is without rash or lesion. Neurologic examination is brief but nonfocal. - Labs CBC & Chem 7: 11/10/20 07:05 11/12/20 07:16 Labs: Abnormal Lab Results - Last 24 Hours (Table) 11/12/20 Range/Units 07:16 Calcium 8.4 L (8.7-10.3) mg/dL Microbiology - Last 24 Hours (Table) 11/08/20 16:23 Blood Culture - Preliminary Blood No Growth after 72 hours 11/08/20 16:23 Blood Culture - Preliminary Blood No Growth after 72 hours Assessment and Plan Assessment: 1 Acute hypoxemic respiratory failure secondary to aspiration pneumonia, involving the right lower lobe, greater than the left lower lobe. 2 History of hyperlipidemia. 3 History of hypertension. 4 History of CVA. 5 History of macular degeneration. 6 History of gastrointestinal bleed. 7 Prior history of aspiration pneumonia. 8 Peptic ulcer disease. 9 History of anemia. 10 History of kidney stones. Plan: The patient was seen and evaluated by Dr. Pierce Cleared for discharge from the pulmonary standpoint Continue antibiotics, bronchodilators Continue incentive spirometer, flutter valve Continue aspiration precautions I, the cosigning physician, performed a history & physical examination of the patient. Lungs sounds bilateral scattered rhonchi, crackles in the right lung base. Maintaining good O2 saturations in the 90s on room air. I discussed the assessment and plan of care with my nurse practitioner, Ayesha Liang. I attest to the above note as dictated by her.
== END 2020-11-12 15:02 | disposition home health service (06) | DRG 871 ==
LOC: EC 15:48 → 4SSUR 18:27
PROVIDERS: ADMIT Family Medicine; ATTEND Family Medicine
DX: A41.9 Sepsis, unspecified organism (principal); J69.0 Pneumonitis due to inhalation of food and vomit; J96.01 Acute respiratory failure with hypoxia; N17.0 Acute kidney failure with tubular necrosis; I69.354 Hemiplegia and hemiparesis following cerebral infarction affecting left non-dominant side; J91.8 Pleural effusion in other conditions classified elsewhere; E03.9 Hypothyroidism, unspecified; E78.5 Hyperlipidemia, unspecified; E86.0 Dehydration; F32.9 Major depressive disorder, single episode, unspecified; J44.9 Chronic obstructive pulmonary disease, unspecified; R13.13 Dysphagia, pharyngeal phase; R00.1 Bradycardia, unspecified; G62.9 Polyneuropathy, unspecified; I10 Essential (primary) hypertension; F40.240 Claustrophobia; I08.3 Combined rheumatic disorders of mitral, aortic and tricuspid valves; D64.9 Anemia, unspecified; H35.30 Unspecified macular degeneration; I69.391 Dysphagia following cerebral infarction; E64.9 Sequelae of unspecified nutritional deficiency; K27.9 Peptic ulcer, site unspecified, unspecified as acute or chronic, without hemorrhage or perforation; Z20.822 Contact with and (suspected) exposure to COVID-19; Z79.02 Long term (current) use of antithrombotics/antiplatelets; Z79.82 Long term (current) use of aspirin; Z79.899 Other long term (current) drug therapy; Z87.442 Personal history of urinary calculi; Z96.651 Presence of right artificial knee joint; Z87.891 Personal history of nicotine dependence; Z87.01 Personal history of pneumonia (recurrent); Z87.11 Personal history of peptic ulcer disease; Z87.19 Personal history of other diseases of the digestive system; Z88.8 Allergy status to other drugs, medicaments and biological substances; Z86.79 Personal history of other diseases of the circulatory system; Z88.5 Allergy status to narcotic agent
CPT/HCPCS: 36415; 71045; 71046; 80048; 80053; 81001; 82550; 83605; 83735; 83880; 84484; 85025; 85027; 85610; 85730; 87040; 87635; 93005; 93308; 94667; 94760; 96361; 96374; 99285

== ENCOUNTER 2020-11-19 10:20 | Inpatient (IN) | payer MEDICARE, OTHER ==
[2020-11-19] MEDS ORDERED: SODIUM CHLORIDE 0.9% 500 ML 500 ML IV STA (10:50)
[2020-11-19] MEDS ORDERED: cefTRIAXone IN SWFI 1,000 MG/10 ML SYRINGE IVP STA (10:51)
--- NOTE | 2020-11-19 10:52 | ED ---
General Adult HPI - General Stated complaint: weakness Time Seen by Provider: 11/19/20 10:45 - History of Present Illness Initial comments: 85-year-old male with history of pneumonia presenting to the emergency department with chief complaint of weakness. Patient brought to the ED via EMS. Patient reports his spoke to his primary care physician and was advised to come to the emergency department and concern for possible pneumonia. Patient reports recently he was discharged from the hospital for that exact same reason. Patient reports for about one week use been experiencing progressive weakness along with increased dyspnea without associated chest pain. Patient reports cough. He is vaccinated for Covid. Possible exposure. Does report chills since last night but denies any fevers. Denies any nausea vomiting or diarrhea. Denies any abdominal pain or back pain. Denies any headaches, visual changes, one-sided weakness paresthesias. Denies any URI like symptoms. Former smoker 40 years ago. - Related Data Home Medications Medication Instructions Recorded Confirmed Cetirizine HCl 10 mg PO DAILY 07/16/20 11/08/20 Clopidogrel Bisulfate [Plavix] 75 mg PO DAILY 07/16/20 11/08/20 Escitalopram [Lexapro] 10 mg PO DAILY 07/16/20 11/08/20 Gabapentin [Neurontin] 100 mg PO BID 07/16/20 11/08/20 Metoclopramide [Reglan] 10 mg PO BID 07/16/20 11/08/20 Montelukast [Singulair] 10 mg PO DAILY 07/16/20 11/08/20 Simvastatin [Zocor] 20 mg PO DAILY 07/16/20 11/08/20 Aspirin 81 mg PO DAILY 07/22/20 11/08/20 Lisinopril [Prinivil] 10 mg PO DAILY 07/22/20 11/08/20 Multivitamin [Multivitamins Adult 1 tab PO DAILY 07/22/20 11/08/20 Gummies] Vit C/E/Zn/Coppr/Lutein/Zeaxan 1 tab PO DAILY 07/22/20 11/08/20 [Preservision Areds 2 Softgel] Ipratropium-Albuterol Nebulize 3 ml INHALATION RT-QID PRN 11/08/20 11/08/20 [Duoneb 0.5 mg-3 mg/3 ml Soln] Tiotropium [place] [Spiriva 2 spray INHALATION DAILY PRN 11/08/20 11/08/20 Respimat] fentaNYL 50MCG/HR PATCH [Duragesic 1 patch TRANSDERM Q72H 11/08/20 11/08/20 50MCG/HR] Previous Rx's Medication Instructions Recorded Pantoprazole Sodium [Protonix] 40 mg PO BID #60 tablet. 07/18/20 Amoxic-Pot Clav 875-125Mg 1 tab PO BID 1 Days #6 tab 11/12/20 [Augmentin 875-125] Diclofenac Sodium Gel [Voltaren 4 gm TOPICAL QID #1 tub 11/12/20 Gel] Glycopyrrolate [Robinul] 2 mg PO BID #60 tablet 11/12/20 Allergies Allergy/AdvReac Type Severity Reaction Status Date / Time celecoxib [From Celebrex] Allergy Confusion Verified 11/08/20 16:30 nabumetone [From Relafen] Allergy Rash/Hives Verified 11/08/20 16:30 oxycodone [From Percocet] Allergy Unknown Verified 11/08/20 16:30 haloperidol [From Haldol] AdvReac Anaphylaxis Verified 11/08/20 16:30 Review of Systems ROS Statement: Those systems with pertinent positive or pertinent negative responses have been documented in the HPI. ROS Other: All systems not noted in ROS Statement are negative. Past Medical History Past Medical History: CVA/TIA, Eye Disorder, GI Bleed, Hyperlipidemia, Hypertension, Pneumonia, Thyroid Disorder, Vascular Disorder Additional Past Medical History / Comment(s): Pt recently admitted to [facility] on 07/16/20 with mid abdominal pain/melena/possible gastritis/possible PUD, multiple tiny nodules R lung base/nonspecific sclerotic focus R iliac crest. Other hx: CVA with L sided deficits, dysphagia/aspiration pne, PUD, bilateral macular degeneration/vision very poor, anemia with current iron infusions, nephrolithiasis/surgery, newly diagnosed thyroid tumor-to be followed up, chronic back pain/fentynal patch. History of Any Multi-Drug Resistant Organisms: None Reported Past Surgical History: Joint Replacement, Orthopedic Surgery Additional Past Surgical History / Comment(s): R caratid endartectomy, laminectomy/cage (3 lower back surgeries), cervical surgery/hardware, R total knee arthroplasty x2, kidney surgery d/t stones and had ureter repair d/t damage from stone, colonoscopy. Past Anesthesia/Blood Transfusion Reactions: Previous Problems w/ Anesthesia Additional Past Anesthesia/Blood Transfusion Reaction / Comment(s): Difficulty waking. Pt is very clausterphobic Past Psychological History: Depression Additional Psychological History / Comment(s): Pt resides with his micaela, Antoinette, and his grandson, Carson. He is independent with ADLS and has tools to assist him. He uses a cane around the house. He is currently in PT. Micaela manages me dications/drives. Pt has clausterphobia. Antoinette Hinojosa, voiced that last admission, she never spoke or was contacted by any physician. She also voiced disappointement that pt's discharge instructions were never gone over with her, she found them in his hospital belongings bag. Smoking Status: Former smoker Past Alcohol Use History: None Reported Additional Past Alcohol Use History / Comment(s): Pt started smoking as a teen and quit in 1980. Past Drug Use History: None Reported - Past Family History Son(s) Family Medical History: Cancer Additional Family Medical History / Comment(s): Son from bacterial meningitis. He has leukemia Mother Family Medical History: Cancer Father Family Medical History: Cancer Additional Family Medical History / Comment(s): Father of lung cancer. He was a smoker. General Exam Limitations: no limitations General appearance: alert, in no apparent distress Head exam: Present: atraumatic, normocephalic, normal inspection Eye exam: Present: normal appearance, PERRL, EOMI Pupils: Present: normal accommodation ENT exam: Present: normal exam, normal oropharynx, mucous membranes moist Neck exam: Present: normal inspection, full ROM. Absent: tenderness Respiratory exam: Present: normal lung sounds bilaterally. Absent: respiratory distress Cardiovascular Exam: Present: regular rate, normal rhythm, normal heart sounds. Absent: systolic murmur GI/Abdominal exam: Present: soft. Absent: distended, tenderness, guarding, rebound Extremities exam: Present: normal inspection, full ROM, normal capillary refill. Absent: tenderness, pedal edema, joint swelling Back exam: Present: normal inspection, full ROM. Absent: tenderness Neurological exam: Present: alert, oriented X3 Psychiatric exam: Present: normal affect, normal mood Skin exam: Present: warm, dry, intact, normal color Course Vital Signs 08/11/19/20 11/19/20 10:55 11:00 12:00 Temperature 100.3 F H Pulse Rate 55 L 54 L Respiratory 20 16 20 Rate Blood Pressure 144/63 153/63 O2 Sat by Pulse 95 99 Oximetry 11/19/20 13:00 Temperature 98.5 F Pulse Rate 54 L Respiratory 20 Rate Blood Pressure 120/56 O2 Sat by Pulse 97 Oximetry EKG Findings - EKG Comments: EKG Findings:: Sinus bradycardia. Ventricular rate 58, CO 152, QRS 90, QTC 416. Medical Decision Making - Medical Decision Making 85-year-old male with history of pneumonia presenting to the emergency department with chief complaint of weakness. On physical examination, patient is well-appearing. Lungs appear to be clear to auscultation. Positive Covid. Rest x-ray reveals patchy infiltrates suggesting Covid pneumonia. He had an elevated d-dimer of 1.6. Negative troponin. CT shows no signs of pulmonary embolism. EKG appears to be nonischemic. Hemoglobin of 9.5 but this appears to be his baseline. I spoke to Dr. Trent who will admit the patient for further medical management. Patient started on azithromycin, 6 of Decadron and 40 mg of Lovenox subcu. Case discussed with Dr. Yeh. Pulmonary consult. - Lab Data Result diagrams: 11/19/20 11:13 11/19/20 11:13 Lab Results 11/19/20 11/19/20 11/19/20 Range/Units 11:13 11:13 11:13 WBC 3.9 (3.8-10.6) k/uL RBC 3.10 L (4.30-5.90) m/uL Hgb 9.6 L D (13.0-17.5) gm/dL Hct 28.7 L (39.0-53.0) % MCV 92.5 (80.0-100.0) fL MCH 31.1 (25.0-35.0) pg MCHC 33.6 (31.0-37.0) g/dL RDW 14.1 (11.5-15.5) % Plt Count 263 (150-450) k/uL MPV 6.9 Neutrophils % 79 % Lymphocytes % 8 % Monocytes % 7 % Eosinophils % 2 % Basophils % 0 % Neutrophils # 3.1 (1.3-7.7) k/uL Lymphocytes # 0.3 L (1.0-4.8) k/uL Monocytes # 0.3 (0-1.0) k/uL Eosinophils # 0.1 (0-0.7) k/uL Basophils # 0.0 (0-0.2) k/uL PT 11.4 (9.0-12.0) sec INR 1.1 (<1.2) APTT 26.4 (22.0-30.0) sec D-Dimer 1.65 H (<0.60) mg/L FEU Sodium 136 L (137-145) mmol/L Potassium 4.7 (3.5-5.1) mmol/L Chloride 103 (98-107) mmol/L Carbon Dioxide 29 (22-30) mmol/L Anion Gap 4 mmol/L BUN 29 H (9-20) mg/dL Creatinine 1.05 (0.66-1.25) mg/dL Est GFR (CKD-EPI)AfAm 75 (>60 ml/min/1.73 sqM) Est GFR (CKD-EPI)NonAf 65 (>60 ml/min/1.73 sqM) Glucose 99 (74-99) mg/dL Plasma Lactic Acid Joseph (0.7-2.0) mmol/L Calcium 8.4 (8.4-10.2) mg/dL Total Bilirubin 0.2 (0.2-1.3) mg/dL AST 20 (17-59) U/L ALT 8 (4-49) U/L Alkaline Phosphatase 52 (38-126) U/L Troponin I (0.000-0.034) ng/mL Total Protein 6.1 L (6.3-8.2) g/dL Albumin 3.1 L (3.5-5.0) g/dL Coronavirus (PCR) (Not Detectd) 11/19/20 11/19/20 11/19/20 Range/Units 11:13 11:13 11:13 WBC (3.8-10.6) k/uL RBC (4.30-5.90) m/uL Hgb (13.0-17.5) gm/dL Hct (39.0-53.0) % MCV (80.0-100.0) fL MCH (25.0-35.0) pg MCHC (31.0-37.0) g/dL RDW (11.5-15.5) % Plt Count (150-450) k/uL MPV Neutrophils % % Lymphocytes % % Monocytes % % Eosinophils % % Basophils % % Neutrophils # (1.3-7.7) k/uL Lymphocytes # (1.0-4.8) k/uL Monocytes # (0-1.0) k/uL Eosinophils # (0-0.7) k/uL Basophils # (0-0.2) k/uL PT (9.0-12.0) sec INR (<1.2) APTT (22.0-30.0) sec D-Dimer (<0.60) mg/L FEU Sodium (137-145) mmol/L Potassium (3.5-5.1) mmol/L Chloride (98-107) mmol/L Carbon Dioxide (22-30) mmol/L Anion Gap mmol/L BUN (9-20) mg/dL Creatinine (0.66-1.25) mg/dL Est GFR (CKD-EPI)AfAm (>60 ml/min/1.73 sqM) Est GFR (CKD-EPI)NonAf (>60 ml/min/1.73 sqM) Glucose (74-99) mg/dL Plasma Lactic Acid Joseph 0.6 L (0.7-2.0) mmol/L Calcium (8.4-10.2) mg/dL Total Bilirubin (0.2-1.3) mg/dL AST (17-59) U/L ALT (4-49) U/L Alkaline Phosphatase (38-126) U/L Troponin I 0.031 (0.000-0.034) ng/mL Total Protein (6.3-8.2) g/dL Albumin (3.5-5.0) g/dL Coronavirus (PCR) Detected A (Not Detectd) Disposition Clinical Impression: Pneumonia due to COVID-19 virus Disposition: ADMITTED IP TO THIS HOSP Condition: Fair Is patient prescribed a controlled substance at d/c from ED?: No Referrals: Willi Trent MD [Primary Care Provider] - 1-2 days Time of Disposition: 15:26
[2020-11-19] MEDS ORDERED: ACETAMINOPHEN TAB 325 MG TAB PO STA (11:01)
[2020-11-19 11:43] LABS: Albumin 3.1 g/dL (3.5-5.0); Calcium 8.4 mg/dL (8.4-10.2); Potassium 4.7 mmol/L (3.5-5.1); Total Bilirubin 0.2 mg/dL (0.2-1.3); Total Protein 6.1 g/dL (6.3-8.2)
[2020-11-19 11:45] LABS: INR 1.1 (<1.2); Partial Thromboplastin Time 26.4 sec (22.0-30.0); Prothrombin Time 11.4 sec (9.0-12.0)
[2020-11-19 11:58] LABS: Basophils % (A) 0 %; Eosinophils # (A) 0.1 k/uL (0-0.7); Eosinophils % (A) 2 %; HCT 28.7 % (39.0-53.0); Lymphocytes # (A) 0.3 k/uL (1.0-4.8); Lymphocytes % (A) 8 %; MCH 31.1 pg (25.0-35.0); MCHC 33.6 g/dL (31.0-37.0); MCV 92.5 fL (80.0-100.0); Mean Platelet Volume 6.9; Monocytes # (A) 0.3 k/uL (0-1.0); Monocytes % (A) 7 %; Neutrophils # (A) 3.1 k/uL (1.3-7.7); Neutrophils % (A) 79 %; Platelet Count 263 k/uL (150-450); RDW 14.1 % (11.5-15.5); WBC 3.9 k/uL (3.8-10.6)
[2020-11-19 12:00] LABS: HGB 9.6 gm/dL (13.0-17.5)
--- NOTE | 2020-11-19 12:08 | XR ---
EXAMINATION TYPE: XR chest 2V DATE OF EXAM: 11/19/2020 COMPARISON: 11/10/2020 TECHNIQUE: PA and lateral views submitted. HISTORY: Chest pain FINDINGS: Bilateral areas of patchy infiltrate new from prior exam. Aspirated barium noted in the right lower l obe. Hyperinflation. Arthropathy of the shoulders correlate for calcific tendinosis on the right. Pos tsurgical change involving the cervical spine there is a large calcified granuloma measuring 1 cm the right upper lobe apex. Underlying COPD suspected there is degenerative change of the spine. IMPRESSION: 1. COPD with bilateral areas of patchy infiltrate correlate for pneumonia.
--- NOTE | 2020-11-19 14:13 | CT ---
EXAMINATION TYPE: CT chest angio for PE DATE OF EXAM: 11/19/2020 COMPARISON: Chest x-ray earlier today and older x-rays. HISTORY: SOB, covid positive, elevated d dimer CT DLP: 253.7 mGycm Automated exposure control for dose reduction was used. CONTRAST: CT Chest for pulmonary embolism performed with with IV Contrast, patient injected with 100 mL of Isov ue 370. FINDINGS: LUNGS: Small bibasilar pleural effusions with associated compressive atelectasis. Medial right lower lobe nodular metallic densities or hyperdensities redemonstrated. Mild to moderate bibasilar linear s carring and/or atelectasis. Mild emphysematous change with small multifocal areas of groundglass opac ity in the inferior right upper lobe and in the right middle lobe along with most prominent findings in the inferior left upper lobe where there is an area of organizing consolidation or axial image 56 noted. No pneumothorax seen bilaterally. MEDIASTINUM: There is satisfactory enhancement of the pulmonary artery and its branches, there is no CT evidence for pulmonary embolism. Satisfactory enhancement of the aorta without aneurysm or dissec tion. There are reactive prominent and enlarged AP window along with subcarinal and bilateral hilar l ymph nodes. No cardiomegaly or pericardial effusion is seen. Coronary artery calcification is pre sent. There is calcific lesion at level of aortic and mitral valves. OTHER: Nodular gynecomastia left greater than right is felt present, correlate clinically. There is greater than 1.0 cm right thyroid nodule coronal image 47 nonemergent follow-up advised. Please refer to same day CT abdomen and pelvis for complete details in the upper abdomen. Scoliotic c urvature with moderate multilevel spurring in the spine. IMPRESSION: 1. No CT evidence for acute pulmonary embolism. 2. Mild emphysematous change. Small bibasilar pleural effusions. Small faint multifocal groundglass o pacities in the mid to lower lungs with more prominent involvement in the left upper lobe likely prod uct of known covid-19 infection.
[2020-11-19] MEDS ORDERED: ENOXAPARIN 40 MG/0.4 ML SYRINGE SQ STA (15:22)
[2020-11-19] MEDS ORDERED: ONDANSETRON 4 MG/2 ML VIAL IVP PRN (15:23)
[2020-11-19] MEDS ORDERED: AZITHROMYCIN 500 MG in SODIUM CHLORIDE 0.9% 250 ML IVPB STA (15:23)
[2020-11-19] MEDS ORDERED: dexAMETHasone 2 MG TAB PO STA (15:23)
[2020-11-19] MEDS ORDERED: NALOXONE 0.4 MG/ML 1 ML VIAL IV PRN (15:23)
[2020-11-19] MEDS: SODIUM CHLORIDE 0.9% 1,000 ML IV SCH ×2 (16:53→20:27)
--- NOTE | 2020-11-19 18:31 | P.CNPUL ---
History of Present Illness Consult date: 11/19/20 Reason for consult: dyspnea History of present illness: History of Present Illness Consult date: 11/19/20 Reason for consult: pneumonia History of present illness: 85-year-old male patient coming in again to the hospital because of worsening shortness of breath and generalized weakness. The patient was in the hospital back in a 8 2020 and at a time the patient was treated for an aspiration pneumonia. The patient was treated with IV Zosyn. The blood cultures back and was negative. The patient improved and the patient was discharged home. Note that at that time, the patient was COVID-19 negative. COVID-19 PCR that was obtained on 11/08/2020 was negative. The patient was discharged home to be readmitted back to the hospital with generalized weakness, increased shortness of breath and some cough. Note that the patient is a former smoker 40 pack years and is within vaccinated for COVID-19. Denies having any nausea vomiting or diarrhea. CAT scan of the chest shows bilateral lower lobe pulmonary infiltrates along with small effusions. There is also patchy area of groundglass for greater than left lung/left upper lobe. The CAT scan of the abdomen and pelvis was also done that showed an overall nonobstructive bowel gas pattern. There was evidence also of diffuse colonic fecal stasis. The bladder was distended and possibly related to underlying neurogenic bladder. 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 He has chronic dysphagia. He has other issues related to hypertension and hyperlipidemia and macular degeneration and peptic ulcer disease and chronic gastritis. Of interest is that the patient's repeat COVID-19 19 testing came back positive by PCR. Review of Systems Constitutional: Reports fatigue, Reports weakness Eyes: bilateral blurred vision, denies as per HPI, denies bulging eye, denies decreased vision, denies diplopia, denies discharge, denies dry eye, denies irritation, denies itching, denies pain, denies photophobia, denies loss of peripheral vision, denies loss of vision, denies tunnel vision/blind spots Ears: bilateral: decreased hearing, deny: ear discharge, earache, tinnitus Ears, nose, mouth and throat: Reports as per HPI Breasts: absent: as per HPI, gynecomastia Cardiovascular: Reports decreased exercise tolerance, Reports dyspnea on exertion, Reports shortness of breath Respiratory: Reports dyspnea Gastrointestinal: Reports as per HPI (Chronic dysphagia), Reports constipation Genitourinary: Reports as per HPI Musculoskeletal: Reports as per HPI Musculoskeletal: absent: ankle pain, ankle stiffness, ankle swelling Integumentary: Reports as per HPI Neurological: Reports as per HPI (Previous CVA with left-sided weakness, chronic dysphagia), Reports weakness Psychiatric: Reports as per HPI Endocrine: Reports as per HPI Hematologic/Lymphatic: Reports as per HPI Allergic/Immunologic: Reports as per HPI Past Medical History Past Medical History: CVA/TIA, Eye Disorder, GI Bleed, Hyperlipidemia, Hypertension, Pneumonia, Thyroid Disorder, Vascular Disorder Additional Past Medical History / Comment(s): Pt recently admitted to [facility] on 07/16/20 with mid abdominal pain/melena/possible gastritis/possible PUD, multiple tiny nodules R lung base/nonspecific sclerotic focus R iliac crest. Other hx: CVA with L sided deficits, dysphagia/aspiration pne, PUD, bilateral macular degeneration/vision very poor, anemia with current iron infusions, nephrolithiasis/surgery, newly diagnosed thyroid tumor-to be followed up, chronic back pain/fentynal patch. History of Any Multi-Drug Resistant Organisms: None Reported Past Surgical History: Joint Replacement, Orthopedic Surgery Additional Past Surgical History / Comment(s): R caratid endartectomy, laminectomy/cage (3 lower back surgeries), cervical surgery/hardware, R total knee arthroplasty x2, kidney surgery d/t stones and had ureter repair d/t damage from stone, colonoscopy. Past Anesthesia/Blood Transfusion Reactions: Previous Problems w/ Anesthesia Additional Past Anesthesia/Blood Transfusion Reaction / Comment(s): Difficulty waking. Pt is very clausterphobic Smoking Status: Former smoker - Past Family History Son(s) Family Medical History: Cancer Additional Family Medical History / Comment(s): Son from bacterial meningitis. He has leukemia Mother Family Medical History: Cancer Father Family Medical History: Cancer Additional Family Medical History / Comment(s): Father of lung cancer. He was a smoker. Medications and Allergies Home Medications Medication Instructions Recorded Confirmed Type Cetirizine HCl 10 mg PO DAILY 07/16/20 11/08/20 History Clopidogrel Bisulfate [Plavix] 75 mg PO DAILY 07/16/20 11/08/20 History Escitalopram [Lexapro] 10 mg PO DAILY 07/16/20 11/08/20 History Gabapentin [Neurontin] 100 mg PO BID 07/16/20 11/08/20 History Metoclopramide [Reglan] 10 mg PO BID 07/16/20 11/08/20 History Montelukast [Singulair] 10 mg PO DAILY 07/16/20 11/08/20 History Simvastatin [Zocor] 20 mg PO DAILY 07/16/20 11/08/20 History Pantoprazole Sodium [Protonix] 40 mg PO BID #60 tablet. 07/18/20 11/08/20 Rx Aspirin 81 mg PO DAILY 07/22/20 11/08/20 History Lisinopril [Prinivil] 10 mg PO DAILY 07/22/20 11/08/20 History Multivitamin [Multivitamins Adult 1 tab PO DAILY 07/22/20 11/08/20 History Gummies] Vit C/E/Zn/Coppr/Lutein/Zeaxan 1 tab PO DAILY 07/22/20 11/08/20 History [Preservision Areds 2 Softgel] Ipratropium-Albuterol Nebulize 3 ml INHALATION RT-QID PRN 11/08/20 11/08/20 History [Duoneb 0.5 mg-3 mg/3 ml Soln] Tiotropium Byron [Spiriva 2 spray INHALATION DAILY PRN 11/08/20 11/08/20 History Respimat] fentaNYL 50MCG/HR PATCH [Duragesic 1 patch TRANSDERM Q72H 11/08/20 11/08/20 History 50MCG/HR] Amoxic-Pot Clav 875-125Mg 1 tab PO BID 1 Days #6 tab 11/12/20 Rx [Augmentin 875-125] Diclofenac Sodium Gel [Voltaren 4 gm TOPICAL QID #1 tub 11/12/20 Rx Gel] Glycopyrrolate [Robinul] 2 mg PO BID #60 tablet 11/12/20 Rx Allergies Allergy/AdvReac Type Severity Reaction Status Date / Time celecoxib [From Celebrex] Allergy Confusion Verified 11/08/20 16:30 nabumetone [From Relafen] Allergy Rash/Hives Verified 11/08/20 16:30 oxycodone [From Percocet] Allergy Unknown Verified 11/08/20 16:30 haloperidol [From Haldol] AdvReac Anaphylaxis Verified 11/08/20 16:30 Physical Exam 85-year-old gentleman. No acute distress, oriented 3. No acute respiratory distress. The patient does have a wet very congested cough. 97% on 2 L about 2 by nasal cannula HEENT examination is grossly unremarkable. Neck supple. Full range of motion. No adenopathy thyromegaly or neck vein distention. Cardiovascular examination reveals regular rhythm rate. S1-S2 normal. No S3 or S4. No discernible murmur noted. Heart sounds are distant. Heart rate 56 bpm. Lungs reveal coarse bilateral rhonchi. Crackles in the right lung base. Breath sounds equal bilaterally. His cough is very wet and congested sounding. Abdomen soft bowel sounds are heard. No masses or tenderness. Extremities are intact. No cyanosis clubbing or edema. Skin is without rash or lesion. Neurologic examination is brief but nonfocal. Results - Diagnostic Findings Chest x-ray: image reviewed CT scan - chest: image reviewed Assessment and Plan Plan: 1 bilateral pneumonia. Based on my review of the CAT scan images, the patient's pneumonia is probably multifactorial related to chronic aspiration as the patient continues to have lower lobe infiltrates and small pleural effusions. At the same time there is a new area of infiltration of the left lung which obvi ously raises the suspicion for an underlying carbonate infection/pneumonia monitor the patient's PCR is positive for COVID-19 19. Patient has history of silent aspiration. The patient has chronic dysphagia, previous CVA and he has been treated recently for an aspiration pneumonia with IV Zosyn and completed a course of Augmentin outpatient basis. 2 COVID-19 infection with positive PCR, patient is vaccinated 3 chronic dysphagia/aspiration, silent For history of CVA with left-sided weakness 5 hypertension 6 hyperlipidemia 7. Vascular disease 8 chronic gastritis with previous bouts of GI bleed/peptic ulcer disease 9 macular degeneration 10 nephrolithiasis 11 anemia, chronic, normocytic Plan Check pro calcitonin level Checked LDH, CRP and d-dimer is currently at 1.65 Keep the patient IV Zosyn Decadron 6 mg by mouth daily Lovenox 40 mg subcu 40 prophylaxis Oxygen supplementation to maintain saturation above 90% Resume all medications CAT scan of the chest and abdomen and pelvis was noted Aspiration precautions We'll continue to follow. Consider PEG tube insertion should there be any issues with chronic aspiration pneumonia Past Medical History Past Medical History: CVA/TIA, Eye Disorder, GI Bleed, Hyperlipidemia, Hypertension, Pneumonia, Thyroid Disorder, Vascular Disorder Additional Past Medical History / Comment(s): Pt recently admitted to [facility] on 07/16/20 with mid abdominal pain/melena/possible gastritis/possible PUD, multiple tiny nodules R lung base/nonspecific sclerotic focus R iliac crest. Other hx: CVA with L sided deficits, dysphagia/aspiration pne, PUD, bilateral macular degeneration/vision very poor, anemia with current iron infusions, nephrolithiasis/surgery, newly diagnosed thyroid tumor-to be followed up, chronic back pain/fentynal patch. History of Any Multi-Drug Resistant Organisms: None Reported Past Surgical History: Joint Replacement, Orthopedic Surgery Additional Past Surgical History / Comment(s): R caratid endartectomy, laminectomy/cage (3 lower back surgeries), cervical surgery/hardware, R total knee arthroplasty x2, kidney surgery d/t stones and had ureter repair d/t damage from stone, colonoscopy. Past Anesthesia/Blood Transfusion Reactions: Previous Problems w/ Anesthesia Additional Past Anesthesia/Blood Transfusion Reaction / Comment(s): Difficulty waking. Pt is very clausterphobic Past Psychological History: Depression Smoking Status: Former smoker Past Alcohol Use History: None Reported Past Drug Use History: None Reported - Past Family History Son(s) Family Medical History: Cancer Additional Family Medical History / Comment(s): Son from bacterial meningitis. He has leukemia Mother Family Medical History: Cancer Father Family Medical History: Cancer Additional Family Medical History / Comment(s): Father of lung cancer. He was a smoker. Medications and Allergies Home Medications Medication Instructions Recorded Confirmed Type Cetirizine HCl 10 mg PO DAILY 07/16/20 11/19/20 History Clopidogrel Bisulfate [Plavix] 75 mg PO DAILY 07/16/20 11/19/20 History Escitalopram [Lexapro] 10 mg PO DAILY 07/16/20 11/19/20 History Gabapentin [Neurontin] 100 mg PO BID 07/16/20 11/19/20 History Metoclopramide [Reglan] 10 mg PO BID 07/16/20 11/19/20 History Montelukast [Singulair] 10 mg PO DAILY 07/16/20 11/19/20 History Simvastatin [Zocor] 20 mg PO DAILY 07/16/20 11/19/20 History Pantoprazole Sodium [Protonix] 40 mg PO BID #60 tablet. 07/18/20 11/19/20 Rx Aspirin 81 mg PO DAILY 07/22/20 11/19/20 History Lisinopril [Prinivil] 10 mg PO DAILY 07/22/20 11/19/20 History Multivitamin [Multivitamins Adult 1 tab PO DAILY 07/22/20 11/19/20 History Gummies] Vit C/E/Zn/Coppr/Lutein/Zeaxan 1 cap PO DAILY 07/22/20 11/19/20 History [Preservision Areds 2 Softgel] Ipratropium-Albuterol Nebulize 3 ml INHALATION RT-QID PRN 11/08/20 11/19/20 History [Duoneb 0.5 mg-3 mg/3 ml Soln] Tiotropium Byron [Spiriva 2 puff INHALATION RT-DAILY PRN 11/08/20 11/19/20 History Respimat] fentaNYL 50MCG/HR PATCH [Duragesic 1 patch TRANSDERM Q72H 11/08/20 11/19/20 History 50MCG/HR] Amoxic-Pot Clav 875-125Mg 1 tab PO BID 1 Days #6 tab 11/12/20 11/19/20 Rx [Augmentin 875-125] Diclofenac Sodium Gel [Voltaren 4 gm TOPICAL QID #1 tub 11/12/20 11/19/20 Rx Gel] Glycopyrrolate [Robinul] 2 mg PO BID #60 tablet 11/12/20 11/19/20 Rx Allergies Allergy/AdvReac Type Severity Reaction Status Date / Time celecoxib [From Celebrex] Allergy Confusion Verified 11/19/20 17:37 nabumetone [From Relafen] Allergy Rash/Hives Verified 11/19/20 17:37 oxycodone [From Percocet] Allergy Unknown Verified 11/19/20 17:37 haloperidol [From Haldol] AdvReac Anaphylaxis Verified 11/19/20 17:37 Physical Exam Vitals: Vital Signs Temp Pulse Pulse Resp BP BP Pulse Ox 11/19/20 18:16 98.3 F 48 L 164/60 98 11/19/20 17:47 98.5 F 54 L 20 120/56 97 11/19/20 17:00 20 120/56 97 11/19/20 16:00 20 97 11/19/20 15:00 20 97 11/19/20 14:00 20 97 11/19/20 13:00 98.5 F 54 L 20 120/56 97 11/19/20 12:00 20 11/19/20 11:00 54 L 16 153/63 99 11/19/20 10:55 100.3 F H 55 L 20 144/63 95 Intake and Output 11/19/20 11/19/20 11/19/20 06:59 14:59 22:59 Other: Weight 56.699 kg Results - Laboratory Findings CBC and BMP: 11/19/20 11:13 11/19/20 11:13 PT/INR, D-dimer PT 11.4 sec (9.0-12.0) 11/19/20 11:13 INR 1.1 (<1.2) 11/19/20 11:13 D-Dimer 1.65 mg/L FEU (<0.60) H 11/19/20 11:13 Abnormal lab findings: Abnormal Labs 11/19/20 11/19/20 11/19/20 11:13 11:13 11:13 RBC 3.10 L Hgb 9.6 L D Hct 28.7 L Lymphocytes # 0.3 L D-Dimer 1.65 H Sodium 136 L BUN 29 H Plasma Lactic Acid Joseph Total Protein 6.1 L Albumin 3.1 L Coronavirus (PCR) 11/19/20 11/19/20 11:13 11:13 RBC Hgb Hct Lymphocytes # D-Dimer Sodium BUN Plasma Lactic Acid Joseph 0.6 L Total Protein Albumin Coronavirus (PCR) Detected A
[2020-11-19] MEDS: PIPERACILLIN-TAZOBACTAM 3.375 GM in SODIUM CHLORIDE 0.9% 100 ML IVPB SCH (20:27)
[2020-11-20] MEDS: PIPERACILLIN-TAZOBACTAM 3.375 GM in SODIUM CHLORIDE 0.9% 100 ML IVPB SCH ×3 (03:21→19:18)
[2020-11-20] MEDS: PANTOPRAZOLE 40 MG/10 ML VIAL IV SCH (09:03)
[2020-11-20] MEDS: DEXAMETHASONE SOD PHOSPHATE 10 MG/ML 1 ML VIAL IV SCH (09:03)
[2020-11-20] MEDS: GABAPENTIN 100 MG CAP PO SCH ×2 (09:04→19:19)
[2020-11-20] MEDS: LORATADINE 10 MG TAB PO SCH (09:04)
[2020-11-20] MEDS: CLOPIDOGREL 75 MG TAB PO SCH (09:04)
[2020-11-20] MEDS: ENOXAPARIN 40 MG/0.4 ML SYRINGE SQ SCH (09:04)
[2020-11-20] MEDS: ESCITALOPRAM 10 MG TAB PO SCH (09:04)
[2020-11-20] MEDS: MONTELUKAST 10 MG TAB PO SCH (09:04)
[2020-11-20] MEDS: METOCLOPRAMIDE 10 MG TAB PO SCH ×2 (09:04→19:19)
[2020-11-20] MEDS: ASPIRIN 81 MG PO SCH (09:04)
[2020-11-20 11:14] LABS: Basophils # (A) 0 X 10*3/uL (0.00-0.10); Basophils % (A) 0 %; Eosinophils # (A) 0 X 10*3/uL (0.04-0.35); Eosinophils % (A) 0 %; HCT 30.3 % (39.6-50.0); HGB 9.6 g/dL (13.0-17.0); Lymphocytes # (A) 0.45 X 10*3/uL (0.90-5.00); Lymphocytes % (A) 16.5 %; MCH 29.8 pg (27.0-32.0); MCHC 31.7 g/dL (32.0-37.0); MCV 94.1 fL (80.0-97.0); Mean Platelet Volume 9.6 fL (9.5-12.2); Monocytes # (A) 0.34 X 10*3/uL (0.20-1.00); Monocytes % (A) 12.5 %; Neutrophils # (A) 1.94 X 10*3/uL (1.80-7.70); Platelet Count 239 X 10*3/uL (140-440); RBC 3.22 X 10*6/uL (4.40-5.60); RDW 12.6 % (11.5-14.5); WBC 2.73 X 10*3/uL (4.50-10.00)
--- NOTE | 2020-11-20 15:01 | P.PN ---
Subjective Progress Note Date: 11/20/20 11/20/2020, the patient is feeling better and the patient is getting overall better and less weak and less short of breath compared to yesterday. The patient is afebrile the patient is hemodynamically stable. D-dimer is at 1.05. White cell count was at 2.7 with a hemoglobin of 9.6. Lactic acid level was at 0.6. The patient is covered currently with IV Zosyn. The patient is also on Decadron 6 mg IV every 24 hours and the patient is also receiving Lovenox 40 mg subcu every 24 hours. A swallow evaluation is to be repeated today. Still suspecting a bilateral aspiration pneumonia in combination with possible COVID- 19 related pneumonia. No worsening in her oxygenation. The patient's pulse is at 98 cm approximately nasal cannula. No tachycardia. No fever. No other significant events overnight. Objective - Vital Signs Vital signs: Vital Signs Temp 97.4 F L 11/20/20 10:00 Pulse 51 L 11/20/20 10:00 Resp 16 11/20/20 10:00 BP 160/76 11/20/20 10:00 Pulse Ox 98 11/20/20 10:00 Intake & Output 11/19/20 11/20/20 11/20/20 18:59 06:59 18:59 Intake Total 300 Balance 300 Weight 56.699 kg Intake: Intake, IV Titration 100 Amount Piperacillin-Tazobactam 3 100 .375 gm In Sodium Chloride 0.9% 100 ml @ 25 mls/hr IVPB Q8H [facility] Rx#: [id number] Oral 200 - Exam 85-year-old gentleman. No acute distress, oriented 3. No acute respiratory distress. The patient does have a wet very congested cough. 97% on 2 L about 2 by nasal cannula HEENT examination is grossly unremarkable. Neck supple. Full range of motion. No adenopathy thyromegaly or neck vein distention. Cardiovascular examination reveals regular rhythm rate. S1-S2 normal. No S3 or S4. No discernible murmur noted. Heart sounds are distant. Heart rate 56 bpm. Lungs reveal coarse bilateral rhonchi. Crackles in the right lung base. Breath sounds equal bilaterally. His cough is very wet and congested sounding. Abdomen soft bowel sounds are heard. No masses or tenderness. Extremities are intact. No cyanosis clubbing or edema. Skin is without rash or lesion. Neurologic examination is brief but nonfocal. - Labs CBC & Chem 7: 11/20/20 07:39 11/19/20 11:13 Labs: Abnormal Lab Results - Last 24 Hours (Table) 11/20/20 11/20/20 Range/Units 07:39 07:39 WBC 2.73 L (4.50-10.00) X 10*3/uL RBC 3.22 L (4.40-5.60) X 10*6/uL Hgb 9.6 L (13.0-17.0) g/dL Hct 30.3 L (39.6-50.0) % MCHC 31.7 L (32.0-37.0) g/dL Lymphocytes # 0.45 L (0.90-5.00) X 10*3/uL Eosinophils # 0 L (0.04-0.35) X 10*3/uL D-Dimer 1.05 H (<0.60) mg/L FEU Microbiology - Last 24 Hours (Table) 11/19/20 11:35 Blood Culture - Preliminary Blood No Growth after 24 hours 11/19/20 11:15 Blood Culture - Preliminary Blood No Growth after 24 hours Assessment and Plan Plan: 1 bilateral pneumonia. Based on my review of the CAT scan images, the patient's pneumonia is probably multifactorial related to chronic aspiration as the patient continues to have lower lobe infiltrates and small pleural effusions. At the same time there is a new area of infiltration of the left lung which obviously raises the suspicion for an underlying carbonate infection/pneumonia monitor the patient's PCR is positive for COVID-19 19. Patient has history of silent aspiration. The patient has chronic dysphagia, previous CVA and he has been treated recently for an aspiration pneumonia with IV Zosyn and completed a course of Augmentin outpatient basis. On today's evaluation of 11/20/2020, clinically the patient is looking better. He remains on IV Zosyn. He remains on Decadron. No significant worsening shortness of breath. 2 COVID-19 infection with positive PCR, patient is vaccinated 3 chronic dysphagia/aspiration, silent For history of CVA with left-sided weakness 5 hypertension 6 hyperlipidemia 7. Vascular disease 8 chronic gastritis with previous bouts of GI bleed/peptic ulcer disease 9 macular degeneration 10 nephrolithiasis 11 anemia, chronic, normocytic Plan Follow-up chest x-ray in a.m. Awaiting pro calcitonin level Awaiting LDH, CRP and d-dimer is currently at 1.65 Keep the patient IV Zosyn Decadron 6 mg by mouth daily Lovenox 40 mg subcu 40 prophylaxis Oxygen supplementation to maintain saturation above 90% Resume all medications CAT scan of the chest and abdomen and pelvis was noted Aspiration precautions Repeat swallow evaluation Titrate FiO2 to maintain a saturation above 90% currently on 2 L Condition stable on today's evaluation
[2020-11-20 15:29] LABS: African American GFR (CKD) 63.5 (60.0-200.0); Anion Gap 8.5 mmol/L (4.00-12.00); BUN/Creat Ratio 22.5 Ratio (12.00-20.00); C Reactive Protein 6.8 mg/dL (0.0-0.8); Calcium 8.5 mg/dL (8.7-10.3); Carbon Dioxide 28.5 mmol/L (21.6-31.8); Non-African American GFR(CKD) 54.8 (60.0-200.0); Potassium 4.6 mmol/L (3.5-5.5)
[2020-11-20] MEDS: SODIUM CHLORIDE 0.9% 1,000 ML IV SCH (21:23)
--- NOTE | 2020-11-20 22:29 | P.HPIM ---
History of Present Illness H&P Date: 11/20/20 Chief Complaint: weakness, shortness of breath Shivam Nixon is an 85 yo M with PMH of COPD, recent admission with aspiration pneumonia discharged approx 10 days ago, hx CVA with dysphagia who presented to the ED with increasing weakness and shortness of breath. He states that since his discharge he has remained mostly at home but then became increasingly short of breath so came to the hospital. He notes he had a full series of COVID vaccines in June. On presentation he was febrile and hypoxic, COVID PCR positive, labs shwoing d-dimer 1.46, procalcitonin 0.1. CTA chest negative for PE. Review of Systems All systems: negative Constitutional: Reports lethargy, Reports malaise, Reports weakness, Denies chills, Denies fever Eyes: denies blurred vision, denies pain Ears, nose, mouth and throat: Denies headache, Denies sore throat Cardiovascular: Denies chest pain, Denies shortness of breath Respiratory: Reports cough with sputum, Reports dyspnea, Denies cough Gastrointestinal: Denies abdominal pain, Denies diarrhea, Denies nausea, Denies vomiting Musculoskeletal: Denies myalgias Integumentary: Denies pruritus, Denies rash Neurological: Denies numbness, Denies weakness Psychiatric: Denies anxiety, Denies depression Endocrine: Denies fatigue, Denies weight change Past Medical History Past Medical History: CVA/TIA, Eye Disorder, GI Bleed, Hyperlipidemia, Hypertension, Pneumonia, Thyroid Disorder, Vascular Disorder Additional Past Medical History / Comment(s): Pt recently admitted to [facility] on 07/16/20 with mid abdominal pain/melena/possible gastritis/possible PUD, multiple tiny nodules R lung base/nonspecific sclerotic focus R iliac crest. 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 History of Any Multi-Drug Resistant Organisms: None Reported Past Surgical History: Joint Replacement, Orthopedic Surgery Additional Past Surgical History / Comment(s): R caratid endartectomy, laminectomy/cage (3 lower back surgeries), cervical surgery/hardware, R total knee arthroplasty x2, kidney surgery d/t stones and had ureter repair d/t damage from stone, colonoscopy. Past Anesthesia/Blood Transfusion Reactions: Previous Problems w/ Anesthesia Additional Past Anesthesia/Blood Transfusion Reaction / Comment(s): Difficulty waking. Pt is very clausterphobic Past Psychological History: Depression Smoking Status: Former smoker Past Alcohol Use History: None Reported Past Drug Use History: None Reported - Past Family History Son(s) Family Medical History: Cancer Additional Family Medical History / Comment(s): Son from bacterial meningitis. He has leukemia Mother Family Medical History: Cancer Father Family Medical History: Cancer Additional Family Medical History / Comment(s): Father of lung cancer. He was a smoker. Medications and Allergies Home Medications Medication Instructions Recorded Confirmed Type Cetirizine HCl 10 mg PO DAILY 07/16/20 11/19/20 History Clopidogrel Bisulfate [Plavix] 75 mg PO DAILY 07/16/20 11/19/20 History Escitalopram [Lexapro] 10 mg PO DAILY 07/16/20 11/19/20 History Gabapentin [Neurontin] 100 mg PO BID 07/16/20 11/19/20 History Metoclopramide [Reglan] 10 mg PO BID 07/16/20 11/19/20 History Montelukast [Singulair] 10 mg PO DAILY 07/16/20 11/19/20 History Simvastatin [Zocor] 20 mg PO DAILY 07/16/20 11/19/20 History Pantoprazole Sodium [Protonix] 40 mg PO BID #60 tablet. 07/18/20 11/19/20 Rx Aspirin 81 mg PO DAILY 07/22/20 11/19/20 History Lisinopril [Prinivil] 10 mg PO DAILY 07/22/20 11/19/20 History Multivitamin [Multivitamins Adult 1 tab PO DAILY 07/22/20 11/19/20 History Gummies] Vit C/E/Zn/Coppr/Lutein/Zeaxan 1 cap PO DAILY 07/22/20 11/19/20 History [Preservision Areds 2 Softgel] Ipratropium-Albuterol Nebulize 3 ml INHALATION RT-QID PRN 11/08/20 11/19/20 History [Duoneb 0.5 mg-3 mg/3 ml Soln] Tiotropium [place] [Spiriva 2 puff INHALATION RT-DAILY PRN 11/08/20 11/19/20 History Respimat] fentaNYL 50MCG/HR PATCH [Duragesic 1 patch TRANSDERM Q72H 11/08/20 11/19/20 History 50MCG/HR] Amoxic-Pot Clav 875-125Mg 1 tab PO BID 1 Days #6 tab 11/12/20 11/19/20 Rx [Augmentin 875-125] Diclofenac Sodium Gel [Voltaren 4 gm TOPICAL QID #1 tub 11/12/20 11/19/20 Rx Gel] Glycopyrrolate [Robinul] 2 mg PO BID #60 tablet 11/12/20 11/19/20 Rx Allergies Allergy/AdvReac Type Severity Reaction Status Date / Time celecoxib [From Celebrex] Allergy Confusion Verified 11/19/20 17:37 nabumetone [From Relafen] Allergy Rash/Hives Verified 11/19/20 17:37 oxycodone [From Percocet] Allergy Unknown Verified 11/19/20 17:37 haloperidol [From Haldol] AdvReac Anaphylaxis Verified 11/19/20 17:37 Physical Exam Vitals: Vital Signs Temp Pulse Resp BP Pulse Ox 11/20/20 18:00 97.6 F 55 L 16 177/66 100 11/20/20 14:00 97.8 F 55 L 18 180/63 96 11/20/20 10:00 97.4 F L 51 L 16 160/76 98 11/20/20 09:08 51 L 16 11/20/20 06:45 97.8 F 51 L 16 182/64 98 11/20/20 02:00 97.9 F 51 L 17 185/68 98 Intake and Output 11/20/20 11/20/20 11/20/20 06:59 14:59 22:59 Intake Total 300 700 Balance 300 700 Intake: Intake, IV Titration 100 700 Amount Piperacillin-Tazobactam 3 100 100 .375 gm In Sodium Chloride 0.9% 100 ml @ 25 mls/hr IVPB Q8H [facility] Rx#: [id number] Sodium Chloride 0.9% 1, 600 000 ml @ 75 mls/hr IV . [id number] [facility] Rx#:[id number] Oral 200 Other: # Voids 1 General: well nourished, well developed, NAD. Vitals reviewed Eyes: PERRL, EOMI, conjunctiva normal HENT: normocephalic, mucus membranes moist Neck: supple, no JVD Lungs: normal respiratory effort, no wheezes or rales CV: Regular rate and rhythm, no murmur. Peripheral pulses 2+ Abdomen: soft, nondistended, no organomegaly Lymph: no cervical or axillary LAD Skin: warm and dry. Neuro: A&Ox3, normal mood and affect Results CBC & Chem 7: 11/20/20 07:39 11/20/20 07:39 Labs: Abnormal Lab Results - Last 24 Hours (Table) 11/20/20 11/20/20 11/20/20 Range/Units 07:39 07:39 07:39 WBC 2.73 L (4.50-10.00) X 10*3/uL RBC 3.22 L (4.40-5.60) X 10*6/uL Hgb 9.6 L (13.0-17.0) g/dL Hct 30.3 L (39.6-50.0) % MCHC 31.7 L (32.0-37.0) g/dL Lymphocytes # 0.45 L (0.90-5.00) X 10*3/uL Eosinophils # 0 L (0.04-0.35) X 10*3/uL D-Dimer 1.05 H (<0.60) mg/L FEU Est GFR (CKD-EPI)NonAf (60.0-200.0) BUN/Creatinine Ratio (12.00-20.00) Ratio Glucose (70-110) mg/dL Calcium (8.7-10.3) mg/dL C-Reactive Protein (0.0-0.8) mg/dL Procalcitonin 0.10 H (0.02-0.09) ng/mL 11/20/20 Range/Units 07:39 WBC (4.50-10.00) X 10*3/uL RBC (4.40-5.60) X 10*6/uL Hgb (13.0-17.0) g/dL Hct (39.6-50.0) % MCHC (32.0-37.0) g/dL Lymphocytes # (0.90-5.00) X 10*3/uL Eosinophils # (0.04-0.35) X 10*3/uL D-Dimer (<0.60) mg/L FEU Est GFR (CKD-EPI)NonAf 54.8 L (60.0-200.0) BUN/Creatinine Ratio 22.50 H (12.00-20.00) Ratio Glucose 113 H (70-110) mg/dL Calcium 8.5 L (8.7-10.3) mg/dL C-Reactive Protein 6.8 H (0.0-0.8) mg/dL Procalcitonin (0.02-0.09) ng/mL Microbiology - Last 24 Hours (Table) 11/19/20 11:35 Blood Culture - Preliminary Blood No Growth after 24 hours 11/19/20 11:15 Blood Culture - Preliminary Blood No Growth after 24 hours Thrombosis Risk Factor Assmnt - Choose All That Apply Any of the Below Risk Factors Present?: Yes Each Risk Factor Represents 3 Points: Age 75 years or older Other congenital or acquired thrombophilia - If yes, enter type in comment: No Thrombosis Risk Factor Assessment Total Risk Factor Score: 3 Thrombosis Risk Factor Assessment Level: Moderate Risk Assessment and Plan Plan: 1. COVID pneumonia. Admit, start IV decadron, lovenox. Empiric zosyn to cover. Pulmonology consulted 2. hx aspiration pneumonia 3. COPD 4. CVA
[2020-11-21] MEDS: PIPERACILLIN-TAZOBACTAM 3.375 GM in SODIUM CHLORIDE 0.9% 100 ML IVPB SCH ×3 (03:29→20:01)
[2020-11-21] MEDS: ACETAMINOPHEN TAB 325 MG TAB PO PRN ×2 (07:12→23:48)
[2020-11-21] MEDS: LORATADINE 10 MG TAB PO SCH (07:15)
[2020-11-21] MEDS: CLOPIDOGREL 75 MG TAB PO SCH (07:15)
[2020-11-21] MEDS: ENOXAPARIN 40 MG/0.4 ML SYRINGE SQ SCH (07:15)
[2020-11-21] MEDS: GABAPENTIN 100 MG CAP PO SCH ×2 (07:16→20:01)
[2020-11-21] MEDS: DEXAMETHASONE SOD PHOSPHATE 10 MG/ML 1 ML VIAL IV SCH (07:16)
[2020-11-21] MEDS: PANTOPRAZOLE 40 MG/10 ML VIAL IV SCH (07:16)
[2020-11-21] MEDS: ASPIRIN 81 MG PO SCH (07:16)
[2020-11-21] MEDS: MONTELUKAST 10 MG TAB PO SCH (07:16)
[2020-11-21] MEDS: METOCLOPRAMIDE 10 MG TAB PO SCH ×2 (07:17→20:01)
[2020-11-21] MEDS: ESCITALOPRAM 10 MG TAB PO SCH ×2 (07:17→13:47)
--- NOTE | 2020-11-21 12:32 | FL ---
EXAMINATION TYPE: FL barium swallow w video DATE OF EXAM: 11/21/2020 MODIFIED SWALLOW / DEGLUTITION STUDY CLINICAL HISTORY: Dysphagia. Current COVID positive. TECHNIQUE: Deglutition study is performed utilizing thin liquid barium, nectar thick liquid barium, and barium thick pudding. 1 minute 34 of fluoro time and 0 images obtained. COMPARISON: None. FINDINGS: The oral and pharyngeal phases show port delay in initiation as patient is fairly unrespons steve. There is one episode of deep penetration with thin liquid barium. No aspiration visualized. Sig nificant pharyngeal residue was appreciated with more viscous modalities. IMPRESSION: Suboptimal study. Single episode deep penetration with thin liquid barium. No aspiration visualized. Please refer to speech therapist notes for further details if necessary.
--- NOTE | 2020-11-21 18:13 | P.PN ---
Subjective Progress Note Date: 11/21/20 11/21/2020, I'm seeing this patient for a follow-up. Resting comfortably in bed. He did have a low-grade fever of 99. Pulse ox 90% on room air oxygen. He underwent a modified barium swallow and he was able to pass it as the patient was not found to have any aspiration. He was found to have single episode of the penetration with thin liquid barium. He has declined PEG tube insertion in the past. My suspicion is that the patient is on and off aspirating still. The patient is currently on IV Zosyn. He is also on Decadron 6 mg IV every 24 hours. He is communicating. He is well rested. No respiratory distress. Was supposedly 0.6. D-dimer is at 1.05. CRP is at 6.8. LDH level is 157. Suspect his presentation is a combination of bilateral aspiration pneumonia and COVID-19 related pneumonia although the first is favored over the second. Objective - Vital Signs Vital signs: Vital Signs Temp 98.1 F 11/21/20 18:06 Pulse 68 11/21/20 18:06 Resp 18 11/21/20 18:06 BP 199/81 11/21/20 18:06 Pulse Ox 98 11/21/20 18:06 Intake & Output 11/20/20 11/21/20 11/21/20 18:59 06:59 18:59 Intake Total 700 1140 100 Output Total 900 550 Balance 700 240 -450 Intake: Intake, IV Titration 700 940 100 Amount Piperacillin-Tazobactam 3 100 100 100 .375 gm In Sodium Chloride 0.9% 100 ml @ 25 mls/hr IVPB Q8H [facility] Rx#: [id number] Sodium Chloride 0.9% 1, 600 840 000 ml @ 75 mls/hr IV . [id number] [facility] Rx#:[id number] Oral 200 Output: Urine 900 550 Other: # Voids 1 - Exam 85-year-old gentleman. No acute distress, oriented 3. No acute respiratory distress. The patient does have a wet very congested cough. 97% on 2 by nasal cannula HEENT examination is grossly unremarkable. Neck supple. Full range of motion. No adenopathy thyromegaly or neck vein distention. Cardiovascular examination reveals regular rhythm rate. S1-S2 normal. No S3 or S4. No discernible murmur noted. Heart sounds are distant. Heart rate 56 bpm. Lungs reveal coarse bilateral rhonchi. Crackles in the right lung base. Breath sounds equal bilaterally. His cough is very wet and congested sounding. Abdomen soft bowel sounds are heard. No masses or tenderness. Extremities are intact. No cyanosis clubbing or edema. Skin is without rash or lesion. Neurologic examination is brief but nonfocal. - Labs CBC & Chem 7: 11/20/20 07:39 11/20/20 07:39 Labs: Abnormal Lab Results - Last 24 Hours (Table) 11/20/20 Range/Units 07:39 Procalcitonin 0.10 H (0.02-0.09) ng/mL Microbiology - Last 24 Hours (Table) 11/19/20 11:35 Blood Culture - Preliminary Blood No Growth after 48 hours 11/19/20 11:15 Blood Culture - Preliminary Blood No Growth after 48 hours Assessment and Plan Plan: 1 acute bilateral pneumonia. Based on my review of the CAT scan images, the patient's pneumonia is probably multifactorial related to chronic aspiration as the patient continues to have lower lobe infiltrates and small pleural effusions. At the same time there is a new area of infiltration of the left lung which obviously raises the suspicion for an underlying carbonate infection/pneumonia monitor the patient's PCR is positive for COVID-19 19. Patient has history of silent aspiration. The patient has chronic dysphagia, previous CVA and he has been treated recently for an aspiration pneumonia with IV Zosyn and completed a course of Augmentin outpatient basis. The patient remains clinically stable and the patient is improving. Intermittent markers for COVID-19 nonelevated. D-dimer is low. Remains on IV Zosyn and Decadron. 2 COVID-19 infection with positive PCR, patient is vaccinated 3 chronic dysphagia/aspiration, silent For history of CVA with left-sided weakness 5 hypertension 6 hyperlipidemia 7. Vascular disease 8 chronic gastritis with previous bouts of GI bleed/peptic ulcer disease 9 macular degeneration 10 nephrolithiasis 11 anemia, chronic, normocytic Plan Continue current treatment. Continue Zosyn. Continue Decadron. Clinically improving. Repeat chest x-ray in a.m. Inflammatory markers are mildly elevated. D-dimer decline since yesterday. Modified Pawel swallow was completed. Aspiration precautions. We'll continue to follow. Remains on his about 2 by nasal cannula. Overall condition is stable. Follow-up chest x-ray in a.m.
--- NOTE | 2020-11-21 22:01 | P.PN ---
Subjective Progress Note Date: 11/21/20 Principal diagnosis: pneumonia Pt did have a low grade fever overnight, he is feeling weak this morning but denies shortness of breath. He underwent VFSS which did not show any aspiration although he has aspirated in the past. Objective - Vital Signs Vital signs: Vital Signs Temp 98.1 F 11/21/20 18:06 Pulse 68 11/21/20 18:06 Resp 18 11/21/20 18:06 BP 199/81 11/21/20 18:06 Pulse Ox 98 11/21/20 18:06 Intake & Output 11/21/20 11/21/20 11/22/20 06:59 18:59 06:59 Intake Total 1140 100 Output Total 900 550 Balance 240 -450 Intake: Intake, IV Titration 940 100 Amount Piperacillin-Tazobactam 3 100 100 .375 gm In Sodium Chloride 0.9% 100 ml @ 25 mls/hr IVPB Q8H [facility] Rx#: [id number] Sodium Chloride 0.9% 1, 840 000 ml @ 75 mls/hr IV . [id number] [facility] Rx#:[id number] Oral 200 Output: Urine 900 550 - Exam General: well nourished, well developed, NAD. Vitals reviewed Lungs: normal respiratory effort, no wheezes or rales CV: Regular rate and rhythm, no murmur. Peripheral pulses 2+ Abdomen: soft, nondistended, no organomegaly Skin: warm and dry. - Labs CBC & Chem 7: 11/20/20 07:39 11/20/20 07:39 Labs: Microbiology - Last 24 Hours (Table) 11/19/20 11:35 Blood Culture - Preliminary Blood No Growth after 48 hours 11/19/20 11:15 Blood Culture - Preliminary Blood No Growth after 48 hours Assessment and Plan Plan: Continue with current treatment, decadron, lovenox. Continue with zosyn for aspiration pneumonia. Supplement oxygen as required. Continue dysphagia diet
[2020-11-22] MEDS: SODIUM CHLORIDE 0.9% 1,000 ML IV SCH ×3 (04:08→21:00)
[2020-11-22] MEDS: PIPERACILLIN-TAZOBACTAM 3.375 GM in SODIUM CHLORIDE 0.9% 100 ML IVPB SCH ×3 (05:43→17:57)
[2020-11-22] MEDS: MONTELUKAST 10 MG TAB PO SCH (07:05)
[2020-11-22] MEDS: LORATADINE 10 MG TAB PO SCH (07:05)
[2020-11-22] MEDS: ASPIRIN 81 MG PO SCH (07:06)
[2020-11-22] MEDS: GABAPENTIN 100 MG CAP PO SCH ×2 (07:06→20:54)
[2020-11-22] MEDS: ENOXAPARIN 40 MG/0.4 ML SYRINGE SQ SCH (07:06)
[2020-11-22] MEDS: CLOPIDOGREL 75 MG TAB PO SCH (07:06)
[2020-11-22] MEDS: METOCLOPRAMIDE 10 MG TAB PO SCH ×2 (07:07→20:54)
[2020-11-22] MEDS: DEXAMETHASONE SOD PHOSPHATE 10 MG/ML 1 ML VIAL IV SCH (07:07)
[2020-11-22] MEDS: PANTOPRAZOLE 40 MG/10 ML VIAL IV SCH (07:07)
--- NOTE | 2020-11-22 07:30 | XR ---
EXAMINATION TYPE: XR chest 1V DATE OF EXAM: 11/22/2020 COMPARISON: CT and radiograph chest 11/19/2020. HISTORY: COVID pneumonia TECHNIQUE: Single frontal view of the chest is obtained. FINDINGS: Cardiomediastinal silhouette pulmonary vasculature are within normal limits. There is worsening patchy airspace opacity over the left lung. Increased opacity over the right infra hilar region. Blunting of the bilateral costophrenic angles. Redemonstration of calcified granuloma at the right apex and punctate hyperdensities over the right c ardiophrenic angle. ACDF. Clips over the right neck. Degenerative changes of the bilateral shoulders. IMPRESSION: Worsening infiltrates left greater than right with tiny bilateral effusions.
[2020-11-22] MEDS ORDERED: VANCOMYCIN IV PER PHARMACY 1 EACH MISC MISCELLANE PRN (11:22)
--- NOTE | 2020-11-22 11:23 | P.PN ---
Subjective Progress Note Date: 11/22/20 11/21/2020, I'm seeing this patient for a follow-up. Resting comfortably in bed. He did have a low-grade fever of 99. Pulse ox 90% on room air oxygen. He underwent a modified barium swallow and he was able to pass it as the patient was not found to have any aspiration. He was found to have single episode of the penetration with thin liquid barium. He has declined PEG tube insertion in the past. My suspicion is that the patient is on and off aspirating still. The patient is currently on IV Zosyn. He is also on Decadron 6 mg IV every 24 hours. He is communicating. He is well rested. No respiratory distress. Was supposedly 0.6. D-dimer is at 1.05. CRP is at 6.8. LDH level is 157. Suspect his presentation is a combination of bilateral aspiration pneumonia and COVID-19 related pneumonia although the first is favored over the second. 2020, clinically the patient is the same. He had some oxygen saturation overnight and was placed on 9 L of oxygen by nasal cannula. We were able to wean him down again to 2 L. His resting comfortably in bed. No overt aspiration although this was a concern. A repeat chest x-ray was done and showed a left upper lobe consolidation and this has gotten worse since his earlier x-ray from 11/19/2020. As for the right lower lobe, there is some clinical improvement. Noted the patient is afebrile. He is on IV Zosyn. On Decadron. He did spike a low-grade temperature 100.1 earlier and currently he is afebrile. He is on IV fluids with Objective - Vital Signs Vital signs: Vital Signs Temp 98.3 F 11/22/20 10:43 Pulse 52 L 11/22/20 10:43 Resp 16 11/22/20 10:43 BP 137/47 11/22/20 10:43 Pulse Ox 96 11/22/20 10:43 Intake & Output 11/21/20 11/22/20 11/22/20 18:59 06:59 18:59 Intake Total 100 945 Output Total 550 2 Balance -450 943 Intake: Intake, IV Titration 100 945 Amount Piperacillin-Tazobactam 3 100 100 .375 gm In Sodium Chloride 0.9% 100 ml @ 25 mls/hr IVPB Q8H [facility] Rx#: [id number] Sodium Chloride 0.9% 1, 845 000 ml @ 75 mls/hr IV . [id number] [facility] Rx#:[id number] Output: Urine 550 Emesis 2 Other: # Voids 2 # Bowel Movements 1 # Emeses 2 - Exam 85-year-old gentleman. No acute distress, oriented 3. No acute respiratory distress. The patient does have a wet very congested cough. 97% on 2 by nasal cannula HEENT examination is grossly unremarkable. Neck supple. Full range of motion. No adenopathy thyromegaly or neck vein distention. Cardiovascular examination reveals regular rhythm rate. S1-S2 normal. No S3 or S4. No discernible murmur noted. Heart sounds are distant. Heart rate 56 bpm. Lungs reveal coarse bilateral rhonchi. Crackles in the right lung base. Breath sounds equal bilaterally. His cough is very wet and congested sounding. Abdomen soft bowel sounds are heard. No masses or tenderness. Extremities are intact. No cyanosis clubbing or edema. Skin is without rash or lesion. Neurologic examination is brief but nonfocal. - Labs CBC & Chem 7: 11/20/20 07:39 11/20/20 07:39 Labs: Microbiology - Last 24 Hours (Table) 11/19/20 11:35 Blood Culture - Preliminary Blood No Growth after 48 hours 11/19/20 11:15 Blood Culture - Preliminary Blood No Growth after 48 hours Assessment and Plan Plan: 1 acute bilateral pneumonia. Based on my review of the CAT scan images, the patient's pneumonia is probably multifactorial related to chronic aspiration as the patient continues to have lower lobe infiltrates and small pleural effusions. At the same time there is a new area of infiltration of the left l verena which obviously raises the suspicion for an underlying carbonate infection/pneumonia monitor the patient's PCR is positive for COVID-19 19. Patient has history of silent aspiration. The patient has developed worsening in her left upper lobe consolidation. This is noted on today's chest x-ray. Nevertheless he remains on 2 L of oxygen by nasal cannula. He remains on Decadron. He remains on Zosyn. Swallow evaluation was completed. Based on speech pathology, there is ongoing concern for silent aspiration. Please refer to their notes. 2 COVID-19 infection with positive PCR, patient is vaccinated 3 chronic dysphagia/aspiration, silent For history of CVA with left-sided weakness 5 hypertension 6 hyperlipidemia 7 peripheral Vascular disease 8 chronic gastritis with previous bouts of GI bleed/peptic ulcer disease 9 macular degeneration 10 nephrolithiasis 11 anemia, chronic, normocytic Plan Continue current treatment. Continue Zosyn. Continue Decadron. 3 stable, nevertheless, the chest x-ray findings are somewhat worse in terms of the left upper lobe consolidation. Suspect recurrent aspiration. Present patient is not typical COVID-19 pneumonia and this infection was probably an incidental finding. Add vanco for any staphylococcal ammonia. His pro calcitonin level was at 0.1. His LDH level was 157 which is minimally elevated in the setting of COVID. Repeat CXR in am
[2020-11-22] MEDS: VANCOMYCIN 1,000 MG in SODIUM CHLORIDE 0.9% 250 ML IVPB ONE ×2 (12:12→12:16)
[2020-11-22 13:41] LABS: C Reactive Protein 14.4 mg/dL (<1.0)
--- NOTE | 2020-11-23 00:50 | P.PN ---
Subjective Progress Note Date: 11/22/20 Principal diagnosis: COVID-19 Pneumonia Mr. Segundo is an 84-year-old male with a past medical history of CVA/TIA, hypertension, hyperlipidemia admitted to the hospital for generalized weakness and difficulty in breathing. Patient is currently being treated for COVID-19 pneumonia. On 11/22/2020 -patient is seen and examined at the bedside. Overnight patient some difficulty in breathing and required 10 L of oxygen currently he is on 2 L of oxygen and saturating above 90%. He states that his breathing feels much better patient. He denies having any chest pain or palpitations. No abdominal pain nausea vomiting or diarrhea. He complains of generalized weakness and fatigue. On reviewing the patient's vitals T-max of 99.9, heart rate 78, respiratory rate 20, blood pressure 136/84, saturating at 91% on 2 L of oxygen. On reviewing his labs from this morning creatinine of 1.2 CRP of 14.4. Objective - Vital Signs Vital signs: Vital Signs Temp 98.3 F 11/22/20 10:43 Pulse 52 L 11/22/20 10:43 Resp 16 11/22/20 10:43 BP 137/47 11/22/20 10:43 Pulse Ox 96 11/22/20 10:43 Intake & Output 11/21/20 11/22/20 11/22/20 18:59 06:59 18:59 Intake Total 100 945 Output Total 550 2 Balance -450 943 Intake: Intake, IV Titration 100 945 Amount Piperacillin-Tazobactam 3 100 100 .375 gm In Sodium Chloride 0.9% 100 ml @ 25 mls/hr IVPB Q8H [facility] Rx#: [id number] Sodium Chloride 0.9% 1, 845 000 ml @ 75 mls/hr IV . [id number] [facility] Rx#:[id number] Output: Urine 550 Emesis 2 Other: # Voids 2 # Bowel Movements 1 # Emeses 2 - Exam Exam General: well nourished, well developed, NAD. Lungs: normal respiratory effort,Bilateral coarse breath sounds CVS: Regular rate and rhythm, no murmur. Peripheral pulses 2+ Abdomen: soft, nondistended, no organomegaly Extremities: No edema Skin: warm and dry. - Labs CBC & Chem 7: 11/20/20 07:39 11/22/20 12:19 Labs: Microbiology - Last 24 Hours (Table) 11/19/20 11:35 Blood Culture - Preliminary Blood No Growth after 48 hours 11/19/20 11:15 Blood Culture - Preliminary Blood No Growth after 48 hours Assessment and Plan Assessment: ASSESSMENT Acute hypoxic respiratory failure secondary to COVID-19 pneumonia Acute bilateral pneumonia Chronic dysphagia/aspiration Left-sided weakness secondary to CVA Chronic gastritis Macular degeneration Chronic normocytic anemia Hypertension Hyperlipidemia Peripheral vascular disease History of nephrolithiasis PLAN: He is being continued on Zosyn for underlying possibility of aspiration due to history of chronic dysphagia. Continue with steroids, breathing treatments. Continue with Protonix. Lovenox for anticoagulation. Continue with the rest of his current medication regimen. Further recommendations depending on the progress of the patient.
[2020-11-23] MEDS: PIPERACILLIN-TAZOBACTAM 3.375 GM in SODIUM CHLORIDE 0.9% 100 ML IVPB SCH ×3 (02:18→17:52)
[2020-11-23] MEDS: ASPIRIN 81 MG PO SCH (06:44)
[2020-11-23] MEDS: CLOPIDOGREL 75 MG TAB PO SCH (06:44)
[2020-11-23] MEDS: LORATADINE 10 MG TAB PO SCH (06:44)
[2020-11-23] MEDS: ESCITALOPRAM 10 MG TAB PO SCH (06:44)
[2020-11-23] MEDS: MONTELUKAST 10 MG TAB PO SCH (06:44)
[2020-11-23] MEDS: GABAPENTIN 100 MG CAP PO SCH ×2 (06:44→22:33)
[2020-11-23] MEDS: VANCOMYCIN 1,000 MG in SODIUM CHLORIDE 0.9% 250 ML IVPB SCH ×2 (06:45→22:37)
[2020-11-23] MEDS: ENOXAPARIN 40 MG/0.4 ML SYRINGE SQ SCH (06:45)
[2020-11-23] MEDS: METOCLOPRAMIDE 10 MG TAB PO SCH ×2 (06:45→22:33)
[2020-11-23] MEDS: PANTOPRAZOLE 40 MG/10 ML VIAL IV SCH (06:46)
[2020-11-23] MEDS: DEXAMETHASONE SOD PHOSPHATE 10 MG/ML 1 ML VIAL IV SCH (06:46)
[2020-11-23 07:33] LABS: African American GFR (CKD) 53 (>60 ml/min/1.73 sqM); Anion Gap 6 mmol/L; Blood Urea Nitrogen 30 mg/dL (9-20); Carbon Dioxide 27 mmol/L (22-30); Chloride 110 mmol/L (98-107); Glucose 136 mg/dL (74-99); Non-African American GFR(CKD) 46 (>60 ml/min/1.73 sqM); Potassium 4.2 mmol/L (3.5-5.1); Sodium 143 mmol/L (137-145)
--- NOTE | 2020-11-23 07:35 | XR ---
EXAMINATION TYPE: XR chest 1V portable DATE OF EXAM: 11/23/2020 COMPARISON: 11/22/2020 HISTORY: Covid, pneumonia TECHNIQUE: Single frontal view of the chest is obtained. FINDINGS: There are focal areas of partially consolidative opacity in the left lung particularly in the mid and upper left lung consistent with the history of pneumonia and unchanged since the prior st udy. The right lung is clear. There are multiple punctate calcifications in the right lung base media lly which are stable. Heart size is normal vasculature is not congested. There is mild superior subluxation of the right gl enohumeral joint. There are postsurgical changes of cervical fusion. IMPRESSION: Acute cardiopulmonary disease involving the left lung unchanged since the prior study. T he findings most likely indicate an acute pneumonic process and clinical correlation follow-up to res olution is recommended.
[2020-11-23 11:03] LABS: HGB 9.2 g/dL (13.0-17.0); MCH 28.8 pg (27.0-32.0); MCHC 30.7 g/dL (32.0-37.0); Mean Platelet Volume 9.8 fL (9.5-12.2); Platelet Count 184 X 10*3/uL (140-440); RBC 3.19 X 10*6/uL (4.40-5.60); RDW 12.7 % (11.5-14.5); WBC 5.38 X 10*3/uL (4.50-10.00)
[2020-11-23] MEDS: SODIUM CHLORIDE 0.9% 1,000 ML IV SCH (11:20)
[2020-11-23 11:45] LABS: Basophils # (A) 0 X 10*3/uL (0.00-0.10); Basophils % (A) 0 %; Eosinophils # (A) 0 X 10*3/uL (0.04-0.35); Eosinophils % (A) 0 %; Lymphocytes # (A) 0.29 X 10*3/uL (0.90-5.00); Lymphocytes % (A) 5.4 %; Monocytes % (A) 1.9 %; Neutrophils # (A) 4.97 X 10*3/uL (1.80-7.70); Neutrophils % (A) 92.3 %
--- NOTE | 2020-11-23 12:02 | P.PN ---
Subjective Progress Note Date: 11/23/20 v 2020, the patient is still on oxygen at 2 L. A repeat showed a persistent left upper lobe consolidation without any interval worsening compared to yesterday's chest x-ray. Note that the patient was getting worse and the patient was Zosyn and Vancomycin Was Added Due To Her Some Interval Worsening of the Left Upper Lobe Consolidation. The Patient Is a Case of COVID-19 Positive and the Patient Is Also on Decadron. C-Reactive Protein from Yesterday Was 14.4. LDH Level Was 157. D-Dimer Is at 1.27. Creatinine Is up to 1.4. White Cell Count Is at 5.3. He Is Afebrile. He Is Somewhat between 2 and 3 L of Oxygen by Nasal Cannula. He Has a Congested Cough. Unable to Bring up Much Sputum. Unable to Collect Any Sputum for Analysis. He Has a Hou Catheter in Place. IV Fluids Are Running at the Rate of 75 ML an Hour of Normal Saline. Objective - Vital Signs Vital signs: Vital Signs Temp 99.8 F H 11/23/20 10:00 Pulse 60 11/23/20 10:00 Resp 18 11/23/20 10:00 BP 150/60 11/23/20 10:00 Pulse Ox 93 L 11/23/20 10:00 Intake & Output 11/22/20 11/23/20 11/23/20 18:59 06:59 18:59 Intake Total 120 1280 Output Total 1500 375 500 Balance -1380 905 -500 Intake: Intake, IV Titration 1040 Amount Piperacillin-Tazobactam 3 100 .375 gm In Sodium Chloride 0.9% 100 ml @ 25 mls/hr IVPB Q8H [facility] Rx#: [id number] Sodium Chloride 0.9% 1, 940 000 ml @ 75 mls/hr IV . [id number] [facility] Rx#:[id number] Oral 120 240 Output: Urine 1500 375 500 Uretheral (Hou) 750 500 Other: # Voids 2 - Exam 85-year-old gentleman. No acute distress, oriented 3. No acute respiratory distress. The patient does have a wet very congested cough. 97% on 2-3 by nasal cannula HEENT examination is grossly unremarkable. Neck supple. Full range of motion. No adenopathy thyromegaly or neck vein distention. Cardiovascular examination reveals regular rhythm rate. S1-S2 normal. No S3 or S4. No discernible murmur noted. Heart sounds are distant. Heart rate 56 bpm. Lungs reveal coarse bilateral rhonchi. Crackles in the right lung base. Breath sounds equal bilaterally. His cough is very wet and congested sounding. Abdomen soft bowel sounds are heard. No masses or tenderness. Extremities are intact. No cyanosis clubbing or edema. Skin is without rash or lesion. Neurologic examination is brief but nonfocal. - Labs CBC & Chem 7: 11/23/20 06:56 11/23/20 06:56 Labs: Abnormal Lab Results - Last 24 Hours (Table) 11/22/20 11/23/20 11/23/20 Range/Units 12:19 06:56 06:56 RBC (4.40-5.60) X 10*6/uL Hgb (13.0-17.0) g/dL Hct (39.6-50.0) % MCHC (32.0-37.0) g/dL Lymphocytes # (0.90-5.00) X 10*3/uL Monocytes # (0.20-1.00) X 10*3/uL Eosinophils # (0.04-0.35) X 10*3/uL D-Dimer 1.27 H (<0.60) mg/L FEU Chloride 110 H (98-107) mmol/L BUN 30 H (9-20) mg/dL Creatinine 1.40 H (0.66-1.25) mg/dL Glucose 136 H (74-99) mg/dL Calcium 8.0 L (8.4-10.2) mg/dL C-Reactive Protein 14.4 H (<1.0) mg/dL 11/23/20 Range/Units 06:56 RBC 3.19 L (4.40-5.60) X 10*6/uL Hgb 9.2 L (13.0-17.0) g/dL Hct 30.0 L (39.6-50.0) % MCHC 30.7 L (32.0-37.0) g/dL Lymphocytes # 0.29 L (0.90-5.00) X 10*3/uL Monocytes # 0.10 L (0.20-1.00) X 10*3/uL Eosinophils # 0 L (0.04-0.35) X 10*3/uL D-Dimer (<0.60) mg/L FEU Chloride (98-107) mmol/L BUN (9-20) mg/dL Creatinine (0.66-1.25) mg/dL Glucose (74-99) mg/dL Calcium (8.4-10.2) mg/dL C-Reactive Protein (<1.0) mg/dL Microbiology - Last 24 Hours (Table) 11/19/20 11:35 Blood Culture - Preliminary Blood No Growth after 72 hours 11/19/20 11:15 Blood Culture - Preliminary Blood No Growth after 72 hours Assessment and Plan Plan: 1 acute bilateral pneumonia. Based on my review of the CAT scan images, the p evan's pneumonia is probably multifactorial related to chronic aspiration as the patient continues to have lower lobe infiltrates and small pleural effusions. At the same time there is a new area of infiltration of the left lung which obviously raises the suspicion for an underlying carbonate inf ection/pneumonia monitor the patient's PCR is positive for COVID-19 . He is on that, the patient was started on a combination of Zosyn and vancomycin. Repeat chest x-ray from 11/23/2020 showed a stable left upper lobe consolidation. Patient has history of silent aspiration. The patient has developed worsening in her left upper lobe consolidation. This is noted on today's chest x-ray. Nevertheless he remains on 2-3 L of oxygen by nasal cannula. He remains on Decadron. He remains on Zosyn. Swallow evaluation was completed. Based on speech pathology, there is ongoing concern for silent aspiration. Please refer to their notes. 2 COVID-19 infection with positive PCR, patient is vaccinated 3 chronic dysphagia/aspiration, silent For history of CVA with left-sided weakness 5 hypertension 6 hyperlipidemia 7 peripheral Vascular disease 8 chronic gastritis with previous bouts of GI bleed/peptic ulcer disease 9 macular degeneration 10 nephrolithiasis 11 anemia, chronic, normocytic Plan Continue Zosyn and vancomycin Attempt to collect a sputum sample if possible Repeat chest x-ray in the morning Aspiration precautions and careful swallow to avoid any aspiration We'll continue to follow.
[2020-11-23] MEDS: ACETAMINOPHEN TAB 325 MG TAB PO PRN (12:06)
--- NOTE | 2020-11-24 02:15 | P.PN ---
Subjective Progress Note Date: 11/23/20 Principal diagnosis: COVID-19 Pneumonia Mr. Segundo is an 84-year-old male with a past medical history of CVA/TIA, hypertension, hyperlipidemia admitted to the hospital for generalized weakness and difficulty in breathing. Patient is currently being treated for COVID-19 pneumonia. On 11/22/2020 -patient is seen and examined at the bedside. Overnight patient some difficulty in breathing and required 10 L of oxygen currently he is on 2 L of oxygen and saturating above 90%. He states that his breathing feels much better patient. He denies having any chest pain or palpitations. No abdominal pain nausea vomiting or diarrhea. He complains of generalized weakness and fatigue. On reviewing the patient's vitals T-max of 99.9, heart rate 78, respiratory rate 20, blood pressure 136/84, saturating at 91% on 2 L of oxygen. On reviewing his labs from this morning creatinine of 1.2 CRP of 14.4. 11/23/2020 -patient is seen and examined at the bedside. Patient spiked a fever of 99.9 last night, so vancomycin was added to his antibiotic regimen. This morning he states that he still has difficulty in breathing with mild cough. Patient denies having any palpitations. No abdominal pain nausea vomiting or diarrhea. Patient has a Hou's catheter in place. On reviewing the vitals temperature 98.9, heart rate 70, respiratory 16, blood pressure 134/78 saturating at 96% on 2 L of oxygen. On reviewing the patient's labs white count of 5.3, hemoglobin 9.2, platelets 184. D-dimer 1.27. Sodium 143, potassium 4.2, chloride 110, bicarb 27, BUN 30, creatinine 1.40. Patient's medications have been reviewed- Active Medications Acetaminophen (Acetaminophen Tab 325 Mg Tab) 650 mg PO Q6HR PRN PRN Reason: Fever and/ or Mild Pain Last Admin: 11/23/20 12:06 Dose: 650 mg Documented by: Aspirin (Aspirin 81 Mg) 81 mg PO DAILY [facility] Last Admin: 11/23/20 06:44 Dose: 81 mg Documented by: Clopidogrel Bisulfate (Clopidogrel 75 Mg Tab) 75 mg PO DAILY [facility] Last Admin: 11/23/20 06:44 Dose: 75 mg Documented by: Dexamethasone Sodium Phosphate (Dexamethasone Sod Phosphate 10 Mg/Ml 1 Ml Vial) 6 mg IV DAILY [facility] Last Admin: 11/23/20 06:46 Dose: 6 mg Documented by: Enoxaparin Sodium (Enoxaparin 40 Mg/0.4 Ml Syringe) 40 mg SQ DAILY [facility] Last Admin: 11/23/20 06:45 Dose: 40 mg Documented by: Escitalopram Oxalate (Escitalopram 10 Mg Tab) 10 mg PO DAILY [facility] Last Admin: 11/23/20 06:44 Dose: 10 mg Documented by: Fentanyl (Fentanyl 50mcg/Hr Patch) 1 patch TRANSDERM Q72H [facility]; Protocol Last Admin: 11/21/20 15:29 Dose: 1 patch Documented by: Gabapentin (Gabapentin 100 Mg Cap) 100 mg PO BID [facility] Last Admin: 11/23/20 22:33 Dose: 100 mg Documented by: Sodium Chloride (Saline 0.9%) 1,000 mls @ 75 mls/hr IV .[id number] [facility] Last Admin: 11/23/20 11:20 Dose: 75 mls/hr Documented by: Piperacillin Sod/Tazobactam (Sod 3.375 gm/ Sodium Chloride) 100 mls @ 25 mls/hr IVPB Q8H [facility] Last Admin: 11/23/20 17:52 Dose: 25 mls/hr Documented by: Vancomycin HCl 1,000 mg/ (Sodium Chloride) 250 mls @ 125 mls/hr IVPB Q16H [facility] Last Admin: 11/23/20 22:37 Dose: 125 mls/hr Documented by: Loratadine (Loratadine 10 Mg Tab) 10 mg PO DAILY [facility] Last Admin: 11/23/20 06:44 Dose: 10 mg Documented by: Metoclopramide HCl (Metoclopramide 10 Mg Tab) 10 mg PO BID [facility] Last Admin: 11/23/20 22:33 Dose: 10 mg Documented by: Miscellaneous Information (Vancomycin Trough Due 1 Each Misc) 0 each MISCELLANE DIRECTED ONE Stop: 11/24/20 13:01 Montelukast Sodium (Montelukast 10 Mg Tab) 10 mg PO DAILY [facility] Last Admin: 11/23/20 06:44 Dose: 10 mg Documented by: Naloxone HCl (Naloxone 0.4 Mg/Ml 1 Ml Vial) 0.2 mg IV Q2M PRN PRN Reason: Opioid Reversal Ondansetron HCl (Ondansetron 4 Mg/2 Ml Vial) 4 mg IVP Q8HR PRN PRN Reason: Nausea And Vomiting Last Admin: 11/23/20 12:06 Dose: 4 mg Documented by: Pantoprazole Sodium (Pantoprazole 40 Mg/10 Ml Vial) 40 mg IV DAILY [facility] Last Admin: 11/23/20 06:46 Dose: 40 mg Documented by: Objective - Vital Signs Vital signs: Vital Signs Temp 99.8 F H 11/23/20 10:00 Pulse 60 11/23/20 10:00 Resp 18 11/23/20 10:00 BP 150/60 11/23/20 10:00 Pulse Ox 93 L 11/23/20 10:00 Intake & Output 11/22/20 11/23/20 11/23/20 18:59 06:59 18:59 Intake Total 120 1280 Output Total 1500 375 500 Balance -1380 905 -500 Intake: Intake, IV Titration 1040 Amount Piperacillin-Tazobactam 3 100 .375 gm In Sodium Chloride 0.9% 100 ml @ 25 mls/hr IVPB Q8H [facility] Rx#: [id number] Sodium Chloride 0.9% 1, 940 000 ml @ 75 mls/hr IV . [id number] [facility] Rx#:[id number] Oral 120 240 Output: Urine 1500 375 500 Uretheral (Hou) 750 500 Other: # Voids 2 - Exam PHYSICAL EXAM General: well nourished, well developed, NAD. Lungs: normal respiratory effort,Bilateral coarse breath sounds CVS: Regular rate and rhythm, no murmur. Peripheral pulses 2+ Abdomen: soft, nondistended, no organomegaly; Hou's catheter in place. Extremities: No edema Skin: warm and dry. - Labs CBC & Chem 7: 11/23/20 06:56 11/23/20 06:56 Labs: Abnormal Lab Results - Last 24 Hours (Table) 11/23/20 11/23/20 11/23/20 Range/Units 06:56 06:56 06:56 RBC 3.19 L (4.40-5.60) X 10*6/uL Hgb 9.2 L (13.0-17.0) g/dL Hct 30.0 L (39.6-50.0) % MCHC 30.7 L (32.0-37.0) g/dL Lymphocytes # 0.29 L (0.90-5.00) X 10*3/uL Monocytes # 0.10 L (0.20-1.00) X 10*3/uL Eosinophils # 0 L (0.04-0.35) X 10*3/uL D-Dimer 1.27 H (<0.60) mg/L FEU Chloride 110 H (98-107) mmol/L BUN 30 H (9-20) mg/dL Creatinine 1.40 H (0.66-1.25) mg/dL Glucose 136 H (74-99) mg/dL Calcium 8.0 L (8.4-10.2) mg/dL Microbiology - Last 24 Hours (Table) 11/19/20 11:35 Blood Culture - Preliminary Blood No Growth after 96 hours 11/19/20 11:15 Blood Culture - Preliminary Blood No Growth after 96 hours Assessment and Plan Assessment: ASSESSMENT Acute hypoxic respiratory failure secondary to COVID-19 pneumonia Acute bilateral pneumonia Chronic dysphagia/aspiration Left-sided weakness secondary to CVA Chronic gastritis Macular degeneration Chronic normocytic anemia Hypertension Hyperlipidemia Peripheral vascular disease History of nephrolithiasis PLAN: He is being continued on Zosyn for underlying possibility of aspiration due to history of chronic dysphagia. Last night patient spiked a fever of 99.9, so antibiotic vancomycin has been added to his regimen. This morning patient's creatinine slightly on the higher side, pharmacy to dose vancomycin depending on the renal function..Continue with steroids, breathing treatments. Continue with Protonix. Lovenox for anticoagulation. Continue with the rest of his current medication regimen. Further recommendations depending on the progress of the patient.Overall prognosis is guarded due to his age and multiple chronic medical conditions.
[2020-11-24] MEDS: PIPERACILLIN-TAZOBACTAM 3.375 GM in SODIUM CHLORIDE 0.9% 100 ML IVPB SCH ×3 (04:07→21:26)
[2020-11-24] MEDS: SODIUM CHLORIDE 0.9% 1,000 ML IV SCH (04:25)
[2020-11-24 07:34] LABS: African American GFR (CKD) 46 (>60 ml/min/1.73 sqM); Anion Gap 8 mmol/L; Blood Urea Nitrogen 30 mg/dL (9-20); Carbon Dioxide 26 mmol/L (22-30); Chloride 112 mmol/L (98-107); Glucose 108 mg/dL (74-99); LDH 636 U/L (313-618); Non-African American GFR(CKD) 39 (>60 ml/min/1.73 sqM); Potassium 3.7 mmol/L (3.5-5.1); Sodium 146 mmol/L (137-145)
[2020-11-24] MEDS: ESCITALOPRAM 10 MG TAB PO SCH (08:24)
[2020-11-24] MEDS: ASPIRIN 81 MG PO SCH (08:24)
[2020-11-24] MEDS: CLOPIDOGREL 75 MG TAB PO SCH (08:24)
[2020-11-24] MEDS: GABAPENTIN 100 MG CAP PO SCH ×2 (08:24→21:57)
[2020-11-24] MEDS: MONTELUKAST 10 MG TAB PO SCH (08:24)
[2020-11-24] MEDS: PANTOPRAZOLE 40 MG/10 ML VIAL IV SCH ×2 (08:24→21:56)
[2020-11-24] MEDS: DEXAMETHASONE SOD PHOSPHATE 10 MG/ML 1 ML VIAL IV SCH (08:24)
[2020-11-24] MEDS: ENOXAPARIN 40 MG/0.4 ML SYRINGE SQ SCH (08:24)
[2020-11-24] MEDS: LORATADINE 10 MG TAB PO SCH (08:24)
[2020-11-24] MEDS: METOCLOPRAMIDE 10 MG TAB PO SCH ×2 (08:25→21:57)
--- NOTE | 2020-11-24 09:13 | XR ---
EXAMINATION TYPE: XR chest 1V portable DATE OF EXAM: 11/24/2020 COMPARISON: 11/23/2020 HISTORY: Shortness of breath TECHNIQUE: Single frontal view of the chest is obtained. FINDINGS: Bilateral patchy infiltrate greater on the left with small left effusion. Underlying COPD and cardiomegaly stable. Arthropathy of the shoulders with postsurgical change overlying the cervical spine. Calcified granuloma right lung apex. Evidence of previous aspiration involving the right lowe r lobe of barium. Hypertrophic and degenerative change of the spine. IMPRESSION: 1. Patchy bilateral infiltrate greater on the left with small left effusion stable.
[2020-11-24] MEDS ORDERED: VANCOMYCIN TROUGH DUE 1 EACH MISC MISCELLANE ONE (13:00)
[2020-11-24] MEDS: SODIUM CHLORIDE 0.45% 1,000 ML IV SCH (14:13)
[2020-11-24] MEDS: VANCOMYCIN 1,000 MG in SODIUM CHLORIDE 0.9% 250 ML IVPB SCH (15:18)
--- NOTE | 2020-11-24 16:25 | P.PN ---
Subjective Progress Note Date: 11/24/20 Principal diagnosis: Bilateral pneumonia, multifocal, possibly aspiration related, and COVID-19 related pneumonia On today's evaluation on 11/24/2000 patient seen in follow-up on medical surgical floor. He is resting comfortably in bed, does not appear to be in any acute distress, he is currently on 4 L of oxygen pulse ox of 94%. He remains on Zosyn for aspiration related pneumonia, he still having low-grade fevers, 99.3 this afternoon, does have a congestive cough, no significant phlegm production. Remains on Decadron 6 Milgrim do become today's chest x-ray reviewed showed patchy bilateral infiltrates greater than left with small left pleural effusion which is stable in appearance. Patient also continues on vancomycin for possibility of healthcare acquired pneumonia, blood cultures have shown no growth thus far. Today's labs have been reviewed, his sodium is 146, potassium is 3.7, chloride is 112, BUN is 30, creatinine is 1.58. Patient remains on IV fluids of 0.9 normal sinus at a rate of 75 ML per hour. He is tolerating oral diet, he is on a modified diet dysphagia level I pured, with nectar thick liquids and one-to-one supervision. His LDH is up trending and is up to 636, his CRP from 2 days ago was 14.4. His pro calcitonin was 0.10. Denies any abdominal pain, no nausea vomiting or diarrhea. Objective - Vital Signs Vital signs: Vital Signs Temp 99.3 F 11/24/20 14:00 Pulse 52 L 11/24/20 14:00 Resp 19 11/24/20 14:00 BP 160/65 11/24/20 14:00 Pulse Ox 96 11/24/20 14:00 Intake & Output 11/23/20 11/24/20 11/24/20 18:59 06:59 18:59 Output Total 800 750 Balance -800 -750 Output: Urine 800 750 Uretheral (Hou) 500 Other: Voiding Method Indwelling Catheter Indwelling Catheter - Exam GENERAL EXAM: Alert, pleasant, but debilitated-looking 85-year-old white male, on 4 L of oxygen pulse ox of 94% comfortable in no apparent distress. HEAD: Normocephalic/atraumatic. EYES: Normal reaction of pupils, equal size. Conjunctiva pink, sclera white. NOSE: Clear with pink turbinates. THROAT: No erythema or exudates. NECK: No masses, no JVD, no thyroid enlargement, no adenopathy. CHEST: No chest wall deformity. Symmetrical expansion. LUNGS: Equal air entry with crackles bilateral bases CVS: Regular rate and rhythm, normal S1 and S2, no gallops, no murmurs, no rubs ABDOMEN: Soft, nontender. No hepatosplenomegaly, normal bowel sounds, no guarding or rigidity. EXTREMITIES: No clubbing, no edema, no cyanosis, 2+ pulses and upper and lower extremities. MUSCULOSKELETAL: Muscle strength and tone normal. SPINE: No scoliosis or deformity SKIN: No rashes CENTRAL NERVOUS SYSTEM: Alert and oriented -3. No focal deficits, tone is normal in all 4 extremities. PSYCHIATRIC: Alert and oriented -3. Appropriate affect. Intact judgment and insight. - Labs CBC & Chem 7: 11/23/20 06:56 11/24/20 06:14 Labs: Abnormal Lab Results - Last 24 Hours (Table) 11/24/20 Range/Units 06:14 Sodium 146 H (137-145) mmol/L Chloride 112 H (98-107) mmol/L BUN 30 H (9-20) mg/dL Creatinine 1.58 H (0.66-1.25) mg/dL Glucose 108 H (74-99) mg/dL Calcium 8.0 L (8.4-10.2) mg/dL Lactate Dehydrogenase 636 H (313-618) U/L Microbiology - Last 24 Hours (Table) 11/19/20 11:35 Blood Culture - Preliminary Blood No Growth after 120 hours 11/19/20 11:15 Blood Culture - Preliminary Blood No Growth after 120 hours Assessment and Plan Plan: Assessment: 1 chest pain currently under investigation, based on a catheterization from 2017, the patient had no significance CAD. Current EKG and cardiac enzymes are negative. 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
--- NOTE | 2020-11-24 17:07 | P.PN ---
Subjective Progress Note Date: 11/24/20 This is an 85-year-old gentleman with past medical history of CVA with residual chronic dysphagia with silent aspiration, admitted with bilateral pneumonia, positive covid in a patient has been vaccinated. Maintained on Zosyn, vancomycin. T-max 100.1. Sodium increased to 146, IV fluids adjusted to 0.45% saline. Nonproductive cough. Chest x-ray reporting patchy bilateral infiltrate greater on the left with small left effusion stable. Renal function worsening, creatinine 1.58. LDH increased to 636, pro calcitonin 0.1. Diet intake 50% with no nausea vomiting or diarrhea. Denies abdominal pain. Objective - Vital Signs Vital signs: Vital Signs Temp 99.3 F 11/24/20 14:00 Pulse 52 L 11/24/20 14:00 Resp 19 11/24/20 14:00 BP 160/65 11/24/20 14:00 Pulse Ox 96 11/24/20 14:00 Intake & Output 11/23/20 11/24/20 11/24/20 18:59 06:59 18:59 Output Total 800 750 350 Balance -800 -750 -350 Output: Urine 800 750 350 Uretheral (Hou) 500 Other: Voiding Method Indwelling Catheter Indwelling Catheter - Exam PHYSICAL EXAM General: well nourished, well developed, NAD. HEENT: Conjunctiva normal, oral thrush, neck supple, no JVD. Lungs: normal respiratory effort,Bilateral coarse rhonchi CVS: Regular rate and rhythm, no murmur. Peripheral pulses 2+ Abdomen: soft, nondistended, no organomegaly, positive bowel sounds Extremities: No edema Skin: warm and dry - Labs CBC & Chem 7: 11/23/20 06:56 11/24/20 06:14 Labs: Abnormal Lab Results - Last 24 Hours (Table) 11/24/20 Range/Units 06:14 Sodium 146 H (137-145) mmol/L Chloride 112 H (98-107) mmol/L BUN 30 H (9-20) mg/dL Creatinine 1.58 H (0.66-1.25) mg/dL Glucose 108 H (74-99) mg/dL Calcium 8.0 L (8.4-10.2) mg/dL Lactate Dehydrogenase 636 H (313-618) U/L Microbiology - Last 24 Hours (Table) 11/19/20 11:35 Blood Culture - Preliminary Blood No Growth after 120 hours 11/19/20 11:15 Blood Culture - Preliminary Blood No Growth after 120 hours Assessment and Plan Assessment: Acute hypoxic respiratory failure secondary to COVID-19 infection, patient is vaccinated. 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 Continue on vancomycin, Zosyn, IV Decadron, IV fluid hydration- adjusted. Close monitoring of renal function with repeat labs ordered for a.m. PPI increase to twice a day secondary to his mid epigastric discomfort. Maintained aspiration precautions. The impression and plan of care has been dictated as directed. : I performed a history and examination of this patient, discussed the same with the dictator. I agree with the dictator's note ,documented as a scribe. Any additional findings or plans will be noted.
[2020-11-24] MEDS: hydrALAZINE HCL 50 MG TAB PO SCH (21:57)
[2020-11-25] MEDS: SODIUM CHLORIDE 0.45% 1,000 ML IV SCH (03:09)
[2020-11-25] MEDS: PIPERACILLIN-TAZOBACTAM 3.375 GM in SODIUM CHLORIDE 0.9% 100 ML IVPB SCH ×3 (03:32→21:13)
[2020-11-25] MEDS ORDERED: VANCOMYCIN TROUGH DUE 1 EACH MISC MISCELLANE ONE (05:00)
[2020-11-25] MEDS: VANCOMYCIN 1,000 MG in SODIUM CHLORIDE 0.9% 250 ML IVPB SCH (06:20)
--- NOTE | 2020-11-25 08:11 | XR ---
EXAMINATION TYPE: XR chest 1V DATE OF EXAM: 11/25/2020 COMPARISON: Chest x-ray dated 11/24/2020, chest CT 11/19/2020, chest x-ray 07/16/2020 HISTORY: Pneumonia TECHNIQUE: Single frontal view of the chest is obtained. FINDINGS: Abnormal densities within the lungs are again noted bilaterally, somewhat more conspicuous in the right upper lobe on current exam. No evident pneumothorax, difficult to exclude pleural effus ion. Possible calcified granuloma at the right upper lobe, metallic densities in the right lower lobe are chronic. Postop change noted to the cervical spine. Cardiac mediastinal silhouette is stable. Darvin jakob are unchanged. IMPRESSION: Correlate for pneumonia.
[2020-11-25] MEDS: ESCITALOPRAM 10 MG TAB PO SCH (09:53)
[2020-11-25] MEDS: ASPIRIN 81 MG PO SCH (09:53)
[2020-11-25] MEDS: ENOXAPARIN 40 MG/0.4 ML SYRINGE SQ SCH (09:54)
[2020-11-25] MEDS: hydrALAZINE HCL 50 MG TAB PO SCH ×2 (09:54→21:15)
[2020-11-25] MEDS: LORATADINE 10 MG TAB PO SCH (09:54)
[2020-11-25] MEDS: CLOPIDOGREL 75 MG TAB PO SCH (09:54)
[2020-11-25] MEDS: DEXAMETHASONE SOD PHOSPHATE 10 MG/ML 1 ML VIAL IV SCH (09:54)
[2020-11-25] MEDS: GABAPENTIN 100 MG CAP PO SCH ×2 (09:54→21:15)
[2020-11-25] MEDS: MONTELUKAST 10 MG TAB PO SCH (09:54)
[2020-11-25] MEDS: PANTOPRAZOLE 40 MG/10 ML VIAL IV SCH ×2 (09:54→21:15)
[2020-11-25] MEDS: METOCLOPRAMIDE 10 MG TAB PO SCH ×2 (09:54→21:15)
[2020-11-25] MEDS: ACETAMINOPHEN TAB 325 MG TAB PO PRN (10:23)
[2020-11-25 10:33] LABS: African American GFR (CKD) 38.9 (60.0-200.0); Anion Gap 12.1 mmol/L (4.00-12.00); BUN/Creat Ratio 19.44 Ratio (12.00-20.00); C Reactive Protein 17.5 mg/dL (0.0-0.8); Calcium 8.1 mg/dL (8.7-10.3); Carbon Dioxide 24.9 mmol/L (21.6-31.8); Non-African American GFR(CKD) 33.6 (60.0-200.0); Potassium 4.2 mmol/L (3.5-5.5)
[2020-11-25] MEDS: DEXTROSE 5% IN WATER 1,000 ML IV SCH ×2 (11:39→21:26)
[2020-11-25 11:53] VITALS: BMI 20.1
--- NOTE | 2020-11-25 13:49 | P.PN ---
Subjective Progress Note Date: 11/25/20 Principal diagnosis: Bilateral pneumonia, multifocal, possibly aspiration related, and COVID-19 related pneumonia On today's evaluation on 11/24/2000 patient seen in follow-up on medical surgical floor. He is resting comfortably in bed, does not appear to be in any acute distress, he is currently on 4 L of oxygen pulse ox of 94%. He remains on Zosyn for aspiration related pneumonia, he still having low-grade fevers, 99.3 this afternoon, does have a congestive cough, no significant phlegm production. Remains on Decadron 6 Milgrim do become today's chest x-ray reviewed showed patchy bilateral infiltrates greater than left with small left pleural effusion which is stable in appearance. Patient also continues on vancomycin for possibility of healthcare acquired pneumonia, blood cultures have shown no growth thus far. Today's labs have been reviewed, his sodium is 146, potassium is 3.7, chloride is 112, BUN is 30, creatinine is 1.58. Patient remains on IV fluids of 0.9 normal sinus at a rate of 75 ML per hour. He is tolerating oral diet, he is on a modified diet dysphagia level I pured, with nectar thick liquids and one-to-one supervision. His LDH is up trending and is up to 636, his CRP from 2 days ago was 14.4. His pro calcitonin was 0.10. Denies any abdominal pain, no nausea vomiting or diarrhea. On 11/25/2020 patient seen in follow-up on medical surgical floor. Patient is currently on 4 L of oxygen, pulse ox is 91-92%, he states his breathing is improving, overall he is feeling better, patient has been having intermittent low-grade fevers. No complaints of chest discomfort, no hemoptysis. Patient is very weak, generally debilitated. No altered mentation. Today's chest x-ray showing bilateral abnormal densities in the lungs, no evident pneumothorax, calcified granuloma in the right upper lobe. Patient remains on Decadron 6 mg daily, he remains on Zosyn and vancomycin for possibility of aspiration pneumonia. He remains on prophylactic dose Lovenox 40 mg daily. Today's labs have been reviewed, patient's sodium is up to 150, and his IV fluids will be switched to D5W at 100 ML per hour. D-dimer is 1.2, potassium is 4.2, chloride is 113, and 9 gap is 12, BUN is 35, creatinine is 1.8, LDH is 325, improving, and CRP is 17.5 Objective - Vital Signs Vital signs: Vital Signs Temp 98.7 F 11/25/20 10:20 Pulse 60 11/25/20 10:20 Resp 20 11/25/20 10:20 BP 147/67 11/25/20 10:20 Pulse Ox 91 L 11/25/20 10:20 Intake & Output 11/24/20 11/25/20 11/25/20 18:59 06:59 18:59 Output Total 350 500 Balance -350 -500 Weight 56.699 kg Output: Urine 350 500 Other: Voiding Method Indwelling Catheter Indwelling Catheter Indwelling Catheter # Bowel Movements 0 0 - Exam GENERAL EXAM: Alert, pleasant, but debilitated-looking 85-year-old white male, on 4 L of oxygen pulse ox of 94% comfortable in no apparent distress. HEAD: Normocephalic/atraumatic. EYES: Normal reaction of pupils, equal size. Conjunctiva pink, sclera white. NOSE: Clear with pink turbinates. THROAT: No erythema or exudates. NECK: No masses, no JVD, no thyroid enlargement, no adenopathy. CHEST: No chest wall deformity. Symmetrical expansion. LUNGS: Equal air entry with crackles bilateral bases CVS: Regular rate and rhythm, normal S1 and S2, no gallops, no murmurs, no rubs ABDOMEN: Soft, nontender. No hepatosplenomegaly, normal bowel sounds, no guarding or rigidity. EXTREMITIES: No clubbing, no edema, no cyanosis, 2+ pulses and upper and lower extremities. MUSCULOSKELETAL: Muscle strength and tone normal. SPINE: No scoliosis or deformity SKIN: No rashes CENTRAL NERVOUS SYSTEM: Alert and oriented -3. No focal deficits, tone is normal in all 4 extremities. PSYCHIATRIC: Alert and oriented -3. Appropriate affect. Intact judgment and insight. - Labs CBC & Chem 7: 11/23/20 06:56 11/25/20 05:23 Labs: Abnormal Lab Results - Last 24 Hours (Table) 11/25/20 11/25/20 Range/Units 05:23 05:23 D-Dimer 1.20 H (<0.60) mg/L FEU Sodium 150 H (135-145) mmol/L Chloride 113 H (96-109) mmol/L Anion Gap 12.10 H (4.00-12.00) mmol/L BUN 35.0 H (9.0-27.0) mg/dL Creatinine 1.8 H (0.6-1.5) mg/dL Est GFR (CKD-EPI)AfAm 38.9 L (60.0-200.0) Est GFR (CKD-EPI)NonAf 33.6 L (60.0-200.0) Glucose 113 H (70-110) mg/dL Calcium 8.1 L (8.7-10.3) mg/dL Lactate Dehydrogenase 325 H (120-246) U/L C-Reactive Protein 17.5 H (0.0-0.8) mg/dL Microbiology - Last 24 Hours (Table) 11/19/20 11:35 Blood Culture - Preliminary Blood No Growth after 120 hours 11/19/20 11:15 Blood Culture - Preliminary Blood No Growth after 120 hours Assessment and Plan Plan: Assessment: #1. Acute hypoxic respiratory failure related to acute COPD 19 pneumonia and possibility of aspiration pneumonia. Patient had a positive COVID-19 PCR, computed tomography scan of the chest showed possibility of chronic aspiration with lower lobe infiltrates and small pleural effusions. Currently is on oral Decadron 6 mg daily, Zosyn and vancomycin. Patient has a history of silent aspiration. Last chest x-ray was showing worsening in his left upper lobe consolidation. Patient apparently passed a swallow evaluation however he still continues on a modified diet with nectar thick liquids #2. COVID-19 infection with positive PCR, and the patient isn't vaccinated #3. Chronic dysphagia/aspiration, silent #4. History of CVA with left-sided weakness #5. Hypertension #6. Hyperlipidemia #7. Peripheral vascular disease #8. Chronic gastritis with previous bouts of GI bleeding and peptic ulcer disease #9. Macular degeneration #10. Nephrolithiasis #11. Anemia, chronic, normocytic Plan: Continue current antibiotics Switch IV fluids to D5W at 100 ML per hour Continue Decadron Continue prophylactic dose Lovenox Maintain aspiration precautions, patient is on a modified diet, with nectar thick liquids His labs have been reviewed, inflammatory markers are relatively stable, and slightly improved D-dimer was noted, continue with prophylactic dose Lovenox Maintain aspiration precautions We'll continue to follow Time with Patient: Less than 30
--- NOTE | 2020-11-25 17:12 | P.PN ---
Subjective Progress Note Date: 11/25/20 This is an 85-year-old gentleman with past medical history of CVA with residual chronic dysphagia with silent aspiration, admitted with bilateral pneumonia, positive covid in a patient has been vaccinated. Maintained on Zosyn, vancomycin. T-max 100.1. Sodium increased to 146, IV fluids adjusted to 0.45% saline. Nonproductive cough. Chest x-ray reporting patchy bilateral infiltrate greater on the left with small left effusion stable. Renal function worsening, creatinine 1.58. LDH increased to 636, pro calcitonin 0.1. Diet intake 50% with no nausea vomiting or diarrhea. Denies abdominal pain. 11/25/2020 Continues on Zosyn, vancomycin and Decadron. Renal function wor sening, BUN 35, creatinine 1.8. reports feeling better. maintaining O2 sats in the low 90s on 4 L nasal cannula. Chest x-ray reporting continued abnormal densities within the bilateral lungs, more conspicuous in the right upper lobe, no evident pneumothorax ,possible old calcified granuloma right upper lobe, possible pleural effusion. Initially IV fluids adjusted, sodium continues trending up, currently 150. LDH improving. Afebrile, T-max 99.9. Objective - Vital Signs Vital signs: Vital Signs Temp 98.4 F 11/25/20 14:00 Pulse 63 11/25/20 14:00 Resp 19 11/25/20 14:00 BP 152/96 11/25/20 14:00 Pulse Ox 92 L 11/25/20 14:00 Intake & Output 11/24/20 11/25/20 11/25/20 18:59 06:59 18:59 Intake Total 240 Output Total 350 500 Balance -350 -500 240 Weight 56.699 kg Intake: Oral 240 Output: Urine 350 500 Other: Voiding Method Indwelling Catheter Indwelling Catheter Indwelling Catheter # Bowel Movements 0 0 - Exam PHYSICAL EXAM General: Sitting up in bed, weak ,NAD. HEENT: Conjunctiva normal, oral thrush, neck supple, no JVD. Lungs: normal respiratory effort,Bilateral coarse rhonchi CVS: Regular rate and rhythm, no murmur. Peripheral pulses 2+ Abdomen: soft, nondistended, no organomegaly, positive bowel sounds Extremities: No edema Skin: warm and dry - Labs CBC & Chem 7: 11/23/20 06:56 08/24/21 05:23 Labs: Abnormal Lab Results - Last 24 Hours (Table) 11/25/20 11/25/20 Range/Units 05:23 05:23 D-Dimer 1.20 H (<0.60) mg/L FEU Sodium 150 H (135-145) mmol/L Chloride 113 H (96-109) mmol/L Anion Gap 12.10 H (4.00-12.00) mmol/L BUN 35.0 H (9.0-27.0) mg/dL Creatinine 1.8 H (0.6-1.5) mg/dL Est GFR (CKD-EPI)AfAm 38.9 L (60.0-200.0) Est GFR (CKD-EPI)NonAf 33.6 L (60.0-200.0) Glucose 113 H (70-110) mg/dL Calcium 8.1 L (8.7-10.3) mg/dL Lactate Dehydrogenase 325 H (120-246) U/L C-Reactive Protein 17.5 H (0.0-0.8) mg/dL Microbiology - Last 24 Hours (Table) 11/19/20 11:35 Blood Culture - Final Blood No Growth after 144 hours 11/19/20 11:15 Blood Culture - Final Blood No Growth after 144 hours Assessment and Plan Assessment: Acute hypoxic respiratory failure secondary to COVID-19 infection, patient is vaccinated. 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 Infectious disease consulted/ worsening renal function in a patient currently on vancomycin. IV fluids adjusted to D5W secondary to hypernatremia. Close monitoring of electrolytes, renal function with repeat labs ordered for a.m. Maintained aspiration precautions. The impression and plan of care has been dictated as directed. : I performed a history and examination of this patient, discussed the same with the dictator. I agree with the dictator's note ,documented as a scribe. Any additional findings or plans will be noted.
[2020-11-25] MEDS: ARTIFICIAL TEARS-HYPROMELLOSE DROPS 15 ML BTL BOTH EYES PRN (21:15)
[2020-11-26] MEDS: PIPERACILLIN-TAZOBACTAM 3.375 GM in SODIUM CHLORIDE 0.9% 100 ML IVPB SCH ×3 (03:35→20:01)
[2020-11-26] MEDS ORDERED: VANCOMYCIN TROUGH DUE 1 EACH MISC MISCELLANE ONE (06:00)
[2020-11-26 06:21] LABS: Basophils % (A) 0 %; Eosinophils % (A) 0 %; HCT 30.2 % (39.0-53.0); HGB 9.5 gm/dL (13.0-17.5); Hypochromasia Moderate; Lymphocytes # (A) 0.5 k/uL (1.0-4.8); Lymphocytes % (A) 10 %; MCH 30.8 pg (25.0-35.0); MCHC 31.4 g/dL (31.0-37.0); Mean Platelet Volume 8.2; Monocytes # (A) 0.1 k/uL (0-1.0); Monocytes % (A) 2 %; Neutrophils # (A) 4.3 k/uL (1.3-7.7); Neutrophils % (A) 87 %; Platelet Count 144 k/uL (150-450); RBC 3.09 m/uL (4.30-5.90); RDW 13.5 % (11.5-15.5); WBC 4.9 k/uL (3.8-10.6)
[2020-11-26 06:22] LABS: MCV 97.9 fL (80.0-100.0)
[2020-11-26 06:36] LABS: Carbon Dioxide 24 mmol/L (22-30); Chloride 113 mmol/L (98-107); Glucose 193 mg/dL (74-99); Potassium 3.6 mmol/L (3.5-5.1); Sodium 143 mmol/L (137-145)
[2020-11-26 06:37] LABS: African American GFR (CKD) 39 (>60 ml/min/1.73 sqM); Anion Gap 6 mmol/L; Blood Urea Nitrogen 37 mg/dL (9-20); Non-African American GFR(CKD) 33 (>60 ml/min/1.73 sqM)
[2020-11-26] MEDS ORDERED: VANCOMYCIN 1,000 MG in SODIUM CHLORIDE 0.9% 250 ML IVPB SCH (07:00)
[2020-11-26] MEDS: ASPIRIN 81 MG PO SCH (07:45)
[2020-11-26] MEDS: DEXTROSE 5% IN WATER 1,000 ML IV SCH ×2 (07:45→20:33)
[2020-11-26] MEDS: DEXAMETHASONE SOD PHOSPHATE 10 MG/ML 1 ML VIAL IV SCH (07:45)
[2020-11-26] MEDS: LORATADINE 10 MG TAB PO SCH (07:46)
[2020-11-26] MEDS: ENOXAPARIN 30 MG/0.3 ML SYRINGE SQ SCH (07:46)
[2020-11-26] MEDS: GABAPENTIN 100 MG CAP PO SCH ×2 (07:46→20:32)
[2020-11-26] MEDS: CLOPIDOGREL 75 MG TAB PO SCH (07:46)
[2020-11-26] MEDS: hydrALAZINE HCL 50 MG TAB PO SCH ×2 (07:46→20:32)
[2020-11-26] MEDS: PANTOPRAZOLE 40 MG/10 ML VIAL IV SCH (07:47)
[2020-11-26] MEDS: MONTELUKAST 10 MG TAB PO SCH (07:47)
[2020-11-26] MEDS: ESCITALOPRAM 10 MG TAB PO SCH (07:56)
[2020-11-26] MEDS: METOCLOPRAMIDE 10 MG TAB PO SCH ×2 (07:58→20:32)
--- NOTE | 2020-11-26 11:42 | P.PN ---
Subjective Progress Note Date: 11/26/20 Principal diagnosis: Bilateral pneumonia, multifocal, possibly aspiration related, and COVID-19 related pneumonia On today's evaluation on 11/24/2000 patient seen in follow-up on medical surgical floor. He is resting comfortably in bed, does not appear to be in any acute distress, he is currently on 4 L of oxygen pulse ox of 94%. He remains on Zosyn for aspiration related pneumonia, he still having low-grade fevers, 99.3 this afternoon, does have a congestive cough, no significant phlegm production. Remains on Decadron 6 Mil[place]im do become today's chest x-ray reviewed showed patchy bilateral infiltrates greater than left with small left pleural effusion which is stable in appearance. Patient also continues on vancomycin for possibility of healthcare acquired pneumonia, blood cultures have shown no growth thus far. Today's labs have been reviewed, his sodium is 146, potassium is 3.7, chloride is 112, BUN is 30, creatinine is 1.58. Patient remains on IV fluids of 0.9 normal sinus at a rate of 75 ML per hour. He is tolerating oral diet, he is on a modified diet dysphagia level I pured, with nectar thick liquids and one-to-one supervision. His LDH is up trending and is up to 636, his CRP from 2 days ago was 14.4. His pro calcitonin was 0.10. Denies any abdominal pain, no nausea vomiting or diarrhea. On 11/25/2020 patient seen in follow-up on medical surgical floor. Patient is currently on 4 L of oxygen, pulse ox is 91-92%, he states his breathing is improving, overall he is feeling better, patient has been having intermittent low-grade fevers. No complaints of chest discomfort, no hemoptysis. Patient is very weak, generally debilitated. No altered mentation. Today's chest x-ray showing bilateral abnormal densities in the lungs, no evident pneumothorax, calcified granuloma in the right upper lobe. Patient remains on Decadron 6 mg daily, he remains on Zosyn and vancomycin for possibility of aspiration pneumonia. He remains on prophylactic dose Lovenox 40 mg daily. Today's labs have been reviewed, patient's sodium is up to 150, and his IV fluids will be switched to D5W at 100 ML per hour. D-dimer is 1.2, potassium is 4.2, chloride is 113, and 9 gap is 12, BUN is 35, creatinine is 1.8, LDH is 325, improving, and CRP is 17.5 On today's evaluation on 11/26/2020 patient seen in follow-up on medical surgical floor. He sitting up in a chair, he remains generally weak, but may be slightly improved, no fever or chills overnight, he remains on 4 L of oxygen his pulse ox is 92-96%, blood pressure has been stable, no worsening dyspnea, no complaints of chest discomfort, no new chest x-ray today, yesterday's chest x- ray showed stable bilateral densities, more conspicuous right upper lobe. The patient has remained stable, with no worsening complaints, he remains on soft diet with nectar thick liquids. He gets one-on-one supervision with meals. Definitely coughs with thin liquids. Generalized no acute events overnight, today's labs have been reviewed and were blood cell count of 4.9, hemoglobin is 9.5, lymphocyte count is 0.5, serum sodium is improved and is down to 143, patient remains on D5W at a rate of 100 ML per hour, his oral intake remains poor, with poor water intake. His potassium is 3.6, chloride is 113, B1 is 37 and creatinine is stable at 1.81. Objective - Vital Signs Vital signs: Vital Signs Temp 98.3 F 11/26/20 09:30 Pulse 52 L 11/26/20 09:30 Resp 17 11/26/20 09:30 BP 127/43 11/26/20 09:30 Pulse Ox 92 L 11/26/20 09:46 Intake & Output 11/25/20 11/26/20 11/26/20 18:59 06:59 18:59 Intake Total 240 Output Total 300 280 Balance -60 -280 Weight 56.699 kg Intake: Oral 240 Output: Urine 300 280 Other: Voiding Method Indwelling Catheter Indwelling Catheter Indwelling Catheter # Bowel Movements 0 0 - Exam GENERAL EXAM: Alert, pleasant, but debilitated-looking 85-year-old white male, on 4 L of oxygen pulse ox of 94% comfortable in no apparent distress. HEAD: Normocephalic/atraumatic. EYES: Normal reaction of pupils, equal size. Conjunctiva pink, sclera white. NOSE: Clear with pink turbinates. THROAT: No erythema or exudates. NECK: No masses, no JVD, no thyroid enlargement, no adenopathy. CHEST: No chest wall deformity. Symmetrical expansion. LUNGS: Equal air entry with crackles bilateral bases CVS: Regular rate and rhythm, normal S1 and S2, no gallops, no murmurs, no rubs ABDOMEN: Soft, nontender. No hepatosplenomegaly, normal bowel sounds, no guarding or rigidity. EXTREMITIES: No clubbing, no edema, no cyanosis, 2+ pulses and upper and lower extremities. MUSCULOSKELETAL: Muscle strength and tone normal. SPINE: No scoliosis or deformity SKIN: No rashes CENTRAL NERVOUS SYSTEM: Alert and oriented -3. No focal deficits, tone is normal in all 4 extremities. PSYCHIATRIC: Alert and oriented -3. Appropriate affect. Intact judgment and insight. - Labs CBC & Chem 7: 11/26/20 05:18 11/26/20 05:18 Labs: Abnormal Lab Results - Last 24 Hours (Table) 11/26/20 11/26/20 Range/Units 05:18 05:18 RBC 3.09 L (4.30-5.90) m/uL Hgb 9.5 L (13.0-17.5) gm/dL Hct 30.2 L (39.0-53.0) % Plt Count 144 L (150-450) k/uL Lymphocytes # 0.5 L (1.0-4.8) k/uL Chloride 113 H (98-107) mmol/L BUN 37 H (9-20) mg/dL Creatinine 1.81 H (0.66-1.25) mg/dL Glucose 193 H (74-99) mg/dL Calcium 8.0 L (8.4-10.2) mg/dL Microbiology - Last 24 Hours (Table) 11/19/20 11:35 Blood Culture - Final Blood No Growth after 144 hours 11/19/20 11:15 Blood Culture - Final Blood No Growth after 144 hours Assessment and Plan Plan: Assessment: #1. Acute hypoxic respiratory failure related to acute COPD 19 pneumonia and possibility of aspiration pneumonia. Patient had a positive COVID-19 PCR, computed tomography scan of the chest showed possibility of chronic aspiration with lower lobe infiltrates and small pleural effusions. Currently is on oral Decadron 6 mg daily, Zosyn and vancomycin. Patient has a history of silent aspiration. Last chest x-ray was showing worsening in his left upper lobe consolidation. Patient apparently passed a swallow evaluation however he still continues on a modified diet with nectar thick liquids #2. COVID-19 infection with positive PCR, and the patient isn't vaccinated #3. Chronic dysphagia/aspiration, silent #4. History of CVA with left-sided weakness #5. Hypertension #6. Hyperlipidemia #7. Peripheral vascular disease #8. Chronic gastritis with previous bouts of GI bleeding and peptic ulcer disease #9. Macular degeneration #10. Nephrolithiasis #11. Anemia, chronic, normocytic Plan: Continue current medical treatment Current dose Decadron Continue prophylactic dose Lovenox Maintain antibiotics Maintain aspiration precautions, patient is on a modified diet, with nectar thick liquids Clinically has remained stable, no fever or chills, no worsening dyspnea or hypoxia Follow-up chest x-ray tomorrow, increase activity as tolerated, provide one-to-one supervision with meals encourage oral intake, continue D5W at 100 ML per hour We'll continue to follow Time with Patient: Less than 30
--- NOTE | 2020-11-26 14:58 | P.PN ---
Subjective Progress Note Date: 11/26/20 This is an 85-year-old gentleman with past medical history of CVA with residual chronic dysphagia with silent aspiration, admitted with bilateral pneumonia, positive covid in a patient has been vaccinated. Maintained on Zosyn, vancomycin. T-max 100.1. Sodium increased to 146, IV fluids adjusted to 0.45% saline. Nonproductive cough. Chest x-ray reporting patchy bilateral infiltrate greater on the left with small left effusion stable. Renal function worsening, creatinine 1.58. LDH increased to 636, pro calcitonin 0.1. Diet intake 50% with no nausea vomiting or diarrhea. Denies abdominal pain. 11/25/2020 Continues on Zosyn, vancomycin and Decadron. Renal function wor sening, BUN 35, creatinine 1.8. reports feeling better. maintaining O2 sats in the low 90s on 4 L nasal cannula. Chest x-ray reporting continued abnormal densities within the bilateral lungs, more conspicuous in the right upper lobe, no evident pneumothorax ,possible old calcified granuloma right upper lobe, possible pleural effusion. Initially IV fluids adjusted, sodium continues trending up, currently 150. LDH improving. Afebrile, T-max 99.9. 11/26/2020 Weak appearing. maintaining O2 sats in the low 90s on 2 L nasal cannula. Yesterday IV fluids converted to D5W with sodium improved down to 143. Afebrile, normal WBC. Continues on IV antibiotics. BUN 37, creatinine 1.81. Objective - Vital Signs Vital signs: Vital Signs Temp 98.3 F 11/26/20 09:30 Pulse 52 L 11/26/20 09:30 Resp 17 11/26/20 09:30 BP 127/43 11/26/20 09:30 Pulse Ox 92 L 11/26/20 09:46 Intake & Output 11/25/20 11/26/20 11/26/20 18:59 06:59 18:59 Intake Total 240 Output Total 300 280 Balance -60 -280 Weight 56.699 kg Intake: Oral 240 Output: Urine 300 280 Other: Voiding Method Indwelling Catheter Indwelling Catheter Indwelling Catheter # Bowel Movements 0 0 - Exam PHYSICAL EXAM General: Sitting up in bed, weak ,NAD. HEENT: Conjunctiva normal, oral thrush, neck supple, no JVD. Lungs: normal respiratory effort,Bilateral coarse rhonchi CVS: Regular rate and rhythm, no murmur. Peripheral pulses 2+ Abdomen: soft, nondistended, no organomegaly, positive bowel sounds Extremities: No edema Skin: warm and dry - Labs CBC & Chem 7: 11/26/20 05:18 11/26/20 05:18 Labs: Abnormal Lab Results - Last 24 Hours (Table) 11/26/20 11/26/20 Range/Units 05:18 05:18 RBC 3.09 L (4.30-5.90) m/uL Hgb 9.5 L (13.0-17.5) gm/dL Hct 30.2 L (39.0-53.0) % Plt Count 144 L (150-450) k/uL Lymphocytes # 0.5 L (1.0-4.8) k/uL Chloride 113 H (98-107) mmol/L BUN 37 H (9-20) mg/dL Creatinine 1.81 H (0.66-1.25) mg/dL Glucose 193 H (74-99) mg/dL Calcium 8.0 L (8.4-10.2) mg/dL Microbiology - Last 24 Hours (Table) 11/19/20 11:35 Blood Culture - Final Blood No Growth after 144 hours 11/19/20 11:15 Blood Culture - Final Blood No Growth after 144 hours Assessment and Plan Assessment: Acute hypoxic respiratory failure secondary to COVID-19 infection, patient is vaccinated. 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 Maintain IV fluids .Close monitoring of electrolytes, renal function with repeat labs ordered for a.m. ID rec. pending. Maintain aspiration precautions. The impression and plan of care has been dictated as directed. : I performed a history and examination of this patient, discussed the same with the dictator. I agree with the dictator's note ,documented as a scribe. Any additional findings or plans will be noted.
[2020-11-26] MEDS: PANTOPRAZOLE 40 MG TABLET PO SCH (20:32)
[2020-11-26] MEDS: ACETAMINOPHEN TAB 325 MG TAB PO PRN (20:32)
[2020-11-26] MEDS: ARTIFICIAL TEARS-HYPROMELLOSE DROPS 15 ML BTL BOTH EYES PRN (20:38)
--- NOTE | 2020-11-26 23:13 | P.CONS ---
History of Present Illness - Reason for Consult Consult date: 11/26/20 Pneumonia Requesting physician: Raina Lazaro - Chief Complaint shortness of breath x 1 week - History of Present Illness History of present illness : Patient is 85-year male presented to the hospital about a week ago is here complaints of weakness patient is complaining of increasing weakness over the last 1 week along with increasing shortness of breath patient did have a cough which was some mild to moderate intensity with occasional sputum production patient on presentation to hospital did have fever 100.3 subsequent spike a fever of 102.8 F did have mild hypoxemia requiring supplemental oxygen patient did have a normal white count elevation and evidence of lymphopenia D-dimer was mildly elevated BUN and creatinine mildly elevated procalcitonin 0.10 chin PCR was detected patient has been treated with dexamethasone Lovenox along with Zinc and ascorbic acid patient did have a swallow evaluation on the which was suboptimal study single episode eventration with thin liquids chest x-ray repeated yesterday abnormal densities within the lungs bilaterally more conspicuous in the right upper lobe on current exam patient has been on Zosyn since the vancomycin was added this morning infectious he was consulted for further management of antibiotic therapy concerning for pneumonia, patient is currently afebrile mention breathing is comfortably, the patient denies having any chest pain he did have a mild to moderate cough with occasional sputum production no nausea no vomiting and no diarrhea Review of system: CONSTITUTIONAL: Positive for weakness along with the fever. EYES: No complaint. ENT: No complaint. RESPIRATORY: As per history of present illness. CARDIOVASCULAR: No complaint. GENITOURINARY: No complaint. GASTROINTESTINAL: No complaint. MUSCULOSKELETAL: No complaint. INTEGUMENTARY: No complaint. PSYCHOLOGIC: No complaint. ENDOCRINE: No complaint. NEUROLOGIC: No complaint. Past medical history : Reviewed, documented below Past surgical history : Reviewed, documented below Social history: Reviewed, documented below Medications: Reviewed, as documented below GENERAL DESCRIPTION: Elderly male lying in bed, no distress. No tachypnea or accessory muscle of respiration use. HEENT: Shows Pallor , no scleral icterus. Oral mucous membrane is dry. NECK: Trachea central, no thyromegaly. LUNGS: Unlabored breathing. Decreased breath sound at the base. No wheeze or crackle. HEART: S1, S2, regular rate and rhythm. ABDOMEN: Soft, no tenderness , guarding or rigidity EXTREMITIES: No edema of feet. SKIN: No rash, no masses palpable. NEUROLOGICAL: The patient is awake, alert, oriented x3, mood and affect normal. LABS AND RADIOLOGY: Reviewed results see below Assessment : 1-patient with pneumonia in this patient with more marked right upper lobe and possible concerns for aspiration pneumonia as the patient swallow evaluation was suboptimal and the patient fever has responded to the Zosyn likely pointing towards an aspiration pneumonia clinic suspicious low for gram- positive or MRSA pneumonia Plan: 1-try to obtain a sputum for Gram stain and culture 2-check procalcitonin and inflammatory markers 3-discontinue vancomycin to decrease risk of nephrotoxicity 4-continue with the Zosyn 3.375 g every 8 hours We will follow on clinical condition and cultures to further adjust medication if needed Thank you for this consultation we will follow the patient along with you Past Medical History Past Medical History: CVA/TIA, Eye Disorder, GI Bleed, Hyperlipidemia, Hypertension, Pneumonia, Thyroid Disorder, Vascular Disorder Additional Past Medical History / Comment(s): Pt recently admitted to [facility] on 07/16/20 with mid abdominal pain/melena/possible gastritis/possible PUD, multiple tiny nodules R lung base/nonspecific sclerotic focus R iliac crest. Other hx: CVA with L sided deficits, dysphagia/aspiration pne, PUD, bilateral macular degeneration/vision very poor, anemia with current iron infusions, nephrolithiasis/surgery, newly diagnosed thyroid tumor-to be followed up, chronic back pain/fentynal patch. History of Any Multi-Drug Resistant Organisms: None Reported Past Surgical History: Joint Replacement, Orthopedic Surgery Additional Past Surgical History / Comment(s): R caratid endartectomy, laminectomy/cage (3 lower back surgeries), cervical surgery/hardware, R total knee arthroplasty x2, kidney surgery d/t stones and had ureter repair d/t damage from stone, colonoscopy. Past Anesthesia/Blood Transfusion Reactions: Previous Problems w/ Anesthesia Additional Past Anesthesia/Blood Transfusion Reaction / Comm: Difficulty waking. Pt is very clausterphobic Past Psychological History: Depression Smoking Status: Former smoker Past Alcohol Use History: None Reported Past Drug Use History: None Reported - Past Family History Son(s) Family Medical History: Cancer Additional Family Medical History / Comment(s): Son from bacterial meningitis. He has leukemia Mother Family Medical History: Cancer Father Family Medical History: Cancer Additional Family Medical History / Comment(s): Father of lung cancer. He was a smoker. Medications and Allergies Home Medications Medication Instructions Recorded Confirmed Type Cetirizine HCl 10 mg PO DAILY 07/16/20 11/19/20 History Clopidogrel Bisulfate [Plavix] 75 mg PO DAILY 07/16/20 11/19/20 History Escitalopram [Lexapro] 10 mg PO DAILY 07/16/20 11/19/20 History Gabapentin [Neurontin] 100 mg PO BID 07/16/20 11/19/20 History Metoclopramide [Reglan] 10 mg PO BID 07/16/20 11/19/20 History Montelukast [Singulair] 10 mg PO DAILY 07/16/20 11/19/20 History Simvastatin [Zocor] 20 mg PO DAILY 07/16/20 11/19/20 History Pantoprazole Sodium [Protonix] 40 mg PO BID #60 tablet. 07/18/20 11/19/20 Rx Aspirin 81 mg PO DAILY 07/22/20 11/19/20 History Lisinopril [Prinivil] 10 mg PO DAILY 07/22/20 11/19/20 History Multivitamin [Multivitamins Adult 1 tab PO DAILY 07/22/20 11/19/20 History Gummies] Vit C/E/Zn/Coppr/Lutein/Zeaxan 1 cap PO DAILY 07/22/20 11/19/20 History [Preservision Areds 2 Softgel] Ipratropium-Albuterol Nebulize 3 ml INHALATION RT-QID PRN 11/08/20 11/19/20 History [Duoneb 0.5 mg-3 mg/3 ml Soln] Tiotropium [place] [Spiriva 2 puff INHALATION RT-DAILY PRN 11/08/20 11/19/20 History Respimat] fentaNYL 50MCG/HR PATCH [Duragesic 1 patch TRANSDERM Q72H 11/08/20 11/19/20 History 50MCG/HR] Amoxic-Pot Clav 875-125Mg 1 tab PO BID 1 Days #6 tab 11/12/20 11/19/20 Rx [Augmentin 875-125] Diclofenac Sodium Gel [Voltaren 4 gm TOPICAL QID #1 tub 11/12/20 11/19/20 Rx Gel] Glycopyrrolate [Robinul] 2 mg PO BID #60 tablet 11/12/20 11/19/20 Rx Allergies Allergy/AdvReac Type Severity Reaction Status Date / Time celecoxib [From Celebrex] Allergy Confusion Verified 11/19/20 17:37 nabumetone [From Relafen] Allergy Rash/Hives Verified 11/19/20 17:37 oxycodone [From Percocet] Allergy Unknown Verified 11/19/20 17:37 haloperidol [From Haldol] AdvReac Anaphylaxis Verified 11/19/20 17:37 Physical Exam Vitals: Vital Signs Temp Pulse Resp BP Pulse Ox 11/26/20 06:00 97.8 F 55 L 19 153/83 91 L 11/26/20 01:52 97.4 F L 47 L 21 151/74 93 L 11/25/20 20:01 46 L 19 11/25/20 19:55 97.6 F 42 L 20 154/76 98 11/25/20 18:17 98.9 F 65 19 149/72 92 L 11/25/20 14:00 98.4 F 63 19 152/96 92 L 11/25/20 10:20 98.7 F 60 20 147/67 91 L Intake and Output 11/25/20 11/26/20 11/26/20 22:59 06:59 14:59 Output Total 300 280 Balance -300 -280 Output: Urine 300 280 Other: Voiding Method Indwelling Catheter # Bowel Movements 0 Results CBC & Chem 7: 11/26/20 05:18 11/26/20 05:18 Labs: Abnormal Lab Results - Last 24 Hours (Table) 11/25/20 11/26/20 11/26/20 Range/Units 05:23 05:18 05:18 RBC 3.09 L (4.30-5.90) m/uL Hgb 9.5 L (13.0-17.5) gm/dL Hct 30.2 L (39.0-53.0) % Plt Count 144 L (150-450) k/uL Lymphocytes # 0.5 L (1.0-4.8) k/uL Sodium 150 H (135-145) mmol/L Chloride 113 H 113 H (96-109) mmol/L Anion Gap 12.10 H (4.00-12.00) mmol/L BUN 35.0 H 37 H (9.0-27.0) mg/dL Creatinine 1.8 H 1.81 H (0.6-1.5) mg/dL Est GFR (CKD-EPI)AfAm 38.9 L (60.0-200.0) Est GFR (CKD-EPI)NonAf 33.6 L (60.0-200.0) Glucose 113 H 193 H (70-110) mg/dL Calcium 8.1 L 8.0 L (8.7-10.3) mg/dL Lactate Dehydrogenase 325 H (120-246) U/L C-Reactive Protein 17.5 H (0.0-0.8) mg/dL Microbiology - Last 24 Hours (Table) 11/19/20 11:35 Blood Culture - Final Blood No Growth after 144 hours 11/19/20 11:15 Blood Culture - Final Blood No Growth after 144 hours
[2020-11-27] MEDS: PIPERACILLIN-TAZOBACTAM 3.375 GM in SODIUM CHLORIDE 0.9% 100 ML IVPB SCH ×3 (02:24→16:59)
[2020-11-27] MEDS: DEXTROSE 5% IN WATER 1,000 ML IV SCH ×2 (06:16→17:13)
--- NOTE | 2020-11-27 06:46 | XR ---
EXAMINATION TYPE: XR chest 1V portable DATE OF EXAM: 11/27/2020 COMPARISON: Chest x-ray 11/25/2020 HISTORY: Covid and aspiration pneumonia TECHNIQUE: Single frontal view of the chest is obtained. FINDINGS: Bilateral airspace disease shows a similar appearance. Interstitium is somewhat increased. Left hemidiaphragm is obscured, there is blunting of the costophrenic angles. Metallic densities are chronic at the right lung base. Apical calcified nodule in the right is stable, postop changes are n oted cervical spine. No evident pneumothorax. Cardiomediastinal silhouette is stable. IMPRESSION: There may be a component of volume overload, interstitial edema, pneumonia may progresse d in the interval. Difficult to exclude effusion.
[2020-11-27] MEDS: MONTELUKAST 10 MG TAB PO SCH (07:59)
[2020-11-27] MEDS: GABAPENTIN 100 MG CAP PO SCH ×2 (07:59→21:49)
[2020-11-27] MEDS: hydrALAZINE HCL 50 MG TAB PO SCH ×2 (07:59→21:49)
[2020-11-27] MEDS: ESCITALOPRAM 10 MG TAB PO SCH (07:59)
[2020-11-27] MEDS: PANTOPRAZOLE 40 MG TABLET PO SCH ×2 (07:59→21:49)
[2020-11-27] MEDS: METOCLOPRAMIDE 10 MG TAB PO SCH ×2 (07:59→21:50)
[2020-11-27] MEDS: DEXAMETHASONE SOD PHOSPHATE 10 MG/ML 1 ML VIAL IV SCH (07:59)
[2020-11-27] MEDS: LORATADINE 10 MG TAB PO SCH (07:59)
[2020-11-27] MEDS: ENOXAPARIN 30 MG/0.3 ML SYRINGE SQ SCH (07:59)
[2020-11-27] MEDS: ASPIRIN 81 MG PO SCH (07:59)
[2020-11-27] MEDS: CLOPIDOGREL 75 MG TAB PO SCH (08:03)
[2020-11-27] MEDS: ACETAMINOPHEN TAB 325 MG TAB PO PRN ×2 (08:13→17:01)
--- NOTE | 2020-11-27 09:55 | P.PN ---
Subjective Progress Note Date: 11/27/20 Principal diagnosis: Bilateral pneumonia, multifocal, possibly aspiration related, and COVID-19 related pneumonia On today's evaluation on 11/24/2000 patient seen in follow-up on medical surgical floor. He is resting comfortably in bed, does not appear to be in any acute distress, he is currently on 4 L of oxygen pulse ox of 94%. He remains on Zosyn for aspiration related pneumonia, he still having low-grade fevers, 99.3 this afternoon, does have a congestive cough, no significant phlegm production. Remains on Decadron 6 [place] do become today's chest x-ray reviewed showed patchy bilateral infiltrates greater than left with small left pleural effusion which is stable in appearance. Patient also continues on vancomycin for possibility of healthcare acquired pneumonia, blood cultures have shown no growth thus far. Today's labs have been reviewed, his sodium is 146, potassium is 3.7, chloride is 112, BUN is 30, creatinine is 1.58. Patient remains on IV fluids of 0.9 normal sinus at a rate of 75 ML per hour. He is tolerating oral diet, he is on a modified diet dysphagia level I pured, with nectar thick liquids and one-to-one supervision. His LDH is up trending and is up to 636, his CRP from 2 days ago was 14.4. His pro calcitonin was 0.10. Denies any abdominal pain, no nausea vomiting or diarrhea. On 11/25/2020 patient seen in follow-up on medical surgical floor. Patient is currently on 4 L of oxygen, pulse ox is 91-92%, he states his breathing is improving, overall he is feeling better, patient has been having intermittent low-grade fevers. No complaints of chest discomfort, no hemoptysis. Patient is very weak, generally debilitated. No altered mentation. Today's chest x-ray showing bilateral abnormal densities in the lungs, no evident pneumothorax, calcified granuloma in the right upper lobe. Patient remains on Decadron 6 mg daily, he remains on Zosyn and vancomycin for possibility of aspiration pneumonia. He remains on prophylactic dose Lovenox 40 mg daily. Today's labs have been reviewed, patient's sodium is up to 150, and his IV fluids will be switched to D5W at 100 ML per hour. D-dimer is 1.2, potassium is 4.2, chloride is 113, and 9 gap is 12, BUN is 35, creatinine is 1.8, LDH is 325, improving, and CRP is 17.5 On today's evaluation on 11/26/2020 patient seen in follow-up on medical surgical floor. He sitting up in a chair, he remains generally weak, but may be slightly improved, no fever or chills overnight, he remains on 4 L of oxygen his pulse ox is 92-96%, blood pressure has been stable, no worsening dyspnea, no complaints of chest discomfort, no new chest x-ray today, yesterday's chest x- ray showed stable bilateral densities, more conspicuous right upper lobe. The patient has remained stable, with no worsening complaints, he remains on soft diet with nectar thick liquids. He gets one-on-one supervision with meals. Definitely coughs with thin liquids. Generalized no acute events overnight, today's labs have been reviewed and were blood cell count of 4.9, hemoglobin is 9.5, lymphocyte count is 0.5, serum sodium is improved and is down to 143, patient remains on D5W at a rate of 100 ML per hour, his oral intake remains poor, with poor water intake. His potassium is 3.6, chloride is 113, B1 is 37 and creatinine is stable at 1.81. On today's evaluation on 11/27/2020 patient seen in follow-up on medical surgical floor. This morning he spiked a fever of 10 1F, he became short of br eath, and his 5 every has increased to 5 L, with a sat of 91-95%, overall he states he is feeling very weak today, denies any episodes of coughing or choking while eating. Patient is receiving a modified diet with thickened liquids, he denies eating too fast, he is 1 on 1 supervision with meals. Follow-up chest x- ray has been obtained today showing bilateral pneumonia, with greater densities in the left lung. On today's exam patient has scattered rhonchi in his lungs, mostly in the left lower lung. Physical weak, and patient is unable to bring up any phlegm. He is covered with Zosyn for antibiotic coverage, he has not been able to produce any sputum for culture, his mentation is appropriate, he is oriented 3. He denies chest discomfort. No nausea or vomiting, no diarrhea, he remains on Decadron 6 mg daily, she is on prophylactic dose Lovenox, today's labs are pending. He continues on D5W at a rate of 100 mL BPM, he is developed some a mild bilateral lower extremity edema. Objective - Vital Signs Vital signs: Vital Signs Temp 98.9 F 11/27/20 09:30 Pulse 61 11/27/20 09:30 Resp 17 11/27/20 09:30 BP 124/50 11/27/20 09:30 Pulse Ox 93 L 11/27/20 09:30 Intake & Output 11/26/20 11/27/20 11/27/20 18:59 06:59 18:59 Output Total 300 350 Balance -300 -350 Output: Urine 300 350 Other: Voiding Method Indwelling Catheter Indwelling Catheter - Exam GENERAL EXAM: Alert, pleasant, but debilitated-looking 85-year-old white male, on 5 L of oxygen pulse ox of 94% comfortable in no apparent distress. HEAD: Normocephalic/atraumatic. EYES: Normal reaction of pupils, equal size. Conjunctiva pink, sclera white. NOSE: Clear with pink turbinates. THROAT: No erythema or exudates. NECK: No masses, no JVD, no thyroid enlargement, no adenopathy. CHEST: No chest wall deformity. Symmetrical expansion. LUNGS: Equal air entry with crackles bilateral bases CVS: Regular rate and rhythm, normal S1 and S2, no gallops, no murmurs, no rubs ABDOMEN: Soft, nontender. No hepatosplenomegaly, normal bowel sounds, no guarding or rigidity. EXTREMITIES: No clubbing, no edema, no cyanosis, 2+ pulses and upper and lower extremities. MUSCULOSKELETAL: Muscle strength and tone normal. SPINE: No scoliosis or deformity SKIN: No rashes CENTRAL NERVOUS SYSTEM: Alert and oriented -3. No focal deficits, tone is normal in all 4 extremities. PSYCHIATRIC: Alert and oriented -3. Appropriate affect. Intact judgment and insight. - Labs CBC & Chem 7: 11/26/20 05:18 11/26/20 05:18 Labs: Abnormal Lab Results - Last 24 Hours (Table) 11/27/20 Range/Units 07:20 D-Dimer 1.15 H (<0.60) mg/L FEU Assessment and Plan Plan: Assessment: #1. Acute hypoxic respiratory failure related to acute COPD 19 pneumonia and possibility of aspiration pneumonia. Patient had a positive COVID-19 PCR, computed tomography scan of the chest showed possibility of chronic aspiration with lower lobe infiltrates and small pleural effusions. Currently is on oral Decadron 6 mg daily, Zosyn and vancomycin. Patient has a history of silent aspiration. Last chest x-ray was showing worsening in his left upper lobe consolidation. Patient apparently passed a swallow evaluation however he still continues on a modified diet with nectar thick liquids #2. COVID-19 infection with positive PCR, and the patient isn't vaccinated #3. Chronic dysphagia/aspiration, silent #4. History of CVA with left-sided weakness #5. Hypertension #6. Hyperlipidemia #7. Peripheral vascular disease #8. Chronic gastritis with previous bouts of GI bleeding and peptic ulcer disease #9. Macular degeneration #10. Nephrolithiasis #11. Anemia, chronic, normocytic #12. Acute kidney injury related to HTN #13. Hypernatremia Plan: Chest x-ray has been reviewed showing stable findings with bilateral pneumonia Continue current antibiotic coverage, will obtain blood cultures 2 Continue Decadron, continue prophylactic Lovenox Awaiting today's blood work and pro-calcitonin Maintain aspiration precautions, one-to-one supervision with meals Suspect intermittent silent aspiration On 5 L of oxygen, continue to monitor for worsening dyspnea or hypoxia will await inflammatory markers and repeat d-dimer D5W to KVO we may consider a dose of IV Lasix once we see his electrolyte and renal profile from this morning Follow-up chest x-ray tomorrow, increase activity as tolerated, provide one-to-one supervision with meals encourage oral intake, continue D5W at 100 ML per hour We'll continue to follow Time with Patient: Less than 30
--- NOTE | 2020-11-27 10:37 | XR ---
EXAMINATION TYPE: XR chest 1V portable DATE OF EXAM: 11/27/2020 Comparison: 11/27/2020 Clinical History: 85-year-old male audible crackles Findings: ACDF hardware. Chronic full-thickness rotator cuff tear right shoulder. Heart is borderline enlarged. Persistent airspace opacity throughout the left lung and right lower lung. Flecks of barium in the m edial right base likely from previous aspirated contrast material. Trace left effusion suspected. Impression: Relatively stable exam with patchy airspace disease throughout the left lung and right lower lung. Mcdowell spect chronically aspirated barium at the medial right base.
[2020-11-27 11:16] LABS: HCT 29.3 % (39.6-50.0); HGB 9.2 g/dL (13.0-17.0); MCH 29.1 pg (27.0-32.0); MCHC 31.4 g/dL (32.0-37.0); MCV 92.7 fL (80.0-97.0); Mean Platelet Volume 10.9 fL (9.5-12.2); Platelet Count 169 X 10*3/uL (140-440); RBC 3.16 X 10*6/uL (4.40-5.60); RDW 12.7 % (11.5-14.5); WBC 7.83 X 10*3/uL (4.50-10.00)
[2020-11-27 12:39] LABS: Acanthocytes 2+; Basophils # (A) 0.01 X 10*3/uL (0.00-0.10); Basophils % (A) 0.1 %; Eosinophils # (A) 0.01 X 10*3/uL (0.04-0.35); Eosinophils % (A) 0.1 %; Lymphocytes # (A) 0.39 X 10*3/uL (0.90-5.00); Monocytes # (A) 0.11 X 10*3/uL (0.20-1.00); Monocytes % (A) 1.4 %; Neutrophils # (A) 7.26 X 10*3/uL (1.80-7.70); Neutrophils % (A) 92.8 %; Toxic Vacuolation 2+
[2020-11-27 13:50] LABS: African American GFR (CKD) 34.3 (60.0-200.0); Anion Gap 12.9 mmol/L (4.00-12.00); BUN/Creat Ratio 16.5 Ratio (12.00-20.00); C Reactive Protein 10.8 mg/dL (0.0-0.8); Calcium 7.9 mg/dL (8.7-10.3); Carbon Dioxide 22.1 mmol/L (21.6-31.8); Non-African American GFR(CKD) 29.6 (60.0-200.0); Potassium 3.7 mmol/L (3.5-5.5)
--- NOTE | 2020-11-27 18:16 | PN ---
PROGRESS NOTE DATE OF SERVICE: 11/27/2020 REASON FOR FOLLOWUP: Pneumonia. INTERVAL HISTORY: The patient did spike a fever of 101 degrees Fahrenheit this morning. The patient has been afebrile since then. The patient mentioned overall feeling better. Denies having any chest pain or any worsening cough. No abdominal pain or diarrhea. PHYSICAL EXAMINATION: Blood pressure 149/59 with a pulse of 51, temperature 97.9. He is 97% on 4 L nasal cannula. GENERAL DESCRIPTION: General description is an elderly male lying in bed in no distress. RESPIRATORY SYSTEM: Unlabored breathing with bilateral crackles at the base. No wheeze. HEART: S1, S2. Regular rate and rhythm. ABDOMEN: Soft. No tenderness. EXTREMITIES: No edema of the feet. LABS: Hemoglobin is 9.2, white count 7.8 with BUN of 33, creatinine 2.0. Vancomycin trough was 17.7 yesterday. Blood cultures have been negative. Chest x-ray this morning with patchy airspace disease throughout the left lung and right lower lung. DIAGNOSTIC IMPRESSION AND PLAN: Patient with a new fever in this patient who did have a COVID-19 infection and concern for possible secondary bacterial pneumonia. CRP has shown improvement. D-dimer is down. Worsening of his kidney function. We will try to obtain a sputum to narrow down his antibiotics. Continue the Zosyn along with aspiration precautions and monitor his clinical course closely. MMODL / IJN: [id number] /
--- NOTE | 2020-11-27 18:27 | P.PN ---
Subjective Progress Note Date: 11/27/20 This is an 85-year-old gentleman with past medical history of CVA with residual chronic dysphagia with silent aspiration, admitted with bilateral pneumonia, positive covid in a patient has been vaccinated. Maintained on Zosyn, vancomycin. T-max 100.1. Sodium increased to 146, IV fluids adjusted to 0.45% saline. Nonproductive cough. Chest x-ray reporting patchy bilateral infiltrate greater on the left with small left effusion stable. Renal function worsening, creatinine 1.58. LDH increased to 636, pro calcitonin 0.1. Diet intake 50% with no nausea vomiting or diarrhea. Denies abdominal pain. 11/25/2020 Continues on Zosyn, vancomycin and Decadron. Renal function wor sening, BUN 35, creatinine 1.8. reports feeling better. maintaining O2 sats in the low 90s on 4 L nasal cannula. Chest x-ray reporting continued abnormal densities within the bilateral lungs, more conspicuous in the right upper lobe, no evident pneumothorax ,possible old calcified granuloma right upper lobe, possible pleural effusion. Initially IV fluids adjusted, sodium continues trending up, currently 150. LDH improving. Afebrile, T-max 99.9. 11/26/2020 Weak appearing. maintaining O2 sats in the low 90s on 2 L nasal cannula. Yesterday IV fluids converted to D5W with sodium improved down to 143. Afebrile, normal WBC. Continues on IV antibiotics. BUN 37, creatinine 1.81. 11/27/2020 O2 requirements increased up to 5 L nasal cannula to maintain O2 sats in the 90s, T-max 101. Confused, weaker. Chest x-ray reporting increased interstitium, left hemidiaphragm obscured with blunting of the costophrenic angles. Maintained on Zosyn, vancomycin discontinued. Labs pending. Objective - Vital Signs Vital signs: Vital Signs Temp 97.9 F 11/27/20 14:10 Pulse 51 L 11/27/20 14:10 Resp 16 11/27/20 14:10 BP 149/59 11/27/20 14:10 Pulse Ox 97 11/27/20 14:10 Intake & Output 11/26/20 11/27/20 11/27/20 18:59 06:59 18:59 Output Total 300 350 Balance -300 -350 Output: Urine 300 350 Other: Voiding Method Indwelling Catheter Indwelling Catheter Indwelling Catheter - Exam PHYSICAL EXAM General: Sitting up in bed, weak ,NAD., Confused-alert and oriented 1 HEENT: Conjunctiva normal, oral thrush, neck supple, no JVD. Lungs: normal respiratory effort,Bilateral coarse rhonchi CVS: Regular rate and rhythm, no murmur. Peripheral pulses 2+ Abdomen: soft, nondistended, no organomegaly, positive bowel sounds Extremities: Positive edema Skin: warm and dry Microbiology 11/19/20 11:35 Blood Blood Culture - Final No Growth after 144 hours 11/19/20 11:15 Blood Blood Culture - Final No Growth after 144 hours - Labs CBC & Chem 7: 11/27/20 07:20 11/27/20 07:20 Labs: Abnormal Lab Results - Last 24 Hours (Table) 11/27/20 11/27/20 11/27/20 Range/Units 07:20 07:20 07:20 RBC 3.16 L (4.40-5.60) X 10*6/uL Hgb 9.2 L (13.0-17.0) g/dL Hct 29.3 L (39.6-50.0) % MCHC 31.4 L (32.0-37.0) g/dL Immature Gran # 0.05 H (0.00-0.04) X 10*3/uL Lymphocytes # 0.39 L (0.90-5.00) X 10*3/uL Monocytes # 0.11 L (0.20-1.00) X 10*3/uL Eosinophils # 0.01 L (0.04-0.35) X 10*3/uL D-Dimer 1.15 H (<0.60) mg/L FEU Anion Gap 12.90 H (4.00-12.00) mmol/L BUN 33.0 H (9.0-27.0) mg/dL Creatinine 2.0 H (0.6-1.5) mg/dL Est GFR (CKD-EPI)AfAm 34.3 L (60.0-200.0) Est GFR (CKD-EPI)NonAf 29.6 L (60.0-200.0) Glucose 117 H (70-110) mg/dL Calcium 7.9 L (8.7-10.3) mg/dL Lactate Dehydrogenase 311 H (120-246) U/L C-Reactive Protein 10.8 H (0.0-0.8) mg/dL Assessment and Plan Assessment: Acute hypoxic respiratory failure secondary to COVID-19 infection, patient is vaccinated. Acute bilateral pneumonia Acute hypoxic respiratory failure Acute renal failure, worsening, Hypernatremia, resolved Oral candidasis History of CVA with residual chronic dysphagia/ silent aspiration Left-sided weakness secondary to CVA Chronic gastritis Macular degeneration Chronic normocytic anemia Hypertension Hyperlipidemia Peripheral vascular disease History of nephrolithiasis Anemia, chronic Plan: Continue on current medication regime ,monitoring and symptomatic treatment. Labs pending, pro-calcitonin pending.Strict aspiration precautions continuously in a patient with chronic silent aspiration. Creatinine slowly trending up, Vancomycin discontinued to prevent nephrotoxicity.maintain Zosyn. Close monitoring of electrolytes, renal function with repeat labs ordered for a.m. ID rec. pending. Maintain aspiration precautions. Prognosis guarded given multiple complex medical issues. The impression and plan of care has been dictated as directed. : I performed a history and examination of this patient, discussed the same with the dictator. I agree with the dictator's note ,documented as a scribe. Any additional findings or plans will be noted.
[2020-11-28] MEDS: PIPERACILLIN-TAZOBACTAM 3.375 GM in SODIUM CHLORIDE 0.9% 100 ML IVPB SCH ×3 (03:46→19:56)
[2020-11-28] MEDS: ASPIRIN 81 MG PO SCH (10:35)
[2020-11-28] MEDS: hydrALAZINE HCL 50 MG TAB PO SCH ×2 (10:35→21:49)
[2020-11-28] MEDS: CLOPIDOGREL 75 MG TAB PO SCH (10:35)
[2020-11-28] MEDS: METOCLOPRAMIDE 10 MG TAB PO SCH ×2 (10:35→21:50)
[2020-11-28] MEDS: ESCITALOPRAM 10 MG TAB PO SCH (10:35)
[2020-11-28] MEDS: GABAPENTIN 100 MG CAP PO SCH ×2 (10:35→21:49)
[2020-11-28] MEDS: MONTELUKAST 10 MG TAB PO SCH (10:35)
[2020-11-28] MEDS: LORATADINE 10 MG TAB PO SCH (10:35)
[2020-11-28] MEDS: ENOXAPARIN 30 MG/0.3 ML SYRINGE SQ SCH (10:36)
[2020-11-28] MEDS: PANTOPRAZOLE 40 MG TABLET PO SCH ×2 (10:36→21:49)
[2020-11-28] MEDS: DEXAMETHASONE SOD PHOSPHATE 10 MG/ML 1 ML VIAL IV SCH (10:36)
--- NOTE | 2020-11-28 15:56 | XR ---
EXAMINATION TYPE: XR chest 1V portable DATE OF EXAM: 11/28/2020 COMPARISON: Chest x-ray 11/27/2020 HISTORY: Covid pneumonia TECHNIQUE: Single frontal view of the chest is obtained. FINDINGS: Findings are similar to prior exam. Patchy bilateral increased attenuation present within the lungs. There is no evident pneumothorax . Calcific density over the right upper chest, metallic d ensities at the right lung base are again seen. Cardiac mediastinal silhouette is stable. The left he midiaphragm is obscured. There is blunting of the costophrenic angles. Aorta is dense. IMPRESSION: Findings could represent pneumonia, edema not excluded, there may be pleural effusions.
--- NOTE | 2020-11-28 16:02 | P.PN ---
Subjective Progress Note Date: 11/28/20 This is an 85-year-old gentleman with past medical history of CVA with residual chronic dysphagia with silent aspiration, admitted with bilateral pneumonia, positive covid in a patient has been vaccinated. Maintained on Zosyn, vancomycin. T-max 100.1. Sodium increased to 146, IV fluids adjusted to 0.45% saline. Nonproductive cough. Chest x-ray reporting patchy bilateral infiltrate greater on the left with small left effusion stable. Renal function worsening, creatinine 1.58. LDH increased to 636, pro calcitonin 0.1. Diet intake 50% with no nausea vomiting or diarrhea. Denies abdominal pain. 11/25/2020 Continues on Zosyn, vancomycin and Decadron. Renal function wor sening, BUN 35, creatinine 1.8. reports feeling better. maintaining O2 sats in the low 90s on 4 L nasal cannula. Chest x-ray reporting continued abnormal densities within the bilateral lungs, more conspicuous in the right upper lobe, no evident pneumothorax ,possible old calcified granuloma right upper lobe, possible pleural effusion. Initially IV fluids adjusted, sodium continues trending up, currently 150. LDH improving. Afebrile, T-max 99.9. 11/26/2020 Weak appearing. maintaining O2 sats in the low 90s on 2 L nasal cannula. Yesterday IV fluids converted to D5W with sodium improved down to 143. Afebrile, normal WBC. Continues on IV antibiotics. BUN 37, creatinine 1.81. 11/27/2020 O2 requirements increased up to 5 L nasal cannula to maintain O2 sats in the 90s, T-max 101. Confused, weaker. Chest x-ray reporting increased interstitium, left hemidiaphragm obscured with blunting of the costophrenic angles. Maintained on Zosyn, vancomycin discontinued. Labs pending. 11/28/2020 Continues on Zosyn and strict aspiration precautions.oxygen requirements worsening, requiring 6 L nasal cannula to maintain O2 sats in the 90s. Reports feeling increased shortness of breath during the night. Chest x- ray pending. Labs pending.Afebrile. Diet intake 25%. Objective - Vital Signs Vital signs: Vital Signs Temp 97.7 F 11/28/20 14:00 Pulse 55 L 11/28/20 14:00 Resp 16 11/28/20 14:00 BP 112/60 11/28/20 14:00 Pulse Ox 96 11/28/20 14:00 Intake & Output 11/27/20 11/28/20 11/28/20 18:59 06:59 18:59 Intake Total 480 218 Output Total 1200 1500 300 Balance -720 -1500 -82 Weight 56.699 kg Intake: Oral 480 218 Output: Urine 1200 1500 300 Uretheral (Hou) 300 300 Other: Voiding Method Indwelling Catheter Indwelling Catheter Indwelling Catheter # Bowel Movements 0 - Exam PHYSICAL EXAM General: Sitting up in bed, weak ,NAD. HEENT: Conjunctiva normal, oral thrush, neck supple, no JVD. Lungs: normal respiratory effort,Bilateral coarse rhonchi CVS: Regular rate and rhythm, no murmur. Peripheral pulses 2+ Abdomen: soft, nondistended, no organomegaly, positive bowel sounds Extremities: Decreased edema Skin: warm and dry - Labs CBC & Chem 7: 11/27/20 07:20 11/27/20 07:20 Labs: Abnormal Lab Results - Last 24 Hours (Table) 11/27/20 Range/Units 07:20 Procalcitonin 0.63 H (0.02-0.09) ng/mL Microbiology - Last 24 Hours (Table) 11/27/20 10:09 Blood Culture - Preliminary Blood No Growth after 24 hours 11/27/20 09:58 Blood Culture - Preliminary Blood No Growth after 24 hours Assessment and Plan Assessment: Acute hypoxic respiratory failure secondary to COVID-19 infection, patient is vaccinated. Acute bilateral pneumonia Acute renal failure, worsening, Hypernatremia, resolved Oral candidasis History of CVA with residual chronic dysphagia/ silent aspiration Left-sided weakness secondary to CVA Chronic gastritis Macular degeneration Chronic normocytic anemia Hypertension Hyperlipidemia Peripheral vascular disease History of nephrolithiasis Anemia, chronic Plan: Continue on current medication regime ,monitoring and symptomatic treatment. Labs pending. Maintained strict aspiration precautions continuously in a patient with chronic silent aspiration. Encourage diet intake, encourage sitting up in chair. Continue Zosyn.Prognosis guarded given multiple complex medical issues. Discussed with charge nurse, the need to facilitate face-time visitation between patient and daughter, given visitation restrictions. The impression and plan of care has been dictated as directed. : I performed a history and examination of this patient, discussed the same with the dictator. I agree with the dictator's note ,documented as a scribe. Any additional findings or plans will be noted.
--- NOTE | 2020-11-28 17:28 | PN ---
PROGRESS NOTE DATE OF SERVICE: 11/28/2020 REASON FOR FOLLOWUP: Pneumonia. INTERVAL HISTORY: The patient is afebrile. The patient is breathing slightly comfortably oxygen. He denies having chest pain. He did have a cough with occasional sputum. No abdominal pain or diarrhea. PHYSICAL EXAMINATION: Blood pressure 112/60 with a pulse of 55, temperature 97.7. He is 96% on 6 L nasal cannula. GENERAL DESCRIPTION: General description is an elderly male up in the chair in no distress. RESPIRATORY SYSTEM: Unlabored breathing. Coarse breath sounds bilaterally. HEART: S1, S2. Regular rate and rhythm. ABDOMEN: Soft. No tenderness. LABS: Hemoglobin is 9.1, white count 7.83, BUN of 33, creatinine 2.0. DIAGNOSTIC IMPRESSION AND PLAN: Patient with pneumonia concerning for possible aspiration etiology. Patient is covered with Zosyn. That will be continued for now. Try to obtain a sputum sample to narrow down his antibiotics and monitor his clinical course closely. MMODL / IJN: [id number] /
--- NOTE | 2020-11-28 17:31 | P.PN ---
Subjective Progress Note Date: 11/28/20 Principal diagnosis: Bilateral pneumonia, multifocal, possibly aspiration related, and COVID-19 related pneumonia On today's evaluation on 11/24/2000 patient seen in follow-up on medical surgical floor. He is resting comfortably in bed, does not appear to be in any acute distress, he is currently on 4 L of oxygen pulse ox of 94%. He remains on Zosyn for aspiration related pneumonia, he still having low-grade fevers, 99.3 this afternoon, does have a congestive cough, no significant phlegm production. Remains on Decadron 6 Mil[place] do become today's chest x-ray reviewed showed patchy bilateral infiltrates greater than left with small left pleural effusion which is stable in appearance. Patient also continues on vancomycin for possibility of healthcare acquired pneumonia, blood cultures have shown no growth thus far. Today's labs have been reviewed, his sodium is 146, potassium is 3.7, chloride is 112, BUN is 30, creatinine is 1.58. Patient remains on IV fluids of 0.9 normal sinus at a rate of 75 ML per hour. He is tolerating oral diet, he is on a modified diet dysphagia level I pured, with nectar thick liquids and one-to-one supervision. His LDH is up trending and is up to 636, his CRP from 2 days ago was 14.4. His pro calcitonin was 0.10. Denies any abdominal pain, no nausea vomiting or diarrhea. On 11/25/2020 patient seen in follow-up on medical surgical floor. Patient is currently on 4 L of oxygen, pulse ox is 91-92%, he states his breathing is improving, overall he is feeling better, patient has been having intermittent low-grade fevers. No complaints of chest discomfort, no hemoptysis. Patient is very weak, generally debilitated. No altered mentation. Today's chest x-ray showing bilateral abnormal densities in the lungs, no evident pneumothorax, calcified granuloma in the right upper lobe. Patient remains on Decadron 6 mg daily, he remains on Zosyn and vancomycin for possibility of aspiration pneumonia. He remains on prophylactic dose Lovenox 40 mg daily. Today's labs have been reviewed, patient's sodium is up to 150, and his IV fluids will be switched to D5W at 100 ML per hour. D-dimer is 1.2, potassium is 4.2, chloride is 113, and 9 gap is 12, BUN is 35, creatinine is 1.8, LDH is 325, improving, and CRP is 17.5 On today's evaluation on 11/26/2020 patient seen in follow-up on medical surgical floor. He sitting up in a chair, he remains generally weak, but may be slightly improved, no fever or chills overnight, he remains on 4 L of oxygen his pulse ox is 92-96%, blood pressure has been stable, no worsening dyspnea, no complaints of chest discomfort, no new chest x-ray today, yesterday's chest x- ray showed stable bilateral densities, more conspicuous right upper lobe. The patient has remained stable, with no worsening complaints, he remains on soft diet with nectar thick liquids. He gets one-on-one supervision with meals. Definitely coughs with thin liquids. Generalized no acute events overnight, today's labs have been reviewed and were blood cell count of 4.9, hemoglobin is 9.5, lymphocyte count is 0.5, serum sodium is improved and is down to 143, patient remains on D5W at a rate of 100 ML per hour, his oral intake remains poor, with poor water intake. His potassium is 3.6, chloride is 113, B1 is 37 and creatinine is stable at 1.81. On today's evaluation on 11/27/2020 patient seen in follow-up on medical surgical floor. This morning he spiked a fever of 10 1F, he became short of b reath, and his 5 every has increased to 5 L, with a sat of 91-95%, overall he states he is feeling very weak today, denies any episodes of coughing or choking while eating. Patient is receiving a modified diet with thickened liquids, he denies eating too fast, he is 1 on 1 supervision with meals. Follow-up chest x- ray has been obtained today showing bilateral pneumonia, with greater densities in the left lung. On today's exam patient has scattered rhonchi in his lungs, mostly in the left lower lung. Physical weak, and patient is unable to bring up any phlegm. He is covered with Zosyn for antibiotic coverage, he has not been able to produce any sputum for culture, his mentation is appropriate, he is oriented 3. He denies chest discomfort. No nausea or vomiting, no diarrhea, he remains on Decadron 6 mg daily, she is on prophylactic dose Lovenox, today's labs are pending. He continues on D5W at a rate of 100 mL BPM, he is developed some a mild bilateral lower extremity edema. The patient is seen today 11/28/2020 and follow-up on the regular medical floor. He is currently sitting up in a chair at the bedside. Awake and alert in no acute distress. He is still quite dyspneic with minimal exertion. Weak nonproductive cough. Maintaining O2 saturations in the 90s on 6 L high flow nasal cannula. Currently afebrile. Blood pressure stable. Slightly bradycardic. Blood cultures revealed no growth. No new labs today. He is on Decadron, Lovenox, Zosyn. D5W at 20 ML's per hour. Objective - Vital Signs Vital signs: Vital Signs Temp 97.7 F 11/28/20 14:00 Pulse 55 L 11/28/20 14:00 Resp 16 11/28/20 14:00 BP 112/60 11/28/20 14:00 Pulse Ox 96 11/28/20 14:00 Intake & Output 11/27/20 11/28/20 11/28/20 18:59 06:59 18:59 Intake Total 480 218 Output Total 1200 1500 300 Balance -720 -1500 -82 Weight 56.699 kg Intake: Oral 480 218 Output: Urine 1200 1500 300 Uretheral (Hou) 300 300 Other: Voiding Method Indwelling Catheter Indwelling Catheter Indwelling Catheter # Bowel Movements 0 - Exam GENERAL EXAM: Alert, pleasant, debilitated-looking 85-year-old male, on 6 L of oxygen pulse ox of 96% comfortable in no apparent distress. HEAD: Normocephalic/atraumatic. EYES: Normal reaction of pupils, equal size. Conjunctiva pink, sclera white. NOSE: Clear with pink turbinates. THROAT: No erythema or exudates. NECK: No masses, no JVD, no thyroid enlargement, no adenopathy. CHEST: No chest wall deformity. Symmetrical expansion. LUNGS: Equal air entry with crackles in the bilateral bases CVS: Regular rate and rhythm, normal S1 and S2, no gallops, no murmurs, no rubs ABDOMEN: Soft, nontender. No hepatosplenomegaly, normal bowel sounds, no guarding or rigidity. EXTREMITIES: No clubbing, no edema, no cyanosis, 2+ pulses and upper and lower extremities. MUSCULOSKELETAL: Muscle strength and tone normal. SPINE: No scoliosis or deformity SKIN: No rashes CENTRAL NERVOUS SYSTEM: No focal deficits, tone is normal in all 4 extremities. PSYCHIATRIC: Alert and oriented -3. Appropriate affect. Intact judgment and insight. - Labs CBC & Chem 7: 11/27/20 07:20 11/27/20 07:20 Labs: Microbiology - Last 24 Hours (Table) 11/27/20 10:09 Blood Culture - Preliminary Blood No Growth after 24 hours 11/27/20 09:58 Blood Culture - Preliminary Blood No Growth after 24 hours Assessment and Plan Assessment: 1 Acute hypoxic respiratory failure related to acute COPD 19 pneumonia and possibility of aspiration pneumonia. Patient had a positive COVID-19 PCR, computed tomography scan of the chest showed possibility of chronic aspiration with lower lobe infiltrates and small pleural effusions. Currently is on oral Decadron 6 mg daily, Zosyn and Lovenox. Patient has a history of silent aspiration. Today's chest x-ray was showing a lateral patchy opacities more so on the left lung. Patient apparently passed a swallow evaluation however he still continues on a modified diet with nectar thick liquids 2 COVID-19 infection with positive PCR, and the patient isn't vaccinated 3 Chronic dysphagia/aspiration, silent 4 History of CVA with left-sided weakness 5 Hypertension 6 Hyperlipidemia 7 Peripheral vascular disease 8 Chronic gastritis with previous bouts of GI bleeding and peptic ulcer disease 9 Macular degeneration 10 Nephrolithiasis 11 Anemia, chronic, normocytic 12 Acute kidney injury related to HTN 13 Hypernatremia Plan: Patient was seen and evaluated by Chest x-ray reviewed Continue Zosyn, Lovenox, Decadron Titrate the FiO2 as tolerated Prognosis remains guarded We will continue to follow I, the cosigning physician, performed a history & physical examination of the patient. Lungs sounds crackles in the bilateral posterior bases. Maintaining good O2 saturations in the 90s on 6 L high flow nasal cannula. I discussed the assessment and plan of care with my nurse practitioner, Ayesha Liang. I attest to the above note as dictated by her.
[2020-11-28] MEDS: DEXTROSE 5% IN WATER 1,000 ML IV SCH (20:30)
[2020-11-29] MEDS: PIPERACILLIN-TAZOBACTAM 3.375 GM in SODIUM CHLORIDE 0.9% 100 ML IVPB SCH ×3 (02:51→19:28)
[2020-11-29 08:37] LABS: African American GFR (CKD) 41 (>60 ml/min/1.73 sqM); Anion Gap 7 mmol/L; Blood Urea Nitrogen 37 mg/dL (9-20); Calcium 8.1 mg/dL (8.4-10.2); Carbon Dioxide 24 mmol/L (22-30); Chloride 111 mmol/L (98-107); Glucose 107 mg/dL (74-99); Non-African American GFR(CKD) 35 (>60 ml/min/1.73 sqM); Potassium 3.7 mmol/L (3.5-5.1); Sodium 142 mmol/L (137-145)
[2020-11-29] MEDS: MONTELUKAST 10 MG TAB PO SCH (08:38)
[2020-11-29] MEDS: DEXAMETHASONE SOD PHOSPHATE 10 MG/ML 1 ML VIAL IV SCH (08:38)
[2020-11-29] MEDS: METOCLOPRAMIDE 10 MG TAB PO SCH ×2 (08:38→20:25)
[2020-11-29] MEDS: CLOPIDOGREL 75 MG TAB PO SCH (08:38)
[2020-11-29] MEDS: LORATADINE 10 MG TAB PO SCH (08:38)
[2020-11-29] MEDS: ESCITALOPRAM 10 MG TAB PO SCH (08:38)
[2020-11-29] MEDS: ENOXAPARIN 30 MG/0.3 ML SYRINGE SQ SCH (08:38)
[2020-11-29] MEDS: GABAPENTIN 100 MG CAP PO SCH ×2 (08:38→20:26)
[2020-11-29] MEDS: hydrALAZINE HCL 50 MG TAB PO SCH ×2 (08:38→20:25)
[2020-11-29] MEDS: PANTOPRAZOLE 40 MG TABLET PO SCH ×2 (08:38→20:25)
[2020-11-29] MEDS: ASPIRIN 81 MG PO SCH (08:38)
[2020-11-29] MEDS ORDERED: FUROSEMIDE 10 MG/ML 4 ML VIAL IV STA (11:41)
[2020-11-29 12:15] LABS: Basophils # (A) 0 X 10*3/uL (0.00-0.10); Basophils % (A) 0 %; Eosinophils # (A) 0.01 X 10*3/uL (0.04-0.35); Eosinophils % (A) 0.2 %; HCT 26.4 % (39.6-50.0); HGB 8.4 g/dL (13.0-17.0); Lymphocytes # (A) 0.38 X 10*3/uL (0.90-5.00); Lymphocytes % (A) 6.5 %; MCH 29.3 pg (27.0-32.0); MCHC 31.8 g/dL (32.0-37.0); Mean Platelet Volume 10.4 fL (9.5-12.2); Monocytes # (A) 0.13 X 10*3/uL (0.20-1.00); Monocytes % (A) 2.2 %; Neutrophils # (A) 5.22 X 10*3/uL (1.80-7.70); Neutrophils % (A) 89.9 %; Platelet Count 218 X 10*3/uL (140-440); RBC 2.87 X 10*6/uL (4.40-5.60); RDW 12.6 % (11.5-14.5); WBC 5.81 X 10*3/uL (4.50-10.00)
--- NOTE | 2020-11-29 13:11 | P.PN ---
Subjective Progress Note Date: 11/29/20 Principal diagnosis: Bilateral pneumonia, multifocal, possibly aspiration related, and COVID-19 related pneumonia On today's evaluation on 11/24/2000 patient seen in follow-up on medical surgical floor. He is resting comfortably in bed, does not appear to be in any acute distress, he is currently on 4 L of oxygen pulse ox of 94%. He remains on Zosyn for aspiration related pneumonia, he still having low-grade fevers, 99.3 this afternoon, does have a congestive cough, no significant phlegm production. Remains on Decadron 6 [place] do become today's chest x-ray reviewed showed patchy bilateral infiltrates greater than left with small left pleural effusion which is stable in appearance. Patient also continues on vancomycin for possibility of healthcare acquired pneumonia, blood cultures have shown no growth thus far. Today's labs have been reviewed, his sodium is 146, potassium is 3.7, chloride is 112, BUN is 30, creatinine is 1.58. Patient remains on IV fluids of 0.9 normal sinus at a rate of 75 ML per hour. He is tolerating oral diet, he is on a modified diet dysphagia level I pured, with nectar thick liquids and one-to-one supervision. His LDH is up trending and is up to 636, his CRP from 2 days ago was 14.4. His pro calcitonin was 0.10. Denies any abdominal pain, no nausea vomiting or diarrhea. On 11/25/2020 patient seen in follow-up on medical surgical floor. Patient is currently on 4 L of oxygen, pulse ox is 91-92%, he states his breathing is improving, overall he is feeling better, patient has been having intermittent low-grade fevers. No complaints of chest discomfort, no hemoptysis. Patient is very weak, generally debilitated. No altered mentation. Today's chest x-ray showing bilateral abnormal densities in the lungs, no evident pneumothorax, calcified granuloma in the right upper lobe. Patient remains on Decadron 6 mg daily, he remains on Zosyn and vancomycin for possibility of aspiration pneumonia. He remains on prophylactic dose Lovenox 40 mg daily. Today's labs have been reviewed, patient's sodium is up to 150, and his IV fluids will be switched to D5W at 100 ML per hour. D-dimer is 1.2, potassium is 4.2, chloride is 113, and 9 gap is 12, BUN is 35, creatinine is 1.8, LDH is 325, improving, and CRP is 17.5 On today's evaluation on 11/26/2020 patient seen in follow-up on medical surgical floor. He sitting up in a chair, he remains generally weak, but may be slightly improved, no fever or chills overnight, he remains on 4 L of oxygen his pulse ox is 92-96%, blood pressure has been stable, no worsening dyspnea, no complaints of chest discomfort, no new chest x-ray today, yesterday's chest x- ray showed stable bilateral densities, more conspicuous right upper lobe. The patient has remained stable, with no worsening complaints, he remains on soft diet with nectar thick liquids. He gets one-on-one supervision with meals. Definitely coughs with thin liquids. Generalized no acute events overnight, today's labs have been reviewed and were blood cell count of 4.9, hemoglobin is 9.5, lymphocyte count is 0.5, serum sodium is improved and is down to 143, patient remains on D5W at a rate of 100 ML per hour, his oral intake remains poor, with poor water intake. His potassium is 3.6, chloride is 113, B1 is 37 and creatinine is stable at 1.81. On today's evaluation on 11/27/2020 patient seen in follow-up on medical surgical floor. This morning he spiked a fever of 10 1F, he became short of b reath, and his 5 every has increased to 5 L, with a sat of 91-95%, overall he states he is feeling very weak today, denies any episodes of coughing or choking while eating. Patient is receiving a modified diet with thickened liquids, he denies eating too fast, he is 1 on 1 supervision with meals. Follow-up chest x- ray has been obtained today showing bilateral pneumonia, with greater densities in the left lung. On today's exam patient has scattered rhonchi in his lungs, mostly in the left lower lung. Physical weak, and patient is unable to bring up any phlegm. He is covered with Zosyn for antibiotic coverage, he has not been able to produce any sputum for culture, his mentation is appropriate, he is oriented 3. He denies chest discomfort. No nausea or vomiting, no diarrhea, he remains on Decadron 6 mg daily, she is on prophylactic dose Lovenox, today's labs are pending. He continues on D5W at a rate of 100 mL BPM, he is developed some a mild bilateral lower extremity edema. The patient is seen today 11/28/2020 and follow-up on the regular medical floor. He is currently sitting up in a chair at the bedside. Awake and alert in no acute distress. He is still quite dyspneic with minimal exertion. Weak nonproductive cough. Maintaining O2 saturations in the 90s on 6 L high flow nasal cannula. Currently afebrile. Blood pressure stable. Slightly bradycardic. Blood cultures revealed no growth. No new labs today. He is on Decadron, Lovenox, Zosyn. D5W at 20 ML's per hour. The patient is seen today 11/29/2020 in follow-up on the regular medical floor. He is currently resting in bed. Awake and alert. Still quite weak and debilitated. Poor appetite. Still requiring 8 L high flow nasal cannula to maintain O2 saturations in the 90s. He is currently afebrile. Blood cultures revealed no growth. White count 5.8. Hemoglobin 8.4. Sodium 142. Potassium 3.7. Creatinine 1.73. Glucose 107. His x-ray continues to revealed bilateral patchy infiltrates. He remains on Zosyn. Continued on Decadron, Lovenox. Continued aspiration precautions. Objective - Vital Signs Vital signs: Vital Signs Temp 98 F 11/29/20 10:00 Pulse 59 L 11/29/20 10:00 Resp 16 11/29/20 10:00 BP 139/62 11/29/20 10:00 Pulse Ox 95 11/29/20 12:52 Intake & Output 11/28/20 11/29/20 11/29/20 18:59 06:59 18:59 Intake Total 278 118 Output Total 600 800 Balance -322 -800 118 Weight 56.699 kg Intake: Oral 278 118 Output: Urine 600 800 Uretheral (Hou) 300 300 Other: Voiding Method Indwelling Catheter Indwelling Catheter Indwelling Catheter # Bowel Movements 0 - Exam GENERAL EXAM: Alert, pleasant, debilitated-looking 85-year-old male, on 8 L of oxygen pulse ox of 90% comfortable in no apparent distress. HEAD: Normocephalic/atraumatic. EYES: Normal reaction of pupils, equal size. Conjunctiva pink, sclera white. NOSE: Clear with pink turbinates. THROAT: No erythema or exudates. NECK: No masses, no JVD, no thyroid enlargement, no adenopathy. CHEST: No chest wall deformity. Symmetrical expansion. LUNGS: Equal air entry with crackles in the bilateral bases CVS: Regular rate and rhythm, normal S1 and S2, no gallops, no murmurs, no rubs ABDOMEN: Soft, nontender. No hepatosplenomegaly, normal bowel sounds, no guarding or rigidity. EXTREMITIES: No clubbing, no edema, no cyanosis, 2+ pulses and upper and lower extremities. MUSCULOSKELETAL: Muscle strength and tone normal. SPINE: No scoliosis or deformity SKIN: No rashes CENTRAL NERVOUS SYSTEM: No focal deficits, tone is normal in all 4 extremities. PSYCHIATRIC: Alert and oriented -3. Appropriate affect. Intact judgment and insight. - Labs CBC & Chem 7: 11/29/20 07:47 11/29/20 07:47 Labs: Abnormal Lab Results - Last 24 Hours (Table) 11/29/20 11/29/20 Range/Units 07:47 07:47 RBC 2.87 L (4.40-5.60) X 10*6/uL Hgb 8.4 L (13.0-17.0) g/dL Hct 26.4 L (39.6-50.0) % MCHC 31.8 L (32.0-37.0) g/dL Immature Gran # 0.07 H (0.00-0.04) X 10*3/uL Lymphocytes # 0.38 L (0.90-5.00) X 10*3/uL Monocytes # 0.13 L (0.20-1.00) X 10*3/uL Eosinophils # 0.01 L (0.04-0.35) X 10*3/uL Chloride 111 H (98-107) mmol/L BUN 37 H (9-20) mg/dL Creatinine 1.73 H (0.66-1.25) mg/dL Glucose 107 H (74-99) mg/dL Calcium 8.1 L (8.4-10.2) mg/dL Microbiology - Last 24 Hours (Table) 11/27/20 09:58 Blood Culture - Preliminary Blood No Growth after 48 hours 11/27/20 10:09 Blood Culture - Preliminary Blood No Growth after 48 hours Assessment and Plan Assessment: 1 Acute hypoxic respiratory failure related to acute COPD 19 pneumonia and possibility of aspiration pneumonia. Patient had a positive COVID-19 PCR, computed tomography scan of the chest showed possibility of chronic aspiration with lower lobe infiltrates and small pleural effusions. Currently is on oral Decadron 6 mg daily, Zosyn and Lovenox. Patient has a history of silent aspiration. 2 COVID-19 infection with positive PCR, and the patient isn't vaccinated 3 Chronic dysphagia/aspiration, silent 4 History of CVA with left-sided weakness 5 Hypertension 6 Hyperlipidemia 7 Peripheral vascular disease 8 Chronic gastritis with previous bouts of GI bleeding and peptic ulcer disease 9 Macular degeneration 10 Nephrolithiasis 11 Anemia, chronic, normocytic 12 Acute kidney injury related to HTN 13 Hypernatremia Plan: Patient was seen and evaluated by Overall prognosis remains quite poor Spoke with the patient's daughter today DO NOT RESUSCITATE/DO NOT INTUBATE CODE STATUS Continue Zosyn, Lovenox, Decadron Lasix 40 mg IVP 1 Titrate the FiO2 as tolerated We will continue to follow I, the cosigning physician, performed a history & physical examination of the patient. Lungs sounds crackles in the bilateral posterior bases. Maintaining good O2 saturations in the 90s on 8 L high flow nasal cannula. I discussed the assessment and plan of care with my nurse practitioner, Ayesha Liang. I attest to the above note as dictated by her.
--- NOTE | 2020-11-29 16:29 | PN ---
PROGRESS NOTE DATE OF SERVICE: 11/29/2020 REASON FOR FOLLOWUP: Aspiration pneumonia. INTERVAL HISTORY: The patient is currently afebrile. No fever for the last 48 hours. The patient is breathing comfortably, requiring 8 L high-flow oxygen. The patient denies having chest pain. Did have a cough; unable to bring up any sputum. No vomiting or any diarrhea reported by the nursing staff. PHYSICAL EXAMINATION: Blood pressure 130/61, pulse of 55, temperature 97.7. He is 95% on 8 L high-flow oxygen. GENERAL DESCRIPTION: General description is an elderly male lying in bed in no distress. RESPIRATORY SYSTEM: Unlabored breathing. Decreased intensity of breath sounds. No wheeze. HEART: S1, S2. Regular rate and rhythm. ABDOMEN: Soft. No tenderness. LABS: Hemoglobin is 8.4, white count 5.81. BUN of 37, creatinine is 1.73. Blood culture has been negative. Sputum not collected. DIAGNOSTIC IMPRESSION AND PLAN: Right with right lower lobe pneumonia, concerning for possible aspiration etiology. Patient clinically responding to the Zosyn; to continue. Try to obtain a sputum sample antibiotics and continue with supportive care. MMODL / IJN: [id number] /
--- NOTE | 2020-11-29 16:55 | P.PN ---
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 Maintained on Zosyn, vancomycin. T-max 100.1. Sodium increased to 146, IV fluids adjusted to 0.45% saline. Nonproductive cough. Chest x-ray reporting patchy bilateral infiltrate greater on the left with small left effusion stable. Renal function worsening, creatinine 1.58. LDH increased to 636, pro calcitonin 0.1. Diet intake 50% wi th no nausea vomiting or diarrhea. Denies abdominal pain. 11/25/2020 Continues on Zosyn, vancomycin and Decadron. Renal function worsening, BUN 35, creatinine 1.8. reports feeling better. maintaining O2 sats in the low 90s on 4 L nasal cannula. Chest x-ray reporting continued abnormal densities within the bilateral lungs, more conspicuous in the right upper lobe, no evident pneumothorax ,possible old calcified granuloma right upper lobe, possible pleural effusion. Initially IV fluids adjusted, sodium continues trending up, currently 150. LDH improving. Afebrile, T-max 99.9. 11/26/2020 Weak appearing. maintaining O2 sats in the low 90s on 2 L nasal cannula. Yesterday IV fluids converted to D5W with sodium improved down to 143. Afebrile, normal WBC. Continues on IV antibiotics. BUN 37, creatinine 1.81. 11/27/2020 O2 requirements increased up to 5 L nasal cannula to maintain O2 sats in the 90s, T-max 101. Confused, weaker. Chest x-ray reporting increased interstitium, left hemidiaphragm obscured with blunting of the costophrenic angles. Maintained on Zosyn, vancomycin discontinued. Labs pending. 11/28/2020 Continues on Zosyn and strict aspiration precautions.oxygen requirements worsening, requiring 6 L nasal cannula to maintain O2 sats in the 90s. Reports feeling increased shortness of breath during the night. Chest x- ray pending. Labs pending.Afebrile. Diet intake 25%. Subjective: 11/29/2020 patient is seen in the fourth floor, lying in bed, awake and alert but is lethargic poor historian. Oxygen requirements went up today from 6 up to 8 L/m. His creatinine on admission is 1.7, baseline is 1.1 and 1.2. Creatinine has been elevated but stable since admission for several days now. This pro calcitonin has increased 2 days ago from 0.[address] of the chest on admission showed no PE and multifocal groundglass opacities especially in the middle and lower lung which is suspicious for Covid pneumonia aspiration pneumonia is also suspected. Today showed persistent pneumonia. He is now covered with broad-spectrum antibiotics of Zosyn. Also he is on dexamethasone, aspirin and Plavix and Lovenox for DVT prophylaxis. He is on IV Protonix twice a day Objective - Vital Signs Vital signs: Vital Signs Temp 97.7 F 11/29/20 14:00 Pulse 55 L 11/29/20 14:00 Resp 16 11/29/20 14:00 BP 130/61 11/29/20 14:00 Pulse Ox 95 11/29/20 14:00 Intake & Output 11/28/20 11/29/20 11/29/20 18:59 06:59 18:59 Intake Total 278 228 Output Total 600 800 Balance -322 -800 228 Weight 56.699 kg Intake: Oral 278 228 Output: Urine 600 800 Uretheral (Hou) 300 300 Other: Voiding Method Indwelling Catheter Indwelling Catheter Indwelling Catheter # Bowel Movements 0 - Exam -GENERAL: The patient is alert and awake but lethargic, patient poor historian, not in any acute distress. Well developed, well nourished. HEENT: Pupils are round and equally reacting to light. EOMI. No scleral icterus. No conjunctival pallor. Normocephalic, atraumatic. No pharyngeal erythema. No th yromegaly. CARDIOVASCULAR: S1 and S2 present. No murmurs, rubs, or gallops. PULMONARY: Chest is clear to auscultation, no wheezing . Bilateral middle and lower zone crepitation ABDOMEN: Soft, nontender, nondistended, normoactive bowel sounds. No palpable organomegaly. MUSCULOSKELETAL: No joint swelling or deformity. EXTREMITIES: No cyanosis, clubbing, or pedal edema. NEUROLOGICAL: Gross neurological examination did not reveal any focal deficits. SKIN: No rashes. no petechiae. - Labs CBC & Chem 7: 11/29/20 07:47 11/29/20 07:47 Labs: Abnormal Lab Results - Last 24 Hours (Table) 11/29/20 11/29/20 Range/Units 07:47 07:47 RBC 2.87 L (4.40-5.60) X 10*6/uL Hgb 8.4 L (13.0-17.0) g/dL Hct 26.4 L (39.6-50.0) % MCHC 31.8 L (32.0-37.0) g/dL Immature Gran # 0.07 H (0.00-0.04) X 10*3/uL Lymphocytes # 0.38 L (0.90-5.00) X 10*3/uL Monocytes # 0.13 L (0.20-1.00) X 10*3/uL Eosinophils # 0.01 L (0.04-0.35) X 10*3/uL Chloride 111 H (98-107) mmol/L BUN 37 H (9-20) mg/dL Creatinine 1.73 H (0.66-1.25) mg/dL Glucose 107 H (74-99) mg/dL Calcium 8.1 L (8.4-10.2) mg/dL Microbiology - Last 24 Hours (Table) 11/27/20 09:58 Blood Culture - Preliminary Blood No Growth after 48 hours 11/27/20 10:09 Blood Culture - Preliminary Blood No Growth after 48 hours Assessment and Plan Assessment: Bilateral cold pneumonia Acute hypoxic respiratory failure Possible aspiration pneumonia, silent aspiration is suspected with history of CVA Dysphagia Acute kidney injuries since his admission Plan: This is a pleasant 85 years old male who presents with bilateral pneumonia and hypoxia. Troponin with Zosyn and dexamethasone. Continue with Lovenox Continue with Protonix and aspirin and Plavix Labs and medication were reviewed.. Continue same treatment. Continue with symptomatic treatment. Resume home medication. Monitor lytes and vitals. DVT and GI prophylaxis. Further recommendationsas per clinical course of the patient DVT prophylaxis: Subcutaneous Lovenox GI Prophylaxis: Ppi No code Prognosis is guarded and extremely poor Dr. Langley team will resume the care of the patient on Tuesday
[2020-11-29] MEDS: DEXTROSE 5% IN WATER 1,000 ML IV SCH (17:33)
[2020-11-30] MEDS: PIPERACILLIN-TAZOBACTAM 3.375 GM in SODIUM CHLORIDE 0.9% 100 ML IVPB SCH ×3 (02:55→17:46)
[2020-11-30] MEDS: PANTOPRAZOLE 40 MG TABLET PO SCH ×2 (07:09→20:31)
[2020-11-30] MEDS: ASPIRIN 81 MG PO SCH (07:09)
[2020-11-30] MEDS: GABAPENTIN 100 MG CAP PO SCH ×2 (07:09→20:31)
[2020-11-30] MEDS: hydrALAZINE HCL 50 MG TAB PO SCH ×2 (07:09→20:31)
[2020-11-30] MEDS: LORATADINE 10 MG TAB PO SCH (07:10)
[2020-11-30] MEDS: ESCITALOPRAM 10 MG TAB PO SCH (07:10)
[2020-11-30] MEDS: MONTELUKAST 10 MG TAB PO SCH (07:10)
[2020-11-30] MEDS: CLOPIDOGREL 75 MG TAB PO SCH (07:10)
[2020-11-30] MEDS: ENOXAPARIN 30 MG/0.3 ML SYRINGE SQ SCH (07:10)
[2020-11-30] MEDS: METOCLOPRAMIDE 10 MG TAB PO SCH ×2 (07:11→20:31)
[2020-11-30] MEDS: DEXAMETHASONE SOD PHOSPHATE 10 MG/ML 1 ML VIAL IV SCH (07:12)
--- NOTE | 2020-11-30 10:50 | P.PN ---
Subjective Progress Note Date: 11/30/20 Bilateral pneumonia, multifocal, possibly aspiration related, and COVID-19 related pneumonia On today's evaluation on 11/24/2000 patient seen in follow-up on medical surgical floor. He is resting comfortably in bed, does not appear to be in any acute distress, he is currently on 4 L of oxygen pulse ox of 94%. He remains on Zosyn for aspiration related pneumonia, he still having low-grade fevers, 99.3 this afternoon, does have a congestive cough, no significant phlegm production. Remains on Decadron 6 [place]im do become today's chest x-ray reviewed showed patchy bilateral infiltrates greater than left with small left pleural effusion which is stable in appearance. Patient also continues on vancomycin for possibility of healthcare acquired pneumonia, blood cultures have shown no growth thus far. Today's labs have been reviewed, his sodium is 146, potassium is 3.7, chloride is 112, BUN is 30, creatinine is 1.58. Patient remains on IV fluids of 0.9 normal sinus at a rate of 75 ML per hour. He is tolerating oral diet, he is on a modified diet dysphagia level I pured, with nectar thick liquids and one-to-one supervision. His LDH is up trending and is up to 636, his CRP from 2 days ago was 14.4. His pro calcitonin was 0.10. Denies any abdominal pain, no nausea vomiting or diarrhea. On 11/25/2020 patient seen in follow-up on medical surgical floor. Patient is currently on 4 L of oxygen, pulse ox is 91-92%, he states his breathing is improving, overall he is feeling better, patient has been having intermittent low-grade fevers. No complaints of chest discomfort, no hemoptysis. Patient is very weak, generally debilitated. No altered mentation. Today's chest x-ray showing bilateral abnormal densities in the lungs, no evident pneumothorax, calcified granuloma in the right upper lobe. Patient remains on Decadron 6 mg daily, he remains on Zosyn and vancomycin for possibility of aspiration pneumonia. He remains on prophylactic dose Lovenox 40 mg daily. Today's labs have been reviewed, patient's sodium is up to 150, and his IV fluids will be switched to D5W at 100 ML per hour. D-dimer is 1.2, potassium is 4.2, chloride is 113, and 9 gap is 12, BUN is 35, creatinine is 1.8, LDH is 325, improving, and CRP is 17.5 On today's evaluation on 11/26/2020 patient seen in follow-up on medical surgical floor. He sitting up in a chair, he remains generally weak, but may be slightly improved, no fever or chills overnight, he remains on 4 L of oxygen his pulse ox is 92-96%, blood pressure has been stable, no worsening dyspnea, no complaints of chest discomfort, no new chest x-ray today, yesterday's chest x- ray showed stable bilateral densities, more conspicuous right upper lobe. The patient has remained stable, with no worsening complaints, he remains on soft diet with nectar thick liquids. He gets one-on-one supervision with meals. Definitely coughs with thin liquids. Generalized no acute events overnight, today's labs have been reviewed and were blood cell count of 4.9, hemoglobin is 9.5, lymphocyte count is 0.5, serum sodium is improved and is down to 143, patient remains on D5W at a rate of 100 ML per hour, his oral intake remains poor, with poor water intake. His potassium is 3.6, chloride is 113, B1 is 37 and creatinine is stable at 1.81. On today's evaluation on 11/27/2020 patient seen in follow-up on medical surgical floor. This morning he spiked a fever of 10 1F, he became short of breath, and his 5 every has increased to 5 L, with a sat of 91-95%, overall he states he is feeling very weak today, denies any episodes of coughing or choking while eating. Patient is receiving a modified diet with thickened liquids, he denies eating too fast, he is 1 on 1 supervision with meals. Follow-up chest x- ray has been obtained today showing bilateral pneumonia, with greater densities in the left lung. On today's exam patient has scattered rhonchi in his lungs, mostly in the left lower lung. Physical weak, and patient is unable to bring up any phlegm. He is covered with Zosyn for antibiotic coverage, he has not been able to produce any sputum for culture, his mentation is appropriate, he is oriented 3. He denies chest discomfort. No nausea or vomiting, no diarrhea, he remains on Decadron 6 mg daily, she is on prophylactic dose Lovenox, today's labs are pending. He continues on D5W at a rate of 100 mL BPM, he is developed some a mild bilateral lower extremity edema. The patient is seen today 11/28/2020 and follow-up on the regular medical floor. He is currently sitting up in a chair at the bedside. Awake and alert in no acute distress. He is still quite dyspneic with minimal exertion. Weak nonproductive cough. Maintaining O2 saturations in the 90s on 6 L high flow nasal cannula. Currently afebrile. Blood pressure stable. Slightly bradycardic. Blood cultures revealed no growth. No new labs today. He is on Decadron, Lovenox, Zosyn. D5W at 20 ML's per hour. The patient is seen today 11/29/2020 in follow-up on the regular medical floor. He is currently resting in bed. Awake and alert. Still quite weak and debilitated. Poor appetite. Still requiring 8 L high flow nasal cannula to maintain O2 saturations in the 90s. He is currently afebrile. Blood cultures revealed no growth. White count 5.8. Hemoglobin 8.4. Sodium 142. Potassium 3.7. Creatinine 1.73. Glucose 107. His x-ray continues to revealed bilateral patchy infiltrates. He remains on Zosyn. Continued on Decadron, Lovenox. Continued aspiration precautions. On today's evaluation of a 2020 the patient is being seen for a follow-up. No major change in his condition. He remains on oxygen 8 L of oxygen by nasal cannula with a pulse ox of 94%. A lengthy discussion with the daughter. I told her that the patient is aspirating. She was brought this is an PEG tube insertion. She wanted to continue feeding him thinking that this will be okay. The patient remains on IV Zosyn. He also has a COVID-19 infection. He is on Decadron. Today's more lethargic than the usual. He has a congested cough. Breathing is shallow. I managed to change his CODE STATUS to DNR/DNI. He is afebrile with temperature 97.8. His hemodynamics are essentially stable for now. Barely using incentive spirometer. Was not able to give me any sputum sample for analysis. The creatinine is down to 1.7. Objective - Vital Signs Vital signs: Vital Signs Temp 97.8 F 11/30/20 10:08 Pulse 59 L 11/30/20 10:08 Resp 19 11/30/20 10:08 BP 130/68 11/30/20 10:08 Pulse Ox 94 L 11/30/20 10:08 Intake & Output 11/29/20 11/30/20 11/30/20 18:59 06:59 18:59 Intake Total 464 Output Total 1000 700 Balance -536 -700 Intake: Oral 464 Output: Urine 1000 700 Other: Voiding Method Indwelling Catheter Indwelling Catheter Indwelling Catheter # Bowel Movements 0 - Exam 85-year-old gentleman. No acute distress, oriented 3. No acute respiratory distress. The patient does have a wet very congested cough. 97% on 8 by nasal cannula HEENT examination is grossly unremarkable. Neck supple. Full range of motion. No adenopathy thyromegaly or neck vein distention. Cardiovascular examination reveals regular rhythm rate. S1-S2 normal. No S3 or S4. No discernible murmur noted. Heart sounds are distant. Heart rate 56 bpm. Lungs reveal coarse bilateral rhonchi. Crackles in the right lung base. Breath sounds equal bilaterally. His cough is very wet and congested sounding. Abdomen soft bowel sounds are heard. No masses or tenderness. Extremities are intact. No cyanosis clubbing or edema. Skin is without rash or lesion. Neurologic examination is brief but nonfocal. - Labs CBC & Chem 7: 11/29/20 07:47 11/29/20 07:47 Labs: Abnormal Lab Results - Last 24 Hours (Table) 11/29/20 Range/Units 07:47 RBC 2.87 L (4.40-5.60) X 10*6/uL Hgb 8.4 L (13.0-17.0) g/dL Hct 26.4 L (39.6-50.0) % MCHC 31.8 L (32.0-37.0) g/dL Immature Gran # 0.07 H (0.00-0.04) X 10*3/uL Lymphocytes # 0.38 L (0.90-5.00) X 10*3/uL Monocytes # 0.13 L (0.20-1.00) X 10*3/uL Eosinophils # 0.01 L (0.04-0.35) X 10*3/uL Microbiology - Last 24 Hours (Table) 11/27/20 09:58 Blood Culture - Preliminary Blood No Growth after 48 hours 11/27/20 10:09 Blood Culture - Preliminary Blood No Growth after 48 hours Assessment and Plan Plan: 1 acute bilateral pneumonia. Based on my review of the CAT scan images, the patient's pneumonia is probably multifactorial related to chronic aspiration as the patient continues to have lower lobe infiltrates and small pleural effusions. At the same time there is a new area of infiltration of the left lung which obviously raises the suspicion for an underlying carbonate infection/pneumonia monitor the patient's PCR is positive for COVID-19 . He is on that, the patient was started on a combination of Zosyn and vancomycin. Repeat chest x-ray from 11/23/2020 showed a stable left upper lobe consolidation. Patient has history of silent aspiration. The patient has developed worsening in her left upper lobe consolidation. This is noted on today's chest x-ray. Nevertheless he remains on 2-3 L of oxygen by nasal cannula. He remains on Decadron. He remains on Zosyn. Swallow evaluation was completed. Based on speech pathology, there is ongoing concern for silent aspiration. Please refer to their notes. 2 COVID-19 infection with positive PCR, patient is vaccinated 3 chronic dysphagia/aspiration, silent For history of CVA with left-sided weakness 5 hypertension 6 hyperlipidemia 7 peripheral Vascular disease 8 chronic gastritis with previous bouts of GI bleed/peptic ulcer disease 9 macular degeneration 10 nephrolithiasis 11 anemia, chronic, normocytic Plan With the patient's condition is gradually getting worse. He has become progressively more debilitated and he has declined over the past several days. He is currently on 8 L of oxygen by nasal cannula. His on and off aspirating. The COVID-19 pneumonia. He is unable to bring up any significant sputum. His prognosis extremely poor knowing that the patient is unable to do regular pulmonary toileting and he continues to aspirate with food material. No interest in PEG tube insertion per family. DNR/DNI CODE STATUS. Continue Decadron Continue Zosyn and vancomycin Attempt to collect a sputum sample if possible Repeat chest x-ray in the morning Aspiration precautions and careful swallow to avoid any aspiration We'll continue to follow. Extremities poor prognosis based on the above-mentioned.
--- NOTE | 2020-11-30 11:07 | P.PN ---
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 Maintained on Zosyn, vancomycin. T-max 100.1. Sodium increased to 146, IV fluids adjusted to 0.45% saline. Nonproductive cough. Chest x-ray reporting patchy bilateral infiltrate greater on the left with small left effusion stable. Renal function worsening, creatinine 1.58. LDH increased to 636, pro calcitonin 0.1. Diet intake 50% wi th no nausea vomiting or diarrhea. Denies abdominal pain. 11/25/2020 Continues on Zosyn, vancomycin and Decadron. Renal function worsening, BUN 35, creatinine 1.8. reports feeling better. maintaining O2 sats in the low 90s on 4 L nasal cannula. Chest x-ray reporting continued abnormal densities within the bilateral lungs, more conspicuous in the right upper lobe, no evident pneumothorax ,possible old calcified granuloma right upper lobe, possible pleural effusion. Initially IV fluids adjusted, sodium continues trending up, currently 150. LDH improving. Afebrile, T-max 99.9. 11/26/2020 Weak appearing. maintaining O2 sats in the low 90s on 2 L nasal cannula. Yesterday IV fluids converted to D5W with sodium improved down to 143. Afebrile, normal WBC. Continues on IV antibiotics. BUN 37, creatinine 1.81. 11/27/2020 O2 requirements increased up to 5 L nasal cannula to maintain O2 sats in the 90s, T-max 101. Confused, weaker. Chest x-ray reporting increased interstitium, left hemidiaphragm obscured with blunting of the costophrenic angles. Maintained on Zosyn, vancomycin discontinued. Labs pending. 11/28/2020 Continues on Zosyn and strict aspiration precautions.oxygen requirements worsening, requiring 6 L nasal cannula to maintain O2 sats in the 90s. Reports feeling increased shortness of breath during the night. Chest x- ray pending. Labs pending.Afebrile. Diet intake 25%. Subjective: 11/29/2020 patient is seen in the fourth floor, lying in bed, awake and alert but is lethargic poor historian. Oxygen requirements went up today from 6 up to 8 L/m. His creatinine on admission is 1.7, baseline is 1.1 and 1.2. Creatinine has been elevated but stable since admission for several days now. This pro calcitonin has increased 2 days ago from 0.[address] of the chest on admission showed no PE and multifocal groundglass opacities especially in the middle and lower lung which is suspicious for Covid pneumonia aspiration pneumonia is also suspected. Today showed persistent pneumonia. He is now covered with broad-spectrum antibiotics of Zosyn. Also he is on dexamethasone, aspirin and Plavix and Lovenox for DVT prophylaxis. He is on IV Protonix twice a day 11/30/2020 Patient is awake, [facility] however he looks disoriented toward the surrounding, I tried to explain to him he has pneumonia and he has difficulty understanding. He needs more oxygen yesterday and today at a theater per minute, is a slightly more tachypneic. His suspected also to have recurrent aspiration pneumonia and is being covered with Zosyn besides the treatment for his Covid which including dexamethasone He is also on Protonix twice a day. That aspirin and Plavix Pulmonary input is appreciated His prognosis is very poor Objective - Vital Signs Vital signs: Vital Signs Temp 97.8 F 11/30/20 10:08 Pulse 59 L 11/30/20 10:08 Resp 19 11/30/20 10:08 BP 130/68 11/30/20 10:08 Pulse Ox 94 L 11/30/20 10:08 Intake & Output 11/29/20 11/30/20 11/30/20 18:59 06:59 18:59 Intake Total 464 Output Total 1000 700 Balance -536 -700 Intake: Oral 464 Output: Urine 1000 700 Other: Voiding Method Indwelling Catheter Indwelling Catheter Indwelling Catheter # Bowel Movements 0 - Exam -GENERAL: The patient is alert and awake but lethargic, patient poor historian, not in any acute distress. Well developed, well nourished. HEENT: Pupils are round and equally reacting to light. EOMI. No scleral icterus. No conjunctival pallor. Normocephalic, atraumatic. No pharyngeal erythema. No thyromegaly. CARDIOVASCULAR: S1 and S2 present. No murmurs, rubs, or gallops. PULMONARY: Chest is clear to auscultation, no wheezing . Bilateral middle and lower zone crepitation ABDOMEN: Soft, nontender, nondistended, normoactive bowel sounds. No palpable organomegaly. MUSCULOSKELETAL: No joint swelling or deformity. EXTREMITIES: No cyanosis, clubbing, or pedal edema. NEUROLOGICAL: Gross neurological examination did not reveal any focal deficits. SKIN: No rashes. no petechiae. - Labs CBC & Chem 7: 11/29/20 07:47 11/29/20 07:47 Labs: Abnormal Lab Results - Last 24 Hours (Table) 11/29/20 Range/Units 07:47 RBC 2.87 L (4.40-5.60) X 10*6/uL Hgb 8.4 L (13.0-17.0) g/dL Hct 26.4 L (39.6-50.0) % MCHC 31.8 L (32.0-37.0) g/dL Immature Gran # 0.07 H (0.00-0.04) X 10*3/uL Lymphocytes # 0.38 L (0.90-5.00) X 10*3/uL Monocytes # 0.13 L (0.20-1.00) X 10*3/uL Eosinophils # 0.01 L (0.04-0.35) X 10*3/uL Microbiology - Last 24 Hours (Table) 11/27/20 09:58 Blood Culture - Preliminary Blood No Growth after 48 hours 11/27/20 10:09 Blood Culture - Preliminary Blood No Growth after 48 hours Assessment and Plan Assessment: Bilateral cold pneumonia Acute hypoxic respiratory failure Possible aspiration pneumonia, silent aspiration is suspected with history of CVA Dysphagia Acute kidney injuries since his admission Plan: This is a pleasant 85 years old male who presents with bilateral pneumonia and hypoxia. Troponin with Zosyn and dexamethasone. Continue with Lovenox Continue with Protonix and aspirin and Plavix Repeat chest x-ray of the morning Labs and medication were reviewed.. Continue same treatment. Continue with symptomatic treatment. Resume home medication. Monitor lytes and vitals. DVT and GI prophylaxis. Further recommendationsas per clinical course of the patient DVT prophylaxis: Subcutaneous Lovenox GI Prophylaxis: Ppi No code Prognosis is guarded and extremely poor Dr. Langley team will resume the care of the patient on Tuesday
[2020-11-30] MEDS: DEXTROSE 5% IN WATER 1,000 ML IV SCH (13:39)
--- NOTE | 2020-11-30 18:51 | PN ---
PROGRESS NOTE DATE OF SERVICE: 11/30/2020 REASON FOR FOLLOWUP: Pneumonia. INTERVAL HISTORY: The patient is afebrile, still requiring high-flow nasal cannula oxygen. He is slightly lethargic though denies any chest pain. Did have a cough, not bringing up any sputum. No vomiting or diarrhea reported by the nursing staff. PHYSICAL EXAMINATION: Blood pressure 132/70 with a pulse of 54, temperature 97.5. He is 99% on 6 L nasal cannula. GENERAL DESCRIPTION: General description is an elderly male up in the chair in no distress. RESPIRATORY SYSTEM: Unlabored breathing. Coarse bilateral rhonchi. HEART: S1, S2. Regular rate and rhythm. ABDOMEN: Soft. No tenderness. EXTREMITIES: No edema of the feet. LABS: Hemoglobin 8.4, white count 5.81. BUN of 37, creatinine 1.73. Blood cultures have been negative. Sputum not collected. DIAGNOSTIC IMPRESSION AND PLAN: Patient with pneumonia, concern for possible recurrent aspiration pneumonia. The patient needs strict aspiration precautions or possible PEG tube placement. The patient's family is refusing. Patient is covered with Zosyn; to continue while monitoring clinical course closely. Continue supportive care. MMODL / IJN: [id number] /
[2020-12-01] MEDS: PIPERACILLIN-TAZOBACTAM 3.375 GM in SODIUM CHLORIDE 0.9% 100 ML IVPB SCH ×3 (02:38→23:17)
[2020-12-01] MEDS: PANTOPRAZOLE 40 MG TABLET PO SCH ×2 (07:01→22:18)
[2020-12-01] MEDS: LORATADINE 10 MG TAB PO SCH (07:01)
[2020-12-01] MEDS: CLOPIDOGREL 75 MG TAB PO SCH (07:01)
[2020-12-01] MEDS: MONTELUKAST 10 MG TAB PO SCH (07:01)
[2020-12-01] MEDS: hydrALAZINE HCL 50 MG TAB PO SCH ×2 (07:01→22:17)
[2020-12-01] MEDS: GABAPENTIN 100 MG CAP PO SCH ×2 (07:01→22:17)
[2020-12-01] MEDS: ASPIRIN 81 MG PO SCH (07:01)
[2020-12-01] MEDS: METOCLOPRAMIDE 10 MG TAB PO SCH ×2 (07:02→22:18)
[2020-12-01] MEDS: ESCITALOPRAM 10 MG TAB PO SCH (07:02)
[2020-12-01] MEDS: ENOXAPARIN 30 MG/0.3 ML SYRINGE SQ SCH (07:02)
[2020-12-01] MEDS: DEXAMETHASONE SOD PHOSPHATE 10 MG/ML 1 ML VIAL IV SCH (07:03)
--- NOTE | 2020-12-01 08:31 | XR ---
EXAMINATION TYPE: XR chest 1V portable DATE OF EXAM: 12/01/2020 COMPARISON: Chest x-ray 11/28/2020 HISTORY: Covid pneumonia TECHNIQUE: Single frontal view of the chest is obtained. FINDINGS: Bilateral patchy airspace disease, prominence of interstitium again noted. Patient is rota kip. Cardiac mediastinal silhouette is stable. Metallic densities are present at the right lung base, chronic. Postop change noted to the cervical spine. IMPRESSION: Findings consistent with Covid pneumonia
[2020-12-01] MEDS: TAMSULOSIN 0.4 MG CAP.ER.24H PO SCH (11:49)
[2020-12-01] MEDS: DEXTROSE 5% IN WATER 1,000 ML IV SCH (13:36)
--- NOTE | 2020-12-01 14:22 | P.PN ---
Subjective Progress Note Date: 12/01/20 Principal diagnosis: Bilateral pneumonia, multifocal, possibly aspiration related, and COVID-19 related pneumonia On today's evaluation on 11/24/2000 patient seen in follow-up on medical surgical floor. He is resting comfortably in bed, does not appear to be in any acute distress, he is currently on 4 L of oxygen pulse ox of 94%. He remains on Zosyn for aspiration related pneumonia, he still having low-grade fevers, 99.3 this afternoon, does have a congestive cough, no significant phlegm production. Remains on Decadron 6 [place] do become today's chest x-ray reviewed showed patchy bilateral infiltrates greater than left with small left pleural effusion which is stable in appearance. Patient also continues on vancomycin for possibility of healthcare acquired pneumonia, blood cultures have shown no growth thus far. Today's labs have been reviewed, his sodium is 146, potassium is 3.7, chloride is 112, BUN is 30, creatinine is 1.58. Patient remains on IV fluids of 0.9 normal sinus at a rate of 75 ML per hour. He is tolerating oral diet, he is on a modified diet dysphagia level I pured, with nectar thick liquids and one-to-one supervision. His LDH is up trending and is up to 636, his CRP from 2 days ago was 14.4. His pro calcitonin was 0.10. Denies any abdominal pain, no nausea vomiting or diarrhea. On 11/25/2020 patient seen in follow-up on medical surgical floor. Patient is currently on 4 L of oxygen, pulse ox is 91-92%, he states his breathing is improving, overall he is feeling better, patient has been having intermittent low-grade fevers. No complaints of chest discomfort, no hemoptysis. Patient is very weak, generally debilitated. No altered mentation. Today's chest x-ray showing bilateral abnormal densities in the lungs, no evident pneumothorax, calcified granuloma in the right upper lobe. Patient remains on Decadron 6 mg daily, he remains on Zosyn and vancomycin for possibility of aspiration pneumonia. He remains on prophylactic dose Lovenox 40 mg daily. Today's labs have been reviewed, patient's sodium is up to 150, and his IV fluids will be switched to D5W at 100 ML per hour. D-dimer is 1.2, potassium is 4.2, chloride is 113, and 9 gap is 12, BUN is 35, creatinine is 1.8, LDH is 325, improving, and CRP is 17.5 On today's evaluation on 11/26/2020 patient seen in follow-up on medical surgical floor. He sitting up in a chair, he remains generally weak, but may be slightly improved, no fever or chills overnight, he remains on 4 L of oxygen his pulse ox is 92-96%, blood pressure has been stable, no worsening dyspnea, no complaints of chest discomfort, no new chest x-ray today, yesterday's chest x- ray showed stable bilateral densities, more conspicuous right upper lobe. The patient has remained stable, with no worsening complaints, he remains on soft diet with nectar thick liquids. He gets one-on-one supervision with meals. Definitely coughs with thin liquids. Generalized no acute events overnight, today's labs have been reviewed and were blood cell count of 4.9, hemoglobin is 9.5, lymphocyte count is 0.5, serum sodium is improved and is down to 143, patient remains on D5W at a rate of 100 ML per hour, his oral intake remains poor, with poor water intake. His potassium is 3.6, chloride is 113, B1 is 37 and creatinine is stable at 1.81. On today's evaluation on 11/27/2020 patient seen in follow-up on medical surgical floor. This morning he spiked a fever of 10 1F, he became short of br eath, and his 5 every has increased to 5 L, with a sat of 91-95%, overall he states he is feeling very weak today, denies any episodes of coughing or choking while eating. Patient is receiving a modified diet with thickened liquids, he denies eating too fast, he is 1 on 1 supervision with meals. Follow-up chest x- ray has been obtained today showing bilateral pneumonia, with greater densities in the left lung. On today's exam patient has scattered rhonchi in his lungs, mostly in the left lower lung. Physical weak, and patient is unable to bring up any phlegm. He is covered with Zosyn for antibiotic coverage, he has not been able to produce any sputum for culture, his mentation is appropriate, he is oriented 3. He denies chest discomfort. No nausea or vomiting, no diarrhea, he remains on Decadron 6 mg daily, she is on prophylactic dose Lovenox, today's labs are pending. He continues on D5W at a rate of 100 mL BPM, he is developed some a mild bilateral lower extremity edema. On 12/01/2020 patient seen in follow-up on medical surgical floor. He is resting in the recliner, creatinine 6 L of oxygen pulse ox is 95%. Earlier this morning she was on 8 L with a pulse ox of 93%. Currently he is awake and alert, oriented 3, appears to be breathing comfortably. Low-grade fever this morning with a temp of 99.1F. Chest x-ray today showing bilateral patchy airspace disease, and prominence of interstitium. Patient has been suspected to be intermittently silently aspirating. Currently we have made the patient nothing by mouth. He is awaiting another swallow evaluation. Patient is currently on Zosyn for antibiotic coverage, he also remains on IV dexamethasone 6 mg daily. No new labs today. His last pro calcitonin was 0.63 from 11/27/2020. Denies any chest discomfort. His cough is weak, and patient is unable to clear any secretions. Cultures have been negative. Objective - Vital Signs Vital signs: Vital Signs Temp 97.8 F 12/01/20 10:09 Pulse 61 12/01/20 10:09 Resp 20 12/01/20 10:09 BP 146/70 12/01/20 10:09 Pulse Ox 95 12/01/20 10:09 Intake & Output 11/30/20 12/01/20 12/01/20 18:59 06:59 18:59 Output Total 800 Balance -800 Output: Urine 800 Other: Voiding Method Indwelling Catheter Indwelling Catheter Indwelling Catheter # Bowel Movements 0 - Exam GENERAL EXAM: Alert, pleasant, but debilitated-looking 85-year-old white male, on 6 L of oxygen pulse ox of 94% comfortable in no apparent distress. HEAD: Normocephalic/atraumatic. EYES: Normal reaction of pupils, equal size. Conjunctiva pink, sclera white. NOSE: Clear with pink turbinates. THROAT: No erythema or exudates. NECK: No masses, no JVD, no thyroid enlargement, no adenopathy. CHEST: No chest wall deformity. Symmetrical expansion. LUNGS: Equal air entry with crackles bilateral bases CVS: Regular rate and rhythm, normal S1 and S2, no gallops, no murmurs, no rubs ABDOMEN: Soft, nontender. No hepatosplenomegaly, normal bowel sounds, no guarding or rigidity. EXTREMITIES: No clubbing, no edema, no cyanosis, 2+ pulses and upper and lower extremities. MUSCULOSKELETAL: Muscle strength and tone normal. SPINE: No scoliosis or deformity SKIN: No rashes CENTRAL NERVOUS SYSTEM: Alert and oriented -3. No focal deficits, tone is normal in all 4 extremities. PSYCHIATRIC: Alert and oriented -3. Appropriate affect. Intact judgment and insight. - Labs CBC & Chem 7: 11/29/20 07:47 11/29/20 07:47 Labs: Microbiology - Last 24 Hours (Table) 11/27/20 09:58 Blood Culture - Preliminary Blood No Growth after 96 hours 11/27/20 10:09 Blood Culture - Preliminary Blood No Growth after 96 hours Assessment and Plan Plan: Assessment: #1. Acute hypoxic respiratory failure related to acute COPD 19 pneumonia and possibility of aspiration pneumonia. Patient had a positive COVID-19 PCR, computed tomography scan of the chest showed possibility of chronic aspiration with lower lobe infiltrates and small pleural effusions. Currently is on oral Decadron 6 mg daily, Zosyn and vancomycin. Patient has a history of silent aspiration. Last chest x-ray was showing worsening in his left upper lobe c onsolidation. Patient apparently passed a swallow evaluation however he still continues on a modified diet with nectar thick liquids #2. COVID-19 infection with positive PCR, and the patient isn't vaccinated #3. Chronic dysphagia/aspiration, silent #4. History of CVA with left-sided weakness #5. Hypertension #6. Hyperlipidemia #7. Peripheral vascular disease #8. Chronic gastritis with previous bouts of GI bleeding and peptic ulcer disease #9. Macular degeneration #10. Nephrolithiasis #11. Anemia, chronic, normocytic #12. Acute kidney injury related to HTN #13. Hypernatremia Plan: Today's chest x-ray has been reviewed showing bilateral patchy airspace disease, and prominent interstitial Current antibiotics coverage is with Zosyn Vancomycin has been discontinued No fever or chills Blood cultures are negative Patient continues on Decadron, and prophylactic Lovenox Maintain aspiration precautions, and patient will be reevaluated by speech therapy for recurrent aspiration Patient may need PEG tube placement for recurrent aspiration pneumonia We will await final recommendation from speech therapy Obtain follow-up labs including CBC and BMP, and follow-up pro-calcitonin Inflammatory markers and a d-dimer Follow-up chest x-ray tomorrow, increase activity as tolerated, provide one-to-one supervision with meals encourage oral intake, continue D5W at 100 ML per hour We'll continue to follow Time with Patient: Less than 30
--- NOTE | 2020-12-01 14:32 | P.PN ---
Subjective Progress Note Date: 12/01/20 This is an 85-year-old male who was recently admitted with bilateral pneumonia who was also found to be Covid positive and is being closely monitored. Multiple medical consultations including pulmonary along with infectious disease following. 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 Patient continues on IV Zosyn. Per nursing staff patient continues to choke on everything including nectar thickened liquids and family initially refusing PEG tube although would like a surgical consultation for possible PEG tube placement. Patient currently maintained on 6-8 L high flow with 95% oxygen saturation. Blood cultures have remained negative. Chest x-ray today shows findings consistent with Covid pneumonia with bilateral patchy airspace disease and prominence of interstitium again noted. Review of systems: Constitutional: Reports fatigue, no reports of fever, or chills Cardiovascular: No reports of chest pain or palpitations Respiratory: reports of shortness of breath and weak cough GI: No reports of nausea, vomiting, or diarrhea : No reports of dysuria or retention Neurovascular: Reports generalized weakness All medications have been reviewed Active Medications Acetaminophen (Acetaminophen Tab 325 Mg Tab) 650 mg PO Q6HR PRN PRN Reason: Fever and/ or Mild Pain Last Admin: 11/27/20 17:01 Dose: 650 mg Documented by: Artificial Tears (Artificial Tears-Hypromellose Drops 15 Ml Btl) 2 drops BOTH EYES QID PRN PRN Reason: Dry Eye(s) Last Admin: 11/26/20 20:38 Dose: 2 drops Documented by: Aspirin (Aspirin 81 Mg) 81 mg PO DAILY [facility] Last Admin: 12/01/20 07:01 Dose: 81 mg Documented by: Clopidogrel Bisulfate (Clopidogrel 75 Mg Tab) 75 mg PO DAILY [facility] Last Admin: 12/01/20 07:01 Dose: 75 mg Documented by: Dexamethasone Sodium Phosphate (Dexamethasone Sod Phosphate 10 Mg/Ml 1 Ml Vial) 6 mg IV DAILY [facility] Last Admin: 12/01/20 07:03 Dose: 6 mg Documented by: Enoxaparin Sodium (Enoxaparin 30 Mg/0.3 Ml Syringe) 30 mg SQ DAILY [facility] Last Admin: 12/01/20 07:02 Dose: 30 mg Documented by: Escitalopram Oxalate (Escitalopram 10 Mg Tab) 10 mg PO DAILY [facility] Last Admin: 12/01/20 07:02 Dose: 10 mg Documented by: Fentanyl (Fentanyl 50mcg/Hr Patch) 1 patch TRANSDERM Q72H [facility]; Protocol Last Admin: 11/30/20 13:40 Dose: 1 patch Documented by: Gabapentin (Gabapentin 100 Mg Cap) 100 mg PO BID [facility] Last Admin: 12/01/20 07:01 Dose: 100 mg Documented by: Hydralazine HCl (Hydralazine Hcl 50 Mg Tab) 50 mg PO BID [facility] Last Admin: 12/01/20 07:01 Dose: 50 mg Documented by: Dextrose/Water (Dextrose 5%-Water Iv Soln) 1,000 mls @ 20 mls/hr IV .Q24H [facility] Last Admin: 12/01/20 13:36 Dose: 20 mls/hr Documented by: Piperacillin Sod/Tazobactam (Sod 3.375 gm/ Sodium Chloride) 100 mls @ 25 mls/hr IVPB Q8HR [facility] Loratadine (Loratadine 10 Mg Tab) 10 mg PO DAILY [facility] Last Admin: 12/01/20 07:01 Dose: 10 mg Documented by: Metoclopramide HCl (Metoclopramide 10 Mg Tab) 10 mg PO BID [facility] Last Admin: 12/01/20 07:02 Dose: 10 mg Documented by: Montelukast Sodium (Montelukast 10 Mg Tab) 10 mg PO DAILY [facility] Last Admin: 12/01/20 07:01 Dose: 10 mg Documented by: Naloxone HCl (Naloxone 0.4 Mg/Ml 1 Ml Vial) 0.2 mg IV Q2M PRN PRN Reason: Opioid Reversal Ondansetron HCl (Ondansetron 4 Mg/2 Ml Vial) 4 mg IVP Q8HR PRN PRN Reason: Nausea And Vomiting Last Admin: 11/23/20 12:06 Dose: 4 mg Documented by: Pantoprazole Sodium (Pantoprazole 40 Mg Tablet) 40 mg PO BID [facility] Last Admin: 12/01/20 07:01 Dose: 40 mg Documented by: Tamsulosin HCl (Tamsulosin 0.4 Mg Cap.Er.24h) 0.4 mg PO PC-BRKFST [facility] Last Admin: 12/01/20 11:49 Dose: 0.4 mg Documented by: Objective - Vital Signs Vital signs: Vital Signs Temp 99.1 F 12/01/20 07:05 Pulse 70 08/30/21 07:05 Resp 16 12/01/20 07:15 BP 170/65 12/01/20 07:05 Pulse Ox 95 12/01/20 09:04 Intake & Output 11/30/20 12/01/20 12/01/20 18:59 06:59 18:59 Output Total 800 Balance -800 Output: Urine 800 Other: Voiding Method Indwelling Catheter Indwelling Catheter Indwelling Catheter # Bowel Movements 0 - Exam Gen: This is a 85-year-old male awake, alert and oriented 3, thin built, ill- appearing. Temp is 97.8F, pulse is 61, respirations are 20, blood pressure is 146/70, oxygen saturation is 95% on 6 L high flow nasal cannula. HEENT: Head is atraumatic, normocephalic. Pupils equal, round. Sclerae is anicteric. NECK: Supple. No JVD. No lymphadenopathy. No thyromegaly. LUNGS: Diminished breath sounds bilaterally with some coarse rhonchi noted at the bases. No intercostal retractions. HEART: S1, S2 are muffled ABDOMEN: Soft. Bowel sounds are present. No masses. No tenderness. EXTREMITIES: No pedal edema. No calf tenderness. NEUROLOGICAL: Patient is awake, alert and oriented x3. Diffusely weak. - Labs CBC & Chem 7: 11/29/20 07:47 11/29/20 07:47 Labs: Microbiology - Last 24 Hours (Table) 11/27/20 09:58 Blood Culture - Preliminary Blood No Growth after 72 hours 11/27/20 10:09 Blood Culture - Preliminary Blood No Growth after 72 hours Assessment and Plan Assessment: Bilateral COVID-19 pneumonia Acute hypoxic respiratory failure secondary to above Elevated inflammatory markers of COVID-19 Elevated d-dimer with no evidence of acute pulmonary embolism as noted on CT Possible aspiration pneumonia, silent aspiration is suspected with history of CVA Dysphagia Acute kidney injury possibly prerenal azotemia Hypernatremia Mild protein calorie malnutrition with a BMI of 20.2 GI prophylaxis DVT prophylaxis No code Recommendations and discussion: Recommend to continue with current medications, current management and multiple medical consultations following. Surgery consult for possible PEG tube placement was made today as family is now agreeable for the consult and will await report. Patient discontinued on dexamethasone along with IV Zosyn with pulmonary and infectious disease following closely. Patient weaning FiO2 as tolerated currently on 6 L high flow. Patient to maintain strict aspiration precautions with head of the bed elevated 30-45 at all times along with diet modifications as instructed by speech and patient continues to have coughing episodes and choking on food and medications and will be nothing by mouth while awaiting surgical consult. Patient continues on subcutaneous Lovenox along with dexamethasone and will continue. Will repeat a.m. labs and continue to monitor closely. Due to multiple complex medical issues prognosis is extremely poor and guarded. Time with Patient: Greater than 30
--- NOTE | 2020-12-01 16:35 | PN ---
PROGRESS NOTE DATE OF SERVICE: 12/01/2020 REASON FOR FOLLOWUP: Recurrent aspiration pneumonia. INTERVAL HISTORY: The patient is currently afebrile. The patient is breathing comfortably. He denies having any chest pain, shortness of breath. He did have a congested cough but not bringing up any sputum. No abdominal pain, no diarrhea. PHYSICAL EXAMINATION: Blood pressure 146/70 with a pulse of 71, temperature 97.8. He is 95% on 6 L nasal cannula. General description is an elderly male up in the bed in no distress. Respiratory system: Unlabored breathing, coarse breath sounds bilaterally, no wheeze. Heart: S1, S2. Regular rate and rhythm. Abdomen soft, no tenderness. LABS: Hemoglobin 8.4, white count 5.1, BUN of 37, creatinine 1.73. DIAGNOSTIC IMPRESSION AND PLAN: Patient with recurrent aspiration pneumonia in this patient who did have slow clinical improvement, to continue with Zosyn. Transition to oral ( ) on discharge. Aspiration precaution. Continue supportive care. MMODL / IJN: [id number] /
--- NOTE | 2020-12-01 17:19 | P.GSCN ---
History of Present Illness Consult date: 12/01/20 Reason for Consult: Aspiration pneumonia History of present illness: 85-year-old male hospitalized for pneumonia. This is thought to be partly on the basis of aspiration pneumonia and also COVID-19. We are consulted for feeding tube placement. Patient has had multiple admissions for bilateral pneumonia in the past per the family. They believe he has been chronically aspirating. His swallow evaluation shows significant dysfunction. Patient has been confused for the last several days. Family is insistent that patient wants to continue fighting and is not ready to . They would like feeding tube placement to see if this will improve the patient's overall condition. The patient's daughter Antoinette is known to me from previous procedures. Review of Systems ROS unobtainable: due to mental status Past Medical History Past Medical History: CVA/TIA, Eye Disorder, GI Bleed, Hyperlipidemia, Hypertension, Pneumonia, Thyroid Disorder, Vascular Disorder Additional Past Medical History / Comment(s): Pt recently admitted to [facility] on 07/16/20 with mid abdominal pain/melena/possible gastritis/possible PUD, multiple tiny nodules R lung base/nonspecific sclerotic focus R iliac crest. Other hx: CVA with L sided deficits, dysphagia/aspiration pne, PUD, bilateral macular degeneration/vision very poor, anemia with current iron infusions, nephrolithiasis/surgery, newly diagnosed thyroid tumor-to be followed up, chronic back pain/fentynal patch. History of Any Multi-Drug Resistant Organisms: None Reported Past Surgical History: Joint Replacement, Orthopedic Surgery Additional Past Surgical History / Comment(s): R caratid endartectomy, laminectomy/cage (3 lower back surgeries), cervical surgery/hardware, R total knee arthroplasty x2, kidney surgery d/t stones and had ureter repair d/t damage from stone, colonoscopy. Past Anesthesia/Blood Transfusion Reactions: Previous Problems w/ Anesthesia Additional Past Anesthesia/Blood Transfusion Reaction / Comm: Difficulty waking. Pt is very clausterphobic Past Psychological History: Depression Smoking Status: Former smoker Past Alcohol Use History: None Reported Past Drug Use History: None Reported - Past Family History Son(s) Family Medical History: Cancer Additional Family Medical History / Comment(s): Son from bacterial meningitis. He has leukemia Mother Family Medical History: Cancer Father Family Medical History: Cancer Additional Family Medical History / Comment(s): Father of lung cancer. He was a smoker. Medications and Allergies Home Medications Medication Instructions Recorded Confirmed Type Cetirizine HCl 10 mg PO DAILY 07/16/20 11/19/20 History Clopidogrel Bisulfate [Plavix] 75 mg PO DAILY 07/16/20 11/19/20 History Escitalopram [Lexapro] 10 mg PO DAILY 07/16/20 11/19/20 History Gabapentin [Neurontin] 100 mg PO BID 07/16/20 11/19/20 History Metoclopramide [Reglan] 10 mg PO BID 07/16/20 11/19/20 History Montelukast [Singulair] 10 mg PO DAILY 07/16/20 11/19/20 History Simvastatin [Zocor] 20 mg PO DAILY 07/16/20 11/19/20 History Pantoprazole Sodium [Protonix] 40 mg PO BID #60 tablet. 07/18/20 11/19/20 Rx Aspirin 81 mg PO DAILY 07/22/20 11/19/20 History Lisinopril [Prinivil] 10 mg PO DAILY 07/22/20 11/19/20 History Multivitamin [Multivitamins Adult 1 tab PO DAILY 07/22/20 11/19/20 History Gummies] Vit C/E/Zn/Coppr/Lutein/Zeaxan 1 cap PO DAILY 07/22/20 11/19/20 History [Preservision Areds 2 Softgel] Ipratropium-Albuterol Nebulize 3 ml INHALATION RT-QID PRN 11/08/20 11/19/20 History [Duoneb 0.5 mg-3 mg/3 ml Soln] Tiotropium [place] [Spiriva 2 puff INHALATION RT-DAILY PRN 11/08/20 11/19/20 History Respimat] fentaNYL 50MCG/HR PATCH [Duragesic 1 patch TRANSDERM Q72H 11/08/20 11/19/20 History 50MCG/HR] Amoxic-Pot Clav 875-125Mg 1 tab PO BID 1 Days #6 tab 11/12/20 11/19/20 Rx [Augmentin 875-125] Diclofenac Sodium Gel [Voltaren 4 gm TOPICAL QID #1 tub 11/12/20 11/19/20 Rx Gel] Glycopyrrolate [Robinul] 2 mg PO BID #60 tablet 11/12/20 11/19/20 Rx Allergies Allergy/AdvReac Type Severity Reaction Status Date / Time celecoxib [From Celebrex] Allergy Confusion Verified 11/19/20 17:37 nabumetone [From Relafen] Allergy Rash/Hives Verified 11/19/20 17:37 oxycodone [From Percocet] Allergy Unknown Verified 11/19/20 17:37 haloperidol [From Haldol] AdvReac Anaphylaxis Verified 11/19/20 17:37 Surgical - Exam Vital Signs Temp Pulse Resp BP Pulse Ox 100.3 F H 55 L 20 144/63 95 11/19/20 10:55 11/19/20 10:55 11/19/20 10:55 11/19/20 10:55 11/19/20 10:55 Physical exam: General: Well-developed, somewhat malnourished appearing HEENT: Normocephalic, sclerae nonicteric Abdomen: Nontender, nondistended Extremities: No edema Neuro: Confused Results - Labs 11/29/20 07:47 11/29/20 07:47 Microbiology - Last 24 Hours (Table) 11/27/20 09:58 Blood Culture - Preliminary Blood No Growth after 96 hours 11/27/20 10:09 Blood Culture - Preliminary Blood No Growth after 96 hours Assessment and Plan (1) Aspiration pneumonia Narrative/Plan: 85-year-old male with recurrent aspiration pneumonia. Patient with associated moderate to severe protein calorie malnutrition. Options discussed with the patient's daughter by phone. She would like us to proceed with feeding tube placement. He will be scheduled for EGD with PEG tube placement tomorrow. Risks of bleeding, infection, bowel injury, catheter misplacement reviewed. She understands and wishes to proceed. Patient has been on Plavix. This will increase the risk of bleeding and the patient's family is aware. Would not postpone PEG tube placement given the relatively low risk of bleeding in this particular procedure. Current Visit: No Status: Acute Code(s): J69.0 - PNEUMONITIS DUE TO INHALATION OF FOOD AND VOMIT SNOMED Code(s): 992010453
[2020-12-02] MEDS: TAMSULOSIN 0.4 MG CAP.ER.24H PO SCH (06:57)
[2020-12-02] MEDS: ESCITALOPRAM 10 MG TAB PO SCH (06:57)
[2020-12-02] MEDS: GABAPENTIN 100 MG CAP PO SCH ×2 (06:57→21:06)
[2020-12-02] MEDS: ENOXAPARIN 30 MG/0.3 ML SYRINGE SQ SCH (06:57)
[2020-12-02] MEDS: ASPIRIN 81 MG PO SCH (06:57)
[2020-12-02] MEDS: PANTOPRAZOLE 40 MG TABLET PO SCH ×2 (06:58→21:06)
[2020-12-02] MEDS: hydrALAZINE HCL 50 MG TAB PO SCH ×2 (06:58→21:06)
[2020-12-02] MEDS: MONTELUKAST 10 MG TAB PO SCH (06:58)
[2020-12-02] MEDS: METOCLOPRAMIDE 10 MG TAB PO SCH ×2 (06:58→21:06)
[2020-12-02] MEDS: LORATADINE 10 MG TAB PO SCH (06:58)
[2020-12-02 08:00] LABS: Basophils % (A) 0 %; Eosinophils # (A) 0.2 k/uL (0-0.7); Eosinophils % (A) 2 %; HCT 28.6 % (39.0-53.0); Hypochromasia Slight; Lymphocytes # (A) 0.4 k/uL (1.0-4.8); Lymphocytes % (A) 4 %; MCHC 31.4 g/dL (31.0-37.0); MCV 95.6 fL (80.0-100.0); Mean Platelet Volume 8.1; Monocytes # (A) 0.2 k/uL (0-1.0); Monocytes % (A) 2 %; Neutrophils # (A) 8.4 k/uL (1.3-7.7); Neutrophils % (A) 91 %; Platelet Count 344 k/uL (150-450); RBC 2.99 m/uL (4.30-5.90); RDW 13.5 % (11.5-15.5); WBC 9.3 k/uL (3.8-10.6)
[2020-12-02] MEDS: DEXAMETHASONE SOD PHOSPHATE 10 MG/ML 1 ML VIAL IV SCH (08:01)
[2020-12-02] MEDS: PIPERACILLIN-TAZOBACTAM 3.375 GM in SODIUM CHLORIDE 0.9% 100 ML IVPB SCH ×2 (08:02→15:42)
[2020-12-02 08:18] LABS: ALT 12 U/L (4-49); AST 23 U/L (17-59); African American GFR (CKD) 40 (>60 ml/min/1.73 sqM); Albumin 2.5 g/dL (3.5-5.0); Albumin/Globulin Ratio 0.8; Alkaline Phosphatase 55 U/L (38-126); Anion Gap 8 mmol/L; Blood Urea Nitrogen 35 mg/dL (9-20); Calcium 8.3 mg/dL (8.4-10.2); Carbon Dioxide 26 mmol/L (22-30); Chloride 113 mmol/L (98-107); Glucose 110 mg/dL (74-99); LDH 661 U/L (313-618); Non-African American GFR(CKD) 35 (>60 ml/min/1.73 sqM); Potassium 3.2 mmol/L (3.5-5.1); Sodium 147 mmol/L (137-145); Total Bilirubin 0.3 mg/dL (0.2-1.3); Total Protein 5.5 g/dL (6.3-8.2)
[2020-12-02 09:26] LABS: C Reactive Protein 18.7 mg/dL (<1.0)
--- NOTE | 2020-12-02 12:37 | P.PN ---
Subjective Progress Note Date: 12/02/20 Principal diagnosis: Bilateral pneumonia, multifocal, possibly aspiration related, and COVID-19 related pneumonia On today's evaluation on 11/24/2000 patient seen in follow-up on medical surgical floor. He is resting comfortably in bed, does not appear to be in any acute distress, he is currently on 4 L of oxygen pulse ox of 94%. He remains on Zosyn for aspiration related pneumonia, he still having low-grade fevers, 99.3 this afternoon, does have a congestive cough, no significant phlegm production. Remains on Decadron 6 [place]im do become today's chest x-ray reviewed showed patchy bilateral infiltrates greater than left with small left pleural effusion which is stable in appearance. Patient also continues on vancomycin for possibility of healthcare acquired pneumonia, blood cultures have shown no growth thus far. Today's labs have been reviewed, his sodium is 146, potassium is 3.7, chloride is 112, BUN is 30, creatinine is 1.58. Patient remains on IV fluids of 0.9 normal sinus at a rate of 75 ML per hour. He is tolerating oral diet, he is on a modified diet dysphagia level I pured, with nectar thick liquids and one-to-one supervision. His LDH is up trending and is up to 636, his CRP from 2 days ago was 14.4. His pro calcitonin was 0.10. Denies any abdominal pain, no nausea vomiting or diarrhea. On 11/25/2020 patient seen in follow-up on medical surgical floor. Patient is currently on 4 L of oxygen, pulse ox is 91-92%, he states his breathing is improving, overall he is feeling better, patient has been having intermittent low-grade fevers. No complaints of chest discomfort, no hemoptysis. Patient is very weak, generally debilitated. No altered mentation. Today's chest x-ray showing bilateral abnormal densities in the lungs, no evident pneumothorax, calcified granuloma in the right upper lobe. Patient remains on Decadron 6 mg daily, he remains on Zosyn and vancomycin for possibility of aspiration pneumonia. He remains on prophylactic dose Lovenox 40 mg daily. Today's labs have been reviewed, patient's sodium is up to 150, and his IV fluids will be switched to D5W at 100 ML per hour. D-dimer is 1.2, potassium is 4.2, chloride is 113, and 9 gap is 12, BUN is 35, creatinine is 1.8, LDH is 325, improving, and CRP is 17.5 On today's evaluation on 11/26/2020 patient seen in follow-up on medical surgical floor. He sitting up in a chair, he remains generally weak, but may be slightly improved, no fever or chills overnight, he remains on 4 L of oxygen his pulse ox is 92-96%, blood pressure has been stable, no worsening dyspnea, no complaints of chest discomfort, no new chest x-ray today, yesterday's chest x- ray showed stable bilateral densities, more conspicuous right upper lobe. The patient has remained stable, with no worsening complaints, he remains on soft diet with nectar thick liquids. He gets one-on-one supervision with meals. Definitely coughs with thin liquids. Generalized no acute events overnight, today's labs have been reviewed and were blood cell count of 4.9, hemoglobin is 9.5, lymphocyte count is 0.5, serum sodium is improved and is down to 143, patient remains on D5W at a rate of 100 ML per hour, his oral intake remains poor, with poor water intake. His potassium is 3.6, chloride is 113, B1 is 37 and creatinine is stable at 1.81. On today's evaluation on 11/27/2020 patient seen in follow-up on medical surgical floor. This morning he spiked a fever of 10 1F, he became short of b reath, and his 5 every has increased to 5 L, with a sat of 91-95%, overall he states he is feeling very weak today, denies any episodes of coughing or choking while eating. Patient is receiving a modified diet with thickened liquids, he denies eating too fast, he is 1 on 1 supervision with meals. Follow-up chest x- ray has been obtained today showing bilateral pneumonia, with greater densities in the left lung. On today's exam patient has scattered rhonchi in his lungs, mostly in the left lower lung. Physical weak, and patient is unable to bring up any phlegm. He is covered with Zosyn for antibiotic coverage, he has not been able to produce any sputum for culture, his mentation is appropriate, he is oriented 3. He denies chest discomfort. No nausea or vomiting, no diarrhea, he remains on Decadron 6 mg daily, she is on prophylactic dose Lovenox, today's labs are pending. He continues on D5W at a rate of 100 mL BPM, he is developed some a mild bilateral lower extremity edema. The patient is seen today 11/28/2020 and follow-up on the regular medical floor. He is currently sitting up in a chair at the bedside. Awake and alert in no acute distress. He is still quite dyspneic with minimal exertion. Weak nonproductive cough. Maintaining O2 saturations in the 90s on 6 L high flow nasal cannula. Currently afebrile. Blood pressure stable. Slightly bradycardic. Blood cultures revealed no growth. No new labs today. He is on Decadron, Lovenox, Zosyn. D5W at 20 ML's per hour. The patient is seen today 11/29/2020 in follow-up on the regular medical floor. He is currently resting in bed. Awake and alert. Still quite weak and debilitated. Poor appetite. Still requiring 8 L high flow nasal cannula to maintain O2 saturations in the 90s. He is currently afebrile. Blood cultures revealed no growth. White count 5.8. Hemoglobin 8.4. Sodium 142. Potassium 3.7. Creatinine 1.73. Glucose 107. His x-ray continues to revealed bilateral patchy infiltrates. He remains on Zosyn. Continued on Decadron, Lovenox. Continued aspiration precautions. Patient is seen today 12/02/2020 follow-up on the regular medical floor. He is currently resting in bed. Awake and alert in no acute distress. Maintaining O2 saturations in the 90s on 15 L high flow nasal cannula. He's been afebrile. Cultures reveal no growth to date. White count 9.3. Hemoglobin 9.0. D-dimer 1.67. Sodium 147. Potassium 3.2. Creatinine 1.75. LDH 661. C-reactive protein 18.7. Pro Calcitonin 0.30. He remains on Decadron, Lovenox, antibiotics in the form of Zosyn. Objective - Vital Signs Vital signs: Vital Signs Temp 98.4 F 12/02/20 10:00 Pulse 66 12/02/20 10:00 Resp 20 12/02/20 10:00 BP 172/71 12/02/20 10:00 Pulse Ox 93 L 12/02/20 10:00 Intake & Output 12/01/20 12/02/20 12/02/20 18:59 06:59 18:59 Output Total 300 300 Balance -300 -300 Output: Urine 300 300 Other: Voiding Method Indwelling Catheter Indwelling Catheter Indwelling Catheter - Exam GENERAL EXAM: Alert, pleasant, debilitated-looking 85-year-old male, on 15 L of oxygen pulse ox of 93% comfortable in no apparent distress. HEAD: Normocephalic/atraumatic. EYES: Normal reaction of pupils, equal size. Conjunctiva pink, sclera white. NOSE: Clear with pink turbinates. THROAT: No erythema or exudates. NECK: No masses, no JVD, no thyroid enlargement, no adenopathy. CHEST: No chest wall deformity. Symmetrical expansion. LUNGS: Equal air entry with crackles in the bilateral bases CVS: Regular rate and rhythm, normal S1 and S2, no gallops, no murmurs, no rubs ABDOMEN: Soft, nontender. No hepatosplenomegaly, normal bowel sounds, no guarding or rigidity. EXTREMITIES: No clubbing, no edema, no cyanosis, 2+ pulses and upper and lower extremities. MUSCULOSKELETAL: Muscle strength and tone normal. SPINE: No scoliosis or deformity SKIN: No rashes CENTRAL NERVOUS SYSTEM: No focal deficits, tone is normal in all 4 extremities. PSYCHIATRIC: Alert and oriented -3. Appropriate affect. Intact judgment and insight. - Labs CBC & Chem 7: 12/02/20 07:02 12/02/20 07:02 Labs: Abnormal Lab Results - Last 24 Hours (Table) 12/01/20 12/02/20 12/02/20 Range/Units 15:39 07:02 07:02 RBC 2.99 L (4.30-5.90) m/uL Hgb 9.0 L (13.0-17.5) gm/dL Hct 28.6 L (39.0-53.0) % Neutrophils # 8.4 H (1.3-7.7) k/uL Lymphocytes # 0.4 L (1.0-4.8) k/uL D-Dimer 1.67 H (<0.60) mg/L FEU Sodium (137-145) mmol/L Potassium (3.5-5.1) mmol/L Chloride (98-107) mmol/L BUN (9-20) mg/dL Creatinine (0.66-1.25) mg/dL Glucose (74-99) mg/dL Calcium (8.4-10.2) mg/dL Lactate Dehydrogenase (313-618) U/L C-Reactive Protein (<1.0) mg/dL Total Protein (6.3-8.2) g/dL Albumin (3.5-5.0) g/dL Procalcitonin 0.30 H (0.02-0.09) ng/mL 12/02/20 Range/Units 07:02 RBC (4.30-5.90) m/uL Hgb (13.0-17.5) gm/dL Hct (39.0-53.0) % Neutrophils # (1.3-7.7) k/uL Lymphocytes # (1.0-4.8) k/uL D-Dimer (<0.60) mg/L FEU Sodium 147 H (137-145) mmol/L Potassium 3.2 L (3.5-5.1) mmol/L Chloride 113 H (98-107) mmol/L BUN 35 H (9-20) mg/dL Creatinine 1.75 H (0.66-1.25) mg/dL Glucose 110 H (74-99) mg/dL Calcium 8.3 L (8.4-10.2) mg/dL Lactate Dehydrogenase 661 H (313-618) U/L C-Reactive Protein 18.7 H (<1.0) mg/dL Total Protein 5.5 L (6.3-8.2) g/dL Albumin 2.5 L (3.5-5.0) g/dL Procalcitonin (0.02-0.09) ng/mL Microbiology - Last 24 Hours (Table) 11/27/20 10:09 Blood Culture - Preliminary Blood No Growth after 120 hours 11/27/20 09:58 Blood Culture - Preliminary Blood No Growth after 120 hours Assessment and Plan Assessment: 1 Acute hypoxic respiratory failure related to acute COPD 19 pneumonia and possibility of aspiration pneumonia. Patient had a positive COVID-19 PCR, computed tomography scan of the chest showed possibility of chronic aspiration with lower lobe infiltrates and small pleural effusions. Currently is on oral Decadron 6 mg daily, Zosyn and Lovenox. Patient has a history of silent aspiration. Currently on 15 L high flow nasal cannula. Plan is for possible PEG tube placement 2 COVID-19 infection with positive PCR, and the patient isn't vaccinated 3 Chronic dysphagia/aspiration, silent 4 History of CVA with left-sided weakness 5 Hypertension 6 Hyperlipidemia 7 Peripheral vascular disease 8 Chronic gastritis with previous bouts of GI bleeding and peptic ulcer disease 9 Macular degeneration 10 Nephrolithiasis 11 Anemia, chronic, normocytic 12 Acute kidney injury related to HTN 13 Hypernatremia Plan: Patient was seen and evaluated by Dr. Pierce Overall prognosis remains quite poor DO NOT RESUSCITATE/DO NOT INTUBATE CODE STATUS Continue Zosyn, Lovenox, Decadron He is on 15 L high flow nasal cannula Titrate the FiO2 as tolerated PEG Tube placement being considered We will continue to follow I, the cosigning physician, performed a history & physical examination of the patient. Lungs sounds crackles in the bilateral posterior bases. Maintaining good O2 saturations in the 90s on 15 L high flow nasal cannula. I discussed the assessment and plan of care with my nurse practitioner, Ayesha Liang. I attest to the above note as dictated by her.
[2020-12-02] MEDS ORDERED: IV FLUID CONTINUATION 500 ML IV ONE (12:45)
[2020-12-02] MEDS ORDERED: PROPOFOL 10 MG/ML 20 ML VIAL IV ONE (12:50)
[2020-12-02] MEDS ORDERED: KETAMINE 10 MG/ML 20 ML VIAL ONE (12:50)
[2020-12-02] MEDS ORDERED: LIDOCAINE 1% INJ 10MG/ML (20 ML MDV) ONE (12:50)
--- NOTE | 2020-12-02 13:14 | P.PCN ---
Date of Procedure: 12/02/20 Procedure(s) Performed: PREOPERATIVE DIAGNOSIS: Malnutrition/aspiration POSTOPERATIVE DIAGNOSIS: Same PROCEDURE: EGD with PEG tube placement SURGEON: Hermila EBL: Minimal ANESTHESIA: Sedation COMPLICATIONS: None OPERATIVE PROCEDURE: The patient was placed in the supine position on the endoscopy table. The patient was sedated per anesthesia that time. The Olympus gastroscope was inserted into the oropharynx and passed under direct visualization to the region of the duodenum. No obstruction was seen. The pylorus was widely patent. The stomach was carefully inspected. The stomach was fully insufflated with air. The abdominal wall was inspected. The light was seen shining through the abdominal wall in the left upper quadrant. This site was chosen for PEG tube placement. The area was prepped in the usual sterile fashion. This area was then localized with lidocaine. No air was evident when aspirating while advancing the localizing needle into the stomach until the stomach was reached. A small vertical incision was made using the scalpel. The Seldinger needle was advanced into the lumen of the stomach the wire was advanced. The wire was grasped with an endoscopic snare. The wire was pulled through the oropharynx. The catheter was then threaded over the guidewire and the guidewire and catheter were pulled anteriorly until the hub of the PEG tube catheter was seated against the anterior wall the stomach. The circular bolster was applied and tightened down. The endoscope was then readvanced into the stomach. There was no evidence of any bleeding and there was appropriate tightness on the bolster. The catheter was cut appropriately. The dual port feeding adapter was applied. DISPOSITION: Stable to recovery room
--- NOTE | 2020-12-02 14:04 | PN ---
PROGRESS NOTE DATE OF SERVICE: 12/02/2020 REASON FOR FOLLOWUP: Recurrent aspiration pneumonia. INTERVAL HISTORY: The patient did spike a fever this morning of 100 degrees Fahrenheit. The patient is afebrile since then. Patient requiring high-flow nasal cannula oxygen, but now specifically denies having any chest pain or any worsening cough or sputum production. No abdominal pain or diarrhea. Family is in the room and they are . PHYSICAL EXAMINATION: Blood pressure 172/71 with a pulse of 66, temperature 98.4. He is 93% on 15 L high- flow oxygen. GENERAL DESCRIPTION: General description is an elderly male up in the bed in no distress. RESPIRATORY SYSTEM: Unlabored breathing. Coarse breath sounds bilaterally. No wheeze. HEART: S1, S2. Regular rate and rhythm. ABDOMEN: Soft. No tenderness. LABS: Hemoglobin is 9.3, white count 9.3, BUN of 35, creatinine 1.75. DIAGNOSTIC IMPRESSION AND PLAN: Patient with recurrent aspiration pneumonia, currently being evaluated by Surgery and placement of a PEG tube. Patient is covered with Zosyn; to continue. Multiple family members at the bedside. Their questions and concerns were answered. MMODL / IJN: [id number] /
[2020-12-02] MEDS: DEXTROSE 5% IN WATER 1,000 ML IV SCH (14:52)
[2020-12-02] MEDS ORDERED: Potassium Replacement Protocol 1 EACH MISC MISCELLANE PRN (15:11)
[2020-12-02] MEDS: POTASSIUM CHLORIDE 10 MEQ in WATER FOR INJECTION 1 100ML.BAG IVPB SCH ×2 (20:53→22:32)
[2020-12-03] MEDS: PIPERACILLIN-TAZOBACTAM 3.375 GM in SODIUM CHLORIDE 0.9% 100 ML IVPB SCH ×2 (00:13→08:58)
[2020-12-03] MEDS: POTASSIUM CHLORIDE 10 MEQ in WATER FOR INJECTION 1 100ML.BAG IVPB SCH ×4 (04:34→05:56)
[2020-12-03 07:17] VITALS: BP 173/67; PULSE 65; RESP 17; TEMP 98.4
--- NOTE | 2020-12-03 08:33 | P.PN ---
Subjective Progress Note Date: 12/02/20 This is an 85-year-old male who was recently admitted with bilateral pneumonia who was also found to be Covid positive and is being closely monitored. Multiple medical consultations including pulmonary along with infectious disease following. 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 Patient continues on IV Zosyn. Per nursing staff patient continues to choke on everything including nectar thickened liquids and family initially refusing PEG tube although would like a surgical consultation for possible PEG tube placement. Patient currently maintained on 6-8 L high flow with 95% oxygen saturation. Blood cultures have remained negative. Chest x-ray today shows findings consistent with Covid pneumonia with bilateral patchy airspace disease and prominence of interstitium again noted. 12/02/2020 Patient is seen and evaluated this morning continues to be on high flow oxygen although denies any worsening shortness of breath. Patient needs frequent suctioning as he has copious amounts of secretions that he is not able to expel. Discussed with the daughter who is his caregiver at length about continuous suctioning and maintaining aspiration precautions. Multiple medical consult ations following including infectious disease, pulmonary, and surgery. Patient is scheduled for PEG tube placement for palliative oral nutrition as patient has a long-standing history of silent aspiration with a past medical history of CVA in the past. Daughter states once patient is stabilized he will returning home and she will be caring for him. Patient currently maintained on 8 L high flow and maintaining oxygen saturations above 90%. Patient was not wearing oxygen prior to having Covid and will likely require oxygen on discharge secondary to COVID-19 pneumonia. Patient will be nothing by mouth and appreciate surgical recommendations with dietitian consult to initiate tube feedings. Case management will be following as well and planning discharge planning needs in regards to tube feedings and supplemental O2. White blood count is stable at 9.3, hemoglobin 9.0 with no active bleeding noted. D-dimer continues to be positive at 1.67, sodium elevated at 147 and patient is maintained on D5 in water and will repeat labs. Potassium 3.2 and will replace per protocol and creatinine currently 1.75. Inflammatory markers continue to be elevated as well. Review of systems: Constitutional: Reports fatigue, no reports of fever, or chills Cardiovascular: No reports of chest pain or palpitations Respiratory: reports of shortness of breath and weak cough, reports mucus secretions GI: No reports of nausea, vomiting, or diarrhea : No reports of dysuria or retention Neurovascular: Reports generalized weakness All medications have been reviewed Active Medications Acetaminophen (Acetaminophen Tab 325 Mg Tab) 650 mg PO Q6HR PRN PRN Reason: Fever and/ or Mild Pain Last Admin: 11/27/20 17:01 Dose: 650 mg Documented by: Artificial Tears (Artificial Tears-Hypromellose Drops 15 Ml Btl) 2 drops BOTH EYES QID PRN PRN Reason: Dry Eye(s) Last Admin: 11/26/20 20:38 Dose: 2 drops Documented by: Aspirin (Aspirin 81 Mg) 81 mg PO DAILY [facility] Last Admin: 12/02/20 06:57 Dose: Not Given Documented by: Dexamethasone Sodium Phosphate (Dexamethasone Sod Phosphate 10 Mg/Ml 1 Ml Vial) 6 mg IV DAILY [facility] Last Admin: 12/02/20 08:01 Dose: 6 mg Documented by: Enoxaparin Sodium (Enoxaparin 30 Mg/0.3 Ml Syringe) 30 mg SQ DAILY [facility] Last Admin: 12/02/20 06:57 Dose: Not Given Documented by: Escitalopram Oxalate (Escitalopram 10 Mg Tab) 10 mg PO DAILY [facility] Last Admin: 12/02/20 06:57 Dose: Not Given Documented by: Fentanyl (Fentanyl 50mcg/Hr Patch) 1 patch TRANSDERM Q72H [facility]; Protocol Last Admin: 11/30/20 13:40 Dose: 1 patch Documented by: Gabapentin (Gabapentin 100 Mg Cap) 100 mg PO BID [facility] Last Admin: 12/02/20 06:57 Dose: Not Given Documented by: Hydralazine HCl (Hydralazine Hcl 50 Mg Tab) 50 mg PO BID [facility] Last Admin: 12/02/20 06:58 Dose: Not Given Documented by: Dextrose/Water (Dextrose 5%-Water Iv Soln) 1,000 mls @ 20 mls/hr IV .Q24H [facility] Last Admin: 12/02/20 14:52 Dose: Not Given Documented by: Piperacillin Sod/Tazobactam (Sod 3.375 gm/ Sodium Chloride) 100 mls @ 25 mls/hr IVPB Q8HR [facility] Last Admin: 12/02/20 15:42 Dose: 25 mls/hr Documented by: Potassium Chloride 10 meq/ IV (Solution) 100 mls @ 100 mls/hr IVPB Q1HR [facility]; Protocol Stop: 12/02/20 19:59 Loratadine (Loratadine 10 Mg Tab) 10 mg PO DAILY [facility] Last Admin: 12/02/20 06:58 Dose: Not Given Documented by: Metoclopramide HCl (Metoclopramide 10 Mg Tab) 10 mg PO BID [facility] Last Admin: 12/02/20 06:58 Dose: Not Given Documented by: Miscellaneous Information (Potassium Replacement Protocol 1 Each Misc) 1 each MISCELLANE DAILY PRN; Protocol PRN Reason: Per Protocol Montelukast Sodium (Montelukast 10 Mg Tab) 10 mg PO DAILY [facility] Last Admin: 12/02/20 06:58 Dose: Not Given Documented by: Naloxone HCl (Naloxone 0.4 Mg/Ml 1 Ml Vial) 0.2 mg IV Q2M PRN PRN Reason: Opioid Reversal Ondansetron HCl (Ondansetron 4 Mg/2 Ml Vial) 4 mg IVP Q8HR PRN PRN Reason: Nausea And Vomiting Last Admin: 11/23/20 12:06 Dose: 4 mg Documented by: Pantoprazole Sodium (Pantoprazole 40 Mg Tablet) 40 mg PO BID [facility] Last Admin: 12/02/20 06:58 Dose: Not Given Documented by: Tamsulosin HCl (Tamsulosin 0.4 Mg Cap.Er.24h) 0.4 mg PO PC-BRKFST [facility] Last Admin: 12/02/20 06:57 Dose: Not Given Documented by: Objective - Vital Signs Vital signs: Vital Signs Temp 98.4 F 12/02/20 08:01 Pulse 73 12/02/20 05:47 Resp 17 12/02/20 08:10 BP 153/83 12/02/20 05:47 Pulse Ox 92 L 12/02/20 08:10 Intake & Output 12/01/20 12/02/20 12/02/20 18:59 06:59 18:59 Output Total 300 300 Balance -300 -300 Output: Urine 300 300 Other: Voiding Method Indwelling Catheter Indwelling Catheter Indwelling Catheter - Exam Gen: This is a 85-year-old male awake, alert and oriented 3, thin built, ill-appearing. Temp is 98.4F, pulse is 66, respirations are 20, blood pressure is 172/71, oxygen saturation is 93% on 15 L high flow nasal cannula. HEENT: Head is atraumatic, normocephalic. Pupils equal, round. Sclerae is anicteric. NECK: Supple. No JVD. No lymphadenopathy. No thyromegaly. LUNGS: Diminished breath sounds bilaterally with some coarse rhonchi and crackles noted at the bases. No intercostal retractions. HEART: S1, S2 are muffled ABDOMEN: Soft. Bowel sounds are present. No masses. No tenderness. EXTREMITIES: No pedal edema. No calf tenderness. NEUROLOGICAL: Patient is awake, alert and oriented x3. Diffusely weak. - Labs CBC & Chem 7: 12/02/20 07:02 12/02/20 07:02 Labs: Abnormal Lab Results - Last 24 Hours (Table) 12/01/20 12/02/20 12/02/20 Range/Units 15:39 07:02 07:02 RBC 2.99 L (4.30-5.90) m/uL Hgb 9.0 L (13.0-17.5) gm/dL Hct 28.6 L (39.0-53.0) % Neutrophils # 8.4 H (1.3-7.7) k/uL Lymphocytes # 0.4 L (1.0-4.8) k/uL D-Dimer 1.67 H (<0.60) mg/L FEU Sodium (137-145) mmol/L Potassium (3.5-5.1) mmol/L Chloride (98-107) mmol/L BUN (9-20) mg/dL Creatinine (0.66-1.25) mg/dL Glucose (74-99) mg/dL Calcium (8.4-10.2) mg/dL Lactate Dehydrogenase (313-618) U/L C-Reactive Protein (<1.0) mg/dL Total Protein (6.3-8.2) g/dL Albumin (3.5-5.0) g/dL Procalcitonin 0.30 H (0.02-0.09) ng/mL 12/02/20 Range/Units 07:02 RBC (4.30-5.90) m/uL Hgb (13.0-17.5) gm/dL Hct (39.0-53.0) % Neutrophils # (1.3-7.7) k/uL Lymphocytes # (1.0-4.8) k/uL D-Dimer (<0.60) mg/L FEU Sodium 147 H (137-145) mmol/L Potassium 3.2 L (3.5-5.1) mmol/L Chloride 113 H (98-107) mmol/L BUN 35 H (9-20) mg/dL Creatinine 1.75 H (0.66-1.25) mg/dL Glucose 110 H (74-99) mg/dL Calcium 8.3 L (8.4-10.2) mg/dL Lactate Dehydrogenase 661 H (313-618) U/L C-Reactive Protein 18.7 H (<1.0) mg/dL Total Protein 5.5 L (6.3-8.2) g/dL Albumin 2.5 L (3.5-5.0) g/dL Procalcitonin (0.02-0.09) ng/mL Microbiology - Last 24 Hours (Table) 11/27/20 09:58 Blood Culture - Preliminary Blood No Growth after 96 hours 11/27/20 10:09 Blood Culture - Preliminary Blood No Growth after 96 hours Assessment and Plan Assessment: Bilateral COVID-19 pneumonia Status post PEG tube placement Acute hypoxic respiratory failure secondary to above Elevated inflammatory markers of COVID-19 Elevated d-dimer with no evidence of acute pulmonary embolism as noted on CT Possible aspiration pneumonia, silent aspiration is suspected with history of CVA Dysphagia Acute kidney injury possibly prerenal azotemia Hypernatremia Mild protein calorie malnutrition with a BMI of 20.2 GI prophylaxis DVT prophylaxis No code Recommendations and discussion: Recommend to continue with current medications, current management and multiple medical consultations following. Surgery scheduled today for PEG tube placement and will await 24 hours to initiate tube feedings with dietitian consult. Patient is continued on dexamethasone along with IV Zosyn with pulmonary and infectious disease following closely. Patient weaning FiO2 as tolerated currently on 8 L high flow. Patient was not normally wearing oxygen prior to admission and will likely require oxygen on discharge secondary to COVID-19 pneumonia. This was discussed with daughter who is his caregiver along with case management to initiate tube feedings and set up discharge planning. Patient to maintain strict aspiration precautions with head of the bed elevated 30-45 at all times along with diet modifications as instructed by speech. Patient continues on subcutaneous Lovenox along with dexamethasone and will continue. Will repeat a.m. labs and continue to monitor closely. Due to multiple complex medical issues prognosis is extremely poor and guarded. Time with Patient: Greater than 30
[2020-12-03] MEDS: DEXAMETHASONE SOD PHOSPHATE 10 MG/ML 1 ML VIAL IV SCH (08:58)
[2020-12-03] MEDS: ENOXAPARIN 30 MG/0.3 ML SYRINGE SQ SCH (08:58)
--- NOTE | 2020-12-03 09:09 | XR ---
EXAMINATION TYPE: XR chest 1V portable DATE OF EXAM: 12/03/2020 COMPARISON: Chest x-ray 12/01/2020 HISTORY: Shortness of breath TECHNIQUE: Single frontal view of the chest is obtained. FINDINGS: Abnormal density within the lungs appears somewhat more confluent. No evident pneumothorax . Left hemidiaphragm is obscured. Cardiac mediastinal silhouette is stable. Metallic densities at the right lung base are chronic. IMPRESSION: Findings consistent with Covid pneumonia.
[2020-12-03 09:10] LABS: Basophils % (A) 0 %; Eosinophils # (A) 0.2 k/uL (0-0.7); Eosinophils % (A) 2 %; HCT 30.7 % (39.0-53.0); Lymphocytes # (A) 0.5 k/uL (1.0-4.8); Lymphocytes % (A) 5 %; MCHC 32.6 g/dL (31.0-37.0); MCV 92.1 fL (80.0-100.0); Mean Platelet Volume 7.3; Monocytes # (A) 0.1 k/uL (0-1.0); Monocytes % (A) 1 %; Neutrophils # (A) 10.3 k/uL (1.3-7.7); Neutrophils % (A) 91 %; Platelet Count 483 k/uL (150-450); RBC 3.33 m/uL (4.30-5.90); RDW 13.6 % (11.5-15.5); WBC 11.3 k/uL (3.8-10.6)
[2020-12-03] MEDS ORDERED: FUROSEMIDE 10 MG/ML 4 ML VIAL IV STA (09:12)
[2020-12-03] MEDS: TAMSULOSIN 0.4 MG CAP.ER.24H PO SCH (09:16)
[2020-12-03] MEDS: hydrALAZINE HCL 50 MG TAB PO SCH (09:16)
[2020-12-03] MEDS: MONTELUKAST 10 MG TAB PO SCH (09:16)
[2020-12-03] MEDS: ESCITALOPRAM 10 MG TAB PO SCH (09:16)
[2020-12-03] MEDS: LORATADINE 10 MG TAB PO SCH (09:16)
[2020-12-03] MEDS: ASPIRIN 81 MG PO SCH (09:16)
[2020-12-03] MEDS: METOCLOPRAMIDE 10 MG TAB PO SCH (09:16)
[2020-12-03] MEDS: PANTOPRAZOLE 40 MG TABLET PO SCH (09:16)
[2020-12-03] MEDS: GABAPENTIN 100 MG CAP PO SCH (09:16)
[2020-12-03 09:26] LABS: African American GFR (CKD) 41 (>60 ml/min/1.73 sqM); Anion Gap 12 mmol/L; Blood Urea Nitrogen 32 mg/dL (9-20); Calcium 8.6 mg/dL (8.4-10.2); Carbon Dioxide 22 mmol/L (22-30); Chloride 112 mmol/L (98-107); Glucose 156 mg/dL (74-99); Non-African American GFR(CKD) 35 (>60 ml/min/1.73 sqM); Potassium 3.6 mmol/L (3.5-5.1); Sodium 146 mmol/L (137-145)
--- NOTE | 2020-12-03 11:20 | P.PN ---
<Natali Link - Last Filed: 12/03/20 11:17> Subjective Progress Note Date: 12/03/20 CHIEF COMPLAINT: Malnutrition HISTORY OF PRESENT ILLNESS: Patient is status post EGD with PEG tube placement. Patient had aspiration again yesterday. Per nursing staff to feedings have not even been started. Family has decided to proceed with hospice. Afebrile. WBC 11.3 Covid Positive albumin 2.5 PHYSICAL EXAM: VITAL SIGNS: Reviewed. GENERAL: Well-developed in no acute distress. HEENT: No sclera icterus. Extraocular movements grossly intact. Moist buccal mucosa. Head is atraumatic, normocephalic. ABDOMEN: Soft. Nondistended. Nontender. NEUROLOGIC: Alert and oriented. Cranial nerves II through XII grossly intact. ASSESSMENT: 1. Severe protein calorie malnutrition patient status post PEG tube placement 2. Aspiration PLAN: -Patient being admitted to hospice later today so Physician Seed Cleaner note has been reviewed by physician. Signing provider agrees with the documented findings, assessment, and plan of care. Objective - Vital Signs Vital signs: Vital Signs Temp 98.4 F 12/03/20 07:17 Pulse 65 12/03/20 07:17 Resp 17 12/03/20 07:17 BP 173/67 12/03/20 07:17 Pulse Ox 94 L 12/03/20 07:40 Intake & Output 12/02/20 12/03/20 12/03/20 18:59 06:59 18:59 Intake Total 100 0 Output Total 500 750 750 Balance -400 -750 -750 Weight 56.699 kg Intake: IV 100 Oral 0 0 Output: Urine 500 750 750 Uretheral (Hou) 750 750 Other: Voiding Method Indwelling Catheter Indwelling Catheter - Labs CBC & Chem 7: 12/03/20 08:35 12/03/20 08:35 Labs: Abnormal Lab Results - Last 24 Hours (Table) 12/02/20 12/02/20 12/03/20 Range/Units 07:02 15:10 08:35 WBC 11.3 H (3.8-10.6) k/uL RBC 3.33 L (4.30-5.90) m/uL Hgb 10.0 L (13.0-17.5) gm/dL Hct 30.7 L (39.0-53.0) % Plt Count 483 H (150-450) k/uL Neutrophils # 10.3 H (1.3-7.7) k/uL Lymphocytes # 0.5 L (1.0-4.8) k/uL Sodium (137-145) mmol/L Chloride (98-107) mmol/L BUN (9-20) mg/dL Creatinine (0.66-1.25) mg/dL Glucose (74-99) mg/dL Procalcitonin 0.30 H (0.02-0.09) ng/mL Coronavirus (PCR) Detected A (Not Detectd) 12/03/20 Range/Units 08:35 WBC (3.8-10.6) k/uL RBC (4.30-5.90) m/uL Hgb (13.0-17.5) gm/dL Hct (39.0-53.0) % Plt Count (150-450) k/uL Neutrophils # (1.3-7.7) k/uL Lymphocytes # (1.0-4.8) k/uL Sodium 146 H (137-145) mmol/L Chloride 112 H (98-107) mmol/L BUN 32 H (9-20) mg/dL Creatinine 1.74 H (0.66-1.25) mg/dL Glucose 156 H (74-99) mg/dL Procalcitonin (0.02-0.09) ng/mL Coronavirus (PCR) (Not Detectd) Microbiology - Last 24 Hours (Table) 11/27/20 10:09 Blood Culture - Preliminary Blood No Growth after 120 hours 11/27/20 09:58 Blood Culture - Preliminary Blood No Growth after 120 hours <Oren Cleaning - Last Filed: 12/03/20 13:19> Subjective As above. Patient with decline in status overnight. Family has decided to go with hospice at this time. We'll sign off. Please call if needed. Objective - Vital Signs Vital signs: Vital Signs Temp 98.4 F 12/03/20 07:17 Pulse 65 12/03/20 07:17 Resp 17 12/03/20 07:17 BP 173/67 12/03/20 07:17 Pulse Ox 94 L 12/03/20 07:40 Intake & Output 12/02/20 12/03/20 12/03/20 18:59 06:59 18:59 Intake Total 100 0 Output Total 500 750 750 Balance -400 -750 -750 Weight 56.699 kg Intake: IV 100 Oral 0 0 Output: Urine 500 750 750 Uretheral (Hou) 750 750 Other: Voiding Method Indwelling Catheter Indwelling Catheter - Labs CBC & Chem 7: 12/03/20 08:35 12/03/20 08:35 Labs: Abnormal Lab Results - Last 24 Hours (Table) 12/02/20 12/02/20 12/03/20 Range/Units 07:02 15:10 08:35 WBC 11.3 H (3.8-10.6) k/uL RBC 3.33 L (4.30-5.90) m/uL Hgb 10.0 L (13.0-17.5) gm/dL Hct 30.7 L (39.0-53.0) % Plt Count 483 H (150-450) k/uL Neutrophils # 10.3 H (1.3-7.7) k/uL Lymphocytes # 0.5 L (1.0-4.8) k/uL Sodium (137-145) mmol/L Chloride (98-107) mmol/L BUN (9-20) mg/dL Creatinine (0.66-1.25) mg/dL Glucose (74-99) mg/dL Procalcitonin 0.30 H (0.02-0.09) ng/mL Coronavirus (PCR) Detected A (Not Detectd) 12/03/20 Range/Units 08:35 WBC (3.8-10.6) k/uL RBC (4.30-5.90) m/uL Hgb (13.0-17.5) gm/dL Hct (39.0-53.0) % Plt Count (150-450) k/uL Neutrophils # (1.3-7.7) k/uL Lymphocytes # (1.0-4.8) k/uL Sodium 146 H (137-145) mmol/L Chloride 112 H (98-107) mmol/L BUN 32 H (9-20) mg/dL Creatinine 1.74 H (0.66-1.25) mg/dL Glucose 156 H (74-99) mg/dL Procalcitonin (0.02-0.09) ng/mL Coronavirus (PCR) (Not Detectd) Microbiology - Last 24 Hours (Table) 11/27/20 09:58 Blood Culture - Final Blood No Growth after 144 hours 11/27/20 10:09 Blood Culture - Final Blood No Growth after 144 hours Assessment and Plan (1) Aspiration pneumonia Status: Acute Code(s): J69.0 - PNEUMONITIS DUE TO INHALATION OF FOOD AND VOMIT SNOMED Code(s): 044838126
--- NOTE | 2020-12-03 11:29 | P.PN ---
Subjective Progress Note Date: 12/03/20 This is an 85-year-old male who was recently admitted with bilateral pneumonia who was also found to be Covid positive and is being closely monitored. Multiple medical consultations including pulmonary along with infectious disease following. 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 Patient continues on IV Zosyn. Per nursing staff patient continues to choke on everything including nectar thickened liquids and family initially refusing PEG tube although would like a surgical consultation for possible PEG tube placement. Patient currently maintained on 6-8 L high flow with 95% oxygen saturation. Blood cultures have remained negative. Chest x-ray today shows findings consistent with Covid pneumonia with bilateral patchy airspace disease and prominence of interstitium again noted. 12/02/2020 Patient is seen and evaluated this morning continues to be on high flow oxygen although denies any worsening shortness of breath. Patient needs frequent suctioning as he has copious amounts of secretions that he is not able to expel. Discussed with the daughter who is his caregiver at length about continuous suctioning and maintaining aspiration precautions. Multiple medical consult ations following including infectious disease, pulmonary, and surgery. Patient is scheduled for PEG tube placement for palliative oral nutrition as patient has a long-standing history of silent aspiration with a past medical history of CVA in the past. Daughter states once patient is stabilized he will returning home and she will be caring for him. Patient currently maintained on 8 L high flow and maintaining oxygen saturations above 90%. Patient was not wearing oxygen prior to having Covid and will likely require oxygen on discharge secondary to COVID-19 pneumonia. Patient will be nothing by mouth and appreciate surgical recommendations with dietitian consult to initiate tube feedings. Case management will be following as well and planning discharge planning needs in regards to tube feedings and supplemental O2. White blood count is stable at 9.3, hemoglobin 9.0 with no active bleeding noted. D-dimer continues to be positive at 1.67, sodium elevated at 147 and patient is maintained on D5 in water and will repeat labs. Potassium 3.2 and will replace per protocol and creatinine currently 1.75. Inflammatory markers continue to be elevated as well. 12/03/2020 Patient is seen in follow-up this morning having difficulty with increased secretions and unable to expectorate. Patient oxygen saturations dropping into the 70s and low 80s and maintained on 15 L high flow and continues to be hypoxic. Daughter was brought in with discussion of possible hospice as patient is requesting this. Daughter is agreeable with whatever her father wants. [facility] hospice consulted and will likely be signing inpatient hospice status with comfort measures only. Patient is currently a no code and wishes to remain this. Patient does not want to be on mechanical ventilation. Obtained a chest x-ray given increasing shortness of breath which shows continued COVID-19 pneumonia. White blood count is elevated at 11.3 and hemoglobin is 10.0, sodium is 146 with a potassium of 3.6 and current creatinine is 1.74. Repeat Covid testing was positive. Given patient's clinical condition and deteriorating status Dr. Jean Baptiste aware and agreeable to have one family member at the bedside and is maintaining Covid precautions. Review of systems: Constitutional: Reports fatigue, no reports of fever, or chills Cardiovascular: No reports of chest pain or palpitations Respiratory: reports worsening shortness of breath and weak cough, reports increased mucus secretions and unable to tolerate GI: No reports of nausea, vomiting, or diarrhea : No reports of dysuria or retention Neurovascular: Reports generalized weakness All medications have been reviewed Active Medications Acetaminophen (Acetaminophen Tab 325 Mg Tab) 650 mg PO Q6HR PRN PRN Reason: Fever and/ or Mild Pain Last Admin: 11/27/20 17:01 Dose: 650 mg Documented by: Artificial Tears (Artificial Tears-Hypromellose Drops 15 Ml Btl) 2 drops BOTH EYES QID PRN PRN Reason: Dry Eye(s) Last Admin: 11/26/20 20:38 Dose: 2 drops Documented by: Aspirin (Aspirin 81 Mg) 81 mg PO DAILY [facility] Last Admin: 12/03/20 09:16 Dose: Not Given Documented by: Dexamethasone Sodium Phosphate (Dexamethasone Sod Phosphate 10 Mg/Ml 1 Ml Vial) 6 mg IV DAILY [facility] Last Admin: 12/03/20 08:58 Dose: 6 mg Documented by: Enoxaparin Sodium (Enoxaparin 30 Mg/0.3 Ml Syringe) 30 mg SQ DAILY [facility] Last Admin: 12/03/20 08:58 Dose: 30 mg Documented by: Escitalopram Oxalate (Escitalopram 10 Mg Tab) 10 mg PO DAILY [facility] Last Admin: 12/03/20 09:16 Dose: Not Given Documented by: Fentanyl (Fentanyl 50mcg/Hr Patch) 1 patch TRANSDERM Q72H [facility]; Protocol Last Admin: 11/30/20 13:40 Dose: 1 patch Documented by: Gabapentin (Gabapentin 100 Mg Cap) 100 mg PO BID [facility] Last Admin: 12/03/20 09:16 Dose: Not Given Documented by: Hydralazine HCl (Hydralazine Hcl 50 Mg Tab) 50 mg PO BID [facility] Last Admin: 12/03/20 09:16 Dose: Not Given Documented by: Dextrose/Water (Dextrose 5%-Water Iv Soln) 1,000 mls @ 20 mls/hr IV .Q24H [facility] Last Admin: 12/02/20 14:52 Dose: Not Given Documented by: Piperacillin Sod/Tazobactam (Sod 3.375 gm/ Sodium Chloride) 100 mls @ 25 mls/hr IVPB Q8HR [facility] Last Admin: 12/03/20 08:58 Dose: 25 mls/hr Documented by: Loratadine (Loratadine 10 Mg Tab) 10 mg PO DAILY [facility] Last Admin: 12/03/20 09:16 Dose: Not Given Documented by: Metoclopramide HCl (Metoclopramide 10 Mg Tab) 10 mg PO BID [facility] Last Admin: 12/03/20 09:16 Dose: Not Given Documented by: Miscellaneous Information (Potassium Replacement Protocol 1 Each Misc) 1 each MISCELLANE DAILY PRN; Protocol PRN Reason: Per Protocol Montelukast Sodium (Montelukast 10 Mg Tab) 10 mg PO DAILY [facility] Last Admin: 12/03/20 09:16 Dose: Not Given Documented by: Naloxone HCl (Naloxone 0.4 Mg/Ml 1 Ml Vial) 0.2 mg IV Q2M PRN PRN Reason: Opioid Reversal Ondansetron HCl (Ondansetron 4 Mg/2 Ml Vial) 4 mg IVP Q8HR PRN PRN Reason: Nausea And Vomiting Last Admin: 11/23/20 12:06 Dose: 4 mg Documented by: Pantoprazole Sodium (Pantoprazole 40 Mg Tablet) 40 mg PO BID [facility] Last Admin: 12/03/20 09:16 Dose: Not Given Documented by: Tamsulosin HCl (Tamsulosin 0.4 Mg Cap.Er.24h) 0.4 mg PO PC-BRKFST [facility] Last Admin: 12/03/20 09:16 Dose: Not Given Documented by: Objective - Vital Signs Vital signs: Vital Signs Temp 98.4 F 12/03/20 07:17 Pulse 65 12/03/20 07:17 Resp 17 12/03/20 07:17 BP 173/67 12/03/20 07:17 Pulse Ox 94 L 12/03/20 07:40 Intake & Output 12/02/20 12/03/20 12/03/20 18:59 06:59 18:59 Intake Total 100 0 Output Total 500 750 Balance -400 -750 Weight 56.699 kg Intake: IV 100 Oral 0 0 Output: Urine 500 750 Uretheral (Hou) 750 Other: Voiding Method Indwelling Catheter Indwelling Catheter - Exam Gen: This is a 85-year-old male awake, alert and oriented 3, thin built, ill- appearing. Temp is 98.4F, pulse is 65, respirations are 17, blood pressure is 173/67, oxygen saturation is 87% on 15 L high flow nasal cannula. HEENT: Head is atraumatic, normocephalic. Pupils equal, round. Sclerae is anicteric. NECK: Supple. No JVD. No lymphadenopathy. No thyromegaly. LUNGS: Diminished breath sounds bilaterally with some coarse rhonchi and diffuse crackles noted throughout. Weak cough on exam. No intercostal retractions. HEART: S1, S2 are muffled ABDOMEN: Soft. Bowel sounds are present. No masses. No tenderness. EXTREMITIES: No pedal edema. No calf tenderness. NEUROLOGICAL: Patient is awake, alert and oriented x3. Diffusely weak. - Labs CBC & Chem 7: 12/03/20 08:35 12/03/20 08:35 Labs: Abnormal Lab Results - Last 24 Hours (Table) 12/02/20 12/02/20 12/03/20 Range/Units 07:02 15:10 08:35 WBC 11.3 H (3.8-10.6) k/uL RBC 3.33 L (4.30-5.90) m/uL Hgb 10.0 L (13.0-17.5) gm/dL Hct 30.7 L (39.0-53.0) % Plt Count 483 H (150-450) k/uL Neutrophils # 10.3 H (1.3-7.7) k/uL Lymphocytes # 0.5 L (1.0-4.8) k/uL Sodium (137-145) mmol/L Chloride (98-107) mmol/L BUN (9-20) mg/dL Creatinine (0.66-1.25) mg/dL Glucose (74-99) mg/dL Procalcitonin 0.30 H (0.02-0.09) ng/mL Coronavirus (PCR) Detected A (Not Detectd) 12/03/20 Range/Units 08:35 WBC (3.8-10.6) k/uL RBC (4.30-5.90) m/uL Hgb (13.0-17.5) gm/dL Hct (39.0-53.0) % Plt Count (150-450) k/uL Neutrophils # (1.3-7.7) k/uL Lymphocytes # (1.0-4.8) k/uL Sodium 146 H (137-145) mmol/L Chloride 112 H (98-107) mmol/L BUN 32 H (9-20) mg/dL Creatinine 1.74 H (0.66-1.25) mg/dL Glucose 156 H (74-99) mg/dL Procalcitonin (0.02-0.09) ng/mL Coronavirus (PCR) (Not Detectd) Microbiology - Last 24 Hours (Table) 11/27/20 10:09 Blood Culture - Preliminary Blood No Growth after 120 hours 11/27/20 09:58 Blood Culture - Preliminary Blood No Growth after 120 hours Assessment and Plan Assessment: Bilateral COVID-19 pneumonia Status post PEG tube placement Acute hypoxic respiratory failure secondary to above Elevated inflammatory markers of COVID-19 Elevated d-dimer with no evidence of acute pulmonary embolism as noted on CT Possible aspiration pneumonia, silent aspiration is suspected with history of CVA Dysphagia Acute kidney injury possibly prerenal azotemia Hypernatremia Mild protein calorie malnutrition with a BMI of 20.2 GI prophylaxis DVT prophylaxis No code Recommendations and discussion: Recommend to continue with current medications and symptomatic treatment. Family at the bedside, daughter Antoinette, who is his caregiver and [facility] hospice consulted for informational per patient request as he feels exhausted and is ready to go and refusing further treatment. Patient having difficulty managing secretions and nursing staff at the bedside with continuous suction and continues to be dyspneic with oxygen saturation dropping into the low 80s on 15 L high flow. Patient continues to be positive for COVID-19. Prognosis remains extremely poor and guarded and will likely sign on with [facility] hospice inpatient status with comfort measures.
--- NOTE | 2020-12-03 12:08 | P.PN ---
Subjective Progress Note Date: 12/03/20 Principal diagnosis: Bilateral pneumonia, multifocal, possibly aspiration related, and COVID-19 related pneumonia On today's evaluation on 11/24/2000 patient seen in follow-up on medical surgical floor. He is resting comfortably in bed, does not appear to be in any acute distress, he is currently on 4 L of oxygen pulse ox of 94%. He remains on Zosyn for aspiration related pneumonia, he still having low-grade fevers, 99.3 this afternoon, does have a congestive cough, no significant phlegm production. Remains on Decadron 6 Milgrim do become today's chest x-ray reviewed showed patchy bilateral infiltrates greater than left with small left pleural effusion which is stable in appearance. Patient also continues on vancomycin for possibility of healthcare acquired pneumonia, blood cultures have shown no growth thus far. Today's labs have been reviewed, his sodium is 146, potassium is 3.7, chloride is 112, BUN is 30, creatinine is 1.58. Patient remains on IV fluids of 0.9 normal sinus at a rate of 75 ML per hour. He is tolerating oral diet, he is on a modified diet dysphagia level I pured, with nectar thick liquids and one-to-one supervision. His LDH is up trending and is up to 636, his CRP from 2 days ago was 14.4. His pro calcitonin was 0.10. Denies any abdominal pain, no nausea vomiting or diarrhea. On 11/25/2020 patient seen in follow-up on medical surgical floor. Patient is currently on 4 L of oxygen, pulse ox is 91-92%, he states his breathing is improving, overall he is feeling better, patient has been having intermittent low-grade fevers. No complaints of chest discomfort, no hemoptysis. Patient is very weak, generally debilitated. No altered mentation. Today's chest x-ray showing bilateral abnormal densities in the lungs, no evident pneumothorax, calcified granuloma in the right upper lobe. Patient remains on Decadron 6 mg daily, he remains on Zosyn and vancomycin for possibility of aspiration pneumonia. He remains on prophylactic dose Lovenox 40 mg daily. Today's labs have been reviewed, patient's sodium is up to 150, and his IV fluids will be switched to D5W at 100 ML per hour. D-dimer is 1.2, potassium is 4.2, chloride is 113, and 9 gap is 12, BUN is 35, creatinine is 1.8, LDH is 325, improving, and CRP is 17.5 On today's evaluation on 11/26/2020 patient seen in follow-up on medical surgical floor. He sitting up in a chair, he remains generally weak, but may be slightly improved, no fever or chills overnight, he remains on 4 L of oxygen his pulse ox is 92-96%, blood pressure has been stable, no worsening dyspnea, no complaints of chest discomfort, no new chest x-ray today, yesterday's chest x- ray showed stable bilateral densities, more conspicuous right upper lobe. The patient has remained stable, with no worsening complaints, he remains on soft diet with nectar thick liquids. He gets one-on-one supervision with meals. Definitely coughs with thin liquids. Generalized no acute events overnight, today's labs have been reviewed and were blood cell count of 4.9, hemoglobin is 9.5, lymphocyte count is 0.5, serum sodium is improved and is down to 143, patient remains on D5W at a rate of 100 ML per hour, his oral intake remains poor, with poor water intake. His potassium is 3.6, chloride is 113, B1 is 37 and creatinine is stable at 1.81. On today's evaluation on 11/27/2020 patient seen in follow-up on medical surgical floor. This morning he spiked a fever of 10 1F, he became short of b reath, and his 5 every has increased to 5 L, with a sat of 91-95%, overall he states he is feeling very weak today, denies any episodes of coughing or choking while eating. Patient is receiving a modified diet with thickened liquids, he denies eating too fast, he is 1 on 1 supervision with meals. Follow-up chest x- ray has been obtained today showing bilateral pneumonia, with greater densities in the left lung. On today's exam patient has scattered rhonchi in his lungs, mostly in the left lower lung. Physical weak, and patient is unable to bring up any phlegm. He is covered with Zosyn for antibiotic coverage, he has not been able to produce any sputum for culture, his mentation is appropriate, he is oriented 3. He denies chest discomfort. No nausea or vomiting, no diarrhea, he remains on Decadron 6 mg daily, she is on prophylactic dose Lovenox, today's labs are pending. He continues on D5W at a rate of 100 mL BPM, he is developed some a mild bilateral lower extremity edema. The patient is seen today 11/28/2020 and follow-up on the regular medical floor. He is currently sitting up in a chair at the bedside. Awake and alert in no acute distress. He is still quite dyspneic with minimal exertion. Weak nonproductive cough. Maintaining O2 saturations in the 90s on 6 L high flow nasal cannula. Currently afebrile. Blood pressure stable. Slightly bradycardic. Blood cultures revealed no growth. No new labs today. He is on Decadron, Lovenox, Zosyn. D5W at 20 ML's per hour. The patient is seen today 11/29/2020 in follow-up on the regular medical floor. He is currently resting in bed. Awake and alert. Still quite weak and debilitated. Poor appetite. Still requiring 8 L high flow nasal cannula to maintain O2 saturations in the 90s. He is currently afebrile. Blood cultures revealed no growth. White count 5.8. Hemoglobin 8.4. Sodium 142. Potassium 3.7. Creatinine 1.73. Glucose 107. His x-ray continues to revealed bilateral patchy infiltrates. He remains on Zosyn. Continued on Decadron, Lovenox. Continued aspiration precautions. Patient is seen today 12/02/2020 follow-up on the regular medical floor. He is currently resting in bed. Awake and alert in no acute distress. Maintaining O2 saturations in the 90s on 15 L high flow nasal cannula. He's been afebrile. Cultures reveal no growth to date. White count 9.3. Hemoglobin 9.0. D-dimer 1.67. Sodium 147. Potassium 3.2. Creatinine 1.75. LDH 661. C-reactive protein 18.7. Pro Calcitonin 0.30. He remains on Decadron, Lovenox, antibiotics in the form of Zosyn. The patient is seen today's first 2020 in follow-up on the regular medical floor. He is currently resting in bed. He had another episode of aspiration with desaturations into the 60s. He did receive a PEG tube placement yesterday. Not being nourished through that just yet. He is currently on 8 L high flow nasal cannula O2 saturation at 90%. He is afebrile. White count 11.3. Hemoglobin 10.0. Sodium 146. Potassium 3.6. Creatinine 1.74. Salazar virus by PCR still positive. His daughter is at the bedside. They are considering hospice placement. Objective - Vital Signs Vital signs: Vital Signs Temp 98.4 F 12/03/20 07:17 Pulse 65 12/03/20 07:17 Resp 17 12/03/20 07:17 BP 173/67 12/03/20 07:17 Pulse Ox 94 L 12/03/20 07:40 Intake & Output 12/02/20 12/03/20 12/03/20 18:59 06:59 18:59 Intake Total 100 0 Output Total 500 750 750 Balance -400 -750 -750 Weight 56.699 kg Intake: IV 100 Oral 0 0 Output: Urine 500 750 750 Uretheral (Hou) 750 750 Other: Voiding Method Indwelling Catheter Indwelling Catheter - Exam GENERAL EXAM: Alert, debilitated-looking, weak 85-year-old male, on 8 L of oxygen pulse ox of 94% comfortable in no apparent distress. HEAD: Normocephalic/atraumatic. EYES: Normal reaction of pupils, equal size. Conjunctiva pink, sclera white. NOSE: Clear with pink turbinates. THROAT: No erythema or exudates. NECK: No masses, no JVD, no thyroid enlargement, no adenopathy. CHEST: No chest wall deformity. Symmetrical expansion. LUNGS: Equal air entry with bilateral scattered rhonchi CVS: Regular rate and rhythm, normal S1 and S2, no gallops, no murmurs, no rubs ABDOMEN: PEG tube exit site clean. Soft, nontender. No hepatosplenomegaly, normal bowel sounds, no guarding or rigidity. EXTREMITIES: No clubbing, no edema, no cyanosis, 2+ pulses and upper and lower extremities. MUSCULOSKELETAL: Muscle strength and tone normal. SPINE: No scoliosis or deformity SKIN: No rashes CENTRAL NERVOUS SYSTEM: No focal deficits, tone is normal in all 4 extremities. PSYCHIATRIC: Alert and oriented -3. Appropriate affect. Intact judgment and insight. - Labs CBC & Chem 7: 12/03/20 08:35 12/03/20 08:35 Labs: Abnormal Lab Results - Last 24 Hours (Table) 08/12/02/20 12/03/20 Range/Units 07:02 15:10 08:35 WBC 11.3 H (3.8-10.6) k/uL RBC 3.33 L (4.30-5.90) m/uL Hgb 10.0 L (13.0-17.5) gm/dL Hct 30.7 L (39.0-53.0) % Plt Count 483 H (150-450) k/uL Neutrophils # 10.3 H (1.3-7.7) k/uL Lymphocytes # 0.5 L (1.0-4.8) k/uL Sodium (137-145) mmol/L Chloride (98-107) mmol/L BUN (9-20) mg/dL Creatinine (0.66-1.25) mg/dL Glucose (74-99) mg/dL Procalcitonin 0.30 H (0.02-0.09) ng/mL Coronavirus (PCR) Detected A (Not Detectd) 12/03/20 Range/Units 08:35 WBC (3.8-10.6) k/uL RBC (4.30-5.90) m/uL Hgb (13.0-17.5) gm/dL Hct (39.0-53.0) % Plt Count (150-450) k/uL Neutrophils # (1.3-7.7) k/uL Lymphocytes # (1.0-4.8) k/uL Sodium 146 H (137-145) mmol/L Chloride 112 H (98-107) mmol/L BUN 32 H (9-20) mg/dL Creatinine 1.74 H (0.66-1.25) mg/dL Glucose 156 H (74-99) mg/dL Procalcitonin (0.02-0.09) ng/mL Coronavirus (PCR) (Not Detectd) Microbiology - Last 24 Hours (Table) 11/27/20 10:09 Blood Culture - Preliminary Blood No Growth after 120 hours 11/27/20 09:58 Blood Culture - Preliminary Blood No Growth after 120 hours Assessment and Plan Assessment: 1 Acute hypoxic respiratory failure related to acute COPD 19 pneumonia and aspiration pneumonia. Patient had a positive COVID-19 PCR on 11/19/2020, still positive on 12/02/2020, computed tomography scan of the chest showed possibility of chronic aspiration with lower lobe infiltrates and small pleural effusions. Currently is on oral Decadron 6 mg daily, Zosyn and Lovenox. Patient has a history of silent aspiration with another episode of aspiration today. Currently on 8 L high flow nasal cannula. Received a PEG tube placement on 12/02/2020. 2 COVID-19 infection with positive PCR, and the patient isn't vaccinated 3 Chronic dysphagia/aspiration, silent 4 History of CVA with left-sided weakness 5 Hypertension 6 Hyperlipidemia 7 Peripheral vascular disease 8 Chronic gastritis with previous bouts of GI bleeding and peptic ulcer disease 9 Macular degeneration 10 Nephrolithiasis 11 Anemia, chronic, normocytic 12 Acute kidney injury related to HTN 13 Hypernatremia Plan: Patient was seen and evaluated by Dr. Pierce Chest x-ray reviewed, worsening of the left lung The patient aspirated again this morning Overall prognosis remains quite poor DO NOT RESUSCITATE/DO NOT INTUBATE CODE STATUS The patient's daughter is at the bedside They are considering hospice I, the cosigning physician, performed a history & physical examination of the patient. Lungs sounds with bilateral scattered rhonchi, crackles in the bilateral posterior bases. Maintaining good O2 saturations in the 90s on 8 L high flow nasal cannula. I discussed the assessment and plan of care with my nurse practitioner, Ayesha Liang. I attest to the above note as dictated by her.
--- NOTE | 2020-12-03 12:43 | PN ---
PROGRESS NOTE DATE OF SERVICE: 12/03/2020 REASON FOR FOLLOWUP: Recurrent aspiration pneumonia and Covid. INTERVAL HISTORY: The patient is afebrile this morning. He did have an episode of significant respiratory distress and had to be suctioned. The patient did have a congested cough, unable to cough up any sputum. No vomiting. No abdominal pain or diarrhea. PEG tube was placed yesterday. However, tube feed has not been started. PHYSICAL EXAMINATION: Blood pressure 173/67, pulse of 55, temperature of 98.4. He is 94% on 8 L high-flow oxygen. GENERAL DESCRIPTION: General description is an elderly male up in the bed in no distress. RESPIRATORY SYSTEM: Unlabored breathing. Coarse breath sounds bilaterally. HEART: S1, S2. Regular rate and rhythm. ABDOMEN: Soft. No tenderness. LABS: Hemoglobin is 11.3, creatinine 1.64. DIAGNOSTIC IMPRESSION AND PLAN: 1. Patient with recurrent aspiration pneumonia in this patient currently covered with Zosyn; however, with recurrent episodes and no clinical improvement, hospice may be a better option. 2. Patient with Covid. Continue with for 20 days from his diagnosis . Daughter at the bedside. Questions were answered. MMODL / IJN: [id number] /
== END 2020-12-03 12:00 | disposition hospice, inpatient (51) | DRG 177 ==
LOC: EC 10:20 → 4SSUR 15:25
PROVIDERS: ADMIT Family Medicine; ATTEND Family Medicine
PROC: 5A0955A Assistance with Respiratory Ventilation, Greater than 96 Consecutive Hours, High Flow/Velocity Cannula (ICD-10-PCS; 2020-11-22)
PROC: 0DH63UZ Insertion of Feeding Device into Stomach, Percutaneous Approach (ICD-10-PCS; principal; 2020-12-02 08:05)
DX: U07.1 COVID-19 (principal); J12.82 Pneumonia due to coronavirus disease 2019; J96.01 Acute respiratory failure with hypoxia; J69.0 Pneumonitis due to inhalation of food and vomit; E43 Unspecified severe protein-calorie malnutrition; B37.0 Candidal stomatitis; I69.354 Hemiplegia and hemiparesis following cerebral infarction affecting left non-dominant side; N17.9 Acute kidney failure, unspecified; E87.0 Hyperosmolality and hypernatremia; E11.51 Type 2 diabetes mellitus with diabetic peripheral angiopathy without gangrene; D49.7 Neoplasm of unspecified behavior of endocrine glands and other parts of nervous system; I49.5 Sick sinus syndrome; I69.391 Dysphagia following cerebral infarction; J44.9 Chronic obstructive pulmonary disease, unspecified; Z66 Do not resuscitate; Z51.5 Encounter for palliative care; R13.10 Dysphagia, unspecified; K29.50 Unspecified chronic gastritis without bleeding; E78.5 Hyperlipidemia, unspecified; I35.0 Nonrheumatic aortic (valve) stenosis; D64.9 Anemia, unspecified; F32.9 Major depressive disorder, single episode, unspecified; E07.9 Disorder of thyroid, unspecified; I10 Essential (primary) hypertension; M41.9 Scoliosis, unspecified; H35.30 Unspecified macular degeneration; G89.29 Other chronic pain; M54.9 Dorsalgia, unspecified; Z68.20 Body mass index [BMI] 20.0-20.9, adult; Z79.82 Long term (current) use of aspirin; Z79.02 Long term (current) use of antithrombotics/antiplatelets; Z79.891 Long term (current) use of opiate analgesic; Z79.899 Other long term (current) drug therapy; Z87.01 Personal history of pneumonia (recurrent); Z87.19 Personal history of other diseases of the digestive system; Z87.891 Personal history of nicotine dependence; Z87.442 Personal history of urinary calculi; Z87.11 Personal history of peptic ulcer disease; Z86.79 Personal history of other diseases of the circulatory system; Z87.39 Personal history of other diseases of the musculoskeletal system and connective tissue; Z96.651 Presence of right artificial knee joint; Z87.448 Personal history of other diseases of urinary system; Z95.0 Presence of cardiac pacemaker; Z98.1 Arthrodesis status; Z98.890 Other specified postprocedural states; Z71.3 Dietary counseling and surveillance; Z88.6 Allergy status to analgesic agent; Z88.5 Allergy status to narcotic agent; Z88.8 Allergy status to other drugs, medicaments and biological substances; Z80.6 Family history of leukemia; Z80.1 Family history of malignant neoplasm of trachea, bronchus and lung; Z83.1 Family history of other infectious and parasitic diseases; Z81.2 Family history of tobacco abuse and dependence
CPT/HCPCS: 36415; 43246; 71045; 71046; 71275; 74176; 74230; 80048; 80053; 80202; 82565; 83605; 83615; 84145; 84484; 85025; 85379; 85610; 85730; 86140; 87040; 87635; 93005; 94760; 96361; 96374; 99285

== ENCOUNTER → 2020-11-19 | Outpatient (CLI) | payer MEDICARE, OTHER | END | disposition home or self-care (01) | LOC: RADXRMAIN 13:43 | PROVIDERS: ATTEND Urology | DX: Z53.9 Procedure and treatment not carried out, unspecified reason (principal) ==

== ENCOUNTER → 2020-11-19 | Outpatient (CLI) | payer MEDICARE, OTHER ==
--- NOTE | 2020-11-19 13:35 | CT ---
EXAMINATION TYPE: CT abdomen pelvis wo con DATE OF EXAM: 11/19/2020 HISTORY: renal stone, left-sided chest and abdominal pain. 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 CT DLP: 574.9 mGycm. Automated Exposure Control for Dose Reduction was Utilized. TECHNIQUE: CT scan of the abdomen and pelvis is performed without oral or IV contrast. COMPARISON: Abdominal x-ray series July 16, 2020 FINDINGS: Within the limitations of a non-contrast study, the following observations are made. LUNG BASES: Small to tiny bilateral pleural effusions with associated compressive atelectasis is part ially imaged. Hyperdense nodules in the medial right lung base are redemonstrated could reflect inges kip barium or metallic foreign bodies from prior trauma. Correlate clinically. LIVER/GB: There is 2.6 cm central rim hyperdense gallstone. PANCREAS: No significant abnormality is seen. SPLEEN: No significant abnormality is seen. ADRENALS: Low dense thickening to both adrenal glands favors benign lipid rich hyperplasia. KIDNEYS: Some cortical thinning bilaterally. Some scattered simple-appearing thin-walled cysts bilate rally. Mild fullness right renal pelvis without calyceal dilatation. More moderate fullness left jw l pelvis without significant calyceal dilatation. No hydroureter or renal calculi. Moderately distend ed bladder without intraluminal mass or calculus. BOWEL: No suspicious small or large bowel dilatation. Qxmh-[id number]-bllkmsnu diffuse colonic fecal prominen ce. GENITAL ORGANS: Occasional scattered right-sided pelvic phleboliths. Nonenlarged prostate. LYMPH NODES: No greater than 1cm abdominal or pelvic lymph nodes are appreciated. OSSEOUS STRUCTURES: Postsurgical change L2-L5 levels bilaterally. Artificial disc material L4-L5 leve l. Kgslldgx-[id number]-colvhh multilevel anterior and lateral spine. Moderate to severe narrowing and moderat e spurring in both hip joints. OTHER: Moderate to severe calcified plaque of the aorta extends into branch vessels. Small to modera te-sized bilateral scrotal fluid collection or hydroceles. Asymmetric diminished size and/or atrophy of the proximal left thigh muscles versus the opposite right side. IMPRESSION: 1. Overall nonobstructive bowel gas pattern. Tpce-ns-kuzvuagt diffuse colonic fecal stasis noted. 2. Moderately distended bladder probable neurogenic bladder likely causing mild left greater than rig ht pelvic fullness or possible hydronephrosis, correlate clinically. No renal calculi noted.
--- NOTE | 2020-11-19 18:30 | P.CNPUL ---
History of Present Illness Consult date: 11/19/20 Reason for consult: pneumonia History of present illness: 85-year-old male patient coming in again to the hospital because of worsening shortness of breath and generalized weakness. The patient was in the hospital back in a 8 2020 and at a time the patient was treated for an aspiration pneumonia. The patient was treated with IV Zosyn. The blood cultures back and was negative. The patient improved and the patient was discharged home. Note that at that time, the patient was COVID-19 negative. COVID-19 PCR that was obtained on 11/08/2020 was negative. The patient was discharged home to be readmitted back to the hospital with generalized weakness, increased shortness of breath and some cough. Note that the patient is a former smoker 40 pack years and is within vaccinated for COVID-19. Denies having any nausea vomiting or diarrhea. CAT scan of the chest shows bilateral lower lobe pulmonary infiltrates along with small effusions. There is also patchy area of groundglass for greater than left lung/left upper lobe. The CAT scan of the abdomen and pelvis was also done that showed an overall nonobstructive bowel gas pattern. There was evidence also of diffuse colonic fecal stasis. The bladder was distended and possibly related to underlying neurogenic bladder. 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 He has chronic dysphagia. He has other issues related to hypertension and hyperlipidemia and macular degeneration and peptic ulcer disease and chronic gastritis. Of interest is that the patient's repeat COVID-19 19 testing came back positive by PCR. Review of Systems Constitutional: Reports fatigue, Reports weakness Eyes: bilateral blurred vision, denies as per HPI, denies bulging eye, denies decreased vision, denies diplopia, denies discharge, denies dry eye, denies irritation, denies itching, denies pain, denies photophobia, denies loss of peripheral vision, denies loss of vision, denies tunnel vision/blind spots Ears: bilateral: decreased hearing, deny: ear discharge, earache, tinnitus Ears, nose, mouth and throat: Reports as per HPI Breasts: absent: as per HPI, gynecomastia Cardiovascular: Reports decreased exercise tolerance, Reports dyspnea on exertion, Reports shortness of breath Respiratory: Reports dyspnea Gastrointestinal: Reports as per HPI (Chronic dysphagia), Reports constipation Genitourinary: Reports as per HPI Musculoskeletal: Reports as per HPI Musculoskeletal: absent: ankle pain, ankle stiffness, ankle swelling Integumentary: Reports as per HPI Neurological: Reports as per HPI (Previous CVA with left-sided weakness, chronic dysphagia), Reports weakness Psychiatric: Reports as per HPI Endocrine: Reports as per HPI Hematologic/Lymphatic: Reports as per HPI Allergic/Immunologic: Reports as per HPI Past Medical History Past Medical History: CVA/TIA, Eye Disorder, GI Bleed, Hyperlipidemia, Hypertension, Pneumonia, Thyroid Disorder, Vascular Disorder Additional Past Medical History / Comment(s): Pt recently admitted to [facility] on 07/16/20 with mid abdominal pain/melena/possible gastritis/possible PUD, multiple tiny nodules R lung base/nonspecific sclerotic focus R iliac crest. Other hx: CVA with L sided deficits, dysphagia/aspiration pne, PUD, bilateral macular degeneration/vision very poor, anemia with current iron infusions, nephrolithiasis/surgery, newly diagnosed thyroid tumor-to be followed up, chronic back pain/fentynal patch. History of Any Multi-Drug Resistant Organisms: None Reported Past Surgical History: Joint Replacement, Orthopedic Surgery Additional Past Surgical History / Comment(s): R caratid endartectomy, laminectomy/cage (3 lower back surgeries), cervical surgery/hardware, R total knee arthroplasty x2, kidney surgery d/t stones and had ureter repair d/t damage from stone, colonoscopy. Past Anesthesia/Blood Transfusion Reactions: Previous Problems w/ Anesthesia Additional Past Anesthesia/Blood Transfusion Reaction / Comment(s): Difficulty waking. Pt is very clausterphobic Smoking Status: Former smoker - Past Family History Son(s) Family Medical History: Cancer Additional Family Medical History / Comment(s): Son from bacterial meningitis. He has leukemia Mother Family Medical History: Cancer Father Family Medical History: Cancer Additional Family Medical History / Comment(s): Father of lung cancer. He was a smoker. Medications and Allergies Home Medications Medication Instructions Recorded Confirmed Type Cetirizine HCl 10 mg PO DAILY 07/16/20 11/08/20 History Clopidogrel Bisulfate [Plavix] 75 mg PO DAILY 07/16/20 11/08/20 History Escitalopram [Lexapro] 10 mg PO DAILY 07/16/20 11/08/20 History Gabapentin [Neurontin] 100 mg PO BID 07/16/20 11/08/20 History Metoclopramide [Reglan] 10 mg PO BID 07/16/20 11/08/20 History Montelukast [Singulair] 10 mg PO DAILY 07/16/20 11/08/20 History Simvastatin [Zocor] 20 mg PO DAILY 07/16/20 11/08/20 History Pantoprazole Sodium [Protonix] 40 mg PO BID #60 tablet. 07/18/20 11/08/20 Rx Aspirin 81 mg PO DAILY 07/22/20 11/08/20 History Lisinopril [Prinivil] 10 mg PO DAILY 07/22/20 11/08/20 History Multivitamin [Multivitamins Adult 1 tab PO DAILY 07/22/20 11/08/20 History Gummies] Vit C/E/Zn/Coppr/Lutein/Zeaxan 1 tab PO DAILY 07/22/20 11/08/20 History [Preservision Areds 2 Softgel] Ipratropium-Albuterol Nebulize 3 ml INHALATION RT-QID PRN 11/08/20 11/08/20 Hist ory [Duoneb 0.5 mg-3 mg/3 ml Soln] Tiotropium Success [Spiriva 2 spray INHALATION DAILY PRN 11/08/20 11/08/20 History Respimat] fentaNYL 50MCG/HR PATCH [Duragesic 1 patch TRANSDERM Q72H 11/08/20 11/08/20 History 50MCG/HR] Amoxic-Pot Clav 875-125Mg 1 tab PO BID 1 Days #6 tab 11/12/20 Rx [Augmentin 875-125] Diclofenac Sodium Gel [Voltaren 4 gm TOPICAL QID #1 tub 11/12/20 Rx Gel] Glycopyrrolate [Robinul] 2 mg PO BID #60 tablet 11/12/20 Rx Allergies Allergy/AdvReac Type Severity Reaction Status Date / Time celecoxib [From Celebrex] Allergy Confusion Verified 11/08/20 16:30 nabumetone [From Relafen] Allergy Rash/Hives Verified 11/08/20 16:30 oxycodone [From Percocet] Allergy Unknown Verified 11/08/20 16:30 haloperidol [From Haldol] AdvReac Anaphylaxis Verified 11/08/20 16:30 Physical Exam 85-year-old gentleman. No acute distress, oriented 3. No acute respiratory distress. The patient does have a wet very congested cough. 97% on 2 L about 2 by nasal cannula HEENT examination is grossly unremarkable. Neck supple. Full range of motion. No adenopathy thyromegaly or neck vein distention. Cardiovascular examination reveals regular rhythm rate. S1-S2 normal. No S3 or S4. No discernible murmur noted. Heart sounds are distant. Heart rate 56 bpm. Lungs reveal coarse bilateral rhonchi. Crackles in the right lung base. Breath sounds equal bilaterally. His cough is very wet and congested sounding. Abdomen soft bowel sounds are heard. No masses or tenderness. Extremities are intact. No cyanosis clubbing or edema. Skin is without rash or lesion. Neurologic examination is brief but nonfocal. Results - Diagnostic Findings Chest x-ray: image reviewed CT scan - chest: image reviewed Assessment and Plan Plan: 1 bilateral pneumonia. Based on my review of the CAT scan images, the patient's pneumonia is probably multifactorial related to chronic aspiration as the patient continues to have lower lobe infiltrates and small pleural effusions. At the same time there is a new area of infiltration of the left lung which obviously raises the suspicion for an underlying carbonate infection/pneumonia monitor the patient's PCR is positive for COVID-19 19. Patient has history of silent aspiration. The patient has chronic dysphagia, previous CVA and he has been treated recently for an aspiration pneumonia with IV Zosyn and completed a course of Augmentin outpatient basis. 2 COVID-19 infection with positive PCR, patient is vaccinated 3 chronic dysphagia/aspiration, silent For history of CVA with left-sided weakness 5 hypertension 6 hyperlipidemia 7. Vascular disease 8 chronic gastritis with previous bouts of GI bleed/peptic ulcer disease 9 macular degeneration 10 nephrolithiasis 11 anemia, chronic, normocytic Plan Check pro calcitonin level Checked LDH, CRP and d-dimer is currently at 1.65 Keep the patient IV Zosyn Decadron 6 mg by mouth daily Lovenox 40 mg subcu 40 prophylaxis Oxygen supplementation to maintain saturation above 90% Resume all medications CAT scan of the chest and abdomen and pelvis was noted Aspiration precautions We'll continue to follow. Consider PEG tube insertion should there be any issues with chronic aspiration pneumonia
== END | disposition home or self-care (01) ==
LOC: RADCTMAIN 12:52
PROVIDERS: ATTEND Urology
DX: K59.89 Other specified functional intestinal disorders (principal); N32.89 Other specified disorders of bladder
CPT/HCPCS: 74176

== ENCOUNTER 2020-12-03 11:33 | Inpatient (IN) | payer MEDICAID ==
[2020-12-03] MEDS ORDERED: ACETAMINOPHEN SUPPOSITORY 650 MG SUPP RECTAL PRN (11:47)
[2020-12-03] MEDS ORDERED: MORPHINE SULFATE 2 MG/ML SYRINGE IV PRN (11:47)
[2020-12-03] MEDS ORDERED: ONDANSETRON 4 MG/2 ML VIAL IVP PRN (11:47)
[2020-12-03] MEDS ORDERED: LORazepam 2 MG/ML INJ IV PRN (11:47)
[2020-12-03] MEDS ORDERED: SCOPOLAMINE 1.5MG/72HR PATCH TRANSDERM SCH (12:00)
[2020-12-03] MEDS: GLYCOPYRROLATE 0.2 MG/ML 2 ML VIAL IVP SCH ×2 (12:43→17:34)
[2020-12-03] MEDS: MORPHINE SULFATE (100 MG/2 ML) 100 MG in SODIUM CHLORIDE 0.9% 100 ML IV SCH (12:51)
[2020-12-03 13:16] VITALS: BMI 20.1
[2020-12-03 23:00] VITALS: BP 169/78
[2020-12-04] MEDS: GLYCOPYRROLATE 0.2 MG/ML 2 ML VIAL IVP SCH ×4 (00:12→17:24)
[2020-12-04 04:12] VITALS: TEMP 99
[2020-12-04] MEDS: MORPHINE SULFATE (100 MG/2 ML) 100 MG in SODIUM CHLORIDE 0.9% 100 ML IV SCH (12:25)
[2020-12-04 19:24] VITALS: PULSE 75
[2020-12-05] MEDS: GLYCOPYRROLATE 0.2 MG/ML 2 ML VIAL IVP SCH ×2 (00:15→06:22)
--- NOTE | 2020-12-05 01:12 | P.PN ---
Subjective Progress Note Date: 12/04/20 This is an 85-year-old male who was recently admitted with bilateral pneumonia who was also found to be Covid positive and is being closely monitored. Multiple medical consultations including pulmonary along with infectious disease following. 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 Patient continues on IV Zosyn. Per nursing staff patient continues to choke on everything including nectar thickened liquids and family initially refusing PEG tube although would like a surgical consultation for possible PEG tube placement. Patient currently maintained on 6-8 L high flow with 95% oxygen saturation. Blood cultures have remained negative. Chest x-ray today shows findings consistent with Covid pneumonia with bilateral patchy airspace disease and prominence of interstitium again noted. 12/02/2020 Patient is seen and evaluated this morning continues to be on high flow oxygen although denies any worsening shortness of breath. Patient needs frequent suctioning as he has copious amounts of secretions that he is not able to expel. Discussed with the daughter who is his caregiver at length about continuous suctioning and maintaining aspiration precautions. Multiple medical consulta tions following including infectious disease, pulmonary, and surgery. Patient is scheduled for PEG tube placement for palliative oral nutrition as patient has a long-standing history of silent aspiration with a past medical history of CVA in the past. Daughter states once patient is stabilized he will returning home and she will be caring for him. Patient currently maintained on 8 L high flow a nd maintaining oxygen saturations above 90%. Patient was not wearing oxygen prior to having Covid and will likely require oxygen on discharge secondary to COVID-19 pneumonia. Patient will be nothing by mouth and appreciate surgical recommendations with dietitian consult to initiate tube feedings. Case management will be following as well and planning discharge planning needs in regards to tube feedings and supplemental O2. White blood count is stable at 9.3, hemoglobin 9.0 with no active bleeding noted. D-dimer continues to be positive at 1.67, sodium elevated at 147 and patient is maintained on D5 in water and will repeat labs. Potassium 3.2 and will replace per protocol and creatinine currently 1.75. Inflammatory markers continue to be elevated as well. 12/03/2020 Patient is seen in follow-up this morning having difficulty with increased secretions and unable to expectorate. Patient oxygen saturations dropping into the 70s and low 80s and maintained on 15 L high flow and continues to be hypoxic. Daughter was brought in with discussion of possible hospice as patient is requesting this. Daughter is agreeable with whatever her father wants. [facility] hospice consulted and will likely be signing inpatient hospice status with comfort measures only. Patient is currently a no code and wishes to remain this. Patient does not want to be on mechanical ventilation. Obtained a chest x-ray given increasing shortness of breath which shows continued COVID-19 pneumonia. White blood count is elevated at 11.3 and hemoglobin is 10.0, sodium is 146 with a potassium of 3.6 and current creatinine is 1.74. Repeat Covid testing was positive. Given patient's clinical condition and deteriorating status Dr. Jean Baptiste aware and agreeable to have one family member at the bedside and is maintaining Covid precautions. 12/04/2020 Patient is seen and evaluated this morning with daughter at the bedside. Patient is with [facility] comfort measures. Patient appears unresponsive and continued on morphine drip and supplemental oxygen at 8L via NC. Morphine drip at 6ml/hr currently. Objective - Vital Signs Vital signs: Vital Signs Temp 99.0 F 12/04/20 02:00 Pulse 64 12/03/20 20:00 Resp 10 L 12/04/20 02:00 BP 169/78 12/03/20 20:00 Pulse Ox 92 L 12/04/20 02:00 Intake & Output 12/03/20 12/04/20 12/04/20 18:59 06:59 18:59 Intake Total 10.799 Output Total 1200 Balance -1189.201 Weight 56.69 kg Intake: Intake, IV Titration 10.799 Amount Morphine Sulfate (100 mg/ 10.799 2 ml) 100 mg In Sodium Chloride 0.9% 100 ml @ 1 MG/HR 1.02 mls/hr IV . Q24H [facility] Rx#:[id number] Output: Urine 1200 Other: Voiding Method Indwelling Catheter - Exam Gen: This is a 85-year-old male unresponsive, thin built, ill-appearing. oxygen saturation is 97% on 8L high flow nasal cannula. HEENT: Head is atraumatic, normocephalic. Pupils equal, round. Sclerae is anicteric. NECK: Supple. No JVD. No lymphadenopathy. No thyromegaly. LUNGS: Diminished breath sounds bilaterally with some coarse rhonchi and diffuse crackles noted throughout. Weak cough on exam. No intercostal retractions. HEART: S1, S2 are muffled ABDOMEN: Soft. Bowel sounds are present. No masses. No tenderness. EXTREMITIES: No pedal edema. No calf tenderness. NEUROLOGICAL: Patient is awake, alert and oriented x3. Diffusely weak. Assessment and Plan Assessment: Bilateral COVID-19 pneumonia Status post PEG tube placement Acute hypoxic respiratory failure secondary to above Elevated inflammatory markers of COVID-19 Elevated d-dimer with no evidence of acute pulmonary embolism as noted on CT Possible aspiration pneumonia, silent aspiration is suspected with history of CVA Dysphagia Acute kidney injury possibly prerenal azotemia Hypernatremia Mild protein calorie malnutrition with a BMI of 20.2 GI prophylaxis DVT prophylaxis No code Recommendations and discussion: Recommend to continue with current medications and comfort measures. [facility] following. Continue with family support.
[2020-12-05 01:23] VITALS: RESP 16
[2020-12-05] MEDS: MORPHINE SULFATE (100 MG/2 ML) 100 MG in SODIUM CHLORIDE 0.9% 100 ML IV SCH (01:24)
--- NOTE | 2020-12-05 15:08 | P.DS ---
Providers Date of admission: 12/03/20 12:08 Expected date of discharge: 12/05/20 Attending physician: Aaliyah Tate Primary care physician: Aaliyah Tate Hospital Course: Final diagnosis Bilateral COVID-19 pneumonia Status post PEG tube placement Acute hypoxic respiratory failure secondary to above Elevated inflammatory markers of COVID-19 Elevated d-dimer with no evidence of acute pulmonary embolism as noted on CT Possible aspiration pneumonia, silent aspiration is suspected with history of CVA Dysphagia Acute kidney injury possibly prerenal azotemia Hypernatremia Mild protein calorie malnutrition with a BMI of 20.2 GI prophylaxis DVT prophylaxis No code Preliminary cause of Bilateral COVID-19 pneumonia Discharge disposition Patient has on 12/05/2020. Per nursing documentation time of was 7:13 AM. Hospital course This is an 85-year-old male who was recently admitted with bilateral pneumonia also found to be Covid positive and closely monitored. Patient also has a past medical history of CVA with chronic dysphagia and aspiration is silent nature and was treated with antibiotic therapy. Continue to have choking and difficulty swallowing and managing secretions and ultimately received a PEG tube for palliative nutrition. Patient continued to worsen and decline clinically becoming more dependent on oxygen and was placed on nonrebreather. Patient was no code per his wishes and did not want mechanical ventilation. Patient and family members discussed overall prognosis and were agreeable to hospice. [facility] signed with them and patient was made inpatient hospice with comfort measures only. Patient has today on 12/05/2020 and time of or nursing documentation was 7:13 AM. Please refer to previous dictations along with his primary care provider dictations Dr. Willi Trent for further documentation. A copy of this dictation will be copied to him. Patient Condition at Discharge: Poor Plan - Discharge Summary New Discharge Prescriptions: No Action Montelukast [Singulair] 10 mg PO DAILY Cetirizine HCl 10 mg PO DAILY Gabapentin [Neurontin] 100 mg PO BID Clopidogrel Bisulfate [Plavix] 75 mg PO DAILY Vit C/E/Zn/Coppr/Lutein/Zeaxan [Preservision Areds 2 Softgel] 1 cap PO DAILY Lisinopril [Prinivil] 10 mg PO DAILY fentaNYL 50MCG/HR PATCH [Duragesic 50MCG/HR] 1 patch TRANSDERM Q72H Ipratropium-Albuterol Nebulize [Duoneb 0.5 mg-3 mg/3 ml Soln] 3 ml INHALATION RT-QID PRN PRN Reason: Shortness Of Breath Tiotropium Morrison [Spiriva Respimat] 2 puff INHALATION RT-DAILY PRN PRN Reason: Shortness Of Breath Amoxic-Pot Clav 875-125Mg [Augmentin 875-125] 1 tab PO BID 1 Days #6 tab Metoclopramide [Reglan] 10 mg PO BID Escitalopram [Lexapro] 10 mg PO DAILY Simvastatin [Zocor] 20 mg PO DAILY Pantoprazole Sodium [Protonix] 40 mg PO BID #60 tablet. Multivitamin [Multivitamins Adult Gummies] 1 tab PO DAILY Aspirin 81 mg PO DAILY Glycopyrrolate [Robinul] 2 mg PO BID #60 tablet Diclofenac Sodium Gel [Voltaren Gel] 4 gm TOPICAL QID #1 tub Discharge Medication List Cetirizine HCl 10 mg PO DAILY 07/16/20 [History] Clopidogrel Bisulfate [Plavix] 75 mg PO DAILY 07/16/20 [History] Escitalopram [Lexapro] 10 mg PO DAILY 07/16/20 [History] Gabapentin [Neurontin] 100 mg PO BID 07/16/20 [History] Metoclopramide [Reglan] 10 mg PO BID 07/16/20 [History] Montelukast [Singulair] 10 mg PO DAILY 07/16/20 [History] Simvastatin [Zocor] 20 mg PO DAILY 07/16/20 [History] Pantoprazole Sodium [Protonix] 40 mg PO BID #60 tablet. 07/18/20 [Rx] Aspirin 81 mg PO DAILY 07/22/20 [History] Lisinopril [Prinivil] 10 mg PO DAILY 07/22/20 [History] Multivitamin [Multivitamins Adult Gummies] 1 tab PO DAILY 07/22/20 [History] Vit C/E/Zn/Coppr/Lutein/Zeaxan [Preservision Areds 2 Softgel] 1 cap PO DAILY 07/22/20 [History] Ipratropium-Albuterol Nebulize [Duoneb 0.5 mg-3 mg/3 ml Soln] 3 ml INHALATION RT-QID PRN 11/08/20 [History] Tiotropium Morrison [Spiriva Respimat] 2 puff INHALATION RT-DAILY PRN 11/08/20 [History] fentaNYL 50MCG/HR PATCH [Duragesic 50MCG/HR] 1 patch TRANSDERM Q72H 11/08/20 [History] Amoxic-Pot Clav 875-125Mg [Augmentin 875-125] 1 tab PO BID 1 Days #6 tab 11/12/20 [Rx] Diclofenac Sodium Gel [Voltaren Gel] 4 gm TOPICAL QID #1 tub 11/12/20 [Rx] Glycopyrrolate [Robinul] 2 mg PO BID #60 tablet 11/12/20 [Rx] Discharge Disposition: - Preliminary Cause of Preliminary Cause of : Bilateral COVID-19 pneumonia
== END 2020-12-05 08:48 | disposition expired | DRG 951 ==
LOC: 4SSUR 12:08
PROVIDERS: ADMIT Hospitalist; ATTEND Hospitalist
DX: Z51.5 Encounter for palliative care (principal); U07.1 COVID-19; J12.82 Pneumonia due to coronavirus disease 2019; J96.01 Acute respiratory failure with hypoxia; J69.0 Pneumonitis due to inhalation of food and vomit; E44.1 Mild protein-calorie malnutrition; E87.0 Hyperosmolality and hypernatremia; N17.9 Acute kidney failure, unspecified; J44.0 Chronic obstructive pulmonary disease with (acute) lower respiratory infection; Z66 Do not resuscitate; I69.391 Dysphagia following cerebral infarction; Z93.1 Gastrostomy status; Z99.81 Dependence on supplemental oxygen; R79.1 Abnormal coagulation profile; Z68.20 Body mass index [BMI] 20.0-20.9, adult; Z88.5 Allergy status to narcotic agent; Z88.8 Allergy status to other drugs, medicaments and biological substances; Z79.02 Long term (current) use of antithrombotics/antiplatelets; Z79.82 Long term (current) use of aspirin; Z79.891 Long term (current) use of opiate analgesic; Z79.899 Other long term (current) drug therapy